=== PATIENT | male | born 1950 | race Caucasian/White ===

== ENCOUNTER → 2016-06-26 | Outpatient (CLI) | payer OTHER, MEDICARE ==
[~2016-06-26] MED LIST: ACET325T96 PO; ALPR-411 PO; AMLO-110 PO; ASPI81TA28 PO; ATEN25TA PO; ATOR-26 PO; ATV/1 PO; B-CO1CAP17 PO; BUSP15TA70 PO; CALC667C4 PO; CINA0.42 PO; CRD200 PO; DOCU-94 PO; FOLI1TAB7 PO; GLIP5TAB11 PO; LVQ500 PO; NVLGI SC; PANT40TA PO; PARO1TAB29 PO; PARO30TA PO; PRD20 PO; PRVHFAIN INH; SENN-91 PO; SUCR5SUS PO; VNFI IV; [UNRECOGNIZED DRUG - CODE] SC
--- NOTE | 2016-06-26 09:59 | DIAGNOSTIC IMAGING REPORT ---
CHEST 2 VIEWS ROUTINE CLINICAL HISTORY: CHF dyspnea COMPARISON STUDY: 09/24/2015 FINDINGS: Prominent parenchymal infiltrate left midlung. Chronic basilar interstitial change. Moderate stable cardiomegaly. Implantable cardiac pacemaker/defibrillator IMPRESSION: Round parenchymal infiltrate versus the less likely possibility of nodular pathology left midlung. Follow-up to resolution is considered mandatory. Moderate stable cardia megaly. Electronically signed by: Minesh Perrin M.D. 06/26/2016 9:57 AM Dictated Date/Time: 06/26/2016 9:56 AM
== END | disposition home or self-care (01) ==
LOC: C.RADBBURG 14:21
PROVIDERS: ATTEND Internal Medicine
DX: R06.02 Shortness of breath (principal); I51.7 Cardiomegaly

== ENCOUNTER → 2016-07-07 | Outpatient (CLI) | payer OTHER, MEDICARE ==
--- NOTE | 2016-07-07 16:28 | DIAGNOSTIC IMAGING REPORT ---
CHEST CT WITHOUT CONTRAST CT DOSE: 678.40 mGycm HISTORY: Abnormal chest x-ray R93.8 Abnormal chest x-ray07/07 TECHNIQUE: Multiaxial CT images of the chest were performed without contrast. COMPARISON: 09/23/2015 FINDINGS: Interval development of a pleural-based nodule with low density characteristics peripheral aspect left midlung. Dimensions are 4.5 x 3.0 cm at maximum. This potentially represents pseudo nodule and/or loculated fluid within the major fissure. Lungs otherwise appear generally clear. There is slight chronic basilar interstitial prominence. There is moderate cardiomegaly are there is findings of prior median sternotomy. Several hepatic cysts are present which are unchanged. IMPRESSION: 1. Interval development of a pleural-based density region of the left major fissure measuring 4.5 x 3.0 cm. 2. Density characteristics indicate this is most likely a pseudo nodule with fluid content. 3. Slight basilar chronic interstitial prominence. 4.: Follow-up to ensure complete resolution is indicated. This persists, bronchoscopy would be suggested. Electronically signed by: Minesh Perrin M.D. 07/07/2016 4:26 PM Dictated Date/Time: 07/07/2016 4:20 PM
== END | disposition home or self-care (01) ==
LOC: C.CTS 15:57
PROVIDERS: ATTEND Physician Assistant
DX: R91.8 Other nonspecific abnormal finding of lung field (principal)

== ENCOUNTER 2016-07-20 09:01 | Inpatient (IN) | payer OTHER, MEDICARE ==
[2016-07-20] VITALS (50 sets, daily range): BP systolic 75–125; BP diastolic 40–65; PULSE 60–71; TEMP 36.6–37.2; O2SAT 92–100; Ht 172.7 cm; Wt 97.7 kg
[~2016-07-20] VITALS: Ht 172.7 cm; Wt 97.7 kg
[~2016-07-20 09:01] MED LIST changes: -ACET325T96 PO; -ALPR-411 PO; -BUSP15TA70 PO; -LVQ500 PO; -PARO1TAB29 PO; -PRD20 PO; -PRVHFAIN INH
--- NOTE | 2016-07-20 09:24 | EMERGENCY ROOM VISIT NOTE ---
History Report prepared by Rosa: Maria A Be Under the Supervision of: Dr. Marcus Moore M.D. First contact with patient: 09:14 Chief Complaint: RESPIRATORY DISTRESS Stated Complaint: SHORTNESS OF BREATH Nursing Triage Summary: Pt arrives ALS from home Pt c/o cold sx x3 weeks with SOB Pt reports this morning SOB increased significantly O2 sats 79% on RA when EMS arrived on scene hx COPD, dialysis History of Present Illness The patient is a 66 year old male who presents to the Emergency Room with complaints of worsening shortness of breath over the past three weeks. The patient associates cold symptoms with his shortness of breath over the last three days. He states that his shortness of breath worsened this morning. Nursing staff reports that the patient was statting 79% on room air upon EMS's arrival. The patient states that he has had this in the past. He notes a history of COPD and dialysis. The patient associates abdominal pain with his symptoms today. Nursing staff notes that the patient had one Duoneb prior to arrival today. Source of History: patient, nursing staff Onset: past three weeks Position: other (global) Quality: other (shortness of breath) Timing: worsening Associated Symptoms: + abdominal pain Note: Associated Symptoms: cold symptoms Review of Systems See HPI for pertinent positives & negatives. A total of 10 systems reviewed and were otherwise negative. Past Medical & Surgical Medical Problems: (1) Abdominal wound dehiscence (2) Acute respiratory failure with hypoxia (3) Anemia (4) ASCVD (arteriosclerotic cardiovascular disease) (5) CHF exacerbation (6) Colostomy care (7) Dehydration (8) Diabetes mellitus (9) End-stage renal disease on hemodialysis (10) ESRD on hemodialysis (11) History of diverticular abscess of colon (12) Hypotension (13) Ileostomy in place (14) Intra-abdominal abscess (15) Post traumatic stress disorder (PTSD) (16) Secondary hyperparathyroidism of renal origin Surgical Problems: (1) AICD (automatic cardioverter/defibrillator) present (2) Hx of CABG (3) S/P AVR (aortic valve replacement) Family History Patient reports no known family medical history. Social History Smoking Status: Former Smoker Drug Use: none Marital Status: single Housing Status: lives alone, other Occupation Status: retired Current/Historical Medications Scheduled Amiodarone HCl (Amiodarone HCl), 100 MG PO BID Amlodipine (Norvasc), 5 MG PO DAILY Aspirin (Aspirin Ec), 81 MG PO DAILY Atenolol (Tenormin), 12.5 MG PO QD@1230 Atorvastatin (Lipitor), 80 MG PO QPM Buspirone Hcl (Buspar), 5 MG PO BID Calcium Acetate (Phoslo 667 Mg), 3 CAP PO TIDM Cinacalcet (Sensipar), 30 MG PO BID Folic Acid (Folvite), 1 MG PO QD@1230 Glipizide (Glucotrol), 2.5 MG PO QD@1230 Pantoprazole Sodium (Protonix), 40 MG PO DAILY @ 1630 Paroxetine (Paxil), 20 MG PO DAILY Vitamin B Cmplx/Vitc/Folic Ac (Nephrocaps), 1 CAP PO DAILY Scheduled PRN Acetaminophen Tab (Tylenol), 650 MG PO Q4 PRN for Pain Lorazepam (Ativan), 1 MG PO DAILY PRN for UNDECIDED Allergies Coded Allergies: No Known Allergies (Verified , 08/08/15) Physical Exam Vital Signs Date Time Temp Pulse Resp B/P Pulse Ox O2 Delivery O2 Flow Rate FiO2 07/20/16 10:22 88 30 159/98 100 Non-Rebreather 15.0 07/20/16 09:41 76 07/20/16 09:10 98 5.0 07/20/16 09:10 100 5.0 07/20/16 09:05 84 Room Air 07/20/16 09:05 36.5 75 36 186/79 82 Room Air Physical Exam GENERAL: Patient awake, alert, oriented x 3. Patient follows commands. Patient does not appear toxic. Patient is adequately hydrated and well- nourished. SKIN: No erythema, pallor, cyanosis or rash HEENT: Normal head, pupils equal, reactive to light and accommodation. Ears normal. Oral cavity and posterior pharynx appear normal. Neck: Without adenopathy, no neck vein distention. LUNGS: Wheezes and rhonchi noted in all schaefer. HEART: Heart sounds are muffled. No murmurs. No gallops. No rubs ABDOMEN: No masses, no rebound, no hepatomegaly or splenomegaly. EXTREMITIES: Fistula in left forearm. No signs of trauma. No significant pedal or pretibial edema. No calf or thigh tenderness. NEUROLOGIC: Cranial nerves II-XII within normal limits. No gross motor sensory function deficits. Medical Decision & Procedures ER Provider Diagnostic Interpretation: X ray results are stated below per my interpretation and the radiologist's interpretation. CHEST ONE VIEW PORTABLE CLINICAL HISTORY: Wheezing. Shortness of breath. COMPARISON STUDY: Chest CT July 07, 2016. FINDINGS: A dual lead right subclavian pacemaker/AICD is in place. There are median sternotomy wires. Moderate cardiomegaly is noted. There is interlobular septal thickening with bilateral airspace opacities, greater within the right lung. A 5.5 cm mass-like left mid to upper lung zone lesion is noted. IMPRESSION: 1. Interstitial thickening consistent with pulmonary edema. Mild bilateral airspace opacities likely reflect pulmonary edema as well although a superimposed infectious process could appear similar. 2. Redemonstration of the 5.5 cm left lung mass which is suspicious for neoplasm. Follow-up pulmonary consultation is recommended. Electronically signed by: Donell Murcia M.D. 07/20/2016 9:53 AM Dictated Date/Time: 07/20/2016 9:49 AM Laboratory Results 07/20/16 09:20 Red Blood Count 3.68, Mean Corpuscular Volume 110.6, Mean Corpuscular Hemoglobin 34.5, Mean Corpuscular Hemoglobin Concent 31.2, Mean Platelet Volume 10.6, Neutrophils (%) (Auto) 85.8, Lymphocytes (%) (Auto) 4.2, Monocytes (%) ( Auto) 9.5, Eosinophils (%) (Auto) 0.1, Basophils (%) (Auto) 0.2, Neutrophils # ( Auto) 9.86, Lymphocytes # (Auto) 0.48, Monocytes # (Auto) 1.09, Eosinophils # ( Auto) 0.01, Basophils # (Auto) 0.02 07/20/16 09:20 Test 07/20/16 09:20 07/20/16 11:07 White Blood Count 11.48 K/uL (4.8-10.8) Red Blood Count 3.68 M/uL (4.7-6.1) Hemoglobin 12.7 g/dL (14.0-18.0) Hematocrit 40.7 % (42-52) Mean Corpuscular Volume 110.6 fL (80-100) Mean Corpuscular Hemoglobin 34.5 pg (25-34) Mean Corpuscular Hemoglobin Concent 31.2 g/dl (32-36) Platelet Count 299 K/uL (130-400) Mean Platelet Volume 10.6 fL (7.4-10.4) Neutrophils (%) (Auto) 85.8 % Lymphocytes (%) (Auto) 4.2 % Monocytes (%) (Auto) 9.5 % Eosinophils (%) (Auto) 0.1 % Basophils (%) (Auto) 0.2 % Neutrophils # (Auto) 9.86 K/uL (1.4-6.5) Lymphocytes # (Auto) 0.48 K/uL (1.2-3.4) Monocytes # (Auto) 1.09 K/uL (0.11-0.59) Eosinophils # (Auto) 0.01 K/uL (0-0.5) Basophils # (Auto) 0.02 K/uL (0-0.2) RDW Standard Deviation 70.6 fL (36.4-46.3) RDW Coefficient of Variation 17.5 % (11.5-14.5) Immature Granulocyte % (Auto) 0.2 % Immature Granulocyte # (Auto) 0.02 K/uL (0.00-0.02) Macrocytosis PRESENT Anion Gap 7.0 mmol/L (3-11) Est Creatinine Clear Calc Drug Dose 8.3 ml/min Estimated GFR () 5.6 Estimated GFR (Non- 4.8 BUN/Creatinine Ratio 6.5 (10-20) Calcium Level 9.4 mg/dl (8.5-10.1) Total Bilirubin 0.7 mg/dl (0.2-1) Aspartate Amino Transf (AST/SGOT) 12 U/L (15-37) Alanine Aminotransferase (ALT/SGPT) 19 U/L (12-78) Alkaline Phosphatase 94 U/L (45-117) Troponin I 0.022 ng/ml (0-0.045) Total Protein 8.5 gm/dl (6.4-8.2) Albumin 3.7 gm/dl (3.4-5.0) Globulin 4.8 gm/dl (2.5-4.0) Albumin/Globulin Ratio 0.8 (0.9-2) Procalcitonin < 0.05 ng/ml (0-0.5) Thyroid Stimulating Hormone (TSH) 3.500 uIu/ml (0.300-4.500) Bedside Glucose 46 mg/dl (70-99) Laboratory results as stated above per my review. Medications Administered Medications (Trade) Dose Ordered Sig/Lex Route Start Time Stop Time Status Last Admin Dose Admin Albuterol/ Ipratropium (Duoneb) 3 ml STK-MED ONCE .ROUTE 07/20/16 09:26 07/20/16 09:27 DC 07/20/16 09:26 3 ML Dextrose (Dextrose 50% 50ML Syringe) 50 ml STK-MED ONCE .ROUTE 07/20/16 11:16 07/20/16 11:17 DC 07/20/16 11:16 50 ML ECG Change: Patient is unable to lie down at all, therefore we are unable to obtain an EKG sitting up. He additionally has a tremendous amount of movement. ED Course 0914: Past medical records reviewed. The patient was evaluated in room B9. A complete history and physical examination was performed. 0926: Ordered Duoneb 3 ml .route. 0959: I reevaluated the patient and he is in need of emergent dialysis. I discussed all the exam findings with him and I discussed the treatment plan. He verbalized complete understanding and agreement. He will be evaluated for further treatment. 1005: I discussed the patients case with Dr. Whyte, Nephrology. She would like me to speak with Dr. Roberts, Nephrology. 1013: I discussed the patients case with Dr. Roberts, Nephrology. He is going to come see the patient. 1015: Ordered Morphine Sulfate 2 mg IV. 1016: I discussed the patients case with APOLLO Thomson. He is going to evaluate the patient for further treatment. 1048: I reevaluated the patient and APOLLO Thomson is at the bedside. Medical Decision Nurses notes reviewed. Medical history sheet reviewed. Differential diagnosis includes but is not limited to: COPD, congestive heart failure, pneumonia, pulmonary embolism, arrhythmia, UT. The patient received a breathing treatment with albuterol prior to entry by the medics. On arrival the patient remained extremely dyspneic with wheezes in all schaefer. He was given another breathing treatment chest x-ray was then obtained revealing pulmonary edema. The patient does not urinate at all and therefore was given the Lasix. He was given IV morphine which helped. Multiple labs and imaging were evaluated. Please see above. I discussed care with Dr. Roberts who also evaluated the patient in the ED. I also discussed care with Dr. Foote. The patient was admitted for urgent dialysis. Consults Time Called: 1003 Consulting Physician: Dr. Whyte Nephrology Returned Call: [phone] I discussed the patients case with Salma Gordon. She would like me to speak with Salma Tucker. Additional Consults: Time Called: 1005 Consulted Physician: Salma Tucker Returned Call: [phone] Additional Comments: I discussed the patients case with Salma Tucker. He is going to come see the patient. Time Called: 1013 Consulted Physician: APOLLO Thomson Returned Call: [phone] Additional Comments: I discussed the patients case with APOLLO Thomson. He is going to evaluate the patient for further treatment. Impression Primary Impression: Pulmonary edema Additional Impression: Hyperkalemia Scribe Attestation The scribe's documentation has been prepared under my direction and personally reviewed by me in its entirety. I confirm that the note above accurately reflects all work, treatment, procedures, and medical decision making performed by me. Departure Information Dispostion Being Evaluated By Hospitalist Referrals Satya Roberts M.D. (PCP) Patient Instructions Asthma - [facility], COPD - [facility], Croup - [facility], My [facility] Problem Qualifiers
[2016-07-20] MEDS ORDERED: ALBUT/IPRATROP 3MG/0.5MG NEB 3 ML VIAL ONE (09:26)
[2016-07-20] MEDS ORDERED: BUSP15TA70 PO (09:43)
[2016-07-20] MEDS ORDERED: PARO1TAB29 PO (09:43)
[2016-07-20] MEDS ORDERED: ACET325T96 PO (09:44)
[2016-07-20 09:46] LABS: BASO % 0.2 %; BASO ABS # 0.02 K/uL (0-0.2); EOS % 0.1 %; HEMATOCRIT 40.7 % (42-52); IG% 0.2 %; LYMPH % 4.2 %; LYMPH ABS # 0.48 K/uL (1.2-3.4); MEAN CELL VOLUME 110.6 fL (80-100); MEAN CORPUSCULAR HEMOGLOBIN 34.5 pg (25-34); MEAN CORPUSCULAR HGB CONC 31.2 g/dl (32-36); MEAN PLATELET VOLUME 10.6 fL (7.4-10.4); MONO % 9.5 %; NEUT % 85.8 %; PLATELET COUNT 299 K/uL (130-400); RED BLOOD COUNT 3.68 M/uL (4.7-6.1); WHITE BLOOD COUNT 11.48 K/uL (4.8-10.8)
--- NOTE | 2016-07-20 09:55 | DIAGNOSTIC IMAGING REPORT ---
CHEST ONE VIEW PORTABLE CLINICAL HISTORY: Wheezing. Shortness of breath. COMPARISON STUDY: Chest CT July 07, 2016. FINDINGS: A dual lead right subclavian pacemaker/AICD is in place. There are median sternotomy wires. Moderate cardiomegaly is noted. There is interlobular septal thickening with bilateral airspace opacities, greater within the right lung. A 5.5 cm mass-like left mid to upper lung zone lesion is noted. IMPRESSION: 1. Interstitial thickening consistent with pulmonary edema. Mild bilateral airspace opacities likely reflect pulmonary edema as well although a superimposed infectious process could appear similar. 2. Redemonstration of the 5.5 cm left lung mass which is suspicious for neoplasm. Follow-up pulmonary consultation is recommended. Electronically signed by: Donell Murcia M.D. 07/20/2016 9:53 AM Dictated Date/Time: 07/20/2016 9:49 AM
[2016-07-20] MEDS ORDERED: MoRPHine SULFATE 4 MG/ML 1 ML CARP\\VIAL IV PRN (10:15)
[2016-07-20 10:21] LABS: ALB/GLOB RATIO 0.8 (0.9-2); BUN/CREATININE RATIO 6.5 (10-20); CALCIUM 9.4 mg/dl (8.5-10.1); POTASSIUM 5.7 mmol/L (3.5-5.1)
[2016-07-20 10:28] LABS: COMPLETE YES
--- NOTE | 2016-07-20 10:51 | History and Physical ---
History & Physical Date & Time of Service: Jul 20, 2016 at 10:29 Chief Complaint: Shortness Of Breath Primary Care Physician: Satya Roberts M.D. History of Present Illness Source: patient 66yo male with ESRD on HD M/W/F who presents with worsening cough and dyspnea for about 3 weeks. He does report compliance with his HD schedule and he dialyzed on Wednesday in [place]. Over the weekend he felt poorly with very little appetite. Cough is mildly productive of clear sputum. No hemoptysis. NO recent weight loss, fever, or chills. Denies any chest pain. No palpitations. He has a pacemaker/AICD and has not had any shocks delivered. He had orthopnea and PND over the weekend. He propped himself up in the bed over the weekend to rest. At this point his dyspnea is so severe he gets out of breath with walking 10 feet. He had dyspnea all last night and felt so fatigued this AM he called 911 and came by ambulance to [facility]. He has a known left lung mass and has been referred to Dr. Solitario from thoracic surgery. Although the EMR states he has a h/o COPD he denies that diagnosis and reports no use of nebs or inhalers at home. Past Medical/Surgical History PMH: 1. ESRD, on HD x 9 years; AV fistula in left arm; dialyzes M/W/F 2. aortic valve replacement (porcine) - 2009 3. CAD, s/p CABG - 4 vessel; but no h/o MD - 2009 4. T2DM 5. cardiac arrest in 2009 6. chronic diastolic CHF 7. HTN 8. anxiety d/o 9. ?copd 10. H/O perforated diverticulum ultimately requiring colon resection & colostomy 11. h/o v-tach 12. PTSD PSH: 1. CABG 2. aortic valve replacement 3. AV fistula - left arm 4. pacemaker/AICD implantation - 2009 (Dr. Lee) 5. tonsillectomy 6. 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 ) Immunizations History of Influenza Vaccine: Yes History of Tetanus Vaccine?: Unknown History of Pneumococcal: Yes History of Hepatitis B Vaccine: Unknown Multi-Drug Resistant Organisms History of MDRO: Yes Type of MDRO: MRSA Allergies Coded Allergies: No Known Allergies (Verified , 08/08/15) Home Medications Scheduled Amiodarone HCl (Amiodarone HCl), 100 MG PO BID Amlodipine (Norvasc), 5 MG PO DAILY Aspirin (Aspirin Ec), 81 MG PO DAILY Atenolol (Tenormin), 12.5 MG PO QD@1230 Atorvastatin (Lipitor), 80 MG PO QPM Buspirone Hcl (Buspar), 5 MG PO BID Calcium Acetate (Phoslo 667 Mg), 3 CAP PO TIDM Cinacalcet (Sensipar), 30 MG PO BID Folic Acid (Folvite), 1 MG PO QD@1230 Glipizide (Glucotrol), 2.5 MG PO QD@1230 Pantoprazole Sodium (Protonix), 40 MG PO DAILY @ 1630 Paroxetine (Paxil), 20 MG PO DAILY Vitamin B Cmplx/Vitc/Folic Ac (Nephrocaps), 1 CAP PO DAILY Scheduled PRN Acetaminophen Tab (Tylenol), 650 MG PO Q4 PRN for Pain Lorazepam (Ativan), 1 MG PO DAILY PRN for UNDECIDED Review of Systems Constitutional: + fatigue, No chills, No fever, No weight loss Eyes: No worsening of vision ENT: No nasal symptoms, No sore throat, No trouble swallowing Respiratory: + cough, + dyspnea at rest, + dyspnea on exertion, + shortness of breath, + sputum, + wheezing, No hemoptysis Cardiovascular: + PND, + orthopnea, No chest pain, No claudication, No edema, No palpitations Abdomen: No GI bleeding, No diarrhea, No nausea, No pain, No vomiting Musculoskeletal: No joint pain Neurologic: No memory loss, No numbness/tingling Psychiatric: + anxiety, + depression symptoms Endocrine: No fatigue Hematologic / Lymphatic: + abnormal bleeding/bruising Integumentary: No rash Physical Exam Vital Signs Date Time Temp Pulse Resp B/P Pulse Ox O2 Delivery O2 Flow Rate FiO2 07/20/16 10:22 88 30 159/98 100 Non-Rebreather 15.0 07/20/16 09:41 76 07/20/16 09:10 98 5.0 07/20/16 09:10 100 5.0 07/20/16 09:05 84 Room Air 07/20/16 09:05 36.5 75 36 186/79 82 Room Air General Appearance: + severe distress (tachypneic, retractions, dyspneic with talking), + obese Head: normocephalic, atraumatic Eyes: PERRL ENT: TMs normal, pharynx normal Neck: no adenopathy, thyroid normal, no carotid bruits, + JVD Respiratory/Chest: + respiratory distress, + accessory muscle use, + crackles ( bases), + wheezing (extensive b/l ) Cardiovascular: no gallop, + irregularly irregular, + pertinent finding (heart tones distant due to the significant wheezing) Abdomen/GI: normal bowel sounds, non tender, soft, no organomegaly, + pertinent finding (multiple surgical scars on abdominal wall) Back: normal inspection Extremities/Musculoskelatal: no pedal edema, + pertinent finding (pulses 1+ b/ l feet) Neurologic/Psych: no motor/sensory deficits, alert, normal reflexes, oriented x 3 Skin: + pertinent finding (AV fistula left arm with +thrill and +bruit ) Diagnostics Laboratory Results Results Past 24 Hours Test 07/20/16 09:20 Range/Units White Blood Count 11.48 4.8-10.8 K/uL Red Blood Count 3.68 4.7-6.1 M/uL Hemoglobin 12.7 14.0-18.0 g/dL Hematocrit 40.7 42-52 % Mean Corpuscular Volume 110.6 80-100 fL Mean Corpuscular Hemoglobin 34.5 25-34 pg Mean Corpuscular Hemoglobin Concent 31.2 32-36 g/dl Platelet Count 299 130-400 K/uL Mean Platelet Volume 10.6 7.4-10.4 fL Neutrophils (%) (Auto) 85.8 % Lymphocytes (%) (Auto) 4.2 % Monocytes (%) (Auto) 9.5 % Eosinophils (%) (Auto) 0.1 % Basophils (%) (Auto) 0.2 % Neutrophils # (Auto) 9.86 1.4-6.5 K/uL Lymphocytes # (Auto) 0.48 1.2-3.4 K/uL Monocytes # (Auto) 1.09 0.11-0.59 K/uL Eosinophils # (Auto) 0.01 0-0.5 K/uL Basophils # (Auto) 0.02 0-0.2 K/uL RDW Standard Deviation 70.6 36.4-46.3 fL RDW Coefficient of Variation 17.5 11.5-14.5 % Immature Granulocyte % (Auto) 0.2 % Immature Granulocyte # (Auto) 0.02 0.00-0.02 K/uL Macrocytosis PRESENT Sodium Level 139 136-145 mmol/L Potassium Level 5.7 3.5-5.1 mmol/L Chloride Level 98 98-107 mmol/L Carbon Dioxide Level 34 21-32 mmol/L Anion Gap 7.0 3-11 mmol/L Blood Urea Nitrogen 65 7-18 mg/dl Creatinine 10.00 0.60-1.40 mg/dl Est Creatinine Clear Calc Drug Dose 8.3 ml/min Estimated GFR () 5.6 Estimated GFR (Non- 4.8 BUN/Creatinine Ratio 6.5 10-20 Random Glucose 65 70-99 mg/dl Calcium Level 9.4 8.5-10.1 mg/dl Total Bilirubin 0.7 0.2-1 mg/dl Aspartate Amino Transf (AST/SGOT) 12 15-37 U/L Alanine Aminotransferase (ALT/SGPT) 19 12-78 U/L Alkaline Phosphatase 94 45-117 U/L Troponin I 0.022 0-0.045 ng/ml Total Protein 8.5 6.4-8.2 gm/dl Albumin 3.7 3.4-5.0 gm/dl Globulin 4.8 2.5-4.0 gm/dl Albumin/Globulin Ratio 0.8 0.9-2 Diagnostic Radiology CXR: IMPRESSION: 1. Interstitial thickening consistent with pulmonary edema. Mild bilateral airspace opacities likely reflect pulmonary edema as well although a superimposed infectious process could appear similar. 2. Redemonstration of the 5.5 cm left lung mass which is suspicious for neoplasm. Follow-up pulmonary consultation is recommended. EKG unable to obtain EKG as patient was severely orthopneic and could not lay flat Impression Assessment and Plan 66yo male with numerous medical problems including ESRD on HD M/W/F presenting with severe acute hypoxic respiratory failure. 1. acute hypoxic respiratory failure - appears volume overloaded in the setting of known ESRD on HD and chronic diastolic CHF. Emergent HD to take place once in the ICU. Start BIPAP now. STAT blood cx's; check procalcitonin level; consider IV antibiotics for possible underlying pneumonia but difficult to tell based on current imaging if that is present. Defer to ICU attending. Extensive wheezing - likely due to pulmonary edema, but cannot rule out acute bronchitis/COPD exacerbation. For that start q6h nebs and IV steroids solumedrol 60mg q6h. To be admitted to ICU given the severity of his illness and potential for further decompensation. 2. ESRD on HD - dry weight is 95kg; today is 103kg in the ER. Pt reports compliance with HD and diet. Could a cardiac component be driving fluid retention? See below. Continue phosphate binders, nephrocaps, etc. 3. wide complex tachycardia - while in the ER I noted wide complex tachycardia. He has a LBBB at baseline. Will interrogate his pacer/AICD device. Consider cardiology consultation depending on clinical course and findings on interrogation. Cont amiodarone and beta vargas. Has h/o v-tach. Check TSH due to amiodarone use. 4. acute/chronic diastolic CHF - emergent HD today. Appreciate Dr. Roberts's assistance. 5. hypoglycemia in known T2DM - 2nd to sulfonylurea use in the setting of poor oral intake and ESRD status. D50 given in ER with improvement to >100. Steroids will help this. Stop the sulfonylurea. FSBS while in ICU. 6. DVT proph - heparin BID. 7. macrocytic anemia - check b12/folate later today. 8. h/o CAD - serial troponins. Continue beta vargas, aspirin, lipitor. 9. code status - level 1 full code. 10. valvular heart disease, s/p aortic valve replacement in the past - has been >1 year since last echo. Given his volume overloaded state will obtain echo to exclude worsening valve function, worsening EF, etc. 11. HTN - continue home meds. 12. anxiety disorder and PTSD - continue buspar. 13. h/o v-tach - continue amiodarone. Interrogate pacer/AICD. plan of care d/w Dr. Roberts and Dr. Shippert Level of Care Critical Care Advanced Directives Existing Advance Directive: No Existing Living Will: Yes Resuscitation Status FULL RESUSCITATION VTE Prophylaxis Risk Level: High Given or contraindicated: Unfractionated heparin SQ Note Total Time: Critical Care 30 - 74 minutes Additional Copies To Satya Roberts M.D.
[2016-07-20] MEDS ORDERED: SODIUM CHLORIDE 0.9% 1000ML 1,000 ML IV PRN (11:15)
[2016-07-20] MEDS ORDERED: MoRPHine SULFATE 2 MG/ML CARP IV PRN (11:15)
[2016-07-20] MEDS ORDERED: NITROGLYCERIN 0.4 MG SL PER TAB CHARGE SL PRN (11:15)
[2016-07-20] MEDS ORDERED: HEPARIN SOD (PORCINE) 1000 UNIT/ML 10 ML VIAL IV SCH ×2 (11:15)
[2016-07-20] MEDS ORDERED: ACETAMINOPHEN 325 MG TAB PO PRN (11:15)
[2016-07-20] MEDS ORDERED: DEXTROSE 50% 50 ML SYR ONE (11:16)
[2016-07-20] MEDS ORDERED: MoRPHine SULFATE 2 MG/ML CARP IV STA (11:21)
[2016-07-20] MEDS ORDERED: MoRPHine SULFATE 2 MG/ML CARP ONE (11:27)
[2016-07-20] MEDS: METHYLPREDNISOLONE IV 60 MG in SYRINGE 0 ML IV SCH ×3 (12:27→23:34)
[2016-07-20] MEDS: CALCIUM ACETATE 667MG GELCAP PO SCH ×2 (12:30→16:30)
[2016-07-20 12:33] LABS: THYROID STIMULATING HORMONE 3.5 uIu/ml (0.300-4.500)
--- NOTE | 2016-07-20 13:05 | NEPHROLOGY CONSULTATION ---
DATE OF CONSULTATION: 07/20/2016 REFERRING PHYSICIAN: [facility]. SUBJECTIVE: Mr. Tate is a 66-year-old white male. He is a [place] . He is retired. He has multiple medical issues. He is admitted today with acute shortness of breath and physical and imaging studies that supported a diagnosis of acute pulmonary edema. From the standpoint of his chronic renal disease, Mr. Tate has a significant past history. He was first noted to have proteinuria on a routine urinalysis in 2000. He was seen by a software product manager in [facility]. 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 Consideration at that time was given to treating him with prednisone and Cytoxan, but apparently that was not done for reasons that were not clear. Nevertheless, Mr. Tate continued to do well. In 2002, he had his first of several episodes of gastrointestinal bleeding presumably from diverticulosis. A diagnosis was not confirmed until more recent years. However, a colonoscopy done at that time did demonstrate some rectal polyps. There were felt not to be the source of this bleeding. In 2003, Mr. Tate developed symptomatic coronary artery disease. He underwent an angioplasty and stent placement. He had recurrent chest pains in early 2005 and at that time, was evaluated at [facility]. He underwent coronary angiography and subsequent coronary artery bypass surgery as well as an aortic valve replacement for aortic stenosis. The procedure was complicated by acute renal failure. That required brief supportive hemodialysis. Nevertheless, Mr. Tate recovered adequately, so that he did not need to be maintained on dialysis at that time. However, his serum creatinine after discharge from the hospital remained elevated in the range of about 3.5-4.0 mg/dL. Subsequent to that, his serum creatinine steadily zack until he developed symptomatic uremia and evidence of volume overload. In March of 2007, he developed gross hematuria. His creatinine climbed to 11. A CT scan of his abdomen showed evidence of hydronephrosis on the left. A urologic evaluation including a renal ultrasound, cystoscopy and retrograde failed to show any evidence of definite renal stones. He was also evaluated for possible renal vein thrombosis or potential complication of his membranous nephropathy. However, the diagnosis of renal vein thrombosis was never confirmed. His serum creatinine remained elevated and maintenance dialysis was begun. For the most part, he has been stable on dialysis. Access has been through a left forearm AV fistula. His major complicating issue reoccurred in September of 2010, when he had a cardiac arrest during a hemodialysis treatment. He was resuscitated and fortunately recovered completely with no neurologic sequela. Not long thereafter, an ICD was placed on the right side. He has had no acute coronary injury since that time. He is followed regularly by cardiology. He has been on amiodarone since that time. He does not believe his ICD has ever discharged. Mr. Tate's more recent problems began to occur in the early winter of 2014. At that time, he had complaints of right lower quadrant abdominal discomfort. Although, his symptoms initially seemed to be muscular in etiology, they persisted and for that reason, a CT scan was done, which demonstrated changes of acute diverticulitis with possible abscess formation in the mid sigmoid area. He was treated with Cipro and Flagyl. The treatment was complicated by minimal hypoglycemia, but his recovery was otherwise uneventful. In May of 2013, he began to have recurring episodes of rectal bleeding. He underwent a flexible fiberoptic sigmoidoscopy by Dr. Guerra. He was noted to have moderate diverticulosis with spasm. He had some peridiverticular erythema. He was treated conservatively. In late 2014, he began to complain of right lower quadrant abdominal pain and discomfort in the right groin. He mentioned this only incidentally during routine exams. He had no other GI symptoms. Specifically, he had no change in his bowel movements. He has had no further hematochezia. He had no chills or fever and no problems with abdominal pain. His appetite remained excellent and he did not lose weight. Routine laboratory work, however, showed evidence of a minimal shift to the left in his white count, although his white count was normal. His serum albumin, which was generally in excess of 4, began to fall. A CT scan of his abdomen was again done and showed an inflammatory mass, probably originating from the sigmoid diverticulosis. The mass was present in the right lower quadrant of his abdomen. He had some gas within the mass. Because of that abnormality, he was referred to surgery and briefly admitted to the hospital for the initiation of intravenous antibiotics. He remains stable during that hospitalization. He was treated with oral antibiotics for about 2 weeks. Surgery was scheduled. His surgery was originally scheduled in early April, but had to be canceled because of an upper respiratory tract infection. The surgery was subsequently done in late April. He had drainage of his abscess and a partial colectomy and ileostomy was created. He had a very high ostomy output. Nonetheless, he improved with treatment with octreotide. His ostomy output fell considerably. Although, he was agitated because of his colostomy. He otherwise did well. Subsequently, his colostomy was taken down. He had some complications associated with that surgery as well, but none more cardiac or renal. Eventually, he improved. He had returned to his usual state of health. Mr. Tate continues to dialyze at [facility] in [place]. His treatments are generally uncomplicated. His access is a left forearm AV fistula. For the past 2-3 weeks, he has been complaining of some nonspecific symptoms of generally not feeling well and having an occasional cough. Routine chest x-ray showed evidence of possible left pleural based mass. A subsequent CT scan showed the same findings. It was unclear as to whether or not it did represent a well-circumscribed mass or a pseudotumor with fluid in the fissure. He was referred to see Dr. Solitario. Further diagnostic testing was held off and it was recommended that he only have a repeat CT scan done in about 3 months. For the past week, he has complained of some increasing shortness of breath, generally not feeling well and having some mild anorexia. He denies having any significant chest pain, pleuritic or otherwise including no anginal like chest pain. He was not complaining of PND or orthopnea. Over the course of the past weekend, however, he became even more acutely short of breath. He said that he was not eating. He generally felt poorly. He was increasingly dyspneic. He called the dialysis unit this morning and was referred to the ER. In the emergency room, his chest x-ray was consistent with pulmonary edema. The mass in the left chest persisted and appeared to be unchanged. It is the feeling of the Emergency Room staff and me that he really had acute congestive heart failure. A precipitating event seems unclear. PAST MEDICAL HISTORY: 1. Longstanding history of hypertension. 2. Non-insulin dependent diabetes, managed with oral hypoglycemics. 3. Hypercholesterolemia. 4. ASCVD with a history of coronary artery disease, status post coronary artery bypass grafting x2. 5. History of aortic stenosis, status post aortic valve replacement. 6. History of GI bleeding from diverticulosis. 7. PTSD. 8. History of chronic venous insufficiency involving his lower extremities. 9. Membranous nephropathy/ESRD. 10. History of acute renal failure. 11. History of secondary anemia. 12. History of diverticulosis/diverticulitis with a partial colectomy because of a complicating diverticular abscess. 13. History of cardiac arrest with an ICD now in place. PAST SURGICAL HISTORY: Coronary artery bypass surgery with aortic valve replacement. He also had the creation of an AV fistula in his left arm as well as the surgical drainage of an abscess emanating from the sigmoid colon as well as the creation of an ileostomy and colon resection and subsequent colostomy takedown. CURRENT REGULAR MEDICATIONS: Amiodarone 100 mg twice daily, atenolol 25 mg daily, aspirin 81 mg daily, BuSpar 5 mg daily, folic acid 1 mg daily, glipizide 2.5 mg daily, Lipitor 80 mg at bedtime, lorazepam 1 mg at bedtime p.r.n., Norvasc 5 mg daily, pantoprazole 40 mg daily, Paxil 20 mg daily, PhosLo 667 mg 3 with each meal, renal caps 1 daily, Sensipar 30 mg twice daily and acetaminophen 325 mg 2 q. 4 hours p.r.n. pain. His medications given in dialysis include heparin, which he gets 2000 units as a loading dose with each dialysis treatment, but no hourly heparin given; Venofer IV push, which he has recently started on; Mircera 50 mg every 2 weeks given in dialysis. ALLERGIES: No known medication allergies. REVIEW OF SYSTEMS: Essentially as outlined in the issues above. OBJECTIVE: GENERAL: On physical exam when seen, Mr. Tate appeared as an acutely and chronically ill gentleman. He was receiving oxygen by mask. He was obviously dyspneic and appeared puffy and somewhat disheveled. VITAL SIGNS: He is afebrile (36.5), his blood pressure 186/79, his pulse 75 and regular, respiratory rate 30-36, and his pulse ox on 100% nonrebreather was 100%. Prior to that on room air, he had a pulse ox of only 84%. SKIN: Shows normal skin turgor. He has no rash or infiltrative skin disease. He has multiple scars from prior surgical procedures including abdominal scars from his colon surgery, ostomy and its takedown. He has a left forearm scar from the creation of his AV fistula and a midsternal scar from his heart surgery. He has a palpable ICD beneath the distal right clavicle. LYMPHATICS: Show no palpable lymphadenopathy. HEAD: Normal. EYES: Grossly normal. The ocular fundi were not examined. EARS, NOSE, MOUTH AND THROAT: All unremarkable. His oral mucous membranes are moist. NECK: Supple. I see no jugular venous distention, but the exam is limited by his body habitus. I hear no carotid bruits and there is no thyromegaly. CHEST: Shows diffuse wheezes and rales. CARDIAC: Shows a regular rhythm. S1 and S2 are consistent with bioprosthetic valve sounds. He has a grade 2-3 systolic murmur loudest at the base, but also heard along the left sternal border. The murmur radiates toward his neck. ABDOMEN: Protuberant. He has the scars as noted. He has no organomegaly or mass. Bowel sounds are present. GENITAL AND RECTAL: Exams were not done. EXTREMITIES: Show no cyanosis, clubbing or significant peripheral edema. He has a left forearm AV fistula, which is functioning well. Peripheral pulses are diminished, but present. I hear no bruits over major blood vessels. NEUROLOGIC: Shows him to be lethargic. He has slightly slurred speech. No lateralizing changes are noted. He is oriented in 3 spheres. PERTINENT LABORATORY WORK: From today shows a white count of 11,480 with 85.8% neutrophils, 4.2% lymphocytes, 9.5% monocytes, 0.1% eosinophils, and 0.2% basophils. His hemoglobin 12.7, hematocrit 40.7, and his red cell indices are macrocytic. His platelet count is 299,000. His clinical chemistries show sodium of 139 mmol/L, potassium 5.7 mmol/L, chlorides 98 mmol/L, and CO2 content 34 mmol/L. His BUN is 65 and his creatinine 10.0. His blood sugar today was 46!. His total bilirubin 0.7. His AST 12, ALT 19, and alkaline phosphatase 94. His troponin 0.022. His total protein is 8.5. His albumin 3.7 and his globulin is 4.8. TSH and procalcitonin is pending. His chest x-ray today shows interstitial thickening consistent with pulmonary edema. He has bilateral airspace opacities again consistent with pulmonary edema. He has a 5.5-cm left lung mass, suspicious for neoplasm, but again it is consistent with the previously noted change. ASSESSMENT: I believe his current situation is significant volume overload with pulmonary edema. He slowly has slid into this. There does not appear to be a precipitating factor, but interrogation of his ICD may be helpful. I would certainly recommend cardiac consultation. His troponin is normal. However, he does have a history of coronary artery disease and I think an echocardiogram done in conjunction with cardiology may be helpful to see if he is suffered any acute cardiac event precipitating the current issues. He has a macrocytosis at the current time. However, his other blood counts appear to be appropriate. He is also hyperglobulinemic. RECOMMENDATIONS: 1. Immediate therapy will be hemodialysis. We will try to remove about 6 liters of fluid. We will dialyze him against a 3K bath given his history of coronary artery disease. He will be moved to the intensive care unit for treatment and monitoring during his treatment. 2. I would recommend cardiac consultation with echocardiogram. 3. I would recommend and we do a serum electrophoresis and serum immunofixation given his hyperglobulinemia and current macrocytosis. Certainly, he may have an early myelodysplastic syndrome. No other immediate recommendations other than to hold his glipizide given his current hypoglycemia. Blood sugar should be checked periodically. 4. Cardiac consultation with echocardiography.
[2016-07-20] MEDS: IPRATROPIUM BROMIDE NEB SOLN 0.02% 2.5 ML VIAL INH SCH ×2 (15:00→19:36)
[2016-07-20] MEDS: LEVALBUTEROL 1.25MG/0.5ML NEB INH SCH ×2 (15:00→19:37)
[2016-07-20] MEDS: ATORVASTATIN 40 MG TAB PO SCH (20:44)
[2016-07-20] MEDS: AMIODARONE 200 MG TAB PO SCH (20:44)
[2016-07-20] MEDS: HEPARIN SOD 5000 UNIT/0.5 ML CARP SQ SCH ×2 (20:46→21:00)
[2016-07-21] VITALS (14 sets, daily range): BP systolic 95–117; BP diastolic 46–58; PULSE 60–85; TEMP 36.6–37.5; O2SAT 92–99
[2016-07-21] MEDS: IPRATROPIUM BROMIDE NEB SOLN 0.02% 2.5 ML VIAL INH SCH ×4 (02:07→19:00)
[2016-07-21] MEDS: LEVALBUTEROL 1.25MG/0.5ML NEB INH SCH ×4 (02:07→19:00)
[2016-07-21 03:10] LABS: BASO % 0.1 %; BASO ABS # 0.01 K/uL (0-0.2); COMPLETE YES; IG% 0.3 %; LYMPH % 3.3 %; LYMPH ABS # 0.25 K/uL (1.2-3.4); MEAN CORPUSCULAR HEMOGLOBIN 33.3 pg (25-34); MEAN CORPUSCULAR HGB CONC 30.6 g/dl (32-36); MEAN PLATELET VOLUME 9.9 fL (7.4-10.4); MONO % 1.3 %; PLATELET COUNT 207 K/uL (130-400); RED BLOOD COUNT 3.21 M/uL (4.7-6.1); WHITE BLOOD COUNT 7.51 K/uL (4.8-10.8)
[2016-07-21 03:58] LABS: BUN/CREATININE RATIO 6.4 (10-20); CALCIUM 7.7 mg/dl (8.5-10.1); CREATININE 6.8 mg/dl (0.60-1.40); POTASSIUM 5.2 mmol/L (3.5-5.1)
[2016-07-21] MEDS: METHYLPREDNISOLONE IV 60 MG in SYRINGE 0 ML IV SCH (05:26)
--- NOTE | 2016-07-21 07:41 | DIAGNOSTIC IMAGING REPORT ---
CHEST ONE VIEW PORTABLE HISTORY: Fluid Overload COMPARISON: Chest 07/20/2016. FINDINGS: No pneumothorax. The heart remains moderately enlarged. Pulmonary edema pattern has improved. Patchy densities the right lung base is also improved. No pleural effusions. Right-sided defibrillator/pacemaker is again noted. There are poststernotomy changes. Old, healed left-sided rib fractures. Left upper lobe masslike opacity is again noted. This measures 5 cm. IMPRESSION: 1. Improvement in the pulmonary edema and right basilar airspace opacities. 2. Left upper lobe mass is again noted. Oncology follow-up is recommended. Electronically signed by: Reji Mendenhall M.D. 07/21/2016 7:39 AM Dictated Date/Time: 07/21/2016 7:36 AM
[2016-07-21] MEDS: CALCIUM ACETATE 667MG GELCAP PO SCH ×3 (07:49→16:53)
[2016-07-21] MEDS: ASPIRIN 81 MG ECTAB PO SCH (07:51)
[2016-07-21] MEDS: AMIODARONE 200 MG TAB PO SCH ×2 (07:51→21:40)
[2016-07-21] MEDS: PAROXETINE 20 MG TAB PO SCH (07:52)
[2016-07-21] MEDS: NEPHROCAPS PO SCH (07:52)
[2016-07-21] MEDS: PANTOprazole SOD 40 MG TAB PO SCH (07:53)
[2016-07-21] MEDS: HEPARIN SOD 5000 UNIT/0.5 ML CARP SQ SCH ×2 (08:02→21:00)
[2016-07-21] MEDS ORDERED: AMLODIPINE BESYLATE 5 MG TAB PO SCH (09:00)
--- NOTE | 2016-07-21 10:11 | NEPHROLOGY PROGRESS NOTE ---
DATE: 07/21/2016 DATE: 07/21/2016. SUBJECTIVE: Mr. Tate says that he is feeling significantly better today. He still has somewhat of a cough, but it has been nonproductive. He denies being short of breath at rest. He is now comfortable using 2 liters of oxygen via nasal cannula. He is having no shaking chills or sweats. He has had no documented fever. Dialysis yesterday was seemingly uneventful. Four liters of fluid were removed. His blood pressure was subsequently on the low side of normal. OBJECTIVE: GENERAL: On physical examination, Mr. Tate looks dramatically better this morning. He appears to be comfortable lying in bed. VITAL SIGNS: He is receiving oxygen via nasal cannula at 2 liters a minute. His pulse ox is 95-99% on 2 liters. He is afebrile (36.8), his blood pressure 101/49. His pulse is 62 and regular, respiratory rate 20. SKIN: Shows normal skin turgor. He has no rash or infiltrative skin disease. He has several tattoos. He has scars from prior surgical procedures as listed previously. LYMPHATICS: Show no palpable lymphadenopathy. HEAD: Normal. EYES: Grossly normal. The ocular fundi were not examined. EARS, NOSE, MOUTH AND THROAT: Unremarkable. His oral mucous membranes are moist. NECK: Supple. He has minimal jugular venous distention lying at about 45 degrees. I hear no carotid bruit and there is no thyromegaly. CHEST: Still shows a few scattered wheezes and rhonchi. He has no rales. Breath sounds are generally diminished, particularly at the bases. CARDIAC EXAMINATION: Shows a regular rhythm. S1 and S2 are normal and consistent with bioprosthetic valve sounds. He has a grade 2-3/6 systolic murmur heard loudest at the base but also heard radiating along the left sternal border as well as toward the neck. ABDOMEN: Protuberant but nontender. There is no obvious organomegaly or mass. Bowel sounds are normal. EXTREMITIES: Show no cyanosis, clubbing or peripheral edema. His left forearm AV fistula is functioning well. Peripheral pulses are diminished, but I hear no bruits over major blood vessels. NEUROLOGIC: Shows him to be awake, alert and oriented in 3 spheres. He is not nearly as lethargic. His speech is not slurred. PERTINENT LABORATORY WORK: From today shows a white count down to 7,510 with 95% neutrophils, 3.3% lymphocytes, 1.3% monocytes and 0.1% basophils. His clinical chemistries from today show a sodium of 137 mmol/L, potassium 5.2 mmol/L, chloride is 98 mmol/L, and CO2 content 35 mmol/L. His BUN is 43, his creatinine 6.80. Random blood sugars vary from 167 to 189. His serum calcium is 7.7. His troponin 0.075. Blood cultures are pending. His chest x-ray done this morning shows improvement in the pattern of pulmonary edema and right basilar airspace opacities. He still has a left upper lobe mass. This has been evaluated previously as noted in my consult, although radiology currently seems to be concerned that this represents a mass his previous CT scan suggested that it is more likely a pseudotumor. I do not think there is any cause at the current time to be more aggressive. ASSESSMENT: Dramatic improvement in the component of congestive heart failure that he had. At the current time, I do not think there is an element of bronchitis present even though the patient has no fever. He is getting methylprednisolone and that probably contributes to the shift to the left of his white count. RECOMMENDATIONS: We will hold off on dialysis today but plan to repeat his treatment tomorrow. I agree with the continuation of methylprednisolone and think that broad-spectrum antibiotics such as ceftriaxone may be helpful as well. Will continue to closely monitor the presumed left upper lobe mass. Certainly if it seems to decline somewhat with continued reduction in his dry weight, it would make it far less likely that this represents a malignancy. An infection is not likely either.
--- NOTE | 2016-07-21 10:23 | Progress Note ---
Subjective Date of Service: Jul 21, 2016. Subjective Pt evaluation today including: conversation w/ patient, physical exam, chart review, lab review, review of studies, conversation w/ document management consultant (Dr. Mackenzie and Dr. Basilio), review of inpatient medication list Mr. Yoly Drake is is 66 yo ESRD on HD MWF x9 years via left ?faiza fistula , CAD and s/p CABG and bioprosthetic AVR, membranous nephropathy, VT s/p AICD and a whole host of pmh admitted with acute pulmonary edema despite HD compliance. Patient reports decreased po in take for the past 2 weeks, EDW as far as he knows, has been the same; no truncated sessions. Received one session of dialysis yesterday with 3K bath, unclear UF. He has h/o extensive smoking 2-3 PPD X >30-40 years, quit 3 years ago but continues to smoke cigars. Never diagnosed with COPD. He feels much better than yesterday but appears to still be having dyspnea. No chest pain, no abd pain. Last echo 03/2015 with ef 50% with global hypokinesis and diastolic dysfunction. Problem List Medical Problems: (1) Anxiety about health Status: Acute (2) CHF (congestive heart failure) Status: Acute (3) Hyperkalemia Status: Acute (4) Hypoxia Status: Acute (5) Pulmonary edema Status: Acute (6) Situational stress Status: Acute (7) Weakness Status: Acute Review of Systems All Other Systems: Reviewed and Negative Medications Acetaminophen (Tylenol Tab) 650 mg Q4H PRN PO; Start 07/20/16 at 11:15; Stop 08/19/16 at 11:14 Amiodarone HCl (Cordarone Tab) 100 mg BID PO Last administered on 07/21/16 07: 51; Admin Dose 100 MG; Start 07/20/16 at 21:00; Stop 08/19/16 at 20:59 Aspirin (Ecotrin Tab) 81 mg DAILY PO Last administered on 07/21/16 07:51; Admin Dose 81 MG; Start 07/21/16 at 09:00; Stop 08/20/16 at 08:59 Atenolol (Tenormin Tab) 12.5 mg QD@1230 PO; Start 07/20/16 at 12:30; Stop at 12:29 Atorvastatin Calcium (Lipitor Tab) 80 mg QPM PO Last administered on 07/20/16 20:44; Admin Dose 80 MG; Start 07/20/16 at 21:00; Stop 08/19/16 at 20:59 Buspirone HCl (Buspar Tab) 5 mg BID PO Last administered on 07/21/16 07:50; Admin Dose 5 MG; Start 07/20/16 at 21:00; Stop 08/19/16 at 20:59 Calcium Acetate (Phoslo Cap) 2,001 mg TIDM PO Last administered on 07/21/16 07: 49; Admin Dose 2,001 MG; Start 07/20/16 at 12:30; Stop 08/19/16 at 12:29 Ceftriaxone Sodium/Dextrose (Rocephin Inj/ Dextrose Add-Roxton 50ML) 50 ml @ 100 mls/hr Q24H IV; Start 07/21/16 at 09:30; Stop 07/27/16 at 09:59; Status UNV Epoetin Dat 37131 units 10,000 units ONE ONCE IV.; Start 07/21/16 at 10:00; Stop 07/21/16 at 10:01; Status UNV Folic Acid (Folvite Tab) 1 mg QD@1230 PO; Start 07/20/16 at 12:30; Stop at 12:29 Heparin Sodium (Porcine) (Heparin Iv Bolus) 500 unit Q1H IV; Start 07/21/16 at 10:00; Stop 07/21/16 at 12:01; Status UNV Heparin Sodium (Porcine) (Heparin Iv Bolus) 2,000 unit ONE IV; Start 07/21/16 at 10:00; Stop 07/21/16 at 10:01; Status UNV Heparin Sodium (Porcine) (Heparin Sq 5000 Unit/0.5ml) 5,000 unit Q12 SQ Last administered on 07/21/16 08:02; Admin Dose 5,000 UNIT; Start 07/20/16 at 21:00 ; Stop 08/19/16 at 20:59 Ipratropium [place] (Atrovent 0.02% 0.5MG/2.5ML Neb) 0.5 mg Q6R INH Last administered on 07/21/16 07:30; Admin Dose 0.5 MG; Start 07/20/16 at 15:00; Stop 08/19/16 at 14:59 Iron Sucrose 100 mg/Syringe 5 ml @ 1 mls/min ONE ONCE IV; Start 07/21/16 at 10: 00; Stop 07/21/16 at 10:04; Status UNV Levalbuterol (Xopenex 1.25MG/ 0.5ML Neb) 1.25 mg Q6R INH Last administered on 07:30; Admin Dose 1.25 MG; Start 07/20/16 at 15:00; Stop 08/19/16 at 14: 59 Methylprednisolone Sodium Succinate 80 mg/Syringe 1.28 ml @ 1.5 mls/min Q12H IV ; Start 07/21/16 at 18:00; Stop 08/20/16 at 17:59 Miscellaneous Information 1 ea 1 ea QS N/A; Start 07/20/16 at 16:00; Stop at 15:59 Morphine Sulfate (MoRPHine SULFATE INJ) 2 mg Q2H PRN IV; Start 07/20/16 at 11: 15; Stop 08/03/16 at 11:14 Nitroglycerin (Nitrostat Tab) 0.4 mg UD PRN SL; Start 07/20/16 at 11:15; Stop 08/19/16 at 11:14 Pantoprazole Sodium (Protonix Tab) 40 mg DAILY PO Last administered on 07:53; Admin Dose 40 MG; Start 07/21/16 at 09:00; Stop 08/20/16 at 08:59 Paroxetine HCl (pAXil TAB) 20 mg DAILY PO Last administered on 07/21/16 07:52; Admin Dose 20 MG; Start 07/21/16 at 09:00; Stop 08/20/16 at 08:59 Sodium Chloride (Nss 1000ml) 1,000 ml @ 0 mls/hr Q0M PRN IV; Start 07/21/16 at 09:49; Stop 07/21/16 at 21:48; Status UNV Vitamin B Complex/ Vit C/Folic Acid (Nephrocaps) 1 cap DAILY PO Last administered on 07/21/16 07:52; Admin Dose 1 CAP; Start 07/21/16 at 09:00; Stop 08/20/16 at 08:59 Objective Vital Signs Date Time Temp Pulse Resp B/P Pulse Ox O2 Delivery O2 Flow Rate FiO2 4/25/17 08:00 36.8 62 20 101/49 95 Nasal Cannula 2.0 07/21/16 08:00 95 Nasal Cannula 2.0 07/21/16 07:30 62 20 95 Nasal Cannula 2.0 07/21/16 06:00 60 21 117/55 99 Nasal Cannula 2.0 07/21/16 04:00 36.8 78 22 95/58 97 Nasal Cannula 2.0 07/21/16 04:00 97 Nasal Cannula 2.0 07/21/16 02:07 61 20 96 Nasal Cannula 3.0 07/21/16 02:00 60 21 97/58 93 Nasal Cannula 3.0 07/21/16 00:00 36.8 65 19 97/46 96 Nasal Cannula 3.0 07/20/16 23:59 94 Nasal Cannula 3.0 07/20/16 22:00 68 21 88/45 95 Nasal Cannula 4.0 07/20/16 21:00 61 20 85/46 94 Nasal Cannula 4.0 07/20/16 20:00 36.8 63 20 85/45 96 Nasal Cannula 4.0 07/20/16 20:00 96 Nasal Cannula 4.0 07/20/16 19:37 61 22 92 Nasal Cannula 4.0 07/20/16 18:45 68 24 86/46 100 07/20/16 18:30 62 20 95/49 100 07/20/16 18:16 61 19 94/40 100 07/20/16 18:00 60 19 91/43 100 07/20/16 17:45 60 20 87/53 100 07/20/16 17:38 64 100 60 07/20/16 17:30 67 20 89/45 100 07/20/16 17:15 63 19 86/43 100 07/20/16 17:00 37.2 60 24 87/48 100 07/20/16 16:50 36.6 60 85/45 07/20/16 16:34 60 21 78/48 100 07/20/16 16:31 60 21 75/42 100 07/20/16 16:30 60 23 100 07/20/16 16:20 64 19 79/47 100 07/20/16 16:16 61 20 76/46 100 07/20/16 16:16 76/46 4/24/17 16:15 61 22 100 07/20/16 16:00 60 83/49 07/20/16 16:00 100 BiPAP 60 07/20/16 16:00 60 19 83/49 100 07/20/16 15:46 37.0 60 19 94/49 100 07/20/16 15:45 61 21 100 07/20/16 15:45 94/49 07/20/16 15:31 61 20 103/60 92 07/20/16 15:30 70 20 99 07/20/16 15:30 61 103/60 07/20/16 15:16 67 101/50 07/20/16 15:15 64 17 101/50 07/20/16 15:01 68 21 104/55 07/20/16 15:00 66 104/55 07/20/16 15:00 71 21 07/20/16 14:46 63 21 104/54 07/20/16 14:45 63 104/54 07/20/16 14:45 65 20 07/20/16 14:32 66 103/61 07/20/16 14:30 68 22 103/61 07/20/16 14:16 67 109/60 07/20/16 14:15 62 21 109/60 07/20/16 14:00 63 106/54 07/20/16 14:00 63 21 106/54 07/20/16 13:45 66 19 106/56 100 07/20/16 13:45 67 106/56 07/20/16 13:30 64 19 88/57 07/20/16 13:30 64 85/59 07/20/16 13:15 62 93/55 07/20/16 13:15 63 18 93/55 100 07/20/16 13:00 62 19 108/54 07/20/16 13:00 61 108/54 07/20/16 12:52 63 22 109/55 100 07/20/16 12:51 69 23 109/58 100 07/20/16 12:50 61 21 114/55 100 07/20/16 12:45 61 125/65 07/20/16 12:45 60 20 100 07/20/16 12:23 36.8 125/65 100 07/20/16 12:23 36.8 61 125/65 07/20/16 12:16 68 98 60 07/20/16 12:15 100 BiPAP 60 07/20/16 11:54 81 18 100/54 100 BiPAP 07/20/16 11:40 71 24 131/52 100 BiPAP 07/20/16 11:33 68 98 60 07/20/16 11:20 100 BiPAP 07/20/16 10:22 88 30 159/98 100 Non-Rebreather 15.0 Physical Exam Comments: nad, aox3 s1 s2 rrr, no murmursa ppreciated, right chest AICD site without erythema/ tenderness decreased breath sounds, minimal rales at bases, prolonged expiratory phase abd soft nt nd +BS, multiple well-healed scars in the abd no LE edema LUE avf with minimal thrill but good bruit Laboratory Results Last 24 Hours Test 07/20/16 11:07 07/20/16 11:54 07/20/16 17:19 07/20/16 17:20 Bedside Glucose 46 mg/dl 115 mg/dl 83 mg/dl Troponin I 0.069 ng/ml Vitamin B12 Level 948 pg/mL Folate > 24.00 ng/mL Test 07/20/16 20:37 07/21/16 03:05 07/21/16 06:27 Bedside Glucose 107 mg/dl 167 mg/dl White Blood Count 7.51 K/uL Red Blood Count 3.21 M/uL Hemoglobin 10.7 g/dL Hematocrit 35.0 % Mean Corpuscular Volume 109.0 fL Mean Corpuscular Hemoglobin 33.3 pg Mean Corpuscular Hemoglobin Concent 30.6 g/dl Platelet Count 207 K/uL Mean Platelet Volume 9.9 fL Neutrophils (%) (Auto) 95.0 % Lymphocytes (%) (Auto) 3.3 % Monocytes (%) (Auto) 1.3 % Eosinophils (%) (Auto) 0.0 % Basophils (%) (Auto) 0.1 % Neutrophils # (Auto) 7.13 K/uL Lymphocytes # (Auto) 0.25 K/uL Monocytes # (Auto) 0.10 K/uL Eosinophils # (Auto) 0.00 K/uL Basophils # (Auto) 0.01 K/uL RDW Standard Deviation 67.1 fL RDW Coefficient of Variation 16.8 % Immature Granulocyte % (Auto) 0.3 % Immature Granulocyte # (Auto) 0.02 K/uL Sodium Level 137 mmol/L Potassium Level 5.2 mmol/L Chloride Level 98 mmol/L Carbon Dioxide Level 35 mmol/L Anion Gap 4.0 mmol/L Blood Urea Nitrogen 43 mg/dl Creatinine 6.80 mg/dl Est Creatinine Clear Calc Drug Dose 12.0 ml/min Estimated GFR () 8.9 Estimated GFR (Non- 7.6 BUN/Creatinine Ratio 6.4 Random Glucose 189 mg/dl Calcium Level 7.7 mg/dl Troponin I 0.075 ng/ml HISTORY: Fluid Overload COMPARISON: Chest 07/20/2016. FINDINGS: No pneumothorax. The heart remains moderately enlarged. Pulmonary edema pattern has improved. Patchy densities the right lung base is also improved. No pleural effusions. Right-sided defibrillator/pacemaker is again noted. There are poststernotomy changes. Old, healed left-sided rib fractures. Left upper lobe masslike opacity is again noted. This measures 5 cm. IMPRESSION: 1. Improvement in the pulmonary edema and right basilar airspace opacities. 2. Left upper lobe mass is again noted. Oncology follow-up is recommended. Interpretation Summary * Name: YOLY DRAKE Study Date: 07/21/2016 06:28 AM BP: 117/55 mmHg * Patient [place] [facility] [place]\S\1 HR: 62 * : 1950 (M/d/yyyy) Gender: Male Height: 68 in * Age: 66 yrs Ethnicity: [place] Weight: 215 lb * Ordering Physician: Satya Baum * Referring Physician: Self, Referred * Performed By: Maria A Uribe RDCS * * Reason For Study: CHF, AORTIC VALVE REPLACEMENT * BSA: 2.1 m2 * History: CHF, AORTIC VALVE REPLACEMENT * -- Conclusions -- * 1. LV mildly dilated. Mild concentric LVH. * 2. Borderline LV dysfunction. LVEF 45-50%. Paradoxical septal motion consistent with post-operative state. Apical akinesis. * 3. Normal RV size, mild RV dysfunction. * 4. 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 * 5. Mild aortic regurgitation. * 6. Mild to moderate mitral regurgitation. Mild mitral stenosis. * 7. Normal estimated RA and PA pressures. * 8. Compared with prior study on 04/12/2015: Apical wall motion abnormality more pronounced, otherwise no significant changes. Assessment and Plan 1. Acute hypoxic respiratory failure - likely from volume overload - likely has lost muscle weight over past 2 weeks and will need EDW re-adjusted , will defer to nephrology - repeat echo done as above - d/w cardio: no significant changes in aortic valve and EF since last echo and no precipitating arrhythmias noted on ICD interrogation 2. CKDV-HD - need to optimize volume with dialysis and re-adjust EDW - will defer to nephro - next HD tomorrow - CKD anemia: currently at goal Hb, defer SERENITY to nephro - CKD BMD: cont phoslo 3. Possible COPD exacerbation - extensive h/o smoking, not officially diagnosed with COPD - may have element of COPD exacerbation - cont IV steroids and will taper once respiratory status improve further - cont rocephin for now 4. BP/volume - EDW re-adjustment - only on atenolol - BP borderline and likely drops during HD - may benefit from midodrine prior to and during hd to allow for adequate UF, defer to nephro 5. dvt ppx with hsq
[2016-07-21] MEDS: CEFTRIAXONE SOD INJ 1 GM in DEXTROSE 5% ADD-VANTAGE 50ML 50 ML IV SCH (10:56)
--- NOTE | 2016-07-21 12:46 | ECHOCARDIOGRAM REPORT ---
*NOTICE TO RECEIVING DEMOCRAT AGENCY This information is strictly Confidential and protected under [place] law. [place] law prohibits you from making any further disclosure of this information unless further disclosure is expressly permitted by the written consent of the person to whom it pertains or is authorized by law. A general authorization for the release of medical or other information is not sufficient for this purpose. Hospital accepts no responsibility if the information is made available to any other person, INCLUDING THE PATIENT. Interpretation Summary * Name: YOLY CHEN Study Date: 07/21/2016 06:28 AM BP: 117/55 mmHg * Patient Location: [facility]\S\[facility]\S\1 HR: 62 * : 1950 (M/d/y) Gender: Male Height: 68 in * Age: 66 yrs Ethnicity: [place] Weight: 215 lb * Ordering Physician: Satya Baum * Referring Physician: Self, Referred * Performed By: Maria A Uribe RDCS * * Reason For Study: CHF, AORTIC VALVE REPLACEMENT * BSA: 2.1 m2 * History: CHF, AORTIC VALVE REPLACEMENT * -- Conclusions -- * 1. LV mildly dilated. Mild concentric LVH. * 2. Borderline LV dysfunction. LVEF 45-50%. Paradoxical septal motion consistent with post-operative state. Apical akinesis. * 3. Normal RV size, mild RV dysfunction. * 4. 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 * 5. Mild aortic regurgitation. * 6. Mild to moderate mitral regurgitation. Mild mitral stenosis. * 7. Normal estimated RA and PA pressures. * 8. Compared with prior study on 04/12/2015: Apical wall motion abnormality more pronounced, otherwise no significant changes. Procedure Details * A contrast injection of Definity was performed to improve assessment of LV function. * Contrast was injected into an intravenous site in the right arm. * One vial of Definity ultrasound contrast was diluted in normal saline to a total volume of 10 ml. A total of '2' ml of solution was administered during imaging. * Lot # [id number] of Definity utilized for procedure. * Expiration date MAY 16. * The attending nurse who injected the contrast agent was DIANE PALMER. Left Ventricle * The left ventricle is normal in size. * The left ventricle is mildly dilated. * There is mild concentric left ventricular hypertrophy. * Ejection Fraction = 45-50%. * Septal motion is consistent with post-operative state. * There is apical akinesis. Right Ventricle * The right ventricle is grossly normal size. * The right ventricular systolic function is reduced as assessed by tricuspid annular plane systolic excursion (TAPSE) (TAPSE <1.6 cm). Atria * The left atrium is moderately dilated. * The right atrium is mildly dilated. * No ASD detected; PFO is not assessed. Mitral Valve * There is moderate to severe mitral annular calcification. * There is mild mitral stenosis. * There is mild to moderate mitral regurgitation. Tricuspid Valve * The tricuspid valve is not well visualized. * There is no tricuspid stenosis. * There is mild tricuspid regurgitation. * Hepatic vein systolic flow reversal Aortic Valve * Possible bioprosthetic stenosis (PV 3.0, MG 20, DVI 0.3) * Mild aortic regurgitation. * Bioprosthetic leaflets are thickened and motion is restricted. Pulmonic Valve * The pulmonary valve is inadequately visualized, but the Doppler data is adequate for interpretation. * There is no pulmonic valvular stenosis. * Mild pulmonic valvular regurgitation. Great Vessels * The aortic root and proximal ascending aorta are normal sized. Pericardium/Pleural * There is no pericardial effusion. Great Vessels * There is no evidence of pulmonary hypertension. The PA systolic pressure is less than 36 mmHg. * Normal inferior vena cava size and collapsability with sniff indicates a normal right atrial pressure of 3 mmHg Left Ventricular Diastolic Function * Diastolic dysfunction, Grade II (pseudonormalization pattern). MMode 2D Measurements and Calculations IVSd 1.3 cm IVSs 1.8 cm LVIDd 5.3 cm LVIDs 4.0 cm LVPWd 1.2 cm LVPWs 2.0 cm IVS/LVPW 1.1 FS 23.9 % EDV(Teich) 135.4 ml ESV(Teich) 71.4 ml EF(Teich) 47.3 % EDV(cubed) 149.0 ml ESV(cubed) 65.6 ml EF(cubed) 56.0 % % IVS thick 35.5 % % LVPW thick 68.0 % LV mass(C)d 267.4 grams LV mass(C)dI 126.9 grams/m\S\2 LV mass(C)s 334.6 grams LV mass(C)sI 158.7 grams/m\S\2 SV(Teich) 64.1 ml SI(Teich) 30.4 ml/m\S\2 SV(cubed) 83.5 ml SI(cubed) 39.6 ml/m\S\2 LA dimension 5.5 cm LVOT diam 2.0 cm LVOT area 3.1 cm\S\2 LVAd ap4 40.3 cm\S\2 LVLd ap4 9.4 cm EDV(MOD-sp4) 146.0 ml LVAs ap4 27.6 cm\S\2 LVLs ap4 8.7 cm ESV(MOD-sp4) 72.1 ml EF(MOD-sp4) 50.6 % LVAd ap2 49.5 cm\S\2 LVLd ap2 9.8 cm EDV(MOD-sp2) 212.0 ml LVAs ap2 35.4 cm\S\2 LVLs ap2 9.7 cm ESV(MOD-sp2) 115.0 ml EF(MOD-sp2) 45.8 % SV(MOD-sp4) 73.9 ml SI(MOD-sp4) 35.1 ml/m\S\2 SV(MOD-sp2) 97.0 ml SI(MOD-sp2) 46.0 ml/m\S\2 Doppler Measurements and Calculations MV E max yobani 156.9 cm/sec MV A max yobani 106.1 cm/sec MV E/A 1.5 MV dec time 0.24 sec Ao V2 max 294.1 cm/sec Ao max PG 34.7 mmHg Ao max PG (full) 31.6 mmHg Ao V2 mean 213.3 cm/sec Ao mean PG 20.1 mmHg Ao mean PG (full) 18.3 mmHg Ao V2 VTI 77.0 cm YULIA(I,A) 0.94 cm\S\2 YULIA(I,D) 0.94 cm\S\2 YULIA(V,A) 0.93 cm\S\2 YULIA(V,D) 0.93 cm\S\2 AI max yobani 343.1 cm/sec AI max PG 47.1 mmHg AI dec slope 224.7 cm/sec\S\2 AI P1/2t 447.3 msec LV V1 max PG 3.1 mmHg LV V1 mean PG 1.8 mmHg LV V1 max 87.8 cm/sec LV V1 mean 63.1 cm/sec LV V1 VTI 23.1 cm MR max yobani 493.0 cm/sec MR max PG 97.2 mmHg SV(LVOT) 72.2 ml SI(LVOT) 34.3 ml/m\S\2 TR max yobani 230.7 cm/sec
--- NOTE | 2016-07-21 15:04 | Critical Care Consultation ---
Critical Care Consultation Date of Consultation: Jul 21, 2016. Attending Physician: Virginia Avila MD Reason for Consultation: Impending respiratory failure, volume overload History of Present Illness Patient is a 66-year-old male who is hemodialysis dependent every Wednesday who presented Wednesday to [facility] emergency department with increasing shortness of breath. He was found to likely be in volume overload as his weights had significantly increased from his estimated dry weight. He was started on noninvasive ventilation as a bridge until hemodialysis was completed. Past Medical/Surgical History End-stage renal disease, hemodialysis dependent Type 2 diabetes and hypercholesterolemia Coronary artery disease status post CABG 2 Aortic stenosis with valve replacement Left arm fistula Family History Patient reports no known family medical history. 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 ) Allergies Coded Allergies: No Known Allergies (Verified , 08/08/15) Home Medications Scheduled Amiodarone HCl (Amiodarone HCl), 100 MG PO BID Amlodipine (Norvasc), 5 MG PO DAILY Aspirin (Aspirin Ec), 81 MG PO DAILY Atenolol (Tenormin), 12.5 MG PO QD@1230 Atorvastatin (Lipitor), 80 MG PO QPM Buspirone Hcl (Buspar), 5 MG PO BID Calcium Acetate (Phoslo 667 Mg), 3 CAP PO TIDM Cinacalcet (Sensipar), 30 MG PO BID Folic Acid (Folvite), 1 MG PO QD@1230 Glipizide (Glucotrol), 2.5 MG PO QD@1230 Pantoprazole Sodium (Protonix), 40 MG PO DAILY @ 1630 Paroxetine (Paxil), 20 MG PO DAILY Vitamin B Cmplx/Vitc/Folic Ac (Nephrocaps), 1 CAP PO DAILY Scheduled PRN Acetaminophen Tab (Tylenol), 650 MG PO Q4 PRN for Pain Lorazepam (Ativan), 1 MG PO DAILY PRN for UNDECIDED Current Inpatient Medications Current Inpatient Medications Medications (Trade) Dose Ordered Sig/Lex Route Start Time Stop Time Status Last Admin Dose Admin Heparin Sodium (Porcine) (Heparin Sq 5000 Unit/0.5ml) 5,000 unit Q12 SQ 07/20/16 21:00 08/19/16 20:59 07/21/16 08:02 5,000 UNIT Acetaminophen (Tylenol Tab) 650 mg Q4H PRN PO 07/20/16 11:15 08/19/16 11:14 Nitroglycerin (Nitrostat Tab) 0.4 mg UD PRN SL 07/20/16 11:15 08/19/16 11:14 Pantoprazole Sodium (Protonix Tab) 40 mg DAILY PO 07/21/16 09:00 08/20/16 08:59 07/21/16 07:53 40 MG Levalbuterol (Xopenex 1.25MG/ 0.5ML Neb) 1.25 mg Q6R INH 07/20/16 15:00 08/19/16 14:59 07/21/16 07:30 1.25 MG Ipratropium [place] (Atrovent 0.02% 0.5MG/2.5ML Neb) 0.5 mg Q6R INH 07/20/16 15:00 08/19/16 14:59 07/21/16 07:30 0.5 MG Morphine Sulfate (MoRPHine SULFATE INJ) 2 mg Q2H PRN IV 07/20/16 11:15 08/03/16 11:14 Amiodarone HCl (Cordarone Tab) 100 mg BID PO 07/20/16 21:00 08/19/16 20:59 07/21/16 07:51 100 MG Aspirin (Ecotrin Tab) 81 mg DAILY PO 07/21/16 09:00 08/20/16 08:59 07/21/16 07:51 81 MG Atenolol (Tenormin Tab) 12.5 mg QD@1230 PO 07/20/16 12:30 08/19/16 12:29 07/21/16 13:14 12.5 MG Atorvastatin Calcium (Lipitor Tab) 80 mg QPM PO 07/20/16 21:00 08/19/16 20:59 07/20/16 20:44 80 MG Buspirone HCl (Buspar Tab) 5 mg BID PO 07/20/16 21:00 08/19/16 20:59 07/21/16 07:50 5 MG Calcium Acetate (Phoslo Cap) 2,001 mg TIDM PO 07/20/16 12:30 08/19/16 12:29 07/21/16 10:56 2,001 MG Folic Acid (Folvite Tab) 1 mg QD@1230 PO 07/20/16 12:30 08/19/16 12:29 07/21/16 13:14 1 MG Paroxetine HCl (pAXil TAB) 20 mg DAILY PO 07/21/16 09:00 08/20/16 08:59 07/21/16 07:52 20 MG Vitamin B Complex/ Vit C/Folic Acid (Nephrocaps) 1 cap DAILY PO 07/21/16 09:00 08/20/16 08:59 07/21/16 07:52 1 CAP Miscellaneous Information 1 ea 1 ea QS N/A 07/20/16 16:00 08/19/16 15:59 Methylprednisolone Sodium Succinate 80 mg/Syringe 1.28 ml @ 1.5 mls/min Q12H IV 07/21/16 18:00 08/20/16 17:59 Ceftriaxone Sodium/Dextrose (Rocephin Inj/ Dextrose Add-[place] 50ML) 50 ml @ 100 mls/hr DAILY@1000 IV 07/21/16 11:00 07/27/16 10:29 07/21/16 10:56 100 MLS/HR Heparin Sodium (Porcine) (Heparin Iv Bolus) 2,000 unit ONE IV 07/22/16 10:00 07/22/16 10:01 Heparin Sodium (Porcine) (Heparin Iv Bolus) 500 unit Q1H IV 07/22/16 10:00 07/22/16 12:01 Epoetin Dat 98836 units 10,000 units 0800 IV. 07/22/16 08:00 07/22/16 16:00 Iron Sucrose 100 mg/Syringe 5 ml @ 1 mls/min TODAY@1500 ONCE IV 07/22/16 15:00 07/22/16 15:04 Sodium Chloride (Nss 1000ml) 1,000 ml @ 0 mls/hr Q0M PRN IV 07/22/16 08:00 07/22/16 18:00 Review of Systems Constitutional: + weakness Respiratory: + cough, + sputum (clear) Cardiovascular: + orthopnea Abdomen: No nausea, No pain Physical Exam Date Time Temp Pulse Resp B/P Pulse Ox O2 Delivery O2 Flow Rate FiO2 07/21/16 12:23 37.5 61 20 116/53 96 Nasal Cannula 2.0 07/21/16 11:30 36.8 62 20 95 2.0 07/21/16 10:00 63 21 100/51 92 Nasal Cannula 2.0 07/21/16 08:00 36.8 62 20 101/49 95 Nasal Cannula 2.0 07/21/16 08:00 95 Nasal Cannula 2.0 07/21/16 07:30 62 20 95 Nasal Cannula 2.0 07/21/16 06:00 60 21 117/55 99 Nasal Cannula 2.0 07/21/16 04:00 36.8 78 22 95/58 97 Nasal Cannula 2.0 07/21/16 04:00 97 Nasal Cannula 2.0 07/21/16 02:07 61 20 96 Nasal Cannula 3.0 07/21/16 02:00 60 21 97/58 93 Nasal Cannula 3.0 07/21/16 00:00 36.8 65 19 97/46 96 Nasal Cannula 3.0 07/20/16 23:59 94 Nasal Cannula 3.0 07/20/16 22:00 68 21 88/45 95 Nasal Cannula 4.0 07/20/16 21:00 61 20 85/46 94 Nasal Cannula 4.0 07/20/16 20:00 36.8 63 20 85/45 96 Nasal Cannula 4.0 07/20/16 20:00 96 Nasal Cannula 4.0 07/20/16 19:37 61 22 92 Nasal Cannula 4.0 07/20/16 18:45 68 24 86/46 100 07/20/16 18:30 62 20 95/49 100 07/20/16 18:16 61 19 94/40 100 07/20/16 18:00 60 19 91/43 100 07/20/16 17:45 60 20 87/53 100 07/20/16 17:38 64 100 60 07/20/16 17:30 67 20 89/45 100 07/20/16 17:15 63 19 86/43 100 07/20/16 17:00 37.2 60 24 87/48 100 07/20/16 16:50 36.6 60 85/45 07/20/16 16:34 60 21 78/48 100 07/20/16 16:31 60 21 75/42 100 07/20/16 16:30 60 23 100 07/20/16 16:20 64 19 79/47 100 07/20/16 16:16 61 20 76/46 100 07/20/16 16:16 76/46 07/20/16 16:15 61 22 100 07/20/16 16:00 60 83/49 07/20/16 16:00 100 BiPAP 60 07/20/16 16:00 60 19 83/49 100 07/20/16 15:46 37.0 60 19 94/49 100 07/20/16 15:45 61 21 100 07/20/16 15:45 94/49 07/20/16 15:31 61 20 103/60 92 07/20/16 15:30 70 20 99 07/20/16 15:30 61 103/60 07/20/16 15:16 67 101/50 07/20/16 15:15 64 17 101/50 07/20/16 15:01 68 21 104/55 07/20/16 15:00 66 104/55 07/20/16 15:00 71 21 General Appearance: mild distress Head: normocephalic, atraumatic Eyes: PERRLA Neck: no tenderness, trachea midline Respiratory: rhonchi Cardiovasular: normal S1S2, irregular rate (tachycardia), systolic murmur Abdomen: non tender, no masses, no guarding Back: normal inspection Upper Extremities: other (fistula with palpable bruit in left wrist) Neuro: alert, oriented x 3, normal motor exam Laboratory Results Last 24 Hours Test 07/20/16 17:19 07/20/16 17:20 07/20/16 20:37 07/21/16 03:05 Bedside Glucose 83 mg/dl 107 mg/dl Troponin I 0.069 ng/ml 0.075 ng/ml Vitamin B12 Level 948 pg/mL Folate > 24.00 ng/mL White Blood Count 7.51 K/uL Red Blood Count 3.21 M/uL Hemoglobin 10.7 g/dL Hematocrit 35.0 % Mean Corpuscular Volume 109.0 fL Mean Corpuscular Hemoglobin 33.3 pg Mean Corpuscular Hemoglobin Concent 30.6 g/dl Platelet Count 207 K/uL Mean Platelet Volume 9.9 fL Neutrophils (%) (Auto) 95.0 % Lymphocytes (%) (Auto) 3.3 % Monocytes (%) (Auto) 1.3 % Eosinophils (%) (Auto) 0.0 % Basophils (%) (Auto) 0.1 % Neutrophils # (Auto) 7.13 K/uL Lymphocytes # (Auto) 0.25 K/uL Monocytes # (Auto) 0.10 K/uL Eosinophils # (Auto) 0.00 K/uL Basophils # (Auto) 0.01 K/uL RDW Standard Deviation 67.1 fL RDW Coefficient of Variation 16.8 % Immature Granulocyte % (Auto) 0.3 % Immature Granulocyte # (Auto) 0.02 K/uL Sodium Level 137 mmol/L Potassium Level 5.2 mmol/L Chloride Level 98 mmol/L Carbon Dioxide Level 35 mmol/L Anion Gap 4.0 mmol/L Blood Urea Nitrogen 43 mg/dl Creatinine 6.80 mg/dl Est Creatinine Clear Calc Drug Dose 12.0 ml/min Estimated GFR () 8.9 Estimated GFR (Non- 7.6 BUN/Creatinine Ratio 6.4 Random Glucose 189 mg/dl Calcium Level 7.7 mg/dl Test 07/21/16 06:27 Bedside Glucose 167 mg/dl Diagnostic Results I have reviewed both the images of the chest x-rays dated July 20 of July 21 as well as reviewed the radiology report. I reviewed the EKG dated July 21: Atrial paced rhythm, left bundle branch block abnormal EKG. Assessment & Plan Reason Critically Ill: Volume overload with acute hypoxic respiratory failure secondary to pulmonary edema PLAN: Neuro: Pain control as needed Resp: Noninvasive ventilation until hemodialysis completed. CV: Echo pending, history of coronary artery disease Fluids/Renal: Hemodialysis ID: Possible COPD exacerbation, Rocephin 1 g for 7 days GI/Nutrition: Tolerating renal diet Heme: Anemia Endocrine: History of diabetes blood sugars within acceptable limits for the ICU , decreased his steroids to 80 mg twice a day I have personally spent 40 minutes of critical care time in the direct management of this patient. This is a life/limb threatening event. This includes time spent evaluating patient, direct bedside care, chart review, placing orders, interpretation of diagnostic studies, discussion with consultants, patient, and family members, as well as other required patient management activities. This time is exclusive of all separately billable procedures, and teaching time and separate from and in addition to any other critical care service time.
[2016-07-21] MEDS ORDERED: COUGH DROP (SUGAR FREE) LOZ 24 LOZ/1 BOX ONE (15:33)
--- NOTE | 2016-07-21 16:49 | CARDIOLOGY CONSULTATION ---
DATE OF CONSULTATION: 07/21/2016 DATE OF CONSULTATION: 07/21/2016. REFERRING PHYSICIAN: Dr. Virginia Avila. CHIEF COMPLAINT: Shortness of breath. HISTORY OF PRESENT ILLNESS: Mr. Sarabjit Tate is a 66-year-old gentleman with an extensive cardiac history who reports 1 months worth of progressive dyspnea. He states that over the preceding months he has noticed worsening shortness of breath initially with mild exertion but subsequently even at rest to the point where he was quite dyspneic even putting on his clothes. The patient presented to [facility] yesterday, was felt to have evidence of congestive heart failure due to volume overload and underwent urgent dialysis removing 4 liters of excess fluid. This morning, the patient states that he is feeling better. He still has an element of dyspnea, but this is improved. Over the noted time course the patient did not report obvious swelling of his extremities or increasing abdominal girth. He did have an element of anorexia and loss of appetite during that period of time as well. It is unclear to the patient if he had gained significant weight, but report in the records suggest that he had gained some weight over that period of time. He does claim to be compliant with his medications, diet and dialysis schedule. The patient generally speaking is an active individual who is able to ambulate without assisted devices. He does not perform routine exercise. Generally speaking, can perform routine activities of daily living without significant limitation. Generally speaking, he is not limited by breathing difficulties. He has not noticed any exertional or rest chest pain over the past several months. He has not had recurrent symptoms of angina similar to that experienced prior to his second bypass. He has not had any difficulties with dialysis recently. He denies any sense of palpitations or racing heartbeats. He has not noticed any significant dizziness or lightheadedness and has not suffered a syncopal episode. PAST MEDICAL HISTORY: Significant for: 1. Coronary artery disease, first undergoing coronary bypass grafting in 2005. This involved a single vein graft to an OM branch. Second bypass was performed in 2009 which involved vein graft to the LAD and a second vein graft to an OM branch. Most recent cardiac catheterization occurred in 2010, subsequent to cardiac arrest. At that point he was noted to have occlusion of the vein graft to the circumflex distribution with patency of the vein graft to the LAD. The right coronary system was free of obstructive disease and filled the circumflex distribution via collaterals. 2. Aortic valve disease. The patient underwent bioprosthetic valve replacement in 2005. This is a #23 pericardial valve. 3. Congestive heart failure. The patient is known to have an element of reduced left ventricular systolic function with the ejection fraction generally in the 40% range. 4. Cardiac arrest. The patient presented in 2010 subsequent to an arrest during dialysis. He underwent implantation of dual chamber ICD which a [employer] brand in 2010. 5. Diverticulitis status post partial colectomy and reanastomosis. 6. End-stage renal disease currently on renal replacement therapy. 7. Diabetes mellitus. 8. Hyperlipidemia. 9. Anxiety disorder. PAST SURGICAL HISTORY: Includes: 1. Aforementioned bypass surgery and bowel surgery. 2. Appendectomy. 3. Ileostomy and reversal with subsequent dehiscence and wound healing by secondary intention. 4. Partial colectomy. 5. AV fistula development. FAMILY HISTORY: Significant for coronary artery disease, although not premature coronary disease. SOCIAL HISTORY: The patient currently lives alone. He has a history of tobacco abuse and claims to be a current smoker. Denies significant alcohol use. REVIEW OF SYSTEMS: A 10-system review of systems was performed and the pertinent positives are noted in the history of present illness, with the remainder being negative. He does report having had "the cold" over the course of the winter which produces significant sinus congestion and a persistent cough. He denied overt fevers or chills recently, has not noticed any swelling in his lower extremities. He is anuric. OUTPATIENT MEDICAL REGIMEN: Includes amiodarone 50 mg b.i.d., amlodipine, Aranesp, aspirin, atenolol, Colace, folate, glipizide, Lipitor, loperamide, insulin, Paxil, Protonix, Sensipar, sucralfate. MEDICAL ALLERGIES: No known medical allergies. PHYSICAL EXAMINATION: GENERAL: The patient does not appear in acute distress. He is a pleasant individual who is alert and oriented. Mood and affect appeared normal. He answered all questions appropriately. VITAL SIGNS: Include blood pressure 109/55 with pulse of 62. HEAD, EYES, EARS, NOSE, AND THROAT: Sclerae are anicteric. Pupils are equal, reactive to light and accommodation. Extraocular movements were intact. Palpation of submandibular region did not reveal any significant lymphadenopathy. The carotids are palpable bilaterally. I do not appreciate any bruits on auscultation. There is no evidence of jugular venous distention. The thyroid was not enlarged. LUNGS: Auscultation of his lungs revealed overall distant breath sounds with poor excursion and perhaps diminished at the bases bilaterally. There was no expiratory wheezing, however. Occasional upper airway congestion sounds were appreciated. CARDIAC EXAMINATION: Revealed him to have a low pitched holosystolic murmur with sharp S2. PMI was not markedly displaced. He had a well-healed sternotomy scar. ABDOMEN: Soft and nontender. He had a well-healed midline scar and obvious scar at the site of his wound dehiscence in the right lower quadrant. EXTREMITIES: Evaluation of both wrists revealed radial pulses that were palpable bilaterally. He had an AV fistula in the left forearm that had palpable thrill. Evaluation of his lower extremities revealed some trophic changes but no significant peripheral edema. He had some ecchymosis on his body but no significant rashes were appreciated. LABORATORY STUDIES: Obtained today include a white cell count of 7.5, hemoglobin of 10.7, a platelet count of 207. Sodium was 137, potassium is 5.2, BUN was 43, creatinine was 6.8. Cardiac troponin was elevated 0.075, yesterday 0.069, earlier 0.022. Two single view x-rays were obtained during the time of admission. There was initially evidence of pulmonary vascular congestion which is improving and left upper lobe mass which had been documented previously. EKG was obtained at the time of admission which revealed atrial pacing and left bundle branch block. This is unchanged from previous. The patient did have his ICD interrogation at the time of admission which did not reveal any recent ventricular or atrial arrhythmias. There is minimal ventricular pacing noted. 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 Overall ejection fraction was slightly reduced with estimated percentage 45-50. ASSESSMENT AND PLAN: 1. Congestive heart failure. The patient did have an element of pulmonary vascular congestion at the time of admission which would be consistent with volume overload, the etiology of which is unclear, but may be related to inadequate volume removal during dialysis. The patient is anuric and requires dialysis for maintenance of euvolemia. with no change in left ventricular systolic function or significant change in his valvular function this was unlikely to be precipitated by an acute cardiac event. There were no documented arrhythmia in his device interrogation that would have precipitated such decompensation either. At this point, it would seem reasonable to continue with the current plan, which is for more aggressive volume removal and perhaps adjustment of his dry weight. 2. Aortic stenosis. The patient is status post bioprosthetic aortic valve replacement, although remotely. He does have an element of reduced valve function with mean gradient of 20. This appears to be stable when compared to last year and does not represent indication for any valve surgery or replacement at this point. 3. Ischemic cardiomyopathy. The patient has slightly reduced LV systolic function which appears to be stable compared to prior echocardiogram. His outpatient regimen includes low dose atenolol. He is not currently on NIKKI inhibition possibly due to lower blood pressures recorded previously. No roles for diuretic therapy in this individual given his anuric state and need for renal replacement therapy. 4. Ventricular fibrillation. Normally functioning dual chamber ICD without significant ventricular pacing. No evidence of arrhythmia recorded by the device over the past year. 5. Coronary artery disease. This appears to be stable. The patient did not manifests symptoms consistent with angina. Overall LV function also appears to be stable. He should be continued on aggressive secondary prevention, which includes aspirin and lipid therapy. 6. Elevated cardiac biomarkers: The patient did have mildly elevated cardiac troponin; however, in the setting of renal failure and congestive heart failure this is likely a chronic elevation not territory service representative of recent acute coronary syndrome. Based on these results I would not advocate more aggressive evaluation of his coronary disease.
[2016-07-21] MEDS: METHYLPREDNISOLONE IV 80 MG in SYRINGE 0 ML IV SCH (18:26)
[2016-07-21] MEDS: ATORVASTATIN 40 MG TAB PO SCH (21:38)
[2016-07-22] VITALS (27 sets, daily range): BP systolic 84–130; BP diastolic 30–76; PULSE 60–75; TEMP 36.3–36.9; O2SAT 91–100
[2016-07-22] MEDS: IPRATROPIUM BROMIDE NEB SOLN 0.02% 2.5 ML VIAL INH SCH ×4 (02:40→19:12)
[2016-07-22] MEDS: LEVALBUTEROL 1.25MG/0.5ML NEB INH SCH ×4 (02:40→19:12)
[2016-07-22] MEDS: METHYLPREDNISOLONE IV 80 MG in SYRINGE 0 ML IV SCH (06:13)
[2016-07-22] MEDS ORDERED: SODIUM CHLORIDE 0.9% 1000ML 1,000 ML IV PRN (08:00)
[2016-07-22] MEDS ORDERED: EPOETIN ALFA 10,000 UNITS/ML VIAL IV. SCH (08:00)
[2016-07-22] MEDS: AMIODARONE 200 MG TAB PO SCH ×2 (09:00→21:14)
[2016-07-22] MEDS: CALCIUM ACETATE 667MG GELCAP PO SCH ×3 (09:50→16:45)
[2016-07-22] MEDS: NEPHROCAPS PO SCH (09:51)
[2016-07-22] MEDS: PAROXETINE 20 MG TAB PO SCH (09:51)
[2016-07-22] MEDS: ASPIRIN 81 MG ECTAB PO SCH (09:51)
[2016-07-22] MEDS: PANTOprazole SOD 40 MG TAB PO SCH (09:52)
[2016-07-22] MEDS: CEFTRIAXONE SOD INJ 1 GM in DEXTROSE 5% ADD-VANTAGE 50ML 50 ML IV SCH (09:55)
[2016-07-22] MEDS: HEPARIN SOD 5000 UNIT/0.5 ML CARP SQ SCH ×2 (09:55→21:00)
[2016-07-22] MEDS: HEPARIN SOD (PORCINE) 1000 UNIT/ML 10 ML VIAL IV SCH ×3 (10:00→12:00)
[2016-07-22] MEDS ORDERED: HEPARIN SOD (PORCINE) 1000 UNIT/ML 10 ML VIAL IV SCH (10:00)
[2016-07-22] MEDS: INSULIN ASPART 100 UNITS/ML 3 ML PEN SC SCH ×3 (11:00→21:20)
--- NOTE | 2016-07-22 11:50 | PROGRESS NOTE ---
DATE: 07/22/2016 SUBJECTIVE: Mr. Tate says that he is feeling reasonably well. He denies being short of breath. He still has an intermittent hacking cough that he says is nonproductive. He is using an incentive spirometer and says that he is doing quite well but did not demonstrate that for me today. He says that his appetite is better. Retrospectively, he describes recent issues with early satiety. He has no abdominal pain and he has no nausea or vomiting. He has no dysphagia. He has had no lightheadedness or dizziness. He has had no palpitations. He denies having any recent chest pains particularly during his hospitalization. OBJECTIVE: GENERAL: On physical exam today, Mr. Tate was lying comfortably in bed with his head elevated only to about 10 degrees. VITAL SIGNS: He is afebrile (36.6). His blood pressure is 90/53. His pulse is 66 and regular. Respiratory rate is 20. His pulse ox is 91-95% on 2 liters of oxygen via nasal cannula. SKIN: Shows normal skin turgor. He has no rash or infiltrative skin disease. He has some ecchymoses on his left forearm. He has multiple tattoos. He has scars from prior surgical procedures including the left forearm AV fistula with multiple dialysis needle stick diallo over the fistula. He has a midsternal scar from prior cardiac surgery and abdominal scars from his previous colon surgery with formation of a colostomy and a subsequent takedown. LYMPHATICS: Show no palpable lymphadenopathy. HEAD: Normal. EYES: Grossly normal. The ocular fundi were not examined. EARS, NOSE, MOUTH AND THROAT: Unremarkable. Oral mucous membranes are moist. NECK: Supple. Lying nearly flat, I see no significant jugular venous distention. I hear no carotid bruit, but he does have a murmur transmitted into his carotids from a basilar heart murmur. There is no thyromegaly. CHEST: Still shows a few scattered wheezes and rhonchi. He has no rales. Breath sounds are generally diminished. He has a palpable ICD beneath his distal right clavicle. CARDIAC: Shows a regular rhythm. S1 and S2 are consistent with normal bioprosthetic valve sounds. S2 is a bit prominent. He has a grade 2-3 systolic murmur, loudest at the base and radiating toward the neck but also heard along the left sternal border. ABDOMEN: Protuberant. It is nontender. I cannot appreciate any organomegaly or mass. Bowel sounds are present. EXTREMITIES: Show no cyanosis, clubbing or peripheral edema. There is a left forearm AV fistula which appears to be functioning well. Peripheral pulses are diminished but present. I hear no bruits over his major blood vessels. NEUROLOGIC: Shows him to be awake and alert and quite appropriate. He has no lateralizing changes. PERTINENT LABORATORY WORK: From today shows a blood sugar of 232 on steroids. A CBC and partial renal profile were not done today. Cardiac evaluation was reviewed. ASSESSMENT: Mr. Tate certainly appears to be significantly better. However, he continues to have findings in his chest that are likely more related to bronchitis than to congestive heart failure. The etiology of his congestive heart failure likely was excessive volume expansion. He has not been eating as much. However, that was not apparent as an outpatient and we continued to reduce his weight to his previously estimated dry weight. There is no evidence of an acute cardiac event precipitating his heart failure. Certainly nothing is apparent on his echocardiogram. Interrogation of his pacemaker done by Dr. Basilio does not show anything could be considered a precipitating arrhythmia. Of concern would be the reason why he suddenly has had symptoms of early satiety, so that he was eating less. Perhaps it was because of an apparent viral illness that has contributed to his bronchitis. Certainly if those symptoms do not subside, he will need somewhat of a GI workup. That would likely include an EGD. RECOMMENDATIONS: Hemodialysis scheduled for today. Continue steroids and would also consider starting to taper his antibiotics. Hopefully, he can be discharged in the not too distant future. While here, I would suggest that we at least check a stool for occult blood. If positive, I would strongly recommend GI consultation for a possible EGD while he is here.
[2016-07-22] MEDS ORDERED: GLUCOSE 40% GEL 15 GM TUBE PO PRN (12:30)
[2016-07-22] MEDS ORDERED: DEXTROSE 50% 50 ML SYR IV PRN (12:30)
[2016-07-22] MEDS ORDERED: GLUCAGON FOR INJ 1 MG VIAL SQ PRN (12:30)
[2016-07-22] MEDS ORDERED: GLUCOSE 10 TABS/TUBE PO PRN (12:30)
--- NOTE | 2016-07-22 12:33 | Progress Note ---
Subjective Date of Service: Jul 22, 2016. Subjective Pt evaluation today including: conversation w/ patient, physical exam, lab review, review of studies, review of inpatient medication list Patient laying flat in bed. Feeling better. TOlerating food. No chest pain, no abd pain. Problem List Medical Problems: (1) Anxiety about health Status: Acute (2) CHF (congestive heart failure) Status: Acute (3) Hyperkalemia Status: Acute (4) Hypoxia Status: Acute (5) Pulmonary edema Status: Acute (6) Situational stress Status: Acute (7) Weakness Status: Acute Review of Systems All Other Systems: Reviewed and Negative Medications Acetaminophen (Tylenol Tab) 650 mg Q4H PRN PO; Start 07/20/16 at 11:15; Stop 08/19/16 at 11:14 Amiodarone HCl (Cordarone Tab) 100 mg BID PO Last administered on 07/21/16 21: 40; Admin Dose 100 MG; Start 07/20/16 at 21:00; Stop 08/19/16 at 20:59 Aspirin (Ecotrin Tab) 81 mg DAILY PO Last administered on 07/22/16 09:51; Admin Dose 81 MG; Start 07/21/16 at 09:00; Stop 08/20/16 at 08:59 Atenolol (Tenormin Tab) 12.5 mg QD@1230 PO Last administered on 07/21/16 13:14 ; Admin Dose 12.5 MG; Start 07/20/16 at 12:30; Stop 08/19/16 at 12:29 Atorvastatin Calcium (Lipitor Tab) 80 mg QPM PO Last administered on 07/21/16 21:38; Admin Dose 80 MG; Start 07/20/16 at 21:00; Stop 08/19/16 at 20:59 Buspirone HCl (Buspar Tab) 5 mg BID PO Last administered on 07/22/16 09:51; Admin Dose 5 MG; Start 07/20/16 at 21:00; Stop 08/19/16 at 20:59 Calcium Acetate (Phoslo Cap) 2,001 mg TIDM PO Last administered on 07/22/16 12: 28; Admin Dose 2,001 MG; Start 07/20/16 at 12:30; Stop 08/19/16 at 12:29 Ceftriaxone Sodium/Dextrose (Rocephin Inj/ Dextrose Add-[place] 50ML) 50 ml @ 100 mls/hr DAILY@1000 IV Last administered on 07/22/16 09:55; Admin Dose 100 MLS/HR; Start 07/21/16 at 11:00; Stop 07/27/16 at 10:29 Dextrose (Dextrose 50% 50ML Syringe) 25-50ML OF 50% DW IV FOR... UD PRN IV; Start 07/22/16 at 12:30; Stop 08/21/16 at 12:29 Epoetin Dat 61533 units 10,000 units 0800 IV.; Start 07/22/16 at 08:00; Stop at 16:00 Folic Acid (Folvite Tab) 1 mg QD@1230 PO Last administered on 07/22/16 12:28; Admin Dose 1 MG; Start 07/20/16 at 12:30; Stop 08/19/16 at 12:29 Glucagon (Glucagon Inj) 1 mg UD PRN SQ; Start 07/22/16 at 12:30; Stop 08/21/16 at 12:29 Glucose (Glucose 40% Gel) 15-30 GRAMS 15 GRAMS... UD PRN PO; Start 07/22/16 at 12:30; Stop 08/21/16 at 12:29 Glucose (Glucose Chew Tab) 4-8 Tablets 4 Tabl... UD PRN PO; Start 07/22/16 at 12:30; Stop 08/21/16 at 12:29 Heparin Sodium (Porcine) (Heparin Sq 5000 Unit/0.5ml) 5,000 unit Q12 SQ Last administered on 07/22/16 09:55; Admin Dose 5,000 UNIT; Start 07/20/16 at 21:00 ; Stop 08/19/16 at 20:59 Insulin Aspart SLIDING SCALE G... ACHS SC Last administered on 07/22/16 11:00; Admin Dose 14 UNITS; Start 07/22/16 at 11:00; Stop 08/21/16 at 10:59 Ipratropium [place] (Atrovent 0.02% 0.5MG/2.5ML Neb) 0.5 mg Q6R INH Last administered on 07/22/16 06:56; Admin Dose 0.5 MG; Start 07/20/16 at 15:00; Stop 08/19/16 at 14:59 Iron Sucrose 100 mg/Syringe 5 ml @ 1 mls/min TODAY@1500 ONCE IV; Start at 15:00; Stop 07/22/16 at 15:04 Levalbuterol (Xopenex 1.25MG/ 0.5ML Neb) 1.25 mg Q6R INH Last administered on 06:56; Admin Dose 1.25 MG; Start 07/20/16 at 15:00; Stop 08/19/16 at 14: 59 Methylprednisolone Sodium Succinate/ Syringe (Solu-Medrol IV/ Syringe) 0.64 ml @ 1.5 mls/min Q12 IV; Start 07/22/16 at 21:00; Stop 08/21/16 at 20:59 Miscellaneous Information 1 ea 1 ea QS N/A; Start 07/20/16 at 16:00; Stop at 15:59 Morphine Sulfate (MoRPHine SULFATE INJ) 2 mg Q2H PRN IV; Start 07/20/16 at 11: 15; Stop 08/03/16 at 11:14 Nitroglycerin (Nitrostat Tab) 0.4 mg UD PRN SL; Start 07/20/16 at 11:15; Stop 08/19/16 at 11:14 Pantoprazole Sodium (Protonix Tab) 40 mg DAILY PO Last administered on 09:52; Admin Dose 40 MG; Start 07/21/16 at 09:00; Stop 08/20/16 at 08:59 Paroxetine HCl (pAXil TAB) 20 mg DAILY PO Last administered on 07/22/16 09:51; Admin Dose 20 MG; Start 07/21/16 at 09:00; Stop 08/20/16 at 08:59 Sodium Chloride (Nss 1000ml) 1,000 ml @ 0 mls/hr Q0M PRN IV; Start 07/22/16 at 08:00; Stop 07/22/16 at 18:00 Vitamin B Complex/ Vit C/Folic Acid (Nephrocaps) 1 cap DAILY PO Last administered on 07/22/16 09:51; Admin Dose 1 CAP; Start 07/21/16 at 09:00; Stop 08/20/16 at 08:59 Objective Vital Signs Date Time Temp Pulse Resp B/P Pulse Ox O2 Delivery O2 Flow Rate FiO2 07/22/16 11:28 36.6 75 20 108/54 92 Nasal Cannula 2.0 07/22/16 08:09 36.6 66 20 90/53 91 Nasal Cannula 2.0 07/22/16 06:57 71 18 94 Nasal Cannula 2.0 07/22/16 04:00 Nasal Cannula 2.0 07/22/16 03:54 36.6 60 20 95/50 92 Nasal Cannula 2.0 07/22/16 02:00 72 18 95 Nasal Cannula 2.0 07/22/16 00:01 Nasal Cannula 2.0 07/21/16 23:49 36.6 85 18 97/58 92 Nasal Cannula 2.0 07/21/16 20:05 Nasal Cannula 2.0 07/21/16 19:42 67 18 96/47 96 Nasal Cannula 2.0 07/21/16 19:00 67 18 95 Nasal Cannula 2.0 07/21/16 16:00 Nasal Cannula 2.0 07/21/16 15:31 36.9 62 20 109/55 94 Nasal Cannula 2.0 Humidified Oxygen Physical Exam Comments: nad, aox3, anicteric s1 s2 rrr, no murmurs appreciated prolonged expiratory phase, no wheezing, decreased breath sounds with only minimal basilar rales abd soft nt/nd +BS no LE edema LUE AVF +thrill/+bruit Laboratory Results Last 24 Hours Test 07/21/16 16:00 07/21/16 20:08 07/22/16 06:38 07/22/16 11:41 Bedside Glucose 196 mg/dl 213 mg/dl 232 mg/dl 258 mg/dl Assessment and Plan 1. Acute hypoxic respiratory failure - multifactorial from volume overload and possible undiagnosed COPD with exacerbation - volume optimization per nephrology/dialysis - will cont steroids and start tapering - cont rocephin for now, can be switched over to oral levaquin if continues to improve 2. CKDV-HD - HD today - CKD anemia: currently at goal Hb, defer SERENITY to nephro - CKD BMD: cont phoslo 3. Possible COPD exacerbation - extensive h/o smoking, not officially diagnosed with COPD - may have element of COPD exacerbation - cont IV steroids and will taper - cont rocephin for now 4. BP/volume - cont atenolol - BP borderline, monitor 5. dvt ppx with hsq
[2016-07-22] MEDS ORDERED: IRON SUCROSE INJ 100 MG in SYRINGE 0 ML IV ONE (15:00)
[2016-07-22 15:18] LABS: ALBUMIN 4.3 G/DL (3.8-4.8); GAMMA GLOBULIN 1.5 G/DL (0.8-1.7); TOTAL PROTEIN 8.1 G/DL (6.2-8.3)
[2016-07-22] MEDS: METHYLPREDNISOLONE IV 40 MG in SYRINGE 0 ML IV SCH (21:13)
[2016-07-22] MEDS: ATORVASTATIN 40 MG TAB PO SCH (21:15)
[2016-07-23] VITALS (15 sets, daily range): BP systolic 97–122; BP diastolic 46–62; PULSE 62–73; TEMP 36.6–37; O2SAT 85–98
[2016-07-23] MEDS: LEVALBUTEROL 1.25MG/0.5ML NEB INH SCH ×2 (01:34→07:14)
[2016-07-23] MEDS: IPRATROPIUM BROMIDE NEB SOLN 0.02% 2.5 ML VIAL INH SCH ×4 (01:34→19:43)
[2016-07-23 06:18] LABS: BASO % 0.1 %; BASO ABS # 0.01 K/uL (0-0.2); COMPLETE YES; HEMATOCRIT 37.4 % (42-52); IG% 0.3 %; LYMPH ABS # 0.35 K/uL (1.2-3.4); MEAN CELL VOLUME 106.6 fL (80-100); MEAN CORPUSCULAR HEMOGLOBIN 33.9 pg (25-34); MEAN CORPUSCULAR HGB CONC 31.8 g/dl (32-36); MEAN PLATELET VOLUME 10.4 fL (7.4-10.4); NEUT % 92.6 %; PLATELET COUNT 190 K/uL (130-400); RED BLOOD COUNT 3.51 M/uL (4.7-6.1); WHITE BLOOD COUNT 8.76 K/uL (4.8-10.8)
[2016-07-23 06:28] LABS: BUN/CREATININE RATIO 7.6 (10-20); CALCIUM 7.4 mg/dl (8.5-10.1); CREATININE 5.9 mg/dl (0.60-1.40); MAGNESIUM 2.4 mg/dl (1.8-2.4); PHOSPHORUS 3.6 mg/dl (2.5-4.9); POTASSIUM 4.3 mmol/L (3.5-5.1)
[2016-07-23] MEDS: INSULIN ASPART 100 UNITS/ML 3 ML PEN SC SCH ×4 (07:00→20:44)
[2016-07-23] MEDS: CALCIUM ACETATE 667MG GELCAP PO SCH ×3 (07:35→15:52)
[2016-07-23] MEDS: METHYLPREDNISOLONE IV 40 MG in SYRINGE 0 ML IV SCH ×2 (07:59→20:44)
[2016-07-23] MEDS: AMIODARONE 200 MG TAB PO SCH ×2 (08:00→20:44)
[2016-07-23] MEDS: PANTOprazole SOD 40 MG TAB PO SCH (08:00)
[2016-07-23] MEDS: NEPHROCAPS PO SCH (08:01)
[2016-07-23] MEDS: ASPIRIN 81 MG ECTAB PO SCH (08:02)
[2016-07-23] MEDS: PAROXETINE 20 MG TAB PO SCH (08:02)
[2016-07-23] MEDS: CEFTRIAXONE SOD INJ 1 GM in DEXTROSE 5% ADD-VANTAGE 50ML 50 ML IV SCH (08:05)
[2016-07-23] MEDS: HEPARIN SOD 5000 UNIT/0.5 ML CARP SQ SCH ×2 (08:05→20:45)
--- NOTE | 2016-07-23 10:13 | Progress Note ---
Subjective Date of Service: Jul 23, 2016. Subjective c/o intermittent dry cough. Breathing improved. No chest pain. Tolerating diet. Problem List Medical Problems: (1) Anxiety about health Status: Acute (2) CHF (congestive heart failure) Status: Acute (3) Hyperkalemia Status: Acute (4) Hypoxia Status: Acute (5) Pulmonary edema Status: Acute (6) Situational stress Status: Acute (7) Weakness Status: Acute Review of Systems All Other Systems: Reviewed and Negative Medications Acetaminophen (Tylenol Tab) 650 mg Q4H PRN PO; Start 07/20/16 at 11:15; Stop 08/19/16 at 11:14 Amiodarone HCl (Cordarone Tab) 100 mg BID PO Last administered on 07/23/16 08: 00; Admin Dose 100 MG; Start 07/20/16 at 21:00; Stop 08/19/16 at 20:59 Aspirin (Ecotrin Tab) 81 mg DAILY PO Last administered on 07/23/16 08:02; Admin Dose 81 MG; Start 07/21/16 at 09:00; Stop 08/20/16 at 08:59 Atenolol (Tenormin Tab) 12.5 mg QD@1230 PO Last administered on 07/23/16 12:09 ; Admin Dose 12.5 MG; Start 07/20/16 at 12:30; Stop 08/19/16 at 12:29 Atorvastatin Calcium (Lipitor Tab) 80 mg QPM PO Last administered on 07/22/16 21:15; Admin Dose 80 MG; Start 07/20/16 at 21:00; Stop 08/19/16 at 20:59 Buspirone HCl (Buspar Tab) 5 mg BID PO Last administered on 07/23/16 08:01; Admin Dose 5 MG; Start 07/20/16 at 21:00; Stop 08/19/16 at 20:59 Calcium Acetate (Phoslo Cap) 2,001 mg TIDM PO Last administered on 07/23/16 12: 09; Admin Dose 2,001 MG; Start 07/20/16 at 12:30; Stop 08/19/16 at 12:29 Ceftriaxone Sodium/Dextrose (Rocephin Inj/ Dextrose Add-[place] 50ML) 50 ml @ 100 mls/hr DAILY@1000 IV Last administered on 07/23/16 08:05; Admin Dose 100 MLS/HR; Start 07/21/16 at 11:00; Stop 07/27/16 at 10:29 Dextrose (Dextrose 50% 50ML Syringe) 25-50ML OF 50% DW IV FOR... UD PRN IV; Start 07/22/16 at 12:30; Stop 08/21/16 at 12:29 Folic Acid (Folvite Tab) 1 mg QD@1230 PO Last administered on 07/23/16 12:09; Admin Dose 1 MG; Start 07/20/16 at 12:30; Stop 08/19/16 at 12:29 Glucagon (Glucagon Inj) 1 mg UD PRN SQ; Start 07/22/16 at 12:30; Stop 08/21/16 at 12:29 Glucose (Glucose 40% Gel) 15-30 GRAMS 15 GRAMS... UD PRN PO; Start 07/22/16 at 12:30; Stop 08/21/16 at 12:29 Glucose (Glucose Chew Tab) 4-8 Tablets 4 Tabl... UD PRN PO; Start 07/22/16 at 12:30; Stop 08/21/16 at 12:29 Heparin Sodium (Porcine) (Heparin Iv Bolus) 2,000 unit TODAY@0800 IV; Start at 08:00; Stop 07/24/16 at 23:59 Heparin Sodium (Porcine) (Heparin Sq 5000 Unit/0.5ml) 5,000 unit Q12 SQ Last administered on 07/23/16 08:05; Admin Dose 5,000 UNIT; Start 07/20/16 at 21:00 ; Stop 08/19/16 at 20:59 Heparin Sodium (Porcine) 500 unit 500 unit TODAY@0800,0900,1000 IV; Start at 08:00; Stop 07/24/16 at 23:59 Insulin Aspart SLIDING SCALE G... ACHS SC Last administered on 07/23/16 11:00; Admin Dose 13 UNITS; Start 07/22/16 at 11:00; Stop 08/21/16 at 10:59 Ipratropium [place] (Atrovent 0.02% 0.5MG/2.5ML Neb) 0.5 mg Q6R INH; Start 07/23 at 15:00; Stop 08/22/16 at 14:59 Levalbuterol (Xopenex 0.63 Mg/ 3 Ml Neb) 0.63 mg Q6R INH; Start 07/23/16 at 15: 00; Stop 08/22/16 at 14:59 Levalbuterol (Xopenex 0.63 Mg/ 3 Ml Neb) 0.63 mg Q6R PRN INH; Start 07/23/16 at 10:15; Stop 08/22/16 at 10:14 Methylprednisolone Sodium Succinate/ Syringe (Solu-Medrol IV/ Syringe) 0.64 ml @ 1.5 mls/min Q12 IV Last administered on 07/23/16 07:59; Admin Dose 1.5 MLS/ MIN; Start 07/22/16 at 21:00; Stop 08/21/16 at 20:59 Miscellaneous Information 1 ea 1 ea QS N/A; Start 07/20/16 at 16:00; Stop at 15:59 Morphine Sulfate (MoRPHine SULFATE INJ) 2 mg Q2H PRN IV; Start 07/20/16 at 11: 15; Stop 08/03/16 at 11:14 Nitroglycerin (Nitrostat Tab) 0.4 mg UD PRN SL; Start 07/20/16 at 11:15; Stop 08/19/16 at 11:14 Pantoprazole Sodium (Protonix Tab) 40 mg DAILY PO Last administered on 08:00; Admin Dose 40 MG; Start 07/21/16 at 09:00; Stop 08/20/16 at 08:59 Paroxetine HCl (pAXil TAB) 20 mg DAILY PO Last administered on 07/23/16 08:02; Admin Dose 20 MG; Start 07/21/16 at 09:00; Stop 08/20/16 at 08:59 Sodium Chloride (Nss 1000ml) 1,000 ml @ 0 mls/hr Q0M PRN IV; Start 07/24/16 at 08:00; Stop 07/24/16 at 23:59 Vitamin B Complex/ Vit C/Folic Acid (Nephrocaps) 1 cap DAILY PO Last administered on 07/23/16 08:01; Admin Dose 1 CAP; Start 07/21/16 at 09:00; Stop 08/20/16 at 08:59 Objective Vital Signs Date Time Temp Pulse Resp B/P Pulse Ox O2 Delivery O2 Flow Rate FiO2 07/23/16 07:23 37.0 73 20 104/46 98 Nasal Cannula 2.0 07/23/16 07:14 71 18 95 Nasal Cannula 2.0 07/23/16 04:00 Nasal Cannula 2.0 07/23/16 03:47 36.6 73 22 97/58 94 Nasal Cannula 2.0 07/23/16 01:34 65 18 97 Nasal Cannula 2.0 07/22/16 23:59 Nasal Cannula 2.0 07/22/16 23:25 36.7 68 20 107/58 94 Nasal Cannula 2.0 07/22/16 20:01 36.9 61 18 96/51 100 Room Air 07/22/16 20:00 Nasal Cannula 2.0 07/22/16 19:16 71 18 97 Nasal Cannula 2.0 07/22/16 18:03 36.3 61 101/67 07/22/16 17:45 64 94/63 07/22/16 17:30 61 93/50 07/22/16 17:15 60 95/62 07/22/16 17:00 73 86/65 07/22/16 16:45 63 85/52 07/22/16 16:30 65 98/57 07/22/16 16:15 61 99/55 07/22/16 16:00 64 84/31 07/22/16 16:00 Nasal Cannula 2.0 07/22/16 15:45 68 95/40 07/22/16 15:30 67 90/30 07/22/16 15:21 60 18 95 Nasal Cannula 2.0 07/22/16 15:13 72 109/50 07/22/16 15:00 60 130/49 07/22/16 14:45 63 126/49 07/22/16 14:30 60 111/53 07/22/16 14:15 60 123/60 07/22/16 14:03 61 111/57 07/22/16 14:03 36.4 62 110/76 07/22/16 12:00 92 Nasal Cannula 2.0 07/22/16 11:28 36.6 75 20 108/54 92 Nasal Cannula 2.0 Physical Exam Comments: nad, aox3 anicteric s1 s2 rrr, no murmurs appreciated decreased breath sounds, no wheezing, prolonged expiratory phase abd soft nt/nd +BS no LE edema LUE AVF +t/+b Laboratory Results Last 24 Hours Test 07/22/16 11:41 07/22/16 16:00 07/22/16 20:06 07/23/16 05:16 Bedside Glucose 258 mg/dl 110 mg/dl 221 mg/dl White Blood Count 8.76 K/uL Red Blood Count 3.51 M/uL Hemoglobin 11.9 g/dL Hematocrit 37.4 % Mean Corpuscular Volume 106.6 fL Mean Corpuscular Hemoglobin 33.9 pg Mean Corpuscular Hemoglobin Concent 31.8 g/dl Platelet Count 190 K/uL Mean Platelet Volume 10.4 fL Neutrophils (%) (Auto) 92.6 % Lymphocytes (%) (Auto) 4.0 % Monocytes (%) (Auto) 3.0 % Eosinophils (%) (Auto) 0.0 % Basophils (%) (Auto) 0.1 % Neutrophils # (Auto) 8.11 K/uL Lymphocytes # (Auto) 0.35 K/uL Monocytes # (Auto) 0.26 K/uL Eosinophils # (Auto) 0.00 K/uL Basophils # (Auto) 0.01 K/uL RDW Standard Deviation 65.0 fL RDW Coefficient of Variation 16.7 % Immature Granulocyte % (Auto) 0.3 % Immature Granulocyte # (Auto) 0.03 K/uL Nucleated RBC Absolute Count (auto) 0.03 K/uL Nucleated Red Blood Cells % 0.4 % Sodium Level 136 mmol/L Potassium Level 4.3 mmol/L Chloride Level 98 mmol/L Carbon Dioxide Level 31 mmol/L Anion Gap 7.0 mmol/L Blood Urea Nitrogen 45 mg/dl Creatinine 5.90 mg/dl Est Creatinine Clear Calc Drug Dose 13.7 ml/min Estimated GFR () 10.5 Estimated GFR (Non- 9.1 BUN/Creatinine Ratio 7.6 Fasting Glucose 187 mg/dl Calcium Level 7.4 mg/dl Phosphorus Level 3.6 mg/dl Magnesium Level 2.4 mg/dl Test 07/23/16 07:03 Bedside Glucose 196 mg/dl Assessment and Plan 1. Acute hypoxic respiratory failure - multifactorial from volume overload and possible undiagnosed COPD? - volume optimization per nephrology/dialysis - will cont steroids and start tapering - cont rocephin for now, can be switched over to oral levaquin if continues to improve 2. CKDV-HD - HD tomorrow - CKD anemia: currently at goal Hb, defer SERENITY to nephro - CKD BMD: cont phoslo 3. Acute bronchitis - extensive h/o smoking, not officially diagnosed with COPD - may have element of COPD exacerbation - cont IV steroids for now - nebs around the clock and prn - titrate off oxygen - cont rocephin for now 4. BP/volume - cont atenolol - BP borderline, monitor 5. dvt ppx with hsq
[2016-07-23] MEDS ORDERED: LEVALBUTEROL 0.63MG/3 ML NEB INH PRN (10:15)
--- NOTE | 2016-07-23 13:12 | NEPHROLOGY PROGRESS NOTE ---
DATE: 07/23/2016 SUBJECTIVE: Mr. Tate says that he is feeling relatively well. He denies shortness of breath. However, he continues to have an intermittent hacking cough, which he says is nonproductive. He does not notice any wheezing. He has no chest pain. He says that his appetite has improved. He has no specific symptoms of uremia or volume overload at this point. His dialysis yesterday was uncomplicated and about 2.8 liters of fluid were removed. OBJECTIVE: VITAL SIGNS: On physical exam when seen today, he is afebrile. His blood pressure is 108/49, his pulse 69 and regular, respiratory rate 20, and his pulse ox 96%-98% on 2 liters of oxygen via nasal cannula. SKIN: Shows normal skin turgor. He has no rash or infiltrative skin disease. He has scars from prior surgical procedures including a scar from his coronary surgery as well as a scar from the creation of his AV fistula in the left forearm with multiple dialysis needle stick diallo over the fistula. He has abdominal scars from his prior colon surgery. LYMPHATICS: Show no palpable lymphadenopathy. HEAD: Normal. EYES: Grossly normal. The ocular fundi were not examined. EARS, NOSE, MOUTH AND THROAT: Unremarkable. Oral mucous membranes are moist. NECK: Supple. He has no obvious jugular venous distention lying at about 30 degrees. I hear no carotid bruit, but he does have a murmur transmitted from a murmur at the base of his heart to both carotids. He has no thyromegaly. CHEST: Continues to show scattered wheezes and rhonchi. He has no rales. Breath sounds are diminished. CARDIAC: Shows a regular rhythm. S1 and S2 are consistent with bioprosthetic valve sounds. He has a grade 2-3/6 systolic murmur loudest at the base and radiating toward the neck, but also heard along the left sternal border. ABDOMEN: Protuberant, but nontender. There is no obvious organomegaly or mass. EXTREMITIES: Show no cyanosis, clubbing or peripheral edema. He has a left forearm AV fistula, which is functioning well. NEUROLOGIC: Shows no lateralizing changes. PERTINENT LABORATORY WORK: From today shows a white count of 8760 with somewhat of a shift to the left with 92.6% neutrophils. His hemoglobin is 11.9 and his hematocrit is 37.4. Red cell indices are macrocytic. His platelet count is 190,000. Clinical chemistries from today show a sodium of 136 mmol/L, potassium 4.3 mmol/L, chlorides 98 mmol/L, and CO2 content of 31 mmol/L. BUN is 45 and creatinine 5.90. Blood sugars vary from 110 to 221. His serum calcium is 7.4. His phosphate is 3.6. Serum albumin has not been done since July 20. ASSESSMENT: Mr. Tate appears to be doing reasonably well. At this point, I do not think that there is significant evidence of volume overload. I think the major causes of his symptoms of shortness of breath and cough are from an asthmatic bronchitis. PLAN: I agree with slowly tapering his steroids. He is getting bronchodilators via nebulizer. We will plan on dialysis tomorrow.
--- NOTE | 2016-07-23 14:27 | DIAGNOSTIC IMAGING REPORT ---
TWO VIEW CHEST CLINICAL HISTORY: Asthmatic bronchitis. CHF. FINDINGS: PA and lateral chest radiographs are compared to study dated 07/21/2016 and correlated with chest CT dated 07/07/2016. A 2-lead cardiac AICD is unchanged in position and largely obscures the right mid chest. The patient is status post midline sternotomy. The heart is enlarged and there is atherosclerotic calcification of the thoracic aorta. Mild pulmonary vascular congestion is observed. Emphysema and chronic interstitial thickening are similar to previous. A 5 cm mass in the left upper lung is unchanged. Airspace opacities are seen in the right lung base. There is no large pleural effusion or pneumothorax. The skeletal structures are osteopenic. The bony thorax appears intact. IMPRESSION: 1. Cardiomegaly and AICD. There is mild pulmonary vascular congestion. Cortical clinically for evidence of CHF. 2. A 5 cm left upper lung mass lesion is similar to previous. This remains concerning for neoplasm. 3. Airspace opacities are identified at the right lung base. This could represent atelectasis versus an infectious/inflammatory pneumonitis. Clinical correlation will be required. Electronically signed by: Rey Gilliam M.D. 07/23/2016 2:25 PM Dictated Date/Time: 07/23/2016 2:19 PM
[2016-07-23] MEDS ORDERED: LEVALBUTEROL/IPRATROPIUM NEB INH SCH (15:00)
[2016-07-23] MEDS ORDERED: NURSING VERBAL MED ORDER ONE (16:00)
[2016-07-23] MEDS ORDERED: POLYETHYLENE (MIRALAX) 17 GM PACK PO PRN (16:00)
[2016-07-23] MEDS: LEVALBUTEROL 0.63MG/3 ML NEB INH SCH (19:43)
[2016-07-23] MEDS: ATORVASTATIN 40 MG TAB PO SCH (20:43)
[2016-07-24] VITALS (28 sets, daily range): BP systolic 74–131; BP diastolic 35–69; PULSE 57–78; TEMP 36.4–36.7; O2SAT 88–97
[2016-07-24] MEDS: IPRATROPIUM BROMIDE NEB SOLN 0.02% 2.5 ML VIAL INH SCH ×4 (01:40→19:19)
[2016-07-24] MEDS: LEVALBUTEROL 0.63MG/3 ML NEB INH SCH ×4 (01:40→19:19)
[2016-07-24] MEDS ORDERED: INSULIN GLARGINE PER UNIT 10 UNITS in SYRINGE 0 ML SC STA (07:27)
[2016-07-24] MEDS: CALCIUM ACETATE 667MG GELCAP PO SCH ×3 (07:44→20:15)
[2016-07-24] MEDS: METHYLPREDNISOLONE IV 40 MG in SYRINGE 0 ML IV SCH (07:44)
[2016-07-24] MEDS: ASPIRIN 81 MG ECTAB PO SCH (07:45)
[2016-07-24] MEDS ORDERED: LANTUS PER UNIT CHARGE SQ ONE (07:45)
[2016-07-24] MEDS: PAROXETINE 20 MG TAB PO SCH (07:45)
[2016-07-24] MEDS: NEPHROCAPS PO SCH (07:45)
[2016-07-24] MEDS: PANTOprazole SOD 40 MG TAB PO SCH (07:45)
[2016-07-24] MEDS: HEPARIN SOD 5000 UNIT/0.5 ML CARP SQ SCH ×2 (07:47→20:16)
[2016-07-24] MEDS: INSULIN ASPART 100 UNITS/ML 3 ML PEN SC SCH ×4 (07:51→20:18)
[2016-07-24] MEDS ORDERED: SODIUM CHLORIDE 0.9% 1000ML 1,000 ML IV PRN (08:00)
[2016-07-24] MEDS ORDERED: HEPARIN SOD (PORCINE) 1000 UNIT/ML 10 ML VIAL IV SCH ×2 (08:00)
[2016-07-24] MEDS: AMIODARONE 200 MG TAB PO SCH ×2 (09:01→20:17)
--- NOTE | 2016-07-24 09:46 | NEPHROLOGY PROGRESS NOTE ---
DATE: 07/24/2016 DATE: 07/24/2016. SUBJECTIVE: Mr. Tate says that he is feeling significantly better. He has a significantly improved appetite. He denies being short of breath. He still has a cough which is loose and relatively raspy, but still nonproductive. He is getting nebulizer treatments. He denies having any chest pain. He seems to be sleeping reasonably well. OBJECTIVE: GENERAL: On physical exam when seen by me, Mr. Tate appeared relatively comfortable and certainly in no distress. He was sitting in a chair reading the newspaper. VITAL SIGNS: He is afebrile (36.6), his blood pressure 107/59, his pulse 72 and regular, respiratory rate 18, his pulse ox 93-94% on 2 liters of oxygen via nasal cannula. SKIN: Shows normal skin turgor. He has no rash or infiltrative skin disease. He has multiple ecchymoses on both arms. He has an IV in the right antecubital fossa. He has an AV fistula in the left arm with multiple dialysis needle track diallo over the fistula. He has abdominal scars from prior colon surgery and a midsternal scar from prior coronary surgery. He has a palpable ICD beneath the distal right clavicle. LYMPHATICS: Show no palpable lymphadenopathy. HEAD: Normal. EYES: Grossly normal. The ocular fundi were not examined. EARS, NOSE, MOUTH AND THROAT: Unremarkable. His oral mucous membranes are moist. NECK: Supple. At 90 degrees, there is no jugular venous distention. I hear no carotid bruit. He does have a murmur transmitted from the base of his heart to both carotids. There is no thyromegaly. CHEST: Continues to show scattered wheezes and rhonchi. No rales are noted. Breath sounds are generally diminished. CARDIAC EXAMINATION: Shows a regular rhythm. S1 and S2 are consistent with bioprosthetic valve sounds. He has a grade 2-3/6 systolic murmur loudest at the base and radiating toward the neck, but also heard radiating along the left sternal border. ABDOMEN: Protuberant but nontender. He has no organomegaly or mass. EXTREMITIES: Show no cyanosis, clubbing or peripheral edema. There is a left forearm AV fistula which functions well with a good pulse, thrill and bruit. NEUROLOGIC EXAMINATION: Shows no lateralizing changes. His arms and legs seem quite strong. PERTINENT LABORATORY WORK: Includes his chest x-ray done yesterday which showed evidence of cardiomegaly as well as his ICD. There is minimal pulmonary vascular congestion present. He still has the approximate 5 cm left upper lobe lung mass which does not appear to be dramatically changed. Radiology is still concerned about the possibility of a neoplasm. He does have some airspace opacities at the right lung base that may represent atelectasis or certainly the possibility of an infection given his recent clinical course. Pertinent laboratory work from today is limited to blood sugars which are in the range of about 199. ASSESSMENT: On the whole Mr. Tate appears to be significantly improved from the symptoms that he had at the time of admission. Nonetheless, he still has changes of an asthmatic bronchitis. Of concern is the mass or opacity noted in the left upper lobe. Whether or not this definitely represent a neoplasm is hard to say. It is currently unchanged. RECOMMENDATIONS: Dialysis planned for today. We will try to remove 2-3 liters of fluid. No other immediate intervention. However, I would suggest that perhaps Dr. Solitario visit Mr. Tate again to see if he has changed his mind about a diagnostic approach to the area in Mr. Tate's left upper lobe.
[2016-07-24] MEDS: CEFTRIAXONE SOD INJ 1 GM in DEXTROSE 5% ADD-VANTAGE 50ML 50 ML IV SCH (09:48)
--- NOTE | 2016-07-24 10:15 | Progress Note ---
Subjective Date of Service: Jul 24, 2016. Subjective Pt evaluation today including: conversation w/ patient, physical exam, lab review, review of studies, review of inpatient medication list Sitting in chair OOB. Feeling better. No sob, no chest pain. No new complaints. Problem List Medical Problems: (1) Anxiety about health Status: Acute (2) CHF (congestive heart failure) Status: Acute (3) Hyperkalemia Status: Acute (4) Hypoxia Status: Acute (5) Pulmonary edema Status: Acute (6) Situational stress Status: Acute (7) Weakness Status: Acute Review of Systems All Other Systems: Reviewed and Negative Medications Acetaminophen (Tylenol Tab) 650 mg Q4H PRN PO; Start 07/20/16 at 11:15; Stop 08/19/16 at 11:14 Amiodarone HCl (Cordarone Tab) 100 mg BID PO Last administered on 07/24/16 09: 01; Admin Dose 100 MG; Start 07/20/16 at 21:00; Stop 08/19/16 at 20:59 Aspirin (Ecotrin Tab) 81 mg DAILY PO Last administered on 07/24/16 07:45; Admin Dose 81 MG; Start 07/21/16 at 09:00; Stop 08/20/16 at 08:59 Atenolol (Tenormin Tab) 12.5 mg QD@1230 PO Last administered on 07/24/16 12:05 ; Admin Dose 12.5 MG; Start 07/20/16 at 12:30; Stop 08/19/16 at 12:29 Atorvastatin Calcium (Lipitor Tab) 80 mg QPM PO Last administered on 07/23/16 20:43; Admin Dose 80 MG; Start 07/20/16 at 21:00; Stop 08/19/16 at 20:59 Buspirone HCl (Buspar Tab) 5 mg BID PO Last administered on 07/24/16 07:45; Admin Dose 5 MG; Start 07/20/16 at 21:00; Stop 08/19/16 at 20:59 Calcium Acetate (Phoslo Cap) 2,001 mg TIDM PO Last administered on 07/24/16 12: 05; Admin Dose 2,001 MG; Start 07/20/16 at 12:30; Stop 08/19/16 at 12:29 Dextrose (Dextrose 50% 50ML Syringe) 25-50ML OF 50% DW IV FOR... UD PRN IV; Start 07/22/16 at 12:30; Stop 08/21/16 at 12:29 Folic Acid (Folvite Tab) 1 mg QD@1230 PO Last administered on 07/24/16 12:05; Admin Dose 1 MG; Start 07/20/16 at 12:30; Stop 08/19/16 at 12:29 Glucagon (Glucagon Inj) 1 mg UD PRN SQ; Start 07/22/16 at 12:30; Stop 08/21/16 at 12:29 Glucose (Glucose 40% Gel) 15-30 GRAMS 15 GRAMS... UD PRN PO; Start 07/22/16 at 12:30; Stop 08/21/16 at 12:29 Glucose (Glucose Chew Tab) 4-8 Tablets 4 Tabl... UD PRN PO; Start 07/22/16 at 12:30; Stop 08/21/16 at 12:29 Heparin Sodium (Porcine) (Heparin Iv Bolus) 2,000 unit TODAY@0800 IV; Start at 08:00; Stop 07/24/16 at 23:59 Heparin Sodium (Porcine) (Heparin Sq 5000 Unit/0.5ml) 5,000 unit Q12 SQ Last administered on 07/24/16 07:47; Admin Dose 5,000 UNIT; Start 07/20/16 at 21:00 ; Stop 08/19/16 at 20:59 Heparin Sodium (Porcine) 500 unit 500 unit TODAY@0800,0900,1000 IV; Start at 08:00; Stop 07/24/16 at 23:59 Insulin Aspart (novoLOG ASPART) SLIDING SCALE G... ACHS SC Last administered on 07/24/16 11:00; Admin Dose 20 UNITS; Start 07/22/16 at 11:00; Stop 08/21/16 at 10:59 Ipratropium [place] (Atrovent 0.02% 0.5MG/2.5ML Neb) 0.5 mg Q6R INH Last administered on 07/24/16 07:37; Admin Dose 0.5 MG; Start 07/23/16 at 15:00; Stop 08/22/16 at 14:59 Levalbuterol (Xopenex 0.63 Mg/ 3 Ml Neb) 0.63 mg Q6R INH Last administered on 07:37; Admin Dose 0.63 MG; Start 07/23/16 at 15:00; Stop 08/22/16 at 14: 59 Levalbuterol (Xopenex 0.63 Mg/ 3 Ml Neb) 0.63 mg Q6R PRN INH; Start 07/23/16 at 10:15; Stop 08/22/16 at 10:14 Levofloxacin (Levaquin Tab) 500 mg Q2D@11 PO; Start 07/26/16 at 11:00; Stop 08/02 at 10:59 Miscellaneous Information (Order Awaiting Action) 1 ea QS N/A Last administered on 07/23/16 00:00; Admin Dose 1 EA; Start 07/20/16 at 16:00; Stop 08/19/16 at 15:59 Morphine Sulfate (MoRPHine SULFATE INJ) 2 mg Q2H PRN IV; Start 07/20/16 at 11: 15; Stop 08/03/16 at 11:14 Nitroglycerin (Nitrostat Tab) 0.4 mg UD PRN SL; Start 07/20/16 at 11:15; Stop 08/19/16 at 11:14 Pantoprazole Sodium (Protonix Tab) 40 mg DAILY PO Last administered on 07:45; Admin Dose 40 MG; Start 07/21/16 at 09:00; Stop 08/20/16 at 08:59 Paroxetine HCl (pAXil TAB) 20 mg DAILY PO Last administered on 07/24/16 07:45; Admin Dose 20 MG; Start 07/21/16 at 09:00; Stop 08/20/16 at 08:59 Polyethylene (Miralax Powder Packet) 17 gm DAILY PRN PO Last administered on 16:07; Admin Dose 17 GM; Start 07/23/16 at 16:00; Stop 08/22/16 at 15:59 Prednisone (PredniSONE TAB) 40 mg DAILY PO; Start 07/25/16 at 09:00; Stop at 08:59 Sodium Chloride (Nss 1000ml) 1,000 ml @ 0 mls/hr Q0M PRN IV; Start 07/24/16 at 08:00; Stop 07/24/16 at 23:59 Vitamin B Complex/ Vit C/Folic Acid (Nephrocaps) 1 cap DAILY PO Last administered on 07/24/16t 07:45; Admin Dose 1 CAP; Start 07/21/16 at 09:00; Stop 08/20/16 at 08:59 Objective Vital Signs Date Time Temp Pulse Resp B/P Pulse Ox O2 Delivery O2 Flow Rate FiO2 07/24/16 08:06 36.6 72 18 107/59 94 Nasal Cannula 2.0 07/24/16 08:06 Nasal Cannula 2.0 07/24/16 07:37 67 18 95 Nasal Cannula 2.0 07/24/16 04:00 Nasal Cannula 2.0 07/24/16 03:52 36.5 75 22 108/55 93 Nasal Cannula 2.0 07/24/16 01:40 67 18 88 Room Air 07/24/16 00:01 Nasal Cannula 2.0 07/23/16 23:48 36.7 72 22 102/56 92 Nasal Cannula 2.0 07/23/16 20:37 36.9 73 20 122/62 95 Nasal Cannula 2.0 07/23/16 20:00 96 Nasal Cannula 2.0 07/23/16 19:43 67 18 96 Nasal Cannula 2.0 07/23/16 16:15 28 88 Room Air 07/23/16 16:00 98 Nasal Cannula 2.0 07/23/16 15:58 36.8 65 20 118/57 91 Room Air 07/23/16 14:36 62 18 85 Room Air 07/23/16 12:00 97 Room Air 07/23/16 11:03 36.9 69 20 108/49 96 Nasal Cannula 2.0 Physical Exam Comments: nad, aox3, anicteric s1 s2 rrr, no murmurs appreciated decreased breath sounds, no wheezing, basilar rhonchi abd soft nt/nd +BS no LE edema LUE AVF +t/+b Laboratory Results Last 24 Hours Test 07/23/16 11:41 07/23/16 16:31 07/23/16 20:42 07/24/16 06:34 Bedside Glucose 189 mg/dl 196 mg/dl 132 mg/dl 199 mg/dl Assessment and Plan 1. Acute hypoxic respiratory failure - improving - multifactorial from volume overload and possible undiagnosed COPD/acute bronchitis - volume optimization per nephrology/dialysis - taper steroids to po, switch to levaquin 500 mg q2days for 4 more days 2. CKDV-HD - HD tomorrow - CKD anemia: currently at goal Hb, defer SERENITY to nephro - CKD BMD: cont phoslo 3. Acute bronchitis - extensive h/o smoking, not officially diagnosed with COPD - improving, switch to oral steroids, switch to oral levaquin - now off O2 - Dr. Solitario for the lung nodule followup 4. BP/volume - cont atenolol - BP borderline, monitor 5. dvt ppx with hsq
[2016-07-24] MEDS ORDERED: LEVOFLOXACIN 750 MG TAB PO ONE (11:00)
--- NOTE | 2016-07-24 13:57 | Medical Consult ---
Consultation Note Date of Service Jul 24, 2016. Consultation Note Consult Dictated #[id number]
--- NOTE | 2016-07-24 14:51 | CONSULTATION REPORT ---
DATE OF CONSULTATION: 07/24/2016 HISTORY OF PRESENT ILLNESS: Left lung mass. HISTORY OF PRESENT ILLNESS: This is a 66-year-old male who is known to the thoracic surgery service here at [facility]. We most recently saw this patient as an outpatient in the office on July 16. The patient was referred to Dr. Solitario because he had a left upper lobe lung abnormality. The patient did have a CT scan that was reviewed by Dr. Solitario where he was noted to have a mass measuring approximately 4 cm across with well rounded edges that appeared to be in between the fissures of the lungs. This was compared to a CT scan that was done previously and it did appear to show some improvement. At that time, the plan was for the patient to undergo a repeat CT scan in approximately 3 months' time as it was felt that any intervention would pose higher risk due to the patient's numerous medical comorbidities. It is also noted that Dr. Solitario did not feel that this lesion was amenable to needle biopsy as it was located behind the scapula and would prove difficult to biopsy. The patient was most recently admitted to [facility] on July 20 of this year. The patient says that he had several days of worsening fatigue as well as a cough and worsening dyspnea. The patient's symptoms became progressively worse, so the day of admission he called 911 and arrived by ambulance to [facility]. Thus far during admission, the patient has had numerous chest x-rays, which do show some cardiomegaly and some pulmonary vascular congestion. The left lung lesion noted on CT scan is identified on his chest x-ray. The patient notes that he has had some clinical improvement since his admission to the hospital. The patient says he has not had any falls or head injuries. He denies visual changes, tinnitus, sore throat or neck pain. He has not exhibited any chest pain. He is short of breath. He denies abdominal pain, nausea, vomiting or diarrhea. He denies any history of seizure. He denies history of stroke. He does have end-stage renal disease. He has no known history of DVT or PE. The patient's most recent labs were from today where white blood cell count is 8.7, which is normal. Hemoglobin and hematocrit 11.9 and 37.4. Platelet count is 190,000, which is normal. The patient did have his most recent chemistry profile today, where sodium and potassium were normal. BUN and creatinine were 45 and 5.9. His magnesium is noted to be within normal range. PAST MEDICAL HISTORY: Includes the followin. Coronary artery disease. 2. CHF. 3. Diabetes. 4. End-stage renal disease. 5. Posttraumatic stress disorder. 6. Ischemic cardiomyopathy. 7. Dyslipidemia. PAST SURGICAL HISTORY: Includes, 1. History of aortic valve replacement. 2. Appendectomy. 3. History of coronary artery bypass grafting. 4. History of ICD. 5. Partial sigmoid colectomy. 6. History of upper extremity AV fistula. FAMILY HISTORY: Positive for heart disease. SOCIAL HISTORY: The patient does have a positive smoking history. REVIEW OF SYSTEMS: See above. PHYSICAL EXAMINATION: VITAL SIGNS: The patient is afebrile, temperature 36.6, pulse 67 and regular, respirations are 18 and unlabored, blood pressure is 104/61, and pulse ox 97% on 2 liters. SKIN: Warm with good turgor. GENERAL: The patient is alert and oriented x3 in no distress. HEENT: Head is atraumatic and normocephalic. Eyes, pupils equal, round and reactive to light and accommodation. His extraocular motions are intact. Ears, auditory acuity is grossly intact. Nose, nasal patency was intact. Sinuses are nontender. Mouth is moist without exudates. NECK: Supple. I did not appreciate any JVD. CARDIOVASCULAR: Regular rate and rhythm. LUNGS: Revealed bilateral basilar rales. He was not using accessory muscles to aid in respiration. ABDOMEN: Soft and nontender. EXTREMITIES: Revealed no cyanosis or clubbing. NEUROLOGIC: Revealed no focal deficits. DIAGNOSTIC DATA: As noted above. IMPRESSION: A 66-year-old male with left lung mass. PLAN: As noted, the patient was seen as an outpatient and our plan was to repeat a CT scan in approximately 3 months. We will continue with this plan. I have discussed with the primary service and noted that Dr. Solitario is out of town for the next several days; however, if the patient remains hospitalized, we will revisit the patient at that time and Dr. Solitario can determine if further imaging or other intervention is needed at an earlier time. We will continue management as directed by the primary service.
[2016-07-24] MEDS: ATORVASTATIN 40 MG TAB PO SCH (20:16)
[2016-07-24] MEDS ORDERED: COUGH DROP (SUGAR FREE) LOZ 24 LOZ/1 BOX ONE (20:21)
[2016-07-24] MEDS ORDERED: COUGH DROP (SUGAR FREE) LOZ 24 LOZ/1 BOX PO PRN (21:00)
[2016-07-24] MEDS ORDERED: NURSING VERBAL MED ORDER ONE (21:00)
--- NOTE | 2016-07-24 22:42 | Progress Note ---
Post ICU Progress Note Date & Time Jul 24, 2016 at 22:42 Vital Signs Vital Signs Past 12 Hours Date Time Temp Pulse Resp B/P Pulse Ox O2 Delivery O2 Flow Rate FiO2 07/24/16 20:01 36.7 63 20 122/69 97 Nasal Cannula 2.0 07/24/16 19:30 36.4 60 103/57 07/24/16 18:30 66 85/42 07/24/16 18:15 64 95/44 07/24/16 18:00 62 77/45 07/24/16 17:45 61 81/48 07/24/16 17:30 72 87/55 07/24/16 17:15 62 84/37 07/24/16 17:00 60 81/35 07/24/16 16:45 61 96/44 07/24/16 16:30 78 90/45 07/24/16 16:15 67 86/40 07/24/16 16:04 66 94/42 07/24/16 16:00 60 74/41 07/24/16 15:45 69 125/43 07/24/16 15:30 66 107/55 07/24/16 15:15 60 103/51 07/24/16 15:00 57 101/54 07/24/16 14:45 61 115/58 07/24/16 14:39 65 119/58 07/24/16 14:30 36.5 64 131/59 07/24/16 13:48 36.6 67 18 97 2.0 07/24/16 12:02 Nasal Cannula 2.0 07/24/16 11:54 36.6 67 18 104/61 97 Nasal Cannula 2.0 Notes Mental Status: see Notes (Pt sleeping in bed [facility], Spoke with nursing) Nausea / Vomiting: adequately controlled Pain: adequately controlled Airway Patency, RR, SpO2: stable & adequate (remains on 2 L nasal cannula) BP & HR: stable & adequate Sarabjit Tate is a 66-year-old male who presented to [facility] ED with increasing shortness of breath with known PORTER mass, he is an end-stage renal disease patient who receives hemodialysis Wednesday, Wednesday, and Wednesday. He was found to be volume overloaded with a significant increase in weight from baseline. He was admitted to the ICU where he was started on noninvasive ventilation and ultimately underwent hemodialysis. He has a history of type 2 diabetes, hyper lipidemia, CAD with CABG 2 with Aortic Valve Replacement. Patient did undergo echocardiogram; which demonstrated, left ventricle mildly dilated with concentric left ventricle hypertrophy. Borderline left ventricular dysfunction with an EF of 45-50% and apical akinesis. There was evidence of multiple valvular dysfunctions. He was also treated for possible COPD exacerbation with Rocephin. Patient did not require intubation, invasive monitoring, arterial or central access. Patient was transferred to the floor the following day. This evening, he had just returned from hemodialysis and was resting comfortably asleep in bed. I spoke with his current nursing staff (Anu), who states he has been doing well. He has had no complaints and is saturating well on 2 L nasal cannula with adequate blood pressure. Hemodialysis this admission has removed approximately 4.7 L; the patient's net balance is -2 L. Patient has been seen by Dr. Solitario's PA-C for a lung mass and possible biopsy. At this time, Dr. Solitario will forego needle biopsy due to the location of the mass and the repeat CT in 3 months as planned. Patient's discharge plan is currently to home per case management. Patient does live alone and is independent at baseline. Patient has stated that he is feeling significantly better and no longer is feeling short of breath; however still has a cough that is nonproductive. His appetite has greatly improved. Consider outpatient follow up in 1 to 2 weeks with: Dr. Nadeem Roberts Repeat imaging needed: Per Dr. Solitario's Recommendations; Possible repeat CT in 3months Follow up cultures: N/A Reviewed progress notes, labs, and inpatient medication list Continue current management Additional recommendations: None Currently Patient remains stable at this time; therefore, critical care will sign off. Thank you for including us in the care of this patient, please feel free to reconsult as needed. Consults & Procedures Consultants: Nephrology: Dr. Satya Roberts Cardiology: Dr. Orlando Moncada Pulm/thoracic surgery: Dr. Wang Solitario
[2016-07-25 00:06] VITALS: O2SAT 95
[2016-07-25 02:55] VITALS: PULSE 86; O2SAT 88
[2016-07-25] MEDS: IPRATROPIUM BROMIDE NEB SOLN 0.02% 2.5 ML VIAL INH SCH ×2 (02:55→07:48)
[2016-07-25] MEDS: LEVALBUTEROL 0.63MG/3 ML NEB INH SCH ×2 (02:55→07:48)
[2016-07-25] MEDS: ASPIRIN 81 MG ECTAB PO SCH (07:26)
[2016-07-25] MEDS: CALCIUM ACETATE 667MG GELCAP PO SCH (07:27)
[2016-07-25] MEDS: PANTOprazole SOD 40 MG TAB PO SCH (07:28)
[2016-07-25] MEDS: AMIODARONE 200 MG TAB PO SCH (07:29)
[2016-07-25] MEDS: PAROXETINE 20 MG TAB PO SCH (07:29)
[2016-07-25] MEDS: NEPHROCAPS PO SCH (07:30)
[2016-07-25] MEDS: HEPARIN SOD 5000 UNIT/0.5 ML CARP SQ SCH (07:31)
[2016-07-25 07:33] VITALS: BP 86/49; PULSE 60; TEMP 36.6; O2SAT 91
[2016-07-25 07:49] VITALS: PULSE 76; O2SAT 90
[2016-07-25] MEDS ORDERED: PRVHFAIN INH (08:12)
[2016-07-25] MEDS ORDERED: LVQ500 PO (08:13)
[2016-07-25] MEDS ORDERED: PRD20 PO (08:16)
[2016-07-25] MEDS: INSULIN ASPART 100 UNITS/ML 3 ML PEN SC SCH (09:18)
--- NOTE | 2016-07-25 09:52 | Discharge Instructions ---
Discharge Instructions Date of Service Jul 25, 2016. Admission Reason for Admission: Acute Respiratory Failure With Hypoxia Discharge Discharge Diagnosis / Problem: Acute bronchitis, fluid overload Discharge Goals Goal(s): Improve disease control Activity Recommendations Activity Limitations: resume your previous activity . Current Hospital Diet Patient's current hospital diet: Diabetes Type 2 Diet, Renal Diet Discharge Diet Recommended Diet: Diabetes Type 2 Diet, Renal Diet Pending Studies Studies pending at discharge: no Medical Emergencies . Who to Call and When: Medical Emergencies: If at any time you feel your situation is an emergency, please call 911 immediately. . Non-Emergent Contact Non-Emergency issues call your: Primary Care Provider, Longitudinal Float Operator, Bottom Loader Call Non-Emergent contact if: you have a fever . . "Provider Documentation" section prepared by Virginia Avila. . VTE Core Measure Inpt VTE Proph given/why not?: Unfractionated heparin SQ
--- NOTE | 2016-07-25 09:54 | Discharge Summary ---
Discharge Summary Date of Service Jul 25, 2016. Discharge Summary Admission Date: Jul 20, 2016 at 11:19 Discharge Date: Jul 25, 2016 Discharge Disposition: Home Principal Diagnosis: Acute bronchitis, volume overload Immunizations: Have You Had Influenza Vaccine: Yes History of Tetanus Vaccine?: Unknown History of Pneumococcal: Yes History of Hepatitis B Vaccine: Unknown Medication Reconciliation New Medications: Albuterol (Ventolin Hfa) 60 Puffs/5400 Mcg Aers 2 PUFFS INH BID for SOB/Wheezing, #1 INHALER 1 Refill Levofloxacin (Levofloxacin) 500 Mg Tab 500 MG PO Q2D@11 for 3 Days, TAB Prednisone (Prednisone) 20 Mg Tab 40 MG PO DAILY, #8 TAB take 40 mg for 2 days then take 20 mg for 3 days then take 10 mg for 2 days then stop Continued Medications: Acetaminophen Tab (Tylenol) 325 Mg Tab 650 MG PO Q4 PRN for Pain, TAB Amiodarone HCl (Amiodarone HCl) 200 Mg Tab 100 MG PO BID, #60 TAB Aspirin (Aspirin Ec) 81 Mg Tab 81 MG PO DAILY Atenolol (Tenormin) 25 Mg Tab 12.5 MG PO QD@1230, TAB Atorvastatin (Lipitor) 80 Mg Tab 80 MG PO QPM, TAB Buspirone Hcl (Buspar) 15 Mg Tab 5 MG PO BID, TAB Calcium Acetate (Phoslo 667 Mg) 667 Mg Cap 3 CAP PO TIDM ALSO, TAKE 2 TABLETS WITH SNACKS 1X PER DAY. Cinacalcet (Sensipar) 30 Mg Tab 30 MG PO BID Folic Acid (Folvite) 1 Mg Tab 1 MG PO QD@1230, TAB Glipizide (Glucotrol) 5 Mg Tab 2.5 MG PO QD@1230, TAB Lorazepam (Ativan) 1 Mg Tab 1 MG PO DAILY PRN for UNDECIDED Pantoprazole Sodium (Protonix) 40 Mg Tab 40 MG PO DAILY @ 1630, TAB Paroxetine (Paxil) 40 Mg Tab 20 MG PO DAILY, TAB Vitamin B Cmplx/Vitc/Folic Ac (Nephrocaps) Cap 1 CAP PO DAILY, CAP Discontinued Medications: Amlodipine (Norvasc) 5 Mg Tab 5 MG PO DAILY, TAB Hospital Course 66yo male with ESRD on HD M// who presents with worsening cough and dyspnea for about 3 weeks. He does report compliance with his HD schedule and he dialyzed on Wednesday in [place]. Over the weekend he felt poorly with very little appetite. Cough is mildly productive of clear sputum. No hemoptysis. NO recent weight loss, fever, or chills. Denies any chest pain. No palpitations. He has a pacemaker/AICD and has not had any shocks delivered. He had orthopnea and PND over the weekend. He propped himself up in the bed over the weekend to rest. At this point his dyspnea is so severe he gets out of breath with walking 10 feet. He improved with urgent dialysis, however, his respiratory symptoms were thought to also be due to acute bronchitis with possible underlying undiagnosed COPD and a possible pneumonia. HE was startedo n antibiotics, high-dose steroids , and neb treatments. He continued to improve and steroids were tapered to oral pred. He will be discharged on levaquin for 3 more days, tapering doses of steroids and a rescue inhaler. HE will follow-up with Dr. Solitario for repeat CT of the chest for a lung lesion. HE will resume outpatient HD MWF with Dr. Roberts. Vital Signs Date Time Temp Pulse Resp B/P Pulse Ox O2 Delivery O2 Flow Rate FiO2 07/25/16 10:38 36.6 76 16 90 Nasal Cannula 07/25/16 08:00 2.0 07/25/16 07:33 86/49 07/20/16 17:38 60 nad, aox3, anicteric s1 s2 rrr, no murmurs appreciated decreased breath sounds, no rales, no wheezing, no rhonchi abd soft nt/nd +BS no LE edema LUE AVF +t/+b 1. Acute hypoxic respiratory failure - improving - multifactorial from volume overload and possible undiagnosed COPD/acute bronchitis +/- pneumonia - volume optimization per nephrology/dialysis - taper steroids to po, switch to levaquin 500 mg q2days for 3 more days 2. CKDV-HD - HD tomorrow - CKD anemia: currently at goal Hb, defer SERENITY to nephro - CKD BMD: cont phoslo 3. Acute bronchitis - extensive h/o smoking, not officially diagnosed with COPD - taper steroids, levaquin for 3 more days - Dr. Solitario for the lung nodule followup as outpatient 4. BP/volume - cont atenolol - BP borderline as outpatient Total Time Spent: Greater than 30 minutes This includes examination of the patient, discharge planning, medication reconciliation, and communication with other providers. Discharge Instructions Please refer to the electronic Patient Visit Report (Discharge Instructions) for additional information. Additional Copies To Satya Roberts M.D.
[2016-07-25 10:38] VITALS: BP 86/49; PULSE 76; TEMP 36.6; O2SAT 90
[2016-07-26] MEDS ORDERED: LEVOFLOXACIN 500 MG TAB PO SCH (11:00)
--- NOTE | 2016-07-27 06:43 | EDITING REQUIRED CODING QUERY ---
CODING QUERY To promote full compliance with coding requirements relating to patient care, provider participation is requested in all cases of security flex utility officer uncertainty. Please assist us with the question(s) below: Coding Question(s): Volume Overload and Acute Pulmonary Edema and Acute on Chronic Diastolic CHF and End Stage Renal Disease are documented in the record. Please clarify below, in your clinical opinion regarding the etiology of the Volume Overload. ( ) Acute on Chronic Diastolic CHF and End Stage Renal Disease were likely both contributing factors causing the Volume Overload ( ) Acute on Chronic Diastolic CHF was the likely cause of the volume overload ( ) End Stage Renal Disease was the likely cause of the Volume overload ( ) Volume Overload was cause by other: Specify ( ) There is no known likely cause of the Volume Overload Physician's Response(s): Thank you Dunia Carvajal Principal Diagnosis: "_that condition established after study, to be chiefly responsible for occasioning the admission of the patient to the hospital for care." Co-Existing Principal Diagnosis: "_when two or more diagnoses equally meet the criteria for principal diagnosis as determined by the circumstances of admission, diagnostic work up, and/or therapy provided, and the Alphabetic Index, Tabular List, or another coding guideline does not provide sequencing direction, any one of the diagnoses may be sequenced first." "When the physician has documented what appears to be a current diagnosis in the body of the record, but has not included the diagnosis in the final diagnostic statement, the physician should be asked whether the diagnosis should be added." (Source [facility]oding [facility] 2 QTR90. p3-4)
--- NOTE | 2016-07-27 06:46 | EDITING REQUIRED CODING QUERY ---
PRESENT ON ADMISSION QUERY To promote full compliance with coding requirements relating to pateint care, physician participation is requested in all cases of cashier gambling uncertainty. Please assist us with the question(s) below: Please place an X within the parenthesis (x). The following diagnosis(es) listed in this patient's medical record require physician assistance to determine if they were present on admission (POA) or not. Please advise for each diagnosis whether it was present on admission, not present on admission, or if it was clinically undetermined. 1. The possible Pneumonia documented only the Discharge Summary and on 07/23/16 Radiology Report. ( ) Present On Admission ( ) Not Present On Admission ( ) Clinically Undetermined Thank you Dunia Carvajal *Definition of the present on admission (POA)-Present on admission is defined as present at the time the order for inpatient admission occurs. Conditions that develop during an outpatient encounter prior to a written order for inpatient admission (including emergency department, observation, or outpatient surgery) are considered present on admission.
[2016-11-05] MEDS ORDERED: ALPR-411 PO (09:42)
[2016-11-26] MEDS ORDERED: ALPR-411 PO (14:23)
== END 2016-07-25 11:05 | disposition home or self-care (01) | DRG 291 ==
LOC: ENRESERVDT → ENRESERVTM → EDBD 09:01 → C.EDB 09:02 → C.MSICU 11:19 → C.2E 07-21 12:26 → C.MS4W 07-24 14:29
PROVIDERS: ADMIT Internal Medicine; ATTEND Internal Medicine
DX: I13.2 Hypertensive heart and chronic kidney disease with heart failure and with stage 5 chronic kidney disease, or end stage renal disease (principal); I50.33 Acute on chronic diastolic (congestive) heart failure; N18.6 End stage renal disease; J96.01 Acute respiratory failure with hypoxia; J44.0 Chronic obstructive pulmonary disease with (acute) lower respiratory infection; N25.81 Secondary hyperparathyroidism of renal origin; I47.2 Ventricular tachycardia; J20.9 Acute bronchitis, unspecified; E87.5 Hyperkalemia; E11.649 Type 2 diabetes mellitus with hypoglycemia without coma; R91.8 Other nonspecific abnormal finding of lung field; D63.1 Anemia in chronic kidney disease; D53.9 Nutritional anemia, unspecified; E11.22 Type 2 diabetes mellitus with diabetic chronic kidney disease; I25.10 Atherosclerotic heart disease of native coronary artery without angina pectoris; I25.5 Ischemic cardiomyopathy; F43.10 Post-traumatic stress disorder, unspecified; F41.9 Anxiety disorder, unspecified; E78.00 Pure hypercholesterolemia, unspecified; E78.5 Hyperlipidemia, unspecified; E66.9 Obesity, unspecified; Z51.81 Encounter for therapeutic drug level monitoring; Z79.899 Other long term (current) drug therapy; Z79.82 Long term (current) use of aspirin; Z79.84 Long term (current) use of oral hypoglycemic drugs; Z99.2 Dependence on renal dialysis; Z95.810 Presence of automatic (implantable) cardiac defibrillator; Z95.3 Presence of xenogenic heart valve; Z95.1 Presence of aortocoronary bypass graft; Z68.32 Body mass index [BMI] 32.0-32.9, adult; Z87.891 Personal history of nicotine dependence; Z86.74 Personal history of sudden cardiac arrest; Z82.0 Family history of epilepsy and other diseases of the nervous system; Z82.49 Family history of ischemic heart disease and other diseases of the circulatory system; Z82.3 Family history of stroke

== ENCOUNTER → 2016-09-15 | Outpatient (CLI) | payer OTHER, MEDICARE ==
[~2016-09-15] MED LIST changes: +ACET325T96 PO; +ALPR-411 PO; +AMINOPHYLLINE 25 MG/ML 20ML VIAL IV ONE; -AMLO-110 PO; +BUSP15TA70 PO; -DOCU-94 PO; +LVQ500 PO; -NVLGI SC; +PARO1TAB29 PO; -PARO30TA PO; +PRD20 PO; +PRVHFAIN INH; +REGADENOSON 0.4 MG/5 ML SYR ONE; -SENN-91 PO; -SUCR5SUS PO; -VNFI IV; -[UNRECOGNIZED DRUG - CODE] SC
--- NOTE | 2016-09-16 23:26 | MYOCARDIAL PERFUSION SCAN ---
ORDERING PHYSICIAN: Dr. Chen. TIME: 1707 p.m. PRIMARY CARE PHYSICIAN: Dr. Roberts. PROCEDURE: 1. Myocardial perfusion study performed in multiple views/images. 2. Lexiscan stress ECG. CONSENT: Informed written consent was obtained. INDICATIONS 1. CAD 2. Fatigue. 3. Shortness of breath. PROCEDURAL DETAILS: For the stress portion of the study, Lexiscan 0.4 mg was intravenously administered followed by a saline flush. This was followed by 33 mCi of technetium-99m Cardiolite injected intravenously at 11:50 a.m. on 09/15/2016. Thirty minutes following the injection, imaging of the heart was performed in multiple projections. For the rest portion of the study, 10.7 mCi of technetium-99m Cardiolite was injected intravenously at 10:00 a.m. on the same day. One hour following the injection, imaging of the heart was performed in the same projections. LEXISCAN ELECTROCARDIOGRAM: Resting ECG demonstrated sinus rhythm with a first-degree AV block. Left bundle-branch block. Lexiscan ECG demonstrated no significant ST changes. There were no arrhythmias. No significant pauses. There was Lexiscan-induced dyspnea. Peak heart rate was 66 beats per minute, representing 43% maximum predicted heart rate. Resting blood pressure was 112/51 mmHg. Maximum blood pressure was 133/65 mmHg. FINDINGS: Rotating raw imaging demonstrated no significant motion artifact. There was no significant lung uptake. Heart size appeared normal to mildly dilated. Myocardial perfusion demonstrated a large area of [id number] reduced uptake involving the inferior, inferoseptal, and inferolateral, and lateral pitt from base to apex. These defects were fixed with mild reversibility. Wall motion demonstrated severe hypokinesis to akinesis of the lateral wall and otherwise, mild global hypokinesis. Ejection fraction was 44%. There was no significant transient ischemic dilation. IMPRESSION: 1. Abnormal myocardial perfusion study, suggesting large inferior, inferoseptal, inferolateral and lateral infarct from base to apex with mild reversibility, which could suggest odette-infarct or mild ischemia in these infarcted areas. 2. Mildly reduced LV systolic function with an EF of 44%. 3. Mild global hypokinesis with severe hypokinesis to akinesis of the lateral wall. 4. Lexiscan-induced dyspnea. 5. No arrhythmia. 6. Indeterminant Lexiscan ECG due to left bundle-branch block.
== END | disposition home or self-care (01) ==
LOC: C.NUCL 09:15
PROVIDERS: ATTEND Internal Medicine Cardiovascular Disease
DX: I25.10 Atherosclerotic heart disease of native coronary artery without angina pectoris (principal); R53.83 Other fatigue; R06.02 Shortness of breath

== ENCOUNTER → 2016-10-01 | Outpatient (CLI) | payer OTHER, MEDICARE ==
[~2016-10-01] MED LIST changes: -AMINOPHYLLINE 25 MG/ML 20ML VIAL IV ONE; -REGADENOSON 0.4 MG/5 ML SYR ONE
--- NOTE | 2016-10-01 12:41 | DIAGNOSTIC IMAGING REPORT ---
(CHEST) THORAX WITHOUT HISTORY:66 yearsMaleF/U POSSIBLE MASS COMPARISON: Chest radiograph 07/23/2016, chest CT 07/07/2016, CTA chest 09/23/2015. TECHNIQUE: Axial CT images of the chest were obtained without contrast. FINDINGS: There is moderate multichamber cardiac enlargement. Calcifications of the mitral and aortic annuli are present in addition to three-vessel distribution coronary arterial calcifications. There is an prior median sternotomy and CABG. Right pectoral pacer is noted with leads appearing to be intact. There is moderate atherosclerotic plaquing of the aorta and branch vessels. There is no pneumothorax or pleural effusion. Circumscribed pleural-based mass of the left upper lobe centered at the level of the major fissure is redemonstrated, enlarged in size from comparison study now measuring 7.2 x 5.1 x 6.3 cm in AP, transverse and craniocaudal dimensions, previously measuring 4.5 x 3.4 x 4.3 cm respectively. Centrally, this is slightly low attenuating with a Hounsfield unit of 20. There is slightly increased attenuation peripherally. There are erosive/destructive changes within the adjacent lateral aspect of the left fourth and fifth ribs, best seen on the coronal and sagittal images also on axial image 23. There is slight infiltration of the adjacent thoracic fat. Confluent groundglass opacities are present in a multilobar distribution bilaterally, greatest within the lung bases, slightly improved from comparison. Central airways appear to be patent. Cystic lesion of the posterior right hepatic lobe measures 2.5 x 2.8 cm, unchanged suggesting benign cyst. Interval cystic lesions are seen in the bilateral kidneys with associated atrophy. The soft tissues are unremarkable. IMPRESSION: 1. Interval enlargement of the previously described pleural-based mass of the left upper lung centered at the major fissure now measures up to 7.2 cm. There are now erosive/destructive changes of the adjacent left fourth and fifth ribs. These findings are very concerning for primary bronchogenic carcinoma. 2. No pathologic-appearing adenopathy or new additional sites of disease identified. 3. Influent groundglass opacities in a multilobar distribution bilaterally, greatest within the lung bases is slightly improved from comparison. Chronic pneumonitis or pulmonary edema are differential considerations. 3. Additional incidental findings as above. The above report was generated using voice recognition software. It may contain grammatical, syntax or spelling errors. Electronically signed by: Jacobo Little 10/01/2016 12:39 PM Dictated Date/Time: 10/01/2016 12:21 PM
== END | disposition home or self-care (01) ==
LOC: C.CTS 11:56
PROVIDERS: ATTEND Internal Medicine
DX: R93.8 Abnormal findings on diagnostic imaging of other specified body structures (principal)

== ENCOUNTER → 2016-10-06 | Outpatient (CLI) | payer OTHER, MEDICARE | END | disposition home or self-care (01) | LOC: C.LAB 14:19 | PROVIDERS: ATTEND Surgery | DX: C34.90 Malignant neoplasm of unspecified part of unspecified bronchus or lung (principal) ==

== ENCOUNTER 2016-10-19 03:12 | Emergency (ER) | payer OTHER, MEDICARE ==
[~2016-10-19] VITALS: Ht 172.7 cm; Wt 102.6 kg
[~2016-10-19 03:12] MED LIST changes: -ALPR-411 PO
[2016-10-19 03:15] VITALS: TEMP 36.4; O2SAT 92; Ht 172.7 cm; Wt 102.6 kg
[2016-10-19 03:32] LABS: BASO % 0.2 %; BASO ABS # 0.02 K/uL (0-0.2); COMPLETE YES; HEMATOCRIT 35.8 % (42-52); IG% 0.3 %; LYMPH % 12.4 %; LYMPH ABS # 1.25 K/uL (1.2-3.4); MEAN CELL VOLUME 105.9 fL (80-100); MEAN CORPUSCULAR HEMOGLOBIN 32.8 pg (25-34); MEAN PLATELET VOLUME 9.9 fL (7.4-10.4); MONO % 8.4 %; NEUT % 76.7 %; PLATELET COUNT 299 K/uL (130-400); RED BLOOD COUNT 3.38 M/uL (4.7-6.1); WHITE BLOOD COUNT 10.06 K/uL (4.8-10.8)
--- NOTE | 2016-10-19 04:14 | EMERGENCY ROOM VISIT NOTE ---
History Report prepared by Rosa: Go Florence Under the Supervision of: Dr. Ramiro Nelson M.D. First contact with patient: 03:15 Chief Complaint: SHORTNESS OF BREATH Stated Complaint: SHORT OF BREATH Nursing Triage Summary: pt arrives with c/o increased SOB since Wednesday. Dialysis 3x week, last on wednesday. pt also having anxiety over recent dx of mass in his lungs. pt denies cough or fevers. no falls. History of Present Illness The patient is a 66 year old male who presents to the Emergency Room with complaints of constant shortness of breath for the past two days. He states that he has been weak for the past two to three months as well, though he states that this shortness of breath just got worse. The patient denies any chest pain. The patient states that this shortness of breath could be from exertion or anxiety. Also he states that he has pain on his side with movement. He denies any abdominal pain or abdominal swelling. The patient states that he has a history of diverticulitis, and he recently had a CT scan for a possible lung mass. The patient is currently on dialysis for renal disease. Source of History: patient Onset: past two days Position: other (global) Quality: other (shortness of breath) Timing: constant Modifying Factors (Relieving): exertion Associated Symptoms: No chest pain, No abdominal pain Review of Systems See HPI for pertinent positives & negatives. A total of 10 systems reviewed and were otherwise negative. Past Medical & Surgical Medical Problems: (1) Abdominal wound dehiscence (2) Acute respiratory failure with hypoxia (3) Anemia (4) ASCVD (arteriosclerotic cardiovascular disease) (5) CHF exacerbation (6) Colostomy care (7) Dehydration (8) Diabetes mellitus (9) End-stage renal disease on hemodialysis (10) ESRD on hemodialysis (11) History of diverticular abscess of colon (12) Hypotension (13) Ileostomy in place (14) Intra-abdominal abscess (15) Post traumatic stress disorder (PTSD) (16) Secondary hyperparathyroidism of renal origin Surgical Problems: (1) AICD (automatic cardioverter/defibrillator) present (2) Hx of CABG (3) S/P AVR (aortic valve replacement) Family History Patient reports no known family medical history. Social History Smoking Status: Never Smoker Drug Use: none Marital Status: Housing Status: lives alone, other Occupation Status: retired Current/Historical Medications Scheduled Amiodarone HCl (Amiodarone HCl), 100 MG PO BID Aspirin (Aspirin Ec), 81 MG PO DAILY Atenolol (Tenormin), 12.5 MG PO QD@1230 Atorvastatin (Lipitor), 80 MG PO QPM Buspirone Hcl (Buspar), 5 MG PO BID Calcium Acetate (Phoslo 667 Mg), 3 CAP PO TIDM Cinacalcet (Sensipar), 30 MG PO BID Folic Acid (Folvite), 1 MG PO QD@1230 Glipizide (Glucotrol), 2.5 MG PO QD@1230 Pantoprazole Sodium (Protonix), 40 MG PO DAILY @ 1630 Paroxetine (Paxil), 20 MG PO DAILY Vitamin B Cmplx/Vitc/Folic Ac (Nephrocaps), 1 CAP PO DAILY Scheduled PRN Acetaminophen Tab (Tylenol), 650 MG PO Q4 PRN for Pain Allergies Coded Allergies: No Known Allergies (Verified , 10/19/16) Physical Exam Vital Signs Date Time Temp Pulse Resp B/P (MAP) Pulse Ox O2 Delivery O2 Flow Rate FiO2 10/19/16 05:29 60 20 145/69 93 10/19/16 04:51 92 Room Air 10/19/16 04:46 60 20 155/83 92 10/19/16 03:39 60 10/19/16 03:23 92 Room Air 10/19/16 03:15 36.4 73 20 140/84 92 Room Air 10/19/16 03:15 92 Room Air Physical Exam GENERAL: Patient is anxious appearing and in mild distress. HEENT: No acute trauma, normocephalic atraumatic, mucous membranes moist, no nasal congestion, no scleral icterus. NECK: No stridor, no adenopathy, no meningismus, trachea is midline. LUNGS: Mildly dyspneic. Crackles at the bilateral lower lobes. HEART: Systolic murmur. Regular rate and rhythm. No rubs or gallops appreciated. ABDOMEN: Extensive scaring. Soft, nontender, bowel sounds positive, no masses appreciated, no peritonitis. BACK: No midline tenderness, no CVA tenderness EXTREMITIES: Fistula in the left arm. Normal motion all extremities, no cyanosis, no edema. NEUROLOGIC: Alert and oriented, no acute motor or sensory deficits, no focal weakness, cranial nerves grossly intact. SKIN: Peripheral vascular disease. No rash, no jaundice, no diaphoresis. Medical Decision & Procedures ER Provider Diagnostic Interpretation: X ray results are stated below per my interpretation: One View Chest: Enlarged heart with infiltrative changes throughout all lung schaefer. Large mass in he left upper chest which has increased in size. ICD in the right upper chest. Concerning for pulmonary edema. Laboratory Results 10/19/16 02:48 Red Blood Count 3.38, Mean Corpuscular Volume 105.9, Mean Corpuscular Hemoglobin 32.8, Mean Corpuscular Hemoglobin Concent 31.0, Mean Platelet Volume 9.9, Neutrophils (%) (Auto) 76.7, Lymphocytes (%) (Auto) 12.4, Monocytes (%) ( Auto) 8.4, Eosinophils (%) (Auto) 2.0, Basophils (%) (Auto) 0.2, Neutrophils # ( Auto) 7.71, Lymphocytes # (Auto) 1.25, Monocytes # (Auto) 0.85, Eosinophils # ( Auto) 0.20, Basophils # (Auto) 0.02 10/19/16 02:48 Test 10/19/16 02:48 White Blood Count 10.06 K/uL (4.8-10.8) Red Blood Count 3.38 M/uL (4.7-6.1) Hemoglobin 11.1 g/dL (14.0-18.0) Hematocrit 35.8 % (42-52) Mean Corpuscular Volume 105.9 fL (80-100) Mean Corpuscular Hemoglobin 32.8 pg (25-34) Mean Corpuscular Hemoglobin Concent 31.0 g/dl (32-36) Platelet Count 299 K/uL (130-400) Mean Platelet Volume 9.9 fL (7.4-10.4) Neutrophils (%) (Auto) 76.7 % Lymphocytes (%) (Auto) 12.4 % Monocytes (%) (Auto) 8.4 % Eosinophils (%) (Auto) 2.0 % Basophils (%) (Auto) 0.2 % Neutrophils # (Auto) 7.71 K/uL (1.4-6.5) Lymphocytes # (Auto) 1.25 K/uL (1.2-3.4) Monocytes # (Auto) 0.85 K/uL (0.11-0.59) Eosinophils # (Auto) 0.20 K/uL (0-0.5) Basophils # (Auto) 0.02 K/uL (0-0.2) RDW Standard Deviation 66.4 fL (36.4-46.3) RDW Coefficient of Variation 17.3 % (11.5-14.5) Immature Granulocyte % (Auto) 0.3 % Immature Granulocyte # (Auto) 0.03 K/uL (0.00-0.02) Anion Gap 9.0 mmol/L (3-11) Est Creatinine Clear Calc Drug Dose 11.7 ml/min Estimated GFR () 8.4 Estimated GFR (Non- 7.2 BUN/Creatinine Ratio 7.4 (10-20) Calcium Level 8.9 mg/dl (8.5-10.1) Magnesium Level 2.5 mg/dl (1.8-2.4) Total Creatine Kinase 36 U/L (39-308) Creatine Kinase MB 2.1 ng/ml (0.5-3.6) Creatine Kinase MB Ratio 5.8 (0-3.0) Troponin I 0.021 ng/ml (0-0.045) Pro-B-Type Natriuretic Peptide > 21867 pg/ml (0-900) Laboratory results as reviewed by me. Medications Administered Medications (Trade) Dose Ordered Sig/Lex Route Start Time Stop Time Status Last Admin Dose Admin Acetaminophen (Tylenol Tab) 1,000 mg NOW STAT PO 10/19/16 04:33 10/19/16 04:34 DC 10/19/16 04:45 1,000 MG Lorazepam (Ativan 1MG Home Pack) 1 homepack UD ONCE PO 10/19/16 05:30 10/19/16 05:31 DC 10/19/16 05:28 1 HOMEPACK ECG Indication: SOB/dyspnea Rate (beats per minute): 61 Rhythm: other (atrial paced) Findings: 1st degree AV block, LBBB, no acute ischemic change, no ectopy ED Course 0341: The patient was evaluated in room B7. A complete history and physical exam was performed. 0433: Tylenol Tab 1000mg PO 0436: I reevaluated the patient, and he states that he still has some aches and pains which is chronic. I discussed recent findings from the CT scan, and I discussed discharging him to had dialysis in the morning which is what he prefers to do. 0519: I reassessed the patient, and he wants to be discharged. He would like to try Ativan, and he will meet with a psychiatrist in two days to see if this is a good plan. He will be reevaluated at dialysis today. He will see Dr. Solitario tomorrow for his lung mass. 0530: Ativan 1mg Home Pack PO Medical Decision Differential: Infectious, Reactive Airway Disease, Pneumonia, Pneumothorax, COPD , CHF, ACS, Pulmonary Embolism, MSK, GI, Dissection, amongst other etiologies entertained. 66 yr old male arrives with complaint of shortness of breath. After long discussion with him it is clear he is very anxious about what appears to be lung mass and the appointment he has tomorrow with thoracic surgery. I made clear to him that this is a reasonable concern and that being anxious/stressed is very much a reasonable response. He is not SOB now and is ambulating around the hospital without significant desaturations. CXR may show some mild fluid but he has dialysis later this morning. Questionable RLL infiltrate but no fever, no significant cough, no wbc elevation and I suspect this is more atelectasis with some overlying chf. He makes clear he does not wish to be in hospital which I think is reasonable. Labs look OK. BNP elevated but it always is. EKG/Trop without acute ischemic findings. Symptoms are not consistent with PE. He previously has used ativan with success thus will give him some to take prior to bed and will follow up with his psychiatrist tomorrow to discuss whether other options. He is furthermore aware he can return at any time if he feels that symptoms are worsening or other concerns. Medication Reconcilliation Current Medication List: was personally reviewed by me Blood Pressure Screening Patient's blood pressure: Elevated blood pressure Blood pressure disposition: Elevated BP felt to be situational Impression Primary Impression: Shortness of breath Additional Impressions: Fluid overload Anxiety Mass of left lung Scribe Attestation The scribe's documentation has been prepared under my direction and personally reviewed by me in its entirety. I confirm that the note above accurately reflects all work, treatment, procedures, and medical decision making performed by me. Departure Information Dispostion Home / Self-Care Referrals Satya Roberts M.D. (PCP) Forms HOME CARE DOCUMENTATION FORM, IMPORTANT VISIT INFORMATION Patient Instructions [facility] Additional Instructions You have received a benzodiazepine medication. Take one tablet prior to going to bed for difficulty sleeping. These medications may cause drowsiness and should not be used with other sedative medications. Do not drive, drink alcohol , perform dangerous activities, nor make important decisions after taking these medications. chemical technician use or inappropriate use may lead to addiction. Return or call 911 if worsening shortness of breath, fevers, chest pain, passing out or other concerns. Keep appointments as planned over the next 24 hours. Problem Qualifiers
[2016-10-19 04:19] LABS: BLOOD UREA NITROGEN 54 mg/dl (7-18); BUN/CREATININE RATIO 7.4 (10-20); CALCIUM 8.9 mg/dl (8.5-10.1); CARBON DIOXIDE 31 mmol/L (21-32); CHLORIDE 102 mmol/L (98-107); CKMB/CK RATIO 5.8 (0-3.0); GLUCOSE 85 mg/dl (70-99); MAGNESIUM 2.5 mg/dl (1.8-2.4); POTASSIUM 4.7 mmol/L (3.5-5.1); SODIUM 142 mmol/L (136-145)
[2016-10-19] MEDS ORDERED: ACETAMINOPHEN 500 MG TAB PO STA (04:33)
[2016-10-19 05:29] VITALS: BP 145/69; PULSE 60; O2SAT 93
[2016-10-19] MEDS ORDERED: ATIVAN 1MG HOMEPACK PO ONE (05:30)
--- NOTE | 2016-10-19 06:22 | DIAGNOSTIC IMAGING REPORT ---
CHEST ONE VIEW PORTABLE CLINICAL HISTORY: Chest Pain dyspnea COMPARISON STUDY: 07/23/2016 FINDINGS: Moderate stable cardiomegaly. Prior median sternotomy. Increased size of a pleural-based mass left hemithorax. Current dimensions are 8 cm at maximum. Potential small parenchymal infiltrate right base. IMPRESSION: 1. Progressive pleural-based lesion left hemithorax 2. Small parenchymal infiltrate right base. The above report was generated using voice recognition software. It may contain grammatical, syntax or spelling errors. Electronically signed by: Minesh Perrin M.D. 10/19/2016 6:21 AM Dictated Date/Time: 10/19/2016 6:20 AM
[2016-11-05] MEDS ORDERED: ALPR-411 PO (09:42)
[2016-11-26] MEDS ORDERED: ALPR-411 PO (14:23)
== END 2016-10-19 05:30 | disposition home or self-care (01) ==
LOC: EDBD 03:12 → C.EDB 03:13
DX: R06.02 Shortness of breath (principal); E87.70 Fluid overload, unspecified; F41.9 Anxiety disorder, unspecified; R91.8 Other nonspecific abnormal finding of lung field; I44.0 Atrioventricular block, first degree; I44.7 Left bundle-branch block, unspecified; E11.9 Type 2 diabetes mellitus without complications; N18.6 End stage renal disease; D64.9 Anemia, unspecified; N25.81 Secondary hyperparathyroidism of renal origin; I25.10 Atherosclerotic heart disease of native coronary artery without angina pectoris; Z99.2 Dependence on renal dialysis; Z93.2 Ileostomy status; Z95.810 Presence of automatic (implantable) cardiac defibrillator; Z95.1 Presence of aortocoronary bypass graft; Z79.82 Long term (current) use of aspirin; Z79.899 Other long term (current) drug therapy

== ENCOUNTER → 2016-11-03 | Outpatient (CLI) | payer OTHER, MEDICARE ==
[~2016-11-03] MED LIST changes: +ALPR-411 PO; -ATV/1 PO; -LVQ500 PO; -PRD20 PO; -PRVHFAIN INH
[2016-11-03 14:56] LABS: INR 1.1 (0.9-1.1); PARTIAL THROMBOPLASTIN RATIO 1.4; PROTHROMBIN TIME (PATIENT) 11.9 SECONDS (9.0-12.0)
[2016-11-03 15:32] LABS: BLOOD UREA NITROGEN 31 mg/dl (7-18); BUN/CREATININE RATIO 6.3 (10-20)
== END | disposition home or self-care (01) ==
LOC: C.LAB 13:34
PROVIDERS: ATTEND Surgery
DX: R91.8 Other nonspecific abnormal finding of lung field (principal)

== ENCOUNTER → 2016-11-05 | Day surgery (SDC) | payer OTHER, MEDICARE ==
[~2016-11-05] VITALS: Ht 172.7 cm; Wt 98.8 kg
[~2016-11-05] MED LIST changes: +ACETAMINOPHEN 500 MG TAB PO PRN
[2016-11-05 09:47] VITALS: BP 144/67; PULSE 62; TEMP 36.6; O2SAT 92; Ht 172.7 cm; Wt 98.8 kg
[2016-11-05 12:15] VITALS: BP 135/50; PULSE 68; TEMP 36.9; O2SAT 94
--- NOTE | 2016-11-05 12:27 | Discharge Instructions ---
Discharge Instructions Procedure Procedure Date: Nov 05, 2016. Reason for visit: Left Lung Mass. Discharge Discharge Date: Nov 05, 2016. Discharge Diagnosis: same Instructions Activity Recommendations: No limitations Return to School/Work: no limitations Recommended Home Diet: Resume Previous Diet Provider Instructions: ACTIVITY RECOMMENDATIONS: * Rest today. * Resume regular activity in one day. MEDICATIONS: * May take Tylenol or Ibuprofen as needed for pain. DIET: * Resume previous diet. SPECIAL CARE INSTRUCTIONS: Call your doctor if: * Temperature above 101 degrees F. * Pain not relieved by pain medicine ordered. * Increased drainage or redness from incision. * Notify your doctor with any questions or concerns. Call your doctor or go to the nearest Emergency Department if you experience: * Increased chest pain or shortness of breath. FOLLOW UP VISIT: Follow-up with Referring Physician as scheduled. Allergies Coded Allergies: No Known Allergies (Verified , 11/05/16) Bijal Wayne Recommendations: Call your doctor if: * Temperature above 101 degrees * Pain not relieved by pain medicine ordered * There is increased drainage or redness from any incision * You have any unanswered questions or concerns. Your Doctors Instructions noted above were prepared by provider Reji Mendenhall. Patient Signature Section: Patient Instructions Signature Page Sarabjit Tate Patient (or Guardian) Signature/Date: I have read and understand the instructions given to me by my caregivers. Caregiver/RN/Doctor Signature/Date: The above-named patient and/or guardian has received patient instructions on this date. + Original Patient Signature Page (only) stays with chart. Please make copy for patient.
--- NOTE | 2016-11-05 12:44 | DIAGNOSTIC IMAGING REPORT ---
CT-guided FINE-NEEDLE ASPIRATION OF A LEFT UPPER LOBE MASS CLINICAL HISTORY: Left lung mass. COMPARISON STUDY: Chest CT 10/01/2016. PROCEDURE: Written informed consent was obtained. Preliminary CT imaging was performed to determine a safe needle entry site. The left upper back was prepped and draped in the usual sterile fashion. 1% lidocaine was used for local anesthesia. 2 separate passes using a 22-gauge Torin needle were made through the left upper lobe mass. Specimens were given to the on-site pathologist who determined adequate tissue for diagnosis. The patient tolerated the procedure well. No post procedure pneumothorax. IMPRESSION: Status post CT guided FNA of a left upper lobe mass with specimen sent to pathology. Electronically signed by: Reji Mendenhall M.D. 11/05/2016 12:42 PM Dictated Date/Time: 11/05/2016 12:27 PM
[2016-11-05 12:45] VITALS: BP 144/64; PULSE 66; TEMP 36.8; O2SAT 94
[2016-11-05 13:28] VITALS: BP 144/64; PULSE 82; TEMP 37; O2SAT 96
== END | disposition home or self-care (01) ==
LOC: C.ACU 08:30
PROVIDERS: ATTEND Surgery
DX: R91.8 Other nonspecific abnormal finding of lung field (principal); E11.9 Type 2 diabetes mellitus without complications

== ENCOUNTER 2016-11-30 23:36 | Emergency (ER) | payer OTHER, MEDICARE ==
[~2016-11-30] VITALS: Ht 172.7 cm; Wt 101.1 kg
[~2016-11-30 23:36] MED LIST changes: -ACETAMINOPHEN 500 MG TAB PO PRN; -BUSP15TA70 PO
--- NOTE | 2016-11-30 23:50 | EMERGENCY ROOM VISIT NOTE ---
History Report prepared by Sandrineibdong: Patti Garces Under the Supervision of: Dr. Wesley Calero M.D. First contact with patient: 23:38 Chief Complaint: WEAKNESS Stated Complaint: WEAK/SHORT OF BREATH/ANXIETY History of Present Illness The patient is a 66 year old male who presents to the Emergency Room with complaints of worsening shortness of breath for the past day. He was brought to the ED via EMS. The patient was recently diagnosed with lung cancer and notes he lives alone and can barely walk because of his decreased physical stamina. He is a current smoker but denies any history of COPD. He uses Oxygen occasionally at home PRN. He does not take daily blood thinners. The patient reports his most recent appointment with Oncology was last week and he has another appointment this coming , in 3 days. He also has a history of end stage renal disease and receives dialysis on Mondays, Wednesdays and Fridays. He was last dialyzed earlier today. He does not produce urine. He also complains of left sided rib pain. Occasionally he experiences the chills. He denies any back pain, abdominal pain, Source of History: patient Onset: past day Position: chest Timing: worsening Associated Symptoms: + fevers, No abdominal pain, No back pain Review of Systems See HPI for pertinent positives and negatives. A total of ten systems were reviewed and were otherwise negative. Past Medical & Surgical Medical Problems: (1) Abdominal wound dehiscence (2) Acute respiratory failure with hypoxia (3) Anemia (4) ASCVD (arteriosclerotic cardiovascular disease) (5) CHF exacerbation (6) Colostomy care (7) Dehydration (8) Diabetes mellitus (9) End-stage renal disease on hemodialysis (10) ESRD on hemodialysis (11) History of diverticular abscess of colon (12) Hypotension (13) Ileostomy in place (14) Intra-abdominal abscess (15) Lung cancer (16) Post traumatic stress disorder (PTSD) (17) Secondary hyperparathyroidism of renal origin Surgical Problems: (1) AICD (automatic cardioverter/defibrillator) present (2) Hx of CABG (3) S/P AVR (aortic valve replacement) Family History Patient reports no known family medical history. Social History Smoking Status: Current Some Day Smoker Drug Use: none Marital Status: Housing Status: lives alone, other Occupation Status: retired Current/Historical Medications Scheduled Alprazolam (Xanax), 0.5 MG PO HS Alprazolam (Xanax), 1 MG PO BID Amiodarone HCl (Amiodarone HCl), 100 MG PO BID Aspirin (Aspirin Ec), 81 MG PO DAILY Atenolol (Tenormin), 12.5 MG PO QD@1230 Atorvastatin (Lipitor), 80 MG PO QPM Calcium Acetate (Phoslo 667 Mg), 3 CAP PO TIDM Cinacalcet (Sensipar), 30 MG PO BID Folic Acid (Folvite), 1 MG PO QD@1230 Glipizide (Glucotrol), 2.5 MG PO QD@1230 Pantoprazole Sodium (Protonix), 40 MG PO DAILY @ 1630 Paroxetine (Paxil), 20 MG PO DAILY Vitamin B Cmplx/Vitc/Folic Ac (Nephrocaps), 1 CAP PO DAILY Scheduled PRN Acetaminophen Tab (Tylenol), 650 MG PO Q4 PRN for Pain Allergies Coded Allergies: No Known Allergies (Verified , 12/01/16) Physical Exam Vital Signs Date Time Temp Pulse Resp B/P (MAP) Pulse Ox O2 Delivery O2 Flow Rate FiO2 12/01/16 06:38 60 12/01/16 06:35 60 20 126/63 90 Room Air 12/01/16 04:00 62 20 127/58 98 Nasal Cannula 2.0 12/01/16 03:26 64 12/01/16 02:56 68 18 100 Nasal Cannula 2.0 12/01/16 02:09 64 16 125/60 94 Nasal Cannula 2.0 11/30/16 23:54 62 11/30/16 23:52 36.5 61 20 128/67 91 Room Air 11/30/16 23:52 91 Room Air 11/30/16 23:52 91 Room Air Physical Exam GENERAL: Awake, alert, chronically ill-appearing, in no distress HENT: Normocephalic, atraumatic. Oropharynx unremarkable. Dry mucous membranes. EYES: Normal conjunctiva. Sclera non-icteric. NECK: Supple. No nuchal rigidity. FROM. No JVD. RESPIRATORY: Diminished lung sounds throughout, scattered wheezes. CARDIAC: Regular rate, normal rhythm. Extremities warm and well perfused. Pulses equal. Left AV fistula with palpable thrill. ABDOMEN: Soft, obese, non-distended. No tenderness to palpation. No rebound or guarding. No masses. RECTAL: Deferred. MUSCULOSKELETAL: Chest examination reveals no tenderness. The back is symmetrical on inspection without obvious abnormality. There is no CVA tenderness to palpation. No joint edema. LOWER EXTREMITIES: Calves are equal size bilaterally and non-tender. No lower extremity edema. No discoloration. NEURO: Normal sensorium. No sensory or motor deficits noted. SKIN: No rash or jaundice noted. Medical Decision & Procedures ER Provider Diagnostic Interpretation: Radiology results as stated below per my review and interpretation: CHEST X-RAY: Cardiomegaly that appears stable. Some mild venous congestion. Large left lung mass appears unchanged from previous X-Rays. Otherwise no discrete areas of consolidation. Radiology results as stated below per my review and interpretation: RICKEY PERRY limited BEDSIDE ECHOCARDIOGRAM: No pericardial effusion. Dilated LV with mildly reduced function. Dilated RV with mildly reduced function. No gross heart strain. STATRAD prelim CT-PE read: "CTA CHEST: Comparison: CT dated 10/01/2016. No evidence of pulmonary embolism. Interval increase in size of pleural-based left upper lung mass with erosive changes involving the left fourth and fifth ribs and suspected early involvement of the left third and sixth ribs. Mass measures approximately 8.3 x 7.2 x 8.5 cm compared to 7.2 x 5.4 x 6.[address] Persistent ground-glass opacities throughout the bilateral lungs which may be related to pulmonary edema versus chronic infectious or inflammatory pneumonitis or other process. Enlargement of the main pulmonary artery measuring 3.8 cm which may indicate pulmonary arterial hypertension. Atherosclerotic vascular disease including coronary artery disease. No thoracic aortic aneurysm or evidence of dissection. Mild cardiomegaly. No pericardial effusion. Incidental findings: Stable hepatic cyst. Postsurgical changes of the chest with evidence of CABG." Laboratory Results 12/01/16 00:24 Red Blood Count 2.97, Mean Corpuscular Volume 104.0, Mean Corpuscular Hemoglobin 32.3, Mean Corpuscular Hemoglobin Concent 31.1, Mean Platelet Volume 9.7, Neutrophils (%) (Auto) 80.5, Lymphocytes (%) (Auto) 7.0, Monocytes (%) ( Auto) 10.4, Eosinophils (%) (Auto) 1.4, Basophils (%) (Auto) 0.3, Neutrophils # (Auto) 6.43, Lymphocytes # (Auto) 0.56, Monocytes # (Auto) 0.83, Eosinophils # ( Auto) 0.11, Basophils # (Auto) 0.02 12/01/16 00:24 Test 12/01/16 00:24 12/01/16 01:28 White Blood Count 7.98 K/uL (4.8-10.8) Red Blood Count 2.97 M/uL (4.7-6.1) Hemoglobin 9.6 g/dL (14.0-18.0) Hematocrit 30.9 % (42-52) Mean Corpuscular Volume 104.0 fL (80-100) Mean Corpuscular Hemoglobin 32.3 pg (25-34) Mean Corpuscular Hemoglobin Concent 31.1 g/dl (32-36) Platelet Count 247 K/uL (130-400) Mean Platelet Volume 9.7 fL (7.4-10.4) Neutrophils (%) (Auto) 80.5 % Lymphocytes (%) (Auto) 7.0 % Monocytes (%) (Auto) 10.4 % Eosinophils (%) (Auto) 1.4 % Basophils (%) (Auto) 0.3 % Neutrophils # (Auto) 6.43 K/uL (1.4-6.5) Lymphocytes # (Auto) 0.56 K/uL (1.2-3.4) Monocytes # (Auto) 0.83 K/uL (0.11-0.59) Eosinophils # (Auto) 0.11 K/uL (0-0.5) Basophils # (Auto) 0.02 K/uL (0-0.2) RDW Standard Deviation 66.3 fL (36.4-46.3) RDW Coefficient of Variation 17.5 % (11.5-14.5) Immature Granulocyte % (Auto) 0.4 % Immature Granulocyte # (Auto) 0.03 K/uL (0.00-0.02) Nucleated RBC Absolute Count (auto) 0.03 K/uL (0-0) Nucleated Red Blood Cells % 0.3 % Venous Blood pH 7.37 (7.36-7.41) Venous Blood Partial Pressure CO2 63 mmHg (38.0-50.0) Venous Blood Partial Pressure O2 22 mmHg Venous Blood HCO3 35 mmol/L Venous Blood Oxygen Saturation < 60.0 % Venous Blood Base Excess 8.1 mEq/L Anion Gap 3.0 mmol/L (3-11) Est Creatinine Clear Calc Drug Dose 20.1 ml/min Estimated GFR () 16.3 Estimated GFR (Non- 14.1 BUN/Creatinine Ratio 6.9 (10-20) Lactic Acid Level 0.8 mmol/L (0.4-2.0) Calcium Level 7.7 mg/dl (8.5-10.1) Phosphorus Level 3.1 mg/dl (2.5-4.9) Magnesium Level 2.0 mg/dl (1.8-2.4) Total Bilirubin 0.4 mg/dl (0.2-1) Direct Bilirubin 0.2 mg/dl (0-0.2) Aspartate Amino Transf (AST/SGOT) 16 U/L (15-37) Alanine Aminotransferase (ALT/SGPT) 13 U/L (12-78) Alkaline Phosphatase 96 U/L (45-117) Troponin I < 0.015 ng/ml (0-0.045) Total Protein 7.0 gm/dl (6.4-8.2) Albumin 2.4 gm/dl (3.4-5.0) Lipase 100 U/L (73-393) Bedside Glucose 111 mg/dl (70-99) Laboratory results reviewed by me Medications Administered Medications (Trade) Dose Ordered Sig/Lex Route Start Time Stop Time Status Last Admin Dose Admin Acetaminophen (Tylenol Tab) 1,000 mg STK-MED ONCE PO 12/01/16 00:44 12/01/16 00:45 DC 12/01/16 00:46 1,000 MG Albuterol/ Ipratropium (Duoneb) 3 ml NOW STAT INH 12/01/16 00:50 12/01/16 00:51 DC 12/01/16 00:57 3 ML Dextrose (Dextrose 50% 50ML Syringe) 50 ml NOW STAT IV 12/01/16 00:58 12/01/16 00:59 DC 12/01/16 01:05 50 ML Albuterol/ Ipratropium (Duoneb) 12 ml ONE ONCE INH 12/01/16 02:30 12/01/16 02:32 DC 12/01/16 02:56 12 ML Methylprednisolone Sodium Succinate (Solu-Medrol IV) 125 mg NOW STAT IV 12/01/16 02:29 12/01/16 02:32 DC 12/01/16 02:59 125 MG Azithromycin 500 mg/Dextrose 255 ml @ 125 mls/hr ONE ONCE IV 12/01/16 02:30 12/01/16 04:32 DC 12/01/16 02:59 125 MLS/HR ECG Indication: weakness Rate (beats per minute): 61 Rhythm: other (atrial paced) Findings: LBBB, no acute ischemic change, other (normal axis) Change: no significant change (No significant change when compared to EKG from September 2016) ED Course 2340: The patient was evaluated in room B5. A complete history and physical exam was performed. 0040: Acetaminophen 1000 mg PO. 0044: Acetaminophen 1000 mg PO. 0050: DuoNeb 3 ml INH. 0058: Dextrose 50 ml IV. 0105: I reevaluated the patient. He is just now getting his nebulizer. His BSG was in the 40's. He is otherwise resting comfortably. His PCO2 is elevated in 60 's. Its not entirely clear if his history of COPD can explain his hypoxia. I will order a CT PE. Medical Decision I reviewed the patient's past medical history, medications, and the nursing notes as described above. The differential diagnoses considered include pneumonia, bronchitis, worsening malignancy, PE, dehydration, electrolyte imbalance, ACS and CHF. Patient is a 66-year-old gentleman with a past medical history of end-stage renal disease on HD MWF and recent diagnosis of lung cancer currently with planning underway for treatment presents to emergency department with worsening fatigue, weakness, shortness of breath in the setting of constant chest pain that has been ongoing since his cancer diagnosis per history of present illness. Patient denies missing any dialysis and confirms he completed dialysis today. On exam the patient appears dyspneic but in no acute distress. He is hypoxic to 90-91% on room air, with a new oxygen requirement. On exam the patient has scattered wheezes as well as significantly diminished air movement particularly on the left. Patient was given a neb with marginal improvement. Otherwise his PCO2 elevated in the 60s but with pH within normal limits suggesting likely chronic component. Chest x-ray appears largely unchanged from prior with large left lung mass. Considering no clear convincing etiology for the patient's new hypoxia CT PE study was done and was negative for PE, does show enlargement of the previously identified left lung mass with encroachment into the left lateral ribs. Will treat the patient with nebs steroids and azithromycin for COPD exacerbation component. Otherwise, patient likely will need more expedited treatment for his lung cancer and possibly home oxygen if his malignancy continues to worsen. Case d/w medicine hospitalist who will admit the patient for further management. Medication Reconcilliation Current Medication List: was personally reviewed by me Blood Pressure Screening Patient's blood pressure: Normal blood pressure Blood pressure disposition: Did not require urgent referral Impression Primary Impression: Hypoxia Additional Impressions: Shortness of breath Hypoglycemia Lung cancer COPD exacerbation Scribe Attestation The scribe's documentation has been prepared under my direction and personally reviewed by me in its entirety. I confirm that the note above accurately reflects all work, treatment, procedures, and medical decision making performed by me. Departure Information Referrals Satya Roberts M.D. (PCP) Patient Instructions [facility] Problem Qualifiers
[2016-11-30 23:52] VITALS: TEMP 36.5; O2SAT 91; Ht 172.7 cm; Wt 101.1 kg
[2016-12-01 00:35] LABS: VEN BLD GAS O2 SATURATION < 60.0 %; VEN BLOOD GAS BASE EXCESS 8.1 mEq/L; VENOUS BLOOD GAS PCO2 63 mmHg (38.0-50.0); VENOUS BLOOD GAS PO2 22 mmHg
[2016-12-01 00:36] LABS: BASO % 0.3 %; BASO ABS # 0.02 K/uL (0-0.2); COMPLETE YES; EOS % 1.4 %; HEMATOCRIT 30.9 % (42-52); IG% 0.4 %; LYMPH ABS # 0.56 K/uL (1.2-3.4); MEAN CORPUSCULAR HEMOGLOBIN 32.3 pg (25-34); MEAN CORPUSCULAR HGB CONC 31.1 g/dl (32-36); MEAN PLATELET VOLUME 9.7 fL (7.4-10.4); MONO % 10.4 %; NEUT % 80.5 %; PLATELET COUNT 247 K/uL (130-400); RED BLOOD COUNT 2.97 M/uL (4.7-6.1); WHITE BLOOD COUNT 7.98 K/uL (4.8-10.8)
[2016-12-01] MEDS ORDERED: ACETAMINOPHEN 500 MG TAB PO STA (00:40)
[2016-12-01] MEDS ORDERED: ACETAMINOPHEN 500 MG TAB PO ONE (00:44)
[2016-12-01] MEDS ORDERED: ALBUT/IPRATROP 3MG/0.5MG NEB 3 ML VIAL INH STA (00:50)
[2016-12-01 00:57] LABS: ALKALINE PHOSPHATASE 96 U/L (45-117); ALT/SGPT 13 U/L (12-78); AST/SGOT 16 U/L (15-37); BLOOD UREA NITROGEN 28 mg/dl (7-18); BUN/CREATININE RATIO 6.9 (10-20); CALCIUM 7.7 mg/dl (8.5-10.1); CARBON DIOXIDE 37 mmol/L (21-32); CHLORIDE 99 mmol/L (98-107); GLUCOSE 44 mg/dl (70-99); PHOSPHORUS 3.1 mg/dl (2.5-4.9); POTASSIUM 3.9 mmol/L (3.5-5.1); SODIUM 139 mmol/L (136-145)
[2016-12-01] MEDS ORDERED: DEXTROSE 50% 50 ML SYR IV STA (00:58)
[2016-12-01] MEDS ORDERED: METHYLPREDNISOLONE 125 MG VIAL IV STA (02:29)
[2016-12-01] MEDS ORDERED: ALBUT/IPRATROP 3MG/0.5MG NEB 3 ML VIAL INH ONE (02:30)
[2016-12-01] MEDS ORDERED: AZITHROMYCIN IV 500 MG in DEXTROSE 5% 250ML 250 ML IV ONE (02:30)
[2016-12-01 02:56] VITALS: PULSE 68; O2SAT 100
--- NOTE | 2016-12-01 06:21 | Medical Consult ---
Consultation Date of Consultation: Dec 01, 2016. Attending Physician: GABO Reason for Consultation: Hypoxia with new diagnosis of lung cancer History of Present Illness The patient is a 66-year-old male who was recently diagnosed with lung cancer, who is very anxious about his diagnosis. He is also end-stage renal disease on hemodialysis for 9-1/2 years. And he relates that he's becoming fatigued of his medical situation. He is more concerned about his anxiety than actual breathing issues. Emergency department physician was concerned because the patient's pulse ox was at 90-91%, and did improve with 2 L nasal cannula 2 to 100%. However, when I talk with the patient, he doesn't notice any improvement at all with the addition of nasal cannula oxygen, and he prefers to be able to go home. He would just like advice on his anxiety medications Past Medical/Surgical History Medical Problems: (1) Anxiety Status: Acute (2) Anxiety about health Status: Acute (3) CHF (congestive heart failure) Status: Acute (4) COPD exacerbation Status: Acute (5) Fluid overload Status: Acute (6) Hyperkalemia Status: Acute (7) Hypoglycemia Status: Acute (8) Hypoxia Status: Acute (9) Hypoxia Status: Acute (10) Mass of left lung Status: Acute (11) Pulmonary edema Status: Acute (12) Shortness of breath Status: Acute (13) Shortness of breath Status: Acute (14) Situational stress Status: Acute (15) Weakness Status: Acute Family History Patient reports no known family medical history. Social History Smoking Status: Current Some Day Smoker Smokeless Tobacco Use: No Alcohol Use: none Drug Use: none Marital Status: Housing Status: lives alone, other Occupation Status: retired Allergies Coded Allergies: No Known Allergies (Verified , 12/04/16) Review of Systems Constitutional: No fever, No chills Eyes: No worsening of vision ENT: No hearing loss Respiratory: No cough, No sputum, No shortness of breath Cardiovascular: + chest pain (RIB PAIN) Abdomen: No pain Musculoskeletal: No joint pain Genitourinary - Male: No hematuria, No dysuria Neurologic: No memory loss Psychiatric: + depression symptoms, + anxiety Endocrine: No fatigue Hematologic / Lymphatic: No abnormal bleeding/bruising Physical Exam Date Time Temp Pulse Resp B/P (MAP) Pulse Ox O2 Delivery O2 Flow Rate FiO2 12/01/16 04:00 62 20 127/58 98 Nasal Cannula 2.0 12/01/16 03:26 64 12/01/16 02:56 68 18 100 Nasal Cannula 2.0 12/01/16 02:09 64 16 125/60 94 Nasal Cannula 2.0 11/30/16 23:54 62 11/30/16 23:52 36.5 61 20 128/67 91 Room Air 11/30/16 23:52 91 Room Air 11/30/16 23:52 91 Room Air General Appearance: WD/WN, + mild distress Head: atraumatic Eyes: normal inspection ENT: hearing grossly normal Neck: supple Respiratory/Chest: chest non-tender, lungs clear, no respiratory distress Cardiovascular: regular rate, rhythm Abdomen/GI: normal bowel sounds, non tender, soft Neurologic/Psych: alert, oriented x 3, + depressed affect Skin: normal color Laboratory Results Last 24 Hours Test 12/01/16 00:24 12/01/16 01:02 12/01/16 01:28 White Blood Count 7.98 K/uL Red Blood Count 2.97 M/uL Hemoglobin 9.6 g/dL Hematocrit 30.9 % Mean Corpuscular Volume 104.0 fL Mean Corpuscular Hemoglobin 32.3 pg Mean Corpuscular Hemoglobin Concent 31.1 g/dl Platelet Count 247 K/uL Mean Platelet Volume 9.7 fL Neutrophils (%) (Auto) 80.5 % Lymphocytes (%) (Auto) 7.0 % Monocytes (%) (Auto) 10.4 % Eosinophils (%) (Auto) 1.4 % Basophils (%) (Auto) 0.3 % Neutrophils # (Auto) 6.43 K/uL Lymphocytes # (Auto) 0.56 K/uL Monocytes # (Auto) 0.83 K/uL Eosinophils # (Auto) 0.11 K/uL Basophils # (Auto) 0.02 K/uL RDW Standard Deviation 66.3 fL RDW Coefficient of Variation 17.5 % Immature Granulocyte % (Auto) 0.4 % Immature Granulocyte # (Auto) 0.03 K/uL Nucleated RBC Absolute Count (auto) 0.03 K/uL Nucleated Red Blood Cells % 0.3 % Venous Blood pH 7.37 Venous Blood Partial Pressure CO2 63 mmHg Venous Blood Partial Pressure O2 22 mmHg Venous Blood HCO3 35 mmol/L Venous Blood Oxygen Saturation < 60.0 % Venous Blood Base Excess 8.1 mEq/L Sodium Level 139 mmol/L Potassium Level 3.9 mmol/L Chloride Level 99 mmol/L Carbon Dioxide Level 37 mmol/L Anion Gap 3.0 mmol/L Blood Urea Nitrogen 28 mg/dl Creatinine 4.10 mg/dl Est Creatinine Clear Calc Drug Dose 20.1 ml/min Estimated GFR () 16.3 Estimated GFR (Non- 14.1 BUN/Creatinine Ratio 6.9 Random Glucose 44 mg/dl Lactic Acid Level 0.8 mmol/L Calcium Level 7.7 mg/dl Phosphorus Level 3.1 mg/dl Magnesium Level 2.0 mg/dl Total Bilirubin 0.4 mg/dl Direct Bilirubin 0.2 mg/dl Aspartate Amino Transf (AST/SGOT) 16 U/L Alanine Aminotransferase (ALT/SGPT) 13 U/L Alkaline Phosphatase 96 U/L Troponin I < 0.015 ng/ml Total Protein 7.0 gm/dl Albumin 2.4 gm/dl Lipase 100 U/L Bedside Glucose 41 mg/dl 111 mg/dl Assessment & Plan Lung cancer with mild chronic hypoxia, that the patient is completely comfortable with-- The patient prefers to be home, does not notice any improvement with nasal cannula in spite of improvement in pulse ox, so therefore I think it's much more reasonable for the patient be discharged to home. His main concern is that of anxiety about his new diagnosis and of dealing with end-stage renal disease on hemodialysis for last night and a half years. He presently is on Paxil 20 mg by mouth every morning, and I suggest that he increase it to 40 mg every morning. He presently is taking Xanax 0.5 mg tablets, taking 2 at bedtime. I suggested he continue that and add 0.5 mg tablet in the morning, and that he can use it once during the day as needed as well. The patient will follow-up with his primary physician Dr. Roberts within the next week, to monitor his progress. The patient is scheduled to have radiation therapy assessment in 2 days, and will keep that appointment. He'll continue all his medications as before. Resident Tracking Resident Involvement: Resident Care Provided Care Provided: [facility]
[2016-12-01 06:35] VITALS: BP 126/63; O2SAT 90
[2016-12-01 06:38] VITALS: PULSE 60
--- NOTE | 2016-12-01 06:45 | EMERGENCY ROOM VISIT NOTE ---
ED Visit Note Patient was initially seen by Dr. lazo, patient was admitted and was seen by the Warren the hospitalist, after evaluation the patient and the hospitalist decided that the patient could go home and the patient did desire to go home. Patient was instructed to increase his Paxil as well as a Xanax and follow-up with his primary care physician and also get dialysis as scheduled. After being informed of this I reevaluated the patient at 6:45 AM the patient indeed does want to go home he has stable vital signs he does have enough Paxil and Xanax states that he will take them as instructed by the mom in the hospitalist Dr Roman. Pt will be discharged to home; Diagnosis - lung mass, anxiety Current/Historical Medications Scheduled Alprazolam (Xanax), 0.5 MG PO HS Alprazolam (Xanax), 1 MG PO BID Amiodarone HCl (Amiodarone HCl), 100 MG PO BID Aspirin (Aspirin Ec), 81 MG PO DAILY Atenolol (Tenormin), 12.5 MG PO QD@1230 Atorvastatin (Lipitor), 80 MG PO QPM Calcium Acetate (Phoslo 667 Mg), 3 CAP PO TIDM Cinacalcet (Sensipar), 30 MG PO BID Folic Acid (Folvite), 1 MG PO QD@1230 Glipizide (Glucotrol), 2.5 MG PO QD@1230 Pantoprazole Sodium (Protonix), 40 MG PO DAILY @ 1630 Paroxetine (Paxil), 20 MG PO DAILY Vitamin B Cmplx/Vitc/Folic Ac (Nephrocaps), 1 CAP PO DAILY Scheduled PRN Acetaminophen Tab (Tylenol), 650 MG PO Q4 PRN for Pain Allergies Coded Allergies: No Known Allergies (Verified , 12/01/16) Vital Signs Date Time Temp Pulse Resp B/P (MAP) Pulse Ox O2 Delivery O2 Flow Rate FiO2 12/01/16 06:38 60 12/01/16 06:35 60 20 126/63 90 Room Air 12/01/16 04:00 62 20 127/58 98 Nasal Cannula 2.0 12/01/16 03:26 64 12/01/16 02:56 68 18 100 Nasal Cannula 2.0 12/01/16 02:09 64 16 125/60 94 Nasal Cannula 2.0 11/30/16 23:54 62 11/30/16 23:52 36.5 61 20 128/67 91 Room Air 11/30/16 23:52 91 Room Air 11/30/16 23:52 91 Room Air Laboratory Results 12/01/16 00:24 Red Blood Count 2.97, Mean Corpuscular Volume 104.0, Mean Corpuscular Hemoglobin 32.3, Mean Corpuscular Hemoglobin Concent 31.1, Mean Platelet Volume 9.7, Neutrophils (%) (Auto) 80.5, Lymphocytes (%) (Auto) 7.0, Monocytes (%) ( Auto) 10.4, Eosinophils (%) (Auto) 1.4, Basophils (%) (Auto) 0.3, Neutrophils # (Auto) 6.43, Lymphocytes # (Auto) 0.56, Monocytes # (Auto) 0.83, Eosinophils # ( Auto) 0.11, Basophils # (Auto) 0.02 12/01/16 00:24 Test 12/01/16 00:24 12/01/16 01:28 White Blood Count 7.98 K/uL (4.8-10.8) Red Blood Count 2.97 M/uL (4.7-6.1) Hemoglobin 9.6 g/dL (14.0-18.0) Hematocrit 30.9 % (42-52) Mean Corpuscular Volume 104.0 fL (80-100) Mean Corpuscular Hemoglobin 32.3 pg (25-34) Mean Corpuscular Hemoglobin Concent 31.1 g/dl (32-36) Platelet Count 247 K/uL (130-400) Mean Platelet Volume 9.7 fL (7.4-10.4) Neutrophils (%) (Auto) 80.5 % Lymphocytes (%) (Auto) 7.0 % Monocytes (%) (Auto) 10.4 % Eosinophils (%) (Auto) 1.4 % Basophils (%) (Auto) 0.3 % Neutrophils # (Auto) 6.43 K/uL (1.4-6.5) Lymphocytes # (Auto) 0.56 K/uL (1.2-3.4) Monocytes # (Auto) 0.83 K/uL (0.11-0.59) Eosinophils # (Auto) 0.11 K/uL (0-0.5) Basophils # (Auto) 0.02 K/uL (0-0.2) RDW Standard Deviation 66.3 fL (36.4-46.3) RDW Coefficient of Variation 17.5 % (11.5-14.5) Immature Granulocyte % (Auto) 0.4 % Immature Granulocyte # (Auto) 0.03 K/uL (0.00-0.02) Nucleated RBC Absolute Count (auto) 0.03 K/uL (0-0) Nucleated Red Blood Cells % 0.3 % Venous Blood pH 7.37 (7.36-7.41) Venous Blood Partial Pressure CO2 63 mmHg (38.0-50.0) Venous Blood Partial Pressure O2 22 mmHg Venous Blood HCO3 35 mmol/L Venous Blood Oxygen Saturation < 60.0 % Venous Blood Base Excess 8.1 mEq/L Anion Gap 3.0 mmol/L (3-11) Est Creatinine Clear Calc Drug Dose 20.1 ml/min Estimated GFR () 16.3 Estimated GFR (Non- 14.1 BUN/Creatinine Ratio 6.9 (10-20) Lactic Acid Level 0.8 mmol/L (0.4-2.0) Calcium Level 7.7 mg/dl (8.5-10.1) Phosphorus Level 3.1 mg/dl (2.5-4.9) Magnesium Level 2.0 mg/dl (1.8-2.4) Total Bilirubin 0.4 mg/dl (0.2-1) Direct Bilirubin 0.2 mg/dl (0-0.2) Aspartate Amino Transf (AST/SGOT) 16 U/L (15-37) Alanine Aminotransferase (ALT/SGPT) 13 U/L (12-78) Alkaline Phosphatase 96 U/L (45-117) Troponin I < 0.015 ng/ml (0-0.045) Total Protein 7.0 gm/dl (6.4-8.2) Albumin 2.4 gm/dl (3.4-5.0) Lipase 100 U/L (73-393) Bedside Glucose 111 mg/dl (70-99) Medications Administered Medications (Trade) Dose Ordered Sig/Lex Route Start Time Stop Time Status Last Admin Dose Admin Acetaminophen (Tylenol Tab) 1,000 mg STK-MED ONCE PO 12/01/16 00:44 12/01/16 00:45 DC 12/01/16 00:46 1,000 MG Albuterol/ Ipratropium (Duoneb) 3 ml NOW STAT INH 12/01/16 00:50 12/01/16 00:51 DC 12/01/16 00:57 3 ML Dextrose (Dextrose 50% 50ML Syringe) 50 ml NOW STAT IV 12/01/16 00:58 12/01/16 00:59 DC 12/01/16 01:05 50 ML Albuterol/ Ipratropium (Duoneb) 12 ml ONE ONCE INH 12/01/16 02:30 12/01/16 02:32 DC 12/01/16 02:56 12 ML Methylprednisolone Sodium Succinate (Solu-Medrol IV) 125 mg NOW STAT IV 12/01/16 02:29 12/01/16 02:32 DC 12/01/16 02:59 125 MG Azithromycin 500 mg/Dextrose 255 ml @ 125 mls/hr ONE ONCE IV 12/01/16 02:30 12/01/16 04:32 DC 12/01/16 02:59 125 MLS/HR Departure Information Impression Primary Impression: Hypoxia Additional Impressions: Shortness of breath Hypoglycemia COPD exacerbation Lung cancer Referrals Satya Roberts M.D. (PCP) Patient Instructions [facility] Problem Qualifiers
--- NOTE | 2016-12-01 07:25 | DIAGNOSTIC IMAGING REPORT ---
CHEST CTA for PULMONARY ARTERIES CT DOSE: 715.29 mGy.cm HISTORY: Short of breath. TECHNIQUE: Multiaxial CT images of the chest were performed following the intravenous administration of contrast to evaluate the pulmonary arteries. Maximal intensity projection images were also obtained. A dose lowering technique was utilized adhering to the principles of ALARA. COMPARISON STUDY: Chest CT 10/01/2016. FINDINGS: Increase in size of the left lung mass which now measures 7.8 x 6.9 cm. This invades into the chest wall and results in erosion of the left third through sixth ribs. There is also a pathologic fracture involving the left fifth rib. Post anatomy changes. Right-sided pacemaker. No pneumothorax. No pleural effusions. Emphysema. Interval progression of the bilateral perihilar groundglass airspace opacities. No synovial change in the 2.9 x 2 point centimeter hypodense lesion within the right hepatic lobe. The stability favors a cyst but this is incompletely characterized on this noncontrast study. The spleen is within normal limits. Mild nodular thickening of the adrenal glands, unchanged. Stable mediastinal lymph nodes. Dominant subcarinal lymph node measures 2.6 x 1.0 cm. The heart remains mildly enlarged. Aortic valve prosthesis. Moderate calcified plaque within the aorta. No evidence for an aortic dissection. There is mass effect along the left pulmonary arteries from the left lung mass. No filling defects within the pulmonary arteries to suggest pulmonary embolus. IMPRESSION: 1. No evidence for pulmonary embolus. 2. Increase in size in the left lung mass with chest wall invasion and a erosion of the left third through sixth ribs. There is also pathologic fracture of the left fifth rib. 3. Bilateral perihilar groundglass airspace opacities have slightly progressed. 4. Stable cardiomegaly. Electronically signed by: Reji Mendenhall M.D. 12/01/2016 7:24 AM Dictated Date/Time: 12/01/2016 7:14 AM
--- NOTE | 2016-12-01 07:28 | DIAGNOSTIC IMAGING REPORT ---
CHEST ONE VIEW PORTABLE CLINICAL HISTORY: Chest pain. Weakness. COMPARISON STUDY: Chest CT October 02, 2015 and chest radiograph October 19, 2016. FINDINGS: There are median sternotomy wires and a right subclavian pacer/AICD. Cardiomegaly is unchanged. There is no pneumothorax. There has been moderate increase in size of the left lung lesion since exam of October 19, 2016. Mild opacity is noted within the lungs. There is no pneumothorax or pleural effusion. IMPRESSION: 1. Increase in size of the left lung mass since prior exam consistent with a neoplastic process. 2. Subtle interstitial thickening and groundglass opacities within lungs which may reflect a mild infectious process or pulmonary edema. Electronically signed by: Donell Murcia M.D. 12/01/2016 7:26 AM Dictated Date/Time: 12/01/2016 7:24 AM
== END 2016-12-01 07:06 | disposition home or self-care (01) ==
LOC: EDBD 23:36 → C.EDB 23:37
DX: J44.1 Chronic obstructive pulmonary disease with (acute) exacerbation (principal); C34.90 Malignant neoplasm of unspecified part of unspecified bronchus or lung; E16.2 Hypoglycemia, unspecified; N18.6 End stage renal disease; I25.10 Atherosclerotic heart disease of native coronary artery without angina pectoris; D64.9 Anemia, unspecified; N25.81 Secondary hyperparathyroidism of renal origin; K57.30 Diverticulosis of large intestine without perforation or abscess without bleeding; I50.9 Heart failure, unspecified; F17.200 Nicotine dependence, unspecified, uncomplicated; Z99.2 Dependence on renal dialysis; Z93.2 Ileostomy status; Z95.1 Presence of aortocoronary bypass graft; Z95.2 Presence of prosthetic heart valve; Z95.810 Presence of automatic (implantable) cardiac defibrillator; Z79.82 Long term (current) use of aspirin; Z79.899 Other long term (current) drug therapy

== ENCOUNTER 2016-12-04 16:03 | Inpatient (IN) | payer OTHER, MEDICARE ==
[~2016-12-04] VITALS: Ht 172.7 cm; Wt 97.2 kg
[2016-12-04] MEDS ORDERED: ALBUT/IPRATROP 3MG/0.5MG NEB 3 ML VIAL INH STA (17:06)
[2016-12-04] MEDS ORDERED: METHYLPREDNISOLONE 125 MG VIAL IV STA ×2 (17:06→17:17)
[2016-12-04] MEDS ORDERED: SODIUM CHLORIDE 0.9% 1000ML 250 ML IV STA (17:06)
--- NOTE | 2016-12-04 17:12 | EMERGENCY ROOM VISIT NOTE ---
History Report prepared by Rosa: Denny Modi Under the Supervision of: Dr. Rey Greco M.D. First contact with patient: 16:58 Chief Complaint: SHORTNESS OF BREATH Stated Complaint: SOB,THROAT BURNING,CAME FROM DIALYSIS Nursing Triage Summary: "I just got finished with dialysis and I was riding on the [employer] van and I just feel short of breath and I feel my strength is weak in my limbs. I was just diagnosed with lung cancer and I don't know what is going on." per pt. History of Present Illness The patient is a 66 year old male who presents to the Emergency Room with complaints of worsening shortness of breath beginning four days ago. The patient states that he was in the ED four days ago for similar symptoms. He reports that his symptoms worsened this morning on the way home from dialysis. The patient notes that he felt horrible all day and has experienced a cough, decreased appetite, and nausea when he eats. He states that he does not wear O2 at home, yet his O2 Sat in the room was 85. The patient reports that two weeks ago he was diagnosed with lung cancer. He notes that he has a pacemaker in place , and he denies being on a blood thinner. The patient states that he quit smoking around two years ago, and he smoked for a long time. He denies fevers, vomiting, and a history of COPD or emphysema. The patient's record state he had a Chest CT that showed a large left lung mass with no evidence of a PE on his last visit. They report the patient was evaluated by a hospitalist and then the patient decided to go home rather than stay in the hospital. Source of History: patient Onset: four days ago Position: chest Quality: other (SOB) Timing: worsening Associated Symptoms: + cough, + nausea (when eating), No fevers, No vomiting Note: Associated symptoms: decreased appetite Review of Systems See HPI for pertinent positives & negatives. A total of 10 systems reviewed and were otherwise negative. Past Medical & Surgical Medical Problems: (1) Abdominal wound dehiscence (2) Acute respiratory failure with hypoxia (3) Anemia (4) ASCVD (arteriosclerotic cardiovascular disease) (5) CHF exacerbation (6) Colostomy care (7) Dehydration (8) Diabetes mellitus (9) End-stage renal disease on hemodialysis (10) ESRD on hemodialysis (11) History of diverticular abscess of colon (12) Hypotension (13) Ileostomy in place (14) Intra-abdominal abscess (15) Lung cancer (16) Post traumatic stress disorder (PTSD) (17) Secondary hyperparathyroidism of renal origin Surgical Problems: (1) AICD (automatic cardioverter/defibrillator) present (2) Hx of CABG (3) S/P AVR (aortic valve replacement) Family History Patient reports no known family medical history. Social History Smoking Status: Former Smoker Drug Use: none Marital Status: Housing Status: lives alone, other Occupation Status: retired Current/Historical Medications Scheduled Alprazolam (Xanax), 0.5 MG PO QAM Alprazolam (Xanax), 1 MG PO HS Amiodarone HCl (Amiodarone HCl), 100 MG PO BID Aspirin (Aspirin Ec), 81 MG PO DAILY Atenolol (Tenormin), 12.5 MG PO QD@1230 Atorvastatin (Lipitor), 80 MG PO QPM Buspirone Hcl (Buspar), 5 MG PO TID Calcium Acetate (Phoslo 667 Mg), 3 CAP PO TIDM Cinacalcet (Sensipar), 30 MG PO BID Folic Acid (Folvite), 1 MG PO QD@1230 Glipizide (Glucotrol), 2.5 MG PO QD@1230 Pantoprazole Sodium (Protonix), 40 MG PO DAILY @ 1630 Paroxetine (Paxil), 40 MG PO QAM Vitamin B Cmplx/Vitc/Folic Ac (Nephrocaps), 1 CAP PO DAILY Scheduled PRN Acetaminophen Tab (Tylenol), 650 MG PO Q4 PRN for Pain Allergies Coded Allergies: No Known Allergies (Verified , 12/04/16) Physical Exam Vital Signs Date Time Temp Pulse Resp B/P (MAP) Pulse Ox O2 Delivery O2 Flow Rate FiO2 12/04/16 20:00 151/70 12/04/16 19:38 61 25 100 12/04/16 19:30 156/91 12/04/16 19:08 61 22 100 12/04/16 19:00 155/83 12/04/16 18:38 60 28 100 12/04/16 18:30 156/66 12/04/16 18:12 157/73 12/04/16 18:08 60 25 100 12/04/16 18:03 60 28 100 12/04/16 17:33 65 24 100 12/04/16 17:08 63 12/04/16 17:07 94 Nasal Cannula 3.0 12/04/16 17:07 94 Nasal Cannula 3.0 12/04/16 17:06 85 Room Air 12/04/16 17:05 156/71 12/04/16 16:18 96 Room Air 12/04/16 16:15 36.3 66 24 127/66 96 Room Air Physical Exam GENERAL: Patient is in no acute distress. HEENT: No acute trauma, normocephalic atraumatic, mucous membranes dry, no nasal congestion, no scleral icterus. NECK: No stridor, no adenopathy, no meningismus, trachea is midline. LUNGS: Wheezing bilaterally with significantly decreased breath sounds on the left. HEART: 3/6 systolic murmur with a regular rate and rhythm. ABDOMEN: Soft, nontender, bowel sounds positive, no hernias, no peritonitis. EXTREMITIES: No cyanosis or edema, full range of motion of all the joints without pain or difficulty, no signs for acute trauma. Chronic skin change to the lower extremities without cellulitis. NEUROLOGIC: Oriented x 3, no acute motor or sensory deficits, no focal weakness. SKIN: No rash, no jaundice, no diaphoresis. Medical Decision & Procedures ER Provider Diagnostic Interpretation: X-ray results as stated below per interpretation by me and the radiologist: CHEST ONE VIEW PORTABLE CLINICAL HISTORY: EVALUATE RESPIRATORY DISTRESS. DYSPNEA dyspnea COMPARISON STUDY: 11/30/2016 FINDINGS: No change from the prior exam. Pleural-based mass left hemithorax similar in terms of overall volume. Interstitial changes at both lung bases unaltered from the prior exam. No new or interval process. Permanent bipolar cardiac pacemaker/defibrillator. IMPRESSION: Unchanged exam compared to the prior study. Unchanging left hemithoracic mass The above report was generated using voice recognition software. It may contain grammatical, syntax or spelling errors. Electronically signed by: Minesh Perrin M.D. 12/04/2016 5:42 PM Dictated Date/Time: 12/04/2016 5:41 PM Laboratory Results 12/04/16 17:58 Red Blood Count 3.28, Mean Corpuscular Volume 104.9, Mean Corpuscular Hemoglobin 32.3, Mean Corpuscular Hemoglobin Concent 30.8, Mean Platelet Volume 10.1, Neutrophils (%) (Auto) 84.5, Lymphocytes (%) (Auto) 5.2, Monocytes (%) ( Auto) 8.1, Eosinophils (%) (Auto) 1.6, Basophils (%) (Auto) 0.1, Neutrophils # ( Auto) 9.38, Lymphocytes # (Auto) 0.58, Monocytes # (Auto) 0.90, Eosinophils # ( Auto) 0.18, Basophils # (Auto) 0.01 12/04/16 17:58 Test 12/04/16 17:58 White Blood Count 11.11 K/uL (4.8-10.8) Red Blood Count 3.28 M/uL (4.7-6.1) Hemoglobin 10.6 g/dL (14.0-18.0) Hematocrit 34.4 % (42-52) Mean Corpuscular Volume 104.9 fL (80-100) Mean Corpuscular Hemoglobin 32.3 pg (25-34) Mean Corpuscular Hemoglobin Concent 30.8 g/dl (32-36) Platelet Count 284 K/uL (130-400) Mean Platelet Volume 10.1 fL (7.4-10.4) Neutrophils (%) (Auto) 84.5 % Lymphocytes (%) (Auto) 5.2 % Monocytes (%) (Auto) 8.1 % Eosinophils (%) (Auto) 1.6 % Basophils (%) (Auto) 0.1 % Neutrophils # (Auto) 9.38 K/uL (1.4-6.5) Lymphocytes # (Auto) 0.58 K/uL (1.2-3.4) Monocytes # (Auto) 0.90 K/uL (0.11-0.59) Eosinophils # (Auto) 0.18 K/uL (0-0.5) Basophils # (Auto) 0.01 K/uL (0-0.2) RDW Standard Deviation 67.4 fL (36.4-46.3) RDW Coefficient of Variation 17.8 % (11.5-14.5) Immature Granulocyte % (Auto) 0.5 % Immature Granulocyte # (Auto) 0.06 K/uL (0.00-0.02) Nucleated RBC Absolute Count (auto) 0.11 K/uL (0-0) Nucleated Red Blood Cells % 1.0 % Prothrombin Time 12.8 SECONDS (9.0-12.0) Prothromb Time International Ratio 1.2 (0.9-1.1) Activated Partial Thromboplast Time 31.5 SECONDS (21.0-31.0) Partial Thromboplastin Ratio 1.2 Anion Gap 5.0 mmol/L (3-11) Estimated GFR () 24.8 Estimated GFR (Non- 21.4 BUN/Creatinine Ratio 5.9 (10-20) Calcium Level 7.9 mg/dl (8.5-10.1) Total Bilirubin 0.4 mg/dl (0.2-1) Aspartate Amino Transf (AST/SGOT) 24 U/L (15-37) Alanine Aminotransferase (ALT/SGPT) 32 U/L (12-78) Alkaline Phosphatase 136 U/L (45-117) Total Protein 7.5 gm/dl (6.4-8.2) Albumin 2.7 gm/dl (3.4-5.0) Globulin 4.8 gm/dl (2.5-4.0) Albumin/Globulin Ratio 0.6 (0.9-2) Laboratory results reviewed by me. Medications Administered Medications (Trade) Dose Ordered Sig/Lex Route Start Time Stop Time Status Last Admin Dose Admin Sodium Chloride 250 ml @ 999 mls/hr Q16M STAT IV 12/04/16 17:06 12/04/16 17:21 DC 12/04/16 17:06 999 MLS/HR Albuterol/ Ipratropium (Duoneb) 3 ml NOW STAT INH 12/04/16 17:06 12/04/16 17:11 DC 12/04/16 17:06 3 ML Methylprednisolone Sodium Succinate (Solu-Medrol IV) 80 mg STK-MED ONCE .ROUTE 12/04/16 18:00 12/04/16 18:01 DC 12/04/16 18:03 80 MG ECG Indication: SOB/dyspnea Rate (beats per minute): 67 Rhythm: other (atrial pacemaker) Findings: LBBB, no acute ischemic change, no ectopy ED Course 1659: The patient was evaluated in room C04. A complete history and physical exam was performed. 1706: Ordered Duoneb 3ml INH, Sodium Chloride 250 ml @ 999 mls/hr IV 1800: Ordered Solu-Medrol IV 80mg .ROUTE 1914: I discussed the patient's case with Dr. Baird [facility] Hospitalist. The patient will be evaluated for further management. 1915: Upon reexamination the patient is resting. I discussed results and treatment plan with the patient. He verbalizes agreement and understanding. The patient will be evaluated for further management. Medical Decision The patient is a 66 year old male who presents to the ED with complaints of shortness of breath. Differential diagnoses considered include CHF, pneumonia, bronchitis, worsening malignancy, AK, anemia, pneumothorax. There is a mild leukocytosis, this could be consistent with infection or with the stress of the situation. A mild anemia is present. Renal panel testing shows his dialysis need. No evidence for hepatitis. No coagulopathy. EKG shows an atrial pacemaker, no acute ischemia. Cardiac enzyme testing 1 is elevated consistent with cardiac strain or injury. Chest x-ray shows a left lung mass consistent with his recent diagnosis of malignancy. No pneumonia or pneumothorax noted. Blood cultures are pending. The patient received a DuoNeb, IV Solu-Medrol, he was given a small IV saline bolus. The patient is hypoxic. He has COPD and a large lung mass. He is not functioning well at home and does require a hospital stay. I did speak to the patient and case management. The on-call hospitalist was consulted. Medication Reconcilliation Current Medication List: was personally reviewed by me Blood Pressure Screening Patient's blood pressure: Elevated blood pressure Blood pressure disposition: Elevated BP felt to be situational Consults Time Called: 1846 Consulting Physician: Dr. Baird [facility] Hospitalist Returned Call: 1914 I discussed the patient's case with Dr. Baird [facility] Hospitalist. The patient will be evaluated for further management. Impression Primary Impression: Hypoxia Additional Impressions: Lung mass Wheezing Elevated troponin I level Scribe Attestation The scribe's documentation has been prepared under my direction and personally reviewed by me in its entirety. I confirm that the note above accurately reflects all work, treatment, procedures, and medical decision making performed by me. Departure Information Dispostion Being Evaluated By Hospitalist Referrals Satya Roberts M.D. (PCP) Patient Instructions My [facility] Problem Qualifiers
--- NOTE | 2016-12-04 17:44 | DIAGNOSTIC IMAGING REPORT ---
CHEST ONE VIEW PORTABLE CLINICAL HISTORY: EVALUATE RESPIRATORY DISTRESS. DYSPNEA dyspnea COMPARISON STUDY: 11/30/2016 FINDINGS: No change from the prior exam. Pleural-based mass left hemithorax similar in terms of overall volume. Interstitial changes at both lung bases unaltered from the prior exam. No new or interval process. Permanent bipolar cardiac pacemaker/defibrillator. IMPRESSION: Unchanged exam compared to the prior study. Unchanging left hemithoracic mass The above report was generated using voice recognition software. It may contain grammatical, syntax or spelling errors. Electronically signed by: Minesh Perrin M.D. 12/04/2016 5:42 PM Dictated Date/Time: 12/04/2016 5:41 PM
[2016-12-04 18:14] LABS: BASO % 0.1 %; BASO ABS # 0.01 K/uL (0-0.2); COMPLETE YES; EOS % 1.6 %; HEMATOCRIT 34.4 % (42-52); IG% 0.5 %; LYMPH % 5.2 %; LYMPH ABS # 0.58 K/uL (1.2-3.4); MEAN CELL VOLUME 104.9 fL (80-100); MEAN CORPUSCULAR HEMOGLOBIN 32.3 pg (25-34); MEAN CORPUSCULAR HGB CONC 30.8 g/dl (32-36); MEAN PLATELET VOLUME 10.1 fL (7.4-10.4); MONO % 8.1 %; NEUT % 84.5 %; PLATELET COUNT 284 K/uL (130-400); RED BLOOD COUNT 3.28 M/uL (4.7-6.1); WHITE BLOOD COUNT 11.11 K/uL (4.8-10.8)
[2016-12-04 18:21] LABS: INR 1.2 (0.9-1.1); PARTIAL THROMBOPLASTIN RATIO 1.2; PROTHROMBIN TIME (PATIENT) 12.8 SECONDS (9.0-12.0)
[2016-12-04] MEDS ORDERED: BUSP15TA70 PO (18:29)
[2016-12-04] MEDS ORDERED: B-CO1CAP17 PO (18:30)
[2016-12-04 18:36] LABS: ALT/SGPT 32 U/L (12-78); AST/SGOT 24 U/L (15-37); BLOOD UREA NITROGEN 17 mg/dl (7-18); BUN/CREATININE RATIO 5.9 (10-20); CALCIUM 7.9 mg/dl (8.5-10.1); CARBON DIOXIDE 35 mmol/L (21-32); CHLORIDE 98 mmol/L (98-107); GLUCOSE 123 mg/dl (70-99); POTASSIUM 3.4 mmol/L (3.5-5.1); SODIUM 138 mmol/L (136-145)
[2016-12-04 18:47] LABS: ALB/GLOB RATIO 0.6 (0.9-2); ALKALINE PHOSPHATASE 136 U/L (45-117)
[2016-12-04] MEDS ORDERED: SODIUM CHLORIDE 0.9% 1000ML 1,000 ML IV SCH (20:03)
[2016-12-04] MEDS ORDERED: ONDANSETRON INJ 2 MG/ML 2 ML VIAL IV PRN (20:15)
[2016-12-04] MEDS ORDERED: GLUCAGON FOR INJ 1 MG VIAL SQ PRN (20:15)
[2016-12-04] MEDS ORDERED: GLUCOSE 40% GEL 15 GM TUBE PO PRN (20:15)
[2016-12-04] MEDS ORDERED: NITROGLYCERIN 0.4 MG SL PER TAB CHARGE SL PRN (20:15)
[2016-12-04] MEDS ORDERED: ZOLPIDEM TARTRATE 5 MG TAB PO PRN (20:15)
[2016-12-04] MEDS ORDERED: GLUCOSE 10 TABS/TUBE PO PRN (20:15)
[2016-12-04] MEDS ORDERED: ACETAMINOPHEN 325 MG TAB PO PRN ×2 (20:15)
[2016-12-04] MEDS: ALPRAZOLAM 0.5 MG TAB PO SCH ×2 (21:00→22:20)
--- NOTE | 2016-12-04 21:09 | History and Physical ---
History & Physical Date & Time of Service: Dec 04, 2016 at 20:50 Chief Complaint: Sob,Throat Burning,Came From Dialysis Primary Care Physician: Satya Roberts M.D. History of Present Illness Source: patient, family The patient is a 63-year-old male presents emergency department with recurrent and worsening shortness of breath that began 4 days ago when he first presented to the emergency department. At that time he was noted to be hypoxic with pulse ox in the 85-90 range, but had not noticed any significant improvement with oxygen even though his pulse ox had increased to 100% on 2 L, and he was primarily anxious and wanted to go home with adjusted anxiety medications. He went to dialysis today, became extremely more fatigued afterwards, developed some chest tightness, had worsening inability to ambulate, and he presents to the emergency department with his family for reassessment and feels he needs to be admitted at this time. The family had been arranging for outpatient assessment for help at home, and asked that we arrange for assessment while in hospital. Past Medical/Surgical History Abdominal wound dehiscence Acute respiratory failure with hypoxia Anemia ASCVD Colostomy care Dehydration Diabetes mellitus ESRD on HD Diverticular abscess of: Hypotension Ileostomy Intra-abdominal abscess Lung cancer PTSD Secondary hyperparathyroidism of renal origin Status post AICD Status post CABG Status post AVR. Family History Patient reports no known family medical history. Social History Smoking Status: Former Smoker Smokeless Tobacco Use: No Alcohol Use: none Drug Use: none Marital Status: Housing status: lives alone, long-term Occupational Status: retired Immunizations History of Influenza Vaccine: Yes History of Tetanus Vaccine?: Unknown History of Pneumococcal: Yes History of Hepatitis B Vaccine: Unknown Multi-Drug Resistant Organisms History of MDRO: Yes Type of MDRO: MRSA Allergies Coded Allergies: No Known Allergies (Verified , 12/04/16) Home Medications Scheduled Alprazolam (Xanax), 0.5 MG PO QAM Alprazolam (Xanax), 1 MG PO HS Amiodarone HCl (Amiodarone HCl), 100 MG PO BID Aspirin (Aspirin Ec), 81 MG PO DAILY Atenolol (Tenormin), 12.5 MG PO QD@1230 Atorvastatin (Lipitor), 80 MG PO QPM Buspirone Hcl (Buspar), 5 MG PO TID Calcium Acetate (Phoslo 667 Mg), 3 CAP PO TIDM Cinacalcet (Sensipar), 30 MG PO BID Folic Acid (Folvite), 1 MG PO QD@1230 Glipizide (Glucotrol), 2.5 MG PO QD@1230 Pantoprazole Sodium (Protonix), 40 MG PO DAILY @ 1630 Paroxetine (Paxil), 40 MG PO QAM Vitamin B Cmplx/Vitc/Folic Ac (Nephrocaps), 1 CAP PO DAILY Scheduled PRN Acetaminophen Tab (Tylenol), 650 MG PO Q4 PRN for Pain Review of Systems The patient denies palpitations, lower extremity swelling, vision change, hearing change, fevers, chills, sweats, weight change, nausea, vomiting, diarrhea or constipation, abdominal pain, pelvic pain, blood in urine or stool, dysuria, urinary frequency or urgency, lightheadedness, dizziness, headache, memory loss, rash, abnormal bruising or bleeding, imbalance, focal weakness, numbness or tingling in arms or legs, generalized arthralgias or myalgias, back or neck pain, night sweats, or allergy symptoms. The review of systems is otherwise negative other than for that already noted above, and at least 10 systems have been reviewed. Physical Exam Vital Signs Date Time Temp Pulse Resp B/P (MAP) Pulse Ox O2 Delivery O2 Flow Rate FiO2 12/04/16 20:34 36.3 64 30 146/62 99 12/04/16 20:30 146/62 12/04/16 20:08 64 30 99 12/04/16 20:00 151/70 12/04/16 19:38 61 25 100 12/04/16 19:30 156/91 12/04/16 19:08 61 22 100 12/04/16 19:00 155/83 12/04/16 18:38 60 28 100 12/04/16 18:30 156/66 12/04/16 18:12 157/73 12/04/16 18:08 60 25 100 12/04/16 18:03 60 28 100 12/04/16 17:33 65 24 100 12/04/16 17:08 63 12/04/16 17:07 94 Nasal Cannula 3.0 12/04/16 17:07 94 Nasal Cannula 3.0 12/04/16 17:06 85 Room Air 12/04/16 17:05 156/71 12/04/16 16:18 96 Room Air 12/04/16 16:15 36.3 66 24 127/66 96 Room Air The patient is awake, well-developed and adequately nourished, alert and oriented 3, looks very fatigued, normocephalic and atraumatic, sitting upright in bed and in no acute distress. HEENT--PERRL, EOMI, mucous membranes and oropharynx dry. Neck--supple, no JVD or bruits, thyroid normal, trachea midline, no adenopathy. Heart--normal S1 and S2, no extra beats, no murmurs, rubs or gallops. Lungs--few coarse breath sounds, with wheezes bilaterally, no respiratory distress, no accessory muscle use. Abdomen--normal bowel sounds and soft, nontender and nondistended, no hernias or masses, no organomegaly. Extremities--no cyanosis, clubbing or edema. There are good distal pulses b/l. Dermatologic--normal skin turgor, normal color, warm and dry, no abnormal lymph nodes, no rash. Neurologic--cranial nerves II through XII grossly intact, motor and sensory examination normal. Rheumatologic--normal range of motion, nontender, muscles and joints. Psychiatric--normal affect. Diagnostics Laboratory Results Results Past 24 Hours Test 12/04/16 17:58 12/04/16 20:03 Range/Units White Blood Count 11.11 4.8-10.8 K/uL Red Blood Count 3.28 4.7-6.1 M/uL Hemoglobin 10.6 14.0-18.0 g/dL Hematocrit 34.4 42-52 % Mean Corpuscular Volume 104.9 80-100 fL Mean Corpuscular Hemoglobin 32.3 25-34 pg Mean Corpuscular Hemoglobin Concent 30.8 32-36 g/dl Platelet Count 284 130-400 K/uL Mean Platelet Volume 10.1 7.4-10.4 fL Neutrophils (%) (Auto) 84.5 % Lymphocytes (%) (Auto) 5.2 % Monocytes (%) (Auto) 8.1 % Eosinophils (%) (Auto) 1.6 % Basophils (%) (Auto) 0.1 % Neutrophils # (Auto) 9.38 1.4-6.5 K/uL Lymphocytes # (Auto) 0.58 1.2-3.4 K/uL Monocytes # (Auto) 0.90 0.11-0.59 K/uL Eosinophils # (Auto) 0.18 0-0.5 K/uL Basophils # (Auto) 0.01 0-0.2 K/uL RDW Standard Deviation 67.4 36.4-46.3 fL RDW Coefficient of Variation 17.8 11.5-14.5 % Immature Granulocyte % (Auto) 0.5 % Immature Granulocyte # (Auto) 0.06 0.00-0.02 K/uL Nucleated RBC Absolute Count (auto) 0.11 0-0 K/uL Nucleated Red Blood Cells % 1.0 % Prothrombin Time 12.8 9.0-12.0 SECONDS Prothromb Time International Ratio 1.2 0.9-1.1 Activated Partial Thromboplast Time 31.5 21.0-31.0 SECONDS Partial Thromboplastin Ratio 1.2 Sodium Level 138 136-145 mmol/L Potassium Level 3.4 3.5-5.1 mmol/L Chloride Level 98 98-107 mmol/L Carbon Dioxide Level 35 21-32 mmol/L Anion Gap 5.0 3-11 mmol/L Blood Urea Nitrogen 17 7-18 mg/dl Creatinine 2.90 0.60-1.40 mg/dl Estimated GFR () 24.8 Estimated GFR (Non- 21.4 BUN/Creatinine Ratio 5.9 10-20 Random Glucose 123 70-99 mg/dl Calcium Level 7.9 8.5-10.1 mg/dl Total Bilirubin 0.4 0.2-1 mg/dl Aspartate Amino Transf (AST/SGOT) 24 15-37 U/L Alanine Aminotransferase (ALT/SGPT) 32 12-78 U/L Alkaline Phosphatase 136 45-117 U/L Troponin I 0.126 0-0.045 ng/ml Total Protein 7.5 6.4-8.2 gm/dl Albumin 2.7 3.4-5.0 gm/dl Globulin 4.8 2.5-4.0 gm/dl Albumin/Globulin Ratio 0.6 0.9-2 Creatine Kinase MB Ratio 0-3.0 Microbiology Results 12/04/16 Blood Culture, Received Pending 12/04/16 Blood Culture, Received Pending Diagnostic Radiology Patient Name: YOLY CHEN Unit Number: [id number] Dictated: 12/04/161740 Transcribed: 12/04/161740 MS Printed Date/Time: [~ rep prt dt]/[~ rep prt tm] [~ rep ct labl] - [~ rep ct ivnm] [facility] [place] [address] Dictated: 12/04/161740 Transcribed: 12/04/161740 MS Printed Date/Time: [~ rep prt dt]/[~ rep prt tm] [~ rep ct labl] - [~ rep ct ivnm] [~ rep ct add3]] CHEST ONE VIEW PORTABLE CLINICAL HISTORY: EVALUATE RESPIRATORY DISTRESS. DYSPNEA dyspnea COMPARISON STUDY: 11/30/2016 FINDINGS: No change from the prior exam. Pleural-based mass left hemithorax similar in terms of overall volume. Interstitial changes at both lung bases unaltered from the prior exam. No new or interval process. Permanent bipolar cardiac pacemaker/defibrillator. IMPRESSION: Unchanged exam compared to the prior study. Unchanging left hemithoracic mass The above report was generated using voice recognition software. It may contain grammatical, syntax or spelling errors. Electronically signed by: Minesh Perrin M.D. 12/04/2016 5:42 PM Dictated Date/Time: 12/04/2016 5:41 PM The status of this report is Signed. Draft = Not yet reviewed or approved by Radiologist. Signed = Reviewed and approved by Radiologist. <AttendingPhy></AttendingPhy> <FamilyPhy>Satya Roberts M.D.</FamilyPhy> < PrimaryPhy>Satya Roberts M.D.</PrimaryPhy> <UnitNumber>[id number]</UnitNumber > <VisitNumber>[id number]</VisitNumber> <PatientName>YOLY CHEN</ PatientName> <DateOfBirth>1950</DateOfBirth> <Location>[facility]</Location> < ServiceDate>12/04/16</ServiceDate> <MNE>ESINDI</MNE> <OrderingPhy>Feese, Rey J. M.D.</OrderingPhy> <OrderingPhyMNE>f rep ord dr huffman</OrderingPhyMNE> < DictatingPhyMNE>f rep dict dr huffman</DictatingPhyMNE> <CCListMNE>f rep ct arm[place]</ CCListMNE> <AdmittingPhyMNE>f pt admit dr huffman</AdmittingPhyMNE> <AttendingPhyMNE >f pt attend dr huffman</AttendingPhyMNE> <ConsultingPhyMNE>f pt consult dr huffman</ConsultingPhyMNE> <FamilyPhyMNE>f pt fam dr huffman</FamilyPhyMNE> <OtherPhyMNE>f pt other dr huffman</OtherPhyMNE> < PrimaryPhyMNE>f pt prim care dr huffman</PrimaryPhyMNE> <ReferringPhyMNE>f pt referring dr huffman</ReferringPhyMNE> EKG EKG shows atrial paced rhythm, with ST depressions in V4 to V6 slightly worse than previously, left bundle branch block. Impression Assessment and Plan Acute respiratory failure with hypoxia/lung mass/recent mapping yesterday for radiation therapy-- Vancomycin IV, Zosyn IV and Levaquin IV. Xopenex/Atrovent nebulizers every 6 hours while awake and every 2 hours when necessary. Nasal cannula 2 L of oxygen titrated to keep pulse ox greater than or equal to 94%. Elevated troponin/atrial paced rhythm/persistent lateral nonspecific ST-T wave changes/status post AICD/status post CABG/status post AVR-- The patient will be admitted to telemetry for serial cardiac enzymes, cardiac rhythm monitoring and a 2-D echocardiogram with Dopplers. Continue aspirin 81 mg by mouth daily, atenolol 12.5 mg by mouth daily and amiodarone 100 mg by mouth twice a day. ESRD on HD-- Continue folic acid, Sensipar, calcium acetate and Nephrocaps. Consult his charge lpn Dr. Armando Prescott--continue alprazolam 1 mg by mouth at bedtime. Increase daytime alprazolam from 0.5 mg by mouth every morning to 3 times a day. Increase buspirone 5 mg by mouth 3 times a day to 10 mg by mouth 3 times a day. Continue increased dose approximate 1540 mg by mouth every morning. Diabetes mellitus--hold glipizide 2.5 mg by mouth daily. Place on Accu-Cheks before meals and at bedtime with NovoLog coverage per scale. Hyperlipidemia--continue atorvastatin 80 mg by mouth every evening. GERD--continue pantoprazole 40 mg by mouth daily. Level of Care Telemetry Advanced Directives Existing Advance Directive: No Existing Living Will: No Existing Power of Recreation Adviser: No Resuscitation Status FULL RESUSCITATION VTE Prophylaxis VTE Risk Assessment Done? Y/N: Yes Risk Level: Moderate Given or contraindicated: SCD's Social Service Consult Cancer Patient Under [place]
[2016-12-04 22:09] LABS: CKMB/CK RATIO 6.5 (0-3.0)
[2016-12-04] MEDS: AMIODARONE 200 MG TAB PO SCH (22:20)
[2016-12-04] MEDS: INSULIN ASPART 100 UNITS/ML 3 ML PEN SC SCH (22:28)
[2016-12-04] MEDS ORDERED: VANCOMYCIN INJ 2,000 MG in SODIUM CHLORIDE 0.9% 500ML 500 ML IV ONE (22:30)
[2016-12-04] MEDS ORDERED: VANCOMYCIN CONSULT ACTIVE PRN (22:45)
[2016-12-04] MEDS ORDERED: PIPERACILL/TAZOBAC CONSULT ACTIVE PRN (22:45)
[2016-12-04] MEDS ORDERED: LEVOFLOXACIN CONSULT ACTIVE PRN (23:00)
[2016-12-04] MEDS ORDERED: NURSING VERBAL MED ORDER ONE (23:00)
[2016-12-04] MEDS ORDERED: LEVOFLOXACIN / D5W 750 MG in PREMIXED IN D5W 150 ML IV SCH (23:00)
[2016-12-04] MEDS ORDERED: MoRPHine SULFATE 2 MG/ML CARP IV PRN (23:15)
[2016-12-04 23:20] VITALS: BP 150/70; PULSE 62; TEMP 36.7; O2SAT 94
[2016-12-04] MEDS: MoRPHine SULFATE 4 MG/ML 1 ML CARP\\VIAL IV PRN (23:33)
[2016-12-04] MEDS: ATORVASTATIN 40 MG TAB PO SCH (23:35)
[2016-12-05] VITALS (12 sets, daily range): BP systolic 117–178; BP diastolic 68–78; PULSE 60–68; TEMP 36.4–37; O2SAT 96–99; BMI 32.7
[2016-12-05] MEDS ORDERED: PIPERACILL/TAZOBAC IV 3.375 GM in DEXTROSE 5% 100ML 100 ML IV SCH ×3 (01:00→18:00)
[2016-12-05] MEDS: METHYLPREDNISOLONE IV 20 MG in SYRINGE 0 ML IV SCH ×2 (01:57→09:22)
[2016-12-05] MEDS ORDERED: VANCOMYCIN INJ 2,000 MG in SODIUM CHLORIDE 0.9% 500ML 500 ML IV ONE (02:00)
[2016-12-05] MEDS: IPRATROPIUM BROMIDE NEB SOLN 0.02% 2.5 ML VIAL INH SCH ×4 (02:09→19:20)
[2016-12-05] MEDS: LEVALBUTEROL 1.25MG/0.5ML NEB INH SCH ×4 (02:09→19:20)
[2016-12-05] MEDS ORDERED: LEVALBUTEROL/IPRATROPIUM NEB INH SCH (03:00)
[2016-12-05 04:24] LABS: COMPLETE YES; EOS % 0.1 %; HEMATOCRIT 30.4 % (42-52); IG% 0.6 %; LYMPH % 1.7 %; LYMPH ABS # 0.14 K/uL (1.2-3.4); MEAN CELL VOLUME 105.9 fL (80-100); MEAN CORPUSCULAR HEMOGLOBIN 32.1 pg (25-34); MEAN CORPUSCULAR HGB CONC 30.3 g/dl (32-36); MONO % 1.4 %; NEUT % 96.2 %; PLATELET COUNT 239 K/uL (130-400); RED BLOOD COUNT 2.87 M/uL (4.7-6.1)
[2016-12-05 04:39] LABS: INR 1.2 (0.9-1.1); PARTIAL THROMBOPLASTIN RATIO 1.4; PROTHROMBIN TIME (PATIENT) 13.4 SECONDS (9.0-12.0)
[2016-12-05 04:48] LABS: CKMB/CK RATIO 7.1 (0-3.0)
[2016-12-05] MEDS: ALPRAZOLAM 0.5 MG TAB PO SCH ×4 (09:00→21:00)
[2016-12-05] MEDS: CALCIUM ACETATE 667MG GELCAP PO SCH ×3 (09:13→16:18)
[2016-12-05] MEDS: AMIODARONE 200 MG TAB PO SCH ×2 (09:15→19:59)
[2016-12-05] MEDS: INSULIN ASPART 100 UNITS/ML 3 ML PEN SC SCH ×4 (09:17→20:03)
[2016-12-05] MEDS: ASPIRIN 81 MG ECTAB PO SCH (09:18)
[2016-12-05] MEDS: GUAIFENESIN 600 MG TABCR PO SCH ×2 (09:18→19:59)
[2016-12-05] MEDS: PAROXETINE 20 MG TAB PO SCH (09:19)
[2016-12-05] MEDS: PANTOprazole SOD 40 MG TAB PO SCH (09:19)
[2016-12-05] MEDS: NEPHROCAPS PO SCH (09:19)
[2016-12-05] MEDS: LIDODERM (LIDOCAINE) PATCH 5% TD SCH (09:20)
[2016-12-05] MEDS: MoRPHine SULFATE 4 MG/ML 1 ML CARP\\VIAL IV PRN ×4 (09:25→19:50)
[2016-12-05] MEDS ORDERED: PERFLUTREN LIPID MICROSPHERE (DEFINITY) IV ONE (11:51)
[2016-12-05 13:11] LABS: CALCIUM 7.8 mg/dl (8.5-10.1); CREATININE 4.1 mg/dl (0.60-1.40); POTASSIUM 3.9 mmol/L (3.5-5.1)
--- NOTE | 2016-12-05 13:21 | Nephrology Consultation ---
Nephrology Consultation Date & Providers Date of Consultation: Dec 05, 2016. Primary Care Provider: Satya Roberts M.D. Referring Provider: Reason for Consultation ESRD History of Present Illness Mr. Tate is a 66-year-old male who was seen in consultation regarding ESRD. Medical records were reviewed in detail. Medical history is complicated. He was admitted to [facility] yesterday with shortness of breath, chest tightness and anxiety. Symptoms started following hemodialysis. The patient has an aggressive left lung mass invading into the chest wall and ribs. ESRD is related to a history of biopsy proven membranous nephropathy as well as superimposed vascular disease and ischemic injury. 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 In 2005, he underwent coronary angiography and subsequent coronary artery bypass surgery as well as an aortic valve replacement. The procedure was complicated by acute renal failure requiring brief supportive hemodialysis. In March of 2007, he developed gross hematuria and hydronephrosis on the left. Urologic evaluation failed to identify a source of obstruction. He was started on maintenance hemodialysis at this time. Complications of hemodialysis include an episode of cardiac arrest during dialysis in 2010. He continues to dialyze at [facility] in [place]. His treatments are generally uncomplicated. His access is a left forearm AV fistula. The patient tolerated his scheduled dialysis treatment yesterday without complications. He is maintained on MWF hemodialysis at [facility]. He left the dialysis unit at his EDW. In 2014, he developed acute diverticulitis with abscess formation in the sigmoid colon. Follow up imaging after treatment continues to show an inflammatory mass. In April, drainage of an abscess and a partial colectomy and ileostomy was performed. Subsequently, his colostomy was taken down. Several months ago, he developed respiratory symptoms with imaging showing a left lung mass. 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 He has been referred to medical oncology as well as radiation oncology. Past Medical/Surgical History Medical: 1. Hypertension. 2. Non-insulin dependent diabetes. 3. Hypercholesterolemia. 4. ASCVD, status post coronary artery bypass grafting x2. 5. History of aortic stenosis, status post aortic valve replacement. 6. History of GI bleeding from diverticulosis. 7. PTSD. 8. History of chronic venous insufficiency involving his lower extremities. 9. Membranous nephropathy/ESRD. 10. History of acute renal failure. 11. History of secondary anemia. 12. History of diverticulosis/diverticulitis with a partial colectomy because of a complicating diverticular abscess. 13. History of cardiac arrest with an ICD now in place. 14. SCC of the lung. Surgical: CABG w/ aortic valve replacement. LUE AVF. Surgical drainage of an abscess emanating from the sigmoid colon as well as the creation of an ileostomy and colon resection and subsequent colostomy takedown. Allergies Coded Allergies: No Known Allergies (Verified , 12/04/16) Inpatient Medications Current Inpatient Medications Medications (Trade) Dose Ordered Sig/Lex Route Start Time Stop Time Status Last Admin Dose Admin Zolpidem Tartrate (Ambien Tab) 5 mg HSZ PRN PO 12/04/16 20:15 01/03/17 20:14 Nitroglycerin (Nitrostat Tab) 0.4 mg UD PRN SL 12/04/16 20:15 01/03/17 20:14 Ondansetron HCl (Zofran Inj) 4 mg Q6H PRN IV 12/04/16 20:15 01/03/17 20:14 Insulin Aspart (novoLOG ASPART) SLIDING SCAL... ACHS SC 12/04/16 21:00 01/03/17 20:59 12/05/16 09:17 8 UNITS Glucose (Glucose 40% Gel) UD PRN PO 12/04/16 20:15 01/03/17 20:14 Glucose (Glucose Chew Tab) 1 tabs UD PRN PO 12/04/16 20:15 01/03/17 20:14 Dextrose (Dextrose 50% 50ML Syringe) 50 ml UD PRN IV 12/04/16 20:15 01/03/17 20:14 Glucagon (Glucagon Inj) 1 mg UD PRN SQ 12/04/16 20:15 01/03/17 20:14 Acetaminophen 100 ml @ 400 mls/hr Q8H PRN IV 12/04/16 20:15 01/03/17 20:14 Acetaminophen (Tylenol Tab) 650 mg Q4 PRN PO 12/04/16 20:15 01/03/17 20:14 Alprazolam (Xanax Tab) 0.5 mg TID PO 12/04/16 21:00 01/03/17 20:59 Alprazolam (Xanax Tab) 1 mg HS PO 12/04/16 21:00 01/03/17 20:59 12/04/16 22:20 1 MG Amiodarone HCl (Cordarone Tab) 100 mg BID PO 12/04/16 21:00 01/03/17 20:59 12/05/16 09:15 100 MG Aspirin (Ecotrin Tab) 81 mg DAILY PO 12/05/16 09:00 01/04/17 08:59 12/05/16 09:18 81 MG Atenolol (Tenormin Tab) 12.5 mg QD@1230 PO 12/05/16 12:30 01/04/17 12:29 Atorvastatin Calcium (Lipitor Tab) 80 mg QPM PO 12/04/16 21:00 01/03/17 20:59 12/04/16 23:35 80 MG Buspirone HCl (Buspar Tab) 10 mg TID PO 12/04/16 21:00 01/03/17 20:59 Calcium Acetate (Phoslo Cap) 2,001 mg TIDM PO 12/05/16 07:30 01/04/17 07:59 12/05/16 09:13 2,001 MG Folic Acid (Folvite Tab) 1 mg QD@1230 PO 12/05/16 12:30 01/04/17 12:29 Pantoprazole Sodium (Protonix Tab) 40 mg DAILY PO 12/05/16 09:00 01/04/17 08:59 12/05/16 09:19 40 MG Paroxetine HCl (pAXil TAB) 40 mg QAM PO 12/05/16 09:00 01/04/17 08:59 12/05/16 09:19 40 MG Vitamin B Complex/ Vit C/Folic Acid (Nephrocaps) 1 cap DAILY PO 12/05/16 09:00 01/04/17 08:59 12/05/16 09:19 1 CAP Miscellaneous Information (Order Awaiting Action) 1 ea QS PO 12/05/16 00:00 01/04/17 00:00 Guaifenesin (Mucinex Contr Rel Tab) 600 mg BID PO 12/05/16 09:00 01/04/17 08:59 12/05/16 09:18 600 MG Ipratropium [place] (Atrovent 0.02% 0.5MG/2.5ML Neb) 0.5 mg Q6R INH 12/05/16 03:00 10/9/17 02:59 12/05/16 07:16 0.5 MG Levalbuterol (Xopenex 1.25MG/ 0.5ML Neb) 1.25 mg Q6R INH 12/05/16 03:00 01/04/17 02:59 12/05/16 07:16 1.25 MG Vancomycin HCl (Consult) 1 ea UD PRN N/A 12/04/16 22:45 01/03/17 22:44 Piperacillin Sod/ Tazobactam Sod (Consult) 1 ea UD PRN N/A 12/04/16 22:45 01/03/17 22:44 Morphine Sulfate (MoRPHine SULFATE INJ) 2 mg Q2H PRN IV 12/04/16 23:15 12/18/16 23:14 12/05/16 01:57 2 MG Morphine Sulfate (MoRPHine SULFATE INJ) 4 mg Q2H PRN IV 12/04/16 23:15 12/18/16 23:14 12/05/16 12:24 4 MG Lidocaine (Lidoderm Patch 5%) 1 patch DAILY@09 TD 12/05/16 09:00 01/04/17 08:59 12/05/16 09:20 1 PATCH Miscellaneous (Remove Lidoderm Patch) 1 ea DAILY@2100 N/A 12/05/16 21:00 01/04/17 20:59 Piperacillin Sod/ Tazobactam Sod 3.375 gm/Dextrose 115 ml @ 28.75 mls/ hr Q12H IV 12/05/16 18:00 12/12/16 05:59 Prednisone (PredniSONE TAB) 40 mg QAM PO 12/06/16 09:00 01/05/17 08:59 Levofloxacin (Levaquin Tab) 750 mg Q2D@11 PO 12/06/16 11:00 12/11/16 10:59 Family History Patient reports no known family medical history. Social History Smoking Status: Former Smoker Smokeless Tobacco Use: No Alcohol Use: none Drug Use: none Marital Status: Housing Status: lives alone, shelter Occupation: retired Mr. Tate is a [place] . He is retired. Review of Systems A complete review of systems was performed. Pertinent positives are noted above. All other systems are negative. Physical Exam Date Time Temp Pulse Resp B/P (MAP) Pulse Ox O2 Delivery O2 Flow Rate FiO2 12/05/16 11:37 36.5 60 18 134/74 (94) 97 3.0 12/05/16 08:00 Room Air 12/05/16 07:42 36.4 60 18 126/68 (87) 97 Room Air 12/05/16 07:17 64 16 96 Nasal Cannula 2.0 12/05/16 04:00 Nasal Cannula 3.0 12/05/16 03:45 36.5 68 18 117/68 (84) 98 Nasal Cannula 3.0 12/05/16 02:10 60 16 98 Nasal Cannula 2.0 12/05/16 00:40 37.0 62 16 178/71 Nasal Cannula 3.0 12/05/16 00:00 99 Nasal Cannula 3.0 12/04/16 23:20 36.7 62 20 150/70 (96) 94 Nasal Cannula 3.0 12/04/16 20:34 36.3 64 30 146/62 99 12/04/16 20:30 146/62 12/04/16 20:08 64 30 99 12/04/16 20:00 151/70 12/04/16 19:38 61 25 100 12/04/16 19:30 156/91 12/04/16 19:08 61 22 100 12/04/16 19:00 155/83 12/04/16 18:38 60 28 100 12/04/16 18:30 156/66 12/04/16 18:12 157/73 12/04/16 18:08 60 25 100 12/04/16 18:03 60 28 100 12/04/16 17:33 65 24 100 12/04/16 17:08 63 12/04/16 17:07 94 Nasal Cannula 3.0 12/04/16 17:07 94 Nasal Cannula 3.0 12/04/16 17:06 85 Room Air 12/04/16 17:05 156/71 12/04/16 16:18 96 Room Air 12/04/16 16:15 36.3 66 24 127/66 96 Room Air General Appearance: WD/WN, no apparent distress Head: normocephalic, atraumatic Eyes: normal inspection, sclerae normal ENT: normal ENT inspection, pharynx normal Neck: supple, no JVD Respiratory/Chest: lungs clear, no respiratory distress, no accessory muscle use Cardiovascular: regular rate, rhythm, no gallop, + systolic murmur Abdomen/GI: non tender, soft Extremities/Musculoskelatal: normal inspection, no pedal edema, + pertinent finding (LUE AVF with thrill and bruit) Neurologic/Psych: alert, normal mood/affect Skin: normal color Laboratory Results Last 24 Hours Test 12/04/16 17:58 12/04/16 21:18 12/04/16 22:24 12/05/16 03:57 White Blood Count 11.11 K/uL 8.30 K/uL Red Blood Count 3.28 M/uL 2.87 M/uL Hemoglobin 10.6 g/dL 9.2 g/dL Hematocrit 34.4 % 30.4 % Mean Corpuscular Volume 104.9 fL 105.9 fL Mean Corpuscular Hemoglobin 32.3 pg 32.1 pg Mean Corpuscular Hemoglobin Concent 30.8 g/dl 30.3 g/dl Platelet Count 284 K/uL 239 K/uL Mean Platelet Volume 10.1 fL 10.0 fL Neutrophils (%) (Auto) 84.5 % 96.2 % Lymphocytes (%) (Auto) 5.2 % 1.7 % Monocytes (%) (Auto) 8.1 % 1.4 % Eosinophils (%) (Auto) 1.6 % 0.1 % Basophils (%) (Auto) 0.1 % 0.0 % Neutrophils # (Auto) 9.38 K/uL 7.98 K/uL Lymphocytes # (Auto) 0.58 K/uL 0.14 K/uL Monocytes # (Auto) 0.90 K/uL 0.12 K/uL Eosinophils # (Auto) 0.18 K/uL 0.01 K/uL Basophils # (Auto) 0.01 K/uL 0.00 K/uL RDW Standard Deviation 67.4 fL 67.4 fL RDW Coefficient of Variation 17.8 % 17.6 % Immature Granulocyte % (Auto) 0.5 % 0.6 % Immature Granulocyte # (Auto) 0.06 K/uL 0.05 K/uL Nucleated RBC Absolute Count (auto) 0.11 K/uL 0.05 K/uL Nucleated Red Blood Cells % 1.0 % 0.6 % Prothrombin Time 12.8 SECONDS 13.4 SECONDS Prothromb Time International Ratio 1.2 1.2 Activated Partial Thromboplast Time 31.5 SECONDS 35.9 SECONDS Partial Thromboplastin Ratio 1.2 1.4 Sodium Level 138 mmol/L Potassium Level 3.4 mmol/L Chloride Level 98 mmol/L Carbon Dioxide Level 35 mmol/L Anion Gap 5.0 mmol/L Blood Urea Nitrogen 17 mg/dl Creatinine 2.90 mg/dl Estimated GFR () 24.8 Estimated GFR (Non- 21.4 BUN/Creatinine Ratio 5.9 Random Glucose 123 mg/dl Calcium Level 7.9 mg/dl Total Bilirubin 0.4 mg/dl Aspartate Amino Transf (AST/SGOT) 24 U/L Alanine Aminotransferase (ALT/SGPT) 32 U/L Alkaline Phosphatase 136 U/L Troponin I 0.126 ng/ml 0.144 ng/ml 0.123 ng/ml Total Protein 7.5 gm/dl Albumin 2.7 gm/dl Globulin 4.8 gm/dl Albumin/Globulin Ratio 0.6 Total Creatine Kinase 31 U/L 28 U/L Creatine Kinase MB 2.0 ng/ml 2.0 ng/ml Creatine Kinase MB Ratio 6.5 7.1 Bedside Glucose 171 mg/dl Random Vancomycin Level 32.5 mcg/ml Test 12/05/16 06:36 12/05/16 12:03 Bedside Glucose 218 mg/dl Creatine Kinase MB Ratio Impression (1) End-stage renal disease on hemodialysis (2) Lung cancer (3) COPD exacerbation (4) Lung mass (5) ASCVD (arteriosclerotic cardiovascular disease) (6) Post traumatic stress disorder (PTSD) (7) Secondary hyperparathyroidism of renal origin Mr. Tate is a 66-year-old male with ASCVD, DM, HTN, lung cancer and ESRD. He in on hemodialysis MWF at [facility] under the care of Dr. Roberts. He completed hemodialysis yesterday without complications. Blood pressure, volume status and electrolytes are currently appropriate. Following hemodialysis, he presented to the ED with chest tightness, shortness of breath and anxiety. CXR and CT of the chest were reviewed today and are notable for an enlarging lung mass invading the chest wall. 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 PMH is significant for membranous GN, ESRD, ASCVD s/p CABG with AVR ( bioprosthetic valve), AICD, NIDDM, HTN, diverticulosis, post traumatic stress disorder Recommendations END STAGE RENAL DISEASE: -- HD MWF, no emergent need for dialysis today -- BP, volume status, electrolytes appropriate -- Monitor daily renal profile -- MIVF stopped -- Medications appropriately dosed for renal function HYPOXIC RESPIRATORY FAILURE/LUNG MASS: -- Medical and radiation oncology follow up ANEMIA: -- Monitor CBC -- Check iron profile with AM labs
--- NOTE | 2016-12-05 14:00 | ECHOCARDIOGRAM REPORT ---
*NOTICE TO RECEIVING CONSTITUTION PARTY AGENCY This information is strictly Confidential and protected under [place] law. [place] law prohibits you from making any further disclosure of this information unless further disclosure is expressly permitted by the written consent of the person to whom it pertains or is authorized by law. A general authorization for the release of medical or other information is not sufficient for this purpose. Hospital accepts no responsibility if the information is made available to any other person, INCLUDING THE PATIENT. Interpretation Summary * Name: YOLY CHEN Study Date: 12/05/2016 11:15 AM BP: 117/68 mmHg * Patient Location: C.2T\S\S231\S\1 HR: 68 * : 1950 (M/d/yyy) Gender: Male Height: 68 in * Age: 66 yrs Ethnicity: CA Weight: 214 lb * Ordering Physician: Fito Baird * Referring Physician: Self, Referred * Performed By: Wang Alas RDCS * * Reason For Study: Elevated troponin * BSA: 2.1 m2 * -- Conclusions -- * 1. Mildly dilated LV. Normal LV wall thickness. * 2. Low normal LV function. LVEF 50-55%. Abnormal septal motion consistent with conduction abnormality. Akinesis of true apex. * 3. RV not well visualized. Reduced RV function by TAPSE. * 4. Bioprosthetic aortic valve not well visualized. Mildly elevated transvalvular gradients (PV 3.48 m/s, MG 28). Mild aortic regurgitation. * 5. Mild mitral regurgitation. Mild mitral stenosis. * 6. Grade II diastolic dysfunction. * 7. Mild to moderate pulmonary hypertension. Est PASP 45-50 mmHg. * 8. Compared with prior study on 07/21/2016: Pulmonary hypertension is new. Procedure Details * The study was technically difficult. * There were technical limitations due to patient's supine positioning, body habitus, and severe lung disease. * The study was technically difficult, but visualization was adequate with the administration of Definity ultrasound contrast. * A contrast injection of Definity was performed to improve assessment of LV function. * Contrast was injected into an intravenous site in the right arm. * One vial of Definity ultrasound contrast was diluted in normal saline to a total volume of 10 ml. A total of '3' ml of solution was administered during imaging. * Lot # [id number] of Definity utilized for procedure. * Expiration date . * The attending nurse who injected the contrast agent was DIANE Valera. Left Ventricle * The left ventricle is mildly dilated. * There is normal left ventricular wall thickness. * Ejection Fraction = 45-50%. * Septal motion is consistent with conduction abnormality. * There is apical akinesis. Right Ventricle * The right ventricle is not well visualized. * The right ventricular systolic function is reduced as assessed by tricuspid annular plane systolic excursion (TAPSE) (TAPSE <1.6 cm). Atria * The left atrium is severely dilated. * Right atrium not well visualized. * No ASD detected; PFO is not assessed. Mitral Valve * There is moderate mitral annular calcification. * There is mild mitral stenosis. * There is mild to moderate mitral regurgitation. Tricuspid Valve * There is mild tricuspid regurgitation. * Right ventricular systolic pressure is elevated at 40-50mmHg. Aortic Valve * The aortic valve is not well visualized. * Moderate valvular aortic stenosis. * Mild aortic regurgitation. Pulmonic Valve * The pulmonary valve is inadequately visualized, but the Doppler data is adequate for interpretation. * Pulmonic stenosis is absent. * There is no significant pulmonary regurgitation. Great Vessels * The aortic root and proximal ascending aorta are normal sized. Pericardium/Pleural * Trace pericardial effusion. Great Vessels * IVC <2.1, <50% change with respiration. Est RA 8 mmHg. Left Ventricular Diastolic Function * Diastolic dysfunction, Grade II (pseudonormalization pattern). MMode 2D Measurements and Calculations IVSd 1.2 cm IVSs 1.6 cm LVIDd 5.5 cm LVIDs 4.0 cm LVPWd 1.2 cm LVPWs 1.6 cm IVS/LVPW 0.97 FS 26.6 % EDV(Teich) 148.2 ml ESV(Teich) 71.9 ml EF(Teich) 51.5 % EDV(cubed) 167.4 ml ESV(cubed) 66.2 ml EF(cubed) 60.5 % % IVS thick 33.8 % % LVPW thick 35.5 % LV mass(C)d 267.6 grams LV mass(C)dI 127.2 grams/m\S\2 LV mass(C)s 259.7 grams LV mass(C)sI 123.5 grams/m\S\2 SV(Teich) 76.2 ml SI(Teich) 36.2 ml/m\S\2 SV(cubed) 101.2 ml SI(cubed) 48.1 ml/m\S\2 EPSS 1.6 cm Ao root diam 3.1 cm Ao root area 7.3 cm\S\2 ACS 1.5 cm LA dimension 5.1 cm asc Aorta Diam 3.5 cm LA/Ao 1.7 LVOT diam 2.2 cm LVOT area 3.7 cm\S\2 LVAd ap4 43.3 cm\S\2 LVLd ap4 9.3 cm EDV(MOD-sp4) 166.0 ml LVAs ap4 27.2 cm\S\2 LVLs ap4 8.6 cm ESV(MOD-sp4) 72.3 ml EF(MOD-sp4) 56.4 % LVAd ap2 52.1 cm\S\2 LVLd ap2 10.0 cm EDV(MOD-sp2) 223.0 ml LVAs ap2 31.5 cm\S\2 LVLs ap2 8.7 cm ESV(MOD-sp2) 94.3 ml EF(MOD-sp2) 57.7 % SV(MOD-sp4) 93.7 ml SI(MOD-sp4) 44.5 ml/m\S\2 SV(MOD-sp2) 128.7 ml SI(MOD-sp2) 61.2 ml/m\S\2 Doppler Measurements and Calculations MV E max yobani 127.1 cm/sec MV A max yobani 120.8 cm/sec MV E/A 1.1 MV V2 max 165.4 cm/sec MV max PG 10.9 mmHg MV V2 mean 106.2 cm/sec MV mean PG 5.0 mmHg MV V2 VTI 49.4 cm MVA(VTI) 1.4 cm\S\2 MV P1/2t max yobani 163.7 cm/sec MV P1/2t 89.1 msec MVA(P1/2t) 2.5 cm\S\2 MV dec slope 538.1 cm/sec\S\2 MV dec time 0.26 sec Ao V2 max 332.5 cm/sec Ao max PG 44.2 mmHg Ao max PG (full) 41.9 mmHg Ao V2 mean 253.9 cm/sec Ao mean PG 28.6 mmHg Ao mean PG (full) 27.2 mmHg Ao V2 VTI 90.7 cm YULIA(I,A) 0.76 cm\S\2 YULIA(I,D) 0.76 cm\S\2 YULIA(V,A) 0.86 cm\S\2 YULIA(V,D) 0.86 cm\S\2 AI end-d yobani 260.6 cm/sec AI max yobani 315.8 cm/sec AI max PG 39.9 mmHg AI dec slope 103.7 cm/sec\S\2 AI P1/2t 891.9 msec LV V1 max PG 2.3 mmHg LV V1 mean PG 1.4 mmHg LV V1 max 76.6 cm/sec LV V1 mean 56.2 cm/sec LV V1 VTI 18.4 cm SV(Ao) 663.8 ml SI(Ao) 315.5 ml/m\S\2 SV(LVOT) 68.8 ml SI(LVOT) 32.7 ml/m\S\2 PA V2 max 104.2 cm/sec PA max PG 4.3 mmHg PA acc slope 826.5 cm/sec\S\2 PA acc time 0.08 sec PA pr(Accel) 41.0 mmHg
--- NOTE | 2016-12-05 15:35 | Progress Note ---
Subjective Date of Service: Dec 05, 2016. Subjective Pt evaluation today including: conversation w/ patient, conversation w/ family (daughter at the bedside), physical exam, lab review, review of studies, conversation w/ solutions architect consultant, review of inpatient medication list Pain: mild pain on left side of chest PO Intake: improving Voiding: no voiding problems patient's breathing much improved since admission, feels better with nebulizers and steroids discussed recent work up and treatment plan for lung lesion had CT staging for radiation, tentative plan to start treatment this week d/w daughter, working on getting him to SNF for care Problem List Medical Problems: (1) Anxiety Status: Acute (2) Anxiety about health Status: Acute (3) CHF (congestive heart failure) Status: Acute (4) Elevated troponin I level Status: Acute (5) Fluid overload Status: Acute (6) Hyperkalemia Status: Acute (7) Hypoxia Status: Acute (8) Hypoxia Status: Acute (9) Lung mass Status: Acute (10) Mass of left lung Status: Acute (11) Pulmonary edema Status: Acute (12) Shortness of breath Status: Acute (13) Situational stress Status: Acute (14) Weakness Status: Acute (15) Wheezing Status: Acute Review of Systems Constitutional: + weakness, + fatigue Respiratory: + cough, + shortness of breath, + dyspnea on exertion Cardiac: + chest pain (left sided, related to mass) Neurologic: + weakness, + balance problems All Other Systems: Reviewed and Negative Medications Current Inpatient Medications Medications (Trade) Dose Ordered Sig/Lex Route Start Time Stop Time Status Last Admin Dose Admin Zolpidem Tartrate (Ambien Tab) 5 mg HSZ PRN PO 12/04/16 20:15 01/03/17 20:14 Nitroglycerin (Nitrostat Tab) 0.4 mg UD PRN SL 12/04/16 20:15 01/03/17 20:14 Ondansetron HCl (Zofran Inj) 4 mg Q6H PRN IV 12/04/16 20:15 01/03/17 20:14 Insulin Aspart (novoLOG ASPART) SLIDING SCAL... ACHS SC 12/04/16 21:00 01/03/17 20:59 12/05/16 12:40 7 UNITS Glucose (Glucose 40% Gel) UD PRN PO 12/04/16 20:15 01/03/17 20:14 Glucose (Glucose Chew Tab) 1 tabs UD PRN PO 12/04/16 20:15 01/03/17 20:14 Dextrose (Dextrose 50% 50ML Syringe) 50 ml UD PRN IV 12/04/16 20:15 01/03/17 20:14 Glucagon (Glucagon Inj) 1 mg UD PRN SQ 12/04/16 20:15 01/03/17 20:14 Acetaminophen 100 ml @ 400 mls/hr Q8H PRN IV 12/04/16 20:15 01/03/17 20:14 Acetaminophen (Tylenol Tab) 650 mg Q4 PRN PO 12/04/16 20:15 01/03/17 20:14 Alprazolam (Xanax Tab) 0.5 mg TID PO 12/04/16 21:00 01/03/17 20:59 Alprazolam (Xanax Tab) 1 mg HS PO 12/04/16 21:00 01/03/17 20:59 12/04/16 22:20 1 MG Amiodarone HCl (Cordarone Tab) 100 mg BID PO 12/04/16 21:00 01/03/17 20:59 12/05/16 09:15 100 MG Aspirin (Ecotrin Tab) 81 mg DAILY PO 12/05/16 09:00 01/04/17 08:59 12/05/16 09:18 81 MG Atenolol (Tenormin Tab) 12.5 mg QD@1230 PO 12/05/16 12:30 01/04/17 12:29 12/05/16 12:26 12.5 MG Atorvastatin Calcium (Lipitor Tab) 80 mg QPM PO 12/04/16 21:00 01/03/17 20:59 12/04/16 23:35 80 MG Buspirone HCl (Buspar Tab) 10 mg TID PO 12/04/16 21:00 01/03/17 20:59 Calcium Acetate (Phoslo Cap) 2,001 mg TIDM PO 12/05/16 07:30 01/04/17 07:59 12/05/16 12:26 2,001 MG Folic Acid (Folvite Tab) 1 mg QD@1230 PO 12/05/16 12:30 01/04/17 12:29 12/05/16 12:26 1 MG Pantoprazole Sodium (Protonix Tab) 40 mg DAILY PO 12/05/16 09:00 01/04/17 08:59 12/05/16 09:19 40 MG Paroxetine HCl (pAXil TAB) 40 mg QAM PO 12/05/16 09:00 01/04/17 08:59 12/05/16 09:19 40 MG Vitamin B Complex/ Vit C/Folic Acid (Nephrocaps) 1 cap DAILY PO 12/05/16 09:00 01/04/17 08:59 12/05/16 09:19 1 CAP Miscellaneous Information (Order Awaiting Action) 1 ea QS PO 12/05/16 00:00 01/04/17 00:00 Guaifenesin (Mucinex Contr Rel Tab) 600 mg BID PO 12/05/16 09:00 01/04/17 08:59 12/05/16 09:18 600 MG Ipratropium Mccall (Atrovent 0.02% 0.5MG/2.5ML Neb) 0.5 mg Q6R INH 12/05/16 03:00 01/04/17 02:59 12/05/16 14:16 0.5 MG Levalbuterol (Xopenex 1.25MG/ 0.5ML Neb) 1.25 mg Q6R INH 12/05/16 03:00 01/04/17 02:59 12/05/16 14:16 1.25 MG Vancomycin HCl (Consult) 1 ea UD PRN N/A 12/04/16 22:45 01/03/17 22:44 Piperacillin Sod/ Tazobactam Sod (Consult) 1 ea UD PRN N/A 12/04/16 22:45 01/03/17 22:44 Morphine Sulfate (MoRPHine SULFATE INJ) 2 mg Q2H PRN IV 12/04/16 23:15 12/18/16 23:14 12/05/16 01:57 2 MG Morphine Sulfate (MoRPHine SULFATE INJ) 4 mg Q2H PRN IV 12/04/16 23:15 12/18/16 23:14 12/05/16 12:24 4 MG Lidocaine (Lidoderm Patch 5%) 1 patch DAILY@09 TD 12/05/16 09:00 01/04/17 08:59 12/05/16 09:20 1 PATCH Miscellaneous (Remove Lidoderm Patch) 1 ea DAILY@2100 N/A 12/05/16 21:00 01/04/17 20:59 Piperacillin Sod/ Tazobactam Sod 3.375 gm/Dextrose 115 ml @ 28.75 mls/ hr Q12H IV 12/05/16 18:00 12/12/16 05:59 Prednisone (PredniSONE TAB) 40 mg QAM PO 12/06/16 09:00 01/05/17 08:59 Levofloxacin (Levaquin Tab) 750 mg Q2D@11 PO 12/06/16 11:00 12/11/16 10:59 Objective Vital Signs Date Time Temp Pulse Resp B/P (MAP) Pulse Ox O2 Delivery O2 Flow Rate FiO2 12/05/16 14:16 60 16 98 Nasal Cannula 2.0 12/05/16 12:00 Nasal Cannula 3.0 12/05/16 11:37 36.5 60 18 134/74 (94) 97 3.0 12/05/16 08:00 Room Air 12/05/16 07:42 36.4 60 18 126/68 (87) 97 Room Air 12/05/16 07:17 64 16 96 Nasal Cannula 2.0 12/05/16 04:00 Nasal Cannula 3.0 12/05/16 03:45 36.5 68 18 117/68 (84) 98 Nasal Cannula 3.0 12/05/16 02:10 60 16 98 Nasal Cannula 2.0 12/05/16 00:40 37.0 62 16 178/71 Nasal Cannula 3.0 12/05/16 00:00 99 Nasal Cannula 3.0 12/04/16 23:20 36.7 62 20 150/70 (96) 94 Nasal Cannula 3.0 12/04/16 20:34 36.3 64 30 146/62 99 12/04/16 20:30 146/62 12/04/16 20:08 64 30 99 12/04/16 20:00 151/70 12/04/16 19:38 61 25 100 12/04/16 19:30 156/91 12/04/16 19:08 61 22 100 12/04/16 19:00 155/83 12/04/16 18:38 60 28 100 12/04/16 18:30 156/66 12/04/16 18:12 157/73 9/8/17 18:08 60 25 100 12/04/16 18:03 60 28 100 12/04/16 17:33 65 24 100 12/04/16 17:08 63 12/04/16 17:07 94 Nasal Cannula 3.0 12/04/16 17:07 94 Nasal Cannula 3.0 12/04/16 17:06 85 Room Air 12/04/16 17:05 156/71 12/04/16 16:18 96 Room Air 12/04/16 16:15 36.3 66 24 127/66 96 Room Air Physical Exam General Appearance: no apparent distress, + obese Eyes: normal inspection, EOMI, sclerae normal ENT: normal ENT inspection, hearing grossly normal, pharynx normal Neck: supple, no adenopathy, no JVD, trachea midline Respiratory/Chest: chest non-tender, no respiratory distress, no accessory muscle use, + decreased breath sounds, + wheezing Cardiovascular: regular rate, rhythm, no edema, no gallop, no JVD, no murmur Abdomen: normal bowel sounds, non tender, soft, no organomegaly Extremities: normal range of motion, non-tender, normal inspection, no pedal edema, no calf tenderness, normal capillary refill, pelvis stable, + pertinent finding (left UE fistula with thrill and bruit) Neurologic/Psychiatric: 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 nml as tested, no motor/sensory deficits, alert, normal mood/affect, oriented x 3 Skin: normal color, warm/dry, no rash Lymphatic: no adenopathy Laboratory Results Last 24 Hours Test 12/04/16 17:58 12/04/16 21:18 12/04/16 22:24 12/05/16 03:57 White Blood Count 11.11 K/uL 8.30 K/uL Red Blood Count 3.28 M/uL 2.87 M/uL Hemoglobin 10.6 g/dL 9.2 g/dL Hematocrit 34.4 % 30.4 % Mean Corpuscular Volume 104.9 fL 105.9 fL Mean Corpuscular Hemoglobin 32.3 pg 32.1 pg Mean Corpuscular Hemoglobin Concent 30.8 g/dl 30.3 g/dl Platelet Count 284 K/uL 239 K/uL Mean Platelet Volume 10.1 fL 10.0 fL Neutrophils (%) (Auto) 84.5 % 96.2 % Lymphocytes (%) (Auto) 5.2 % 1.7 % Monocytes (%) (Auto) 8.1 % 1.4 % Eosinophils (%) (Auto) 1.6 % 0.1 % Basophils (%) (Auto) 0.1 % 0.0 % Neutrophils # (Auto) 9.38 K/uL 7.98 K/uL Lymphocytes # (Auto) 0.58 K/uL 0.14 K/uL Monocytes # (Auto) 0.90 K/uL 0.12 K/uL Eosinophils # (Auto) 0.18 K/uL 0.01 K/uL Basophils # (Auto) 0.01 K/uL 0.00 K/uL RDW Standard Deviation 67.4 fL 67.4 fL RDW Coefficient of Variation 17.8 % 17.6 % Immature Granulocyte % (Auto) 0.5 % 0.6 % Immature Granulocyte # (Auto) 0.06 K/uL 0.05 K/uL Nucleated RBC Absolute Count (auto) 0.11 K/uL 0.05 K/uL Nucleated Red Blood Cells % 1.0 % 0.6 % Prothrombin Time 12.8 SECONDS 13.4 SECONDS Prothromb Time International Ratio 1.2 1.2 Activated Partial Thromboplast Time 31.5 SECONDS 35.9 SECONDS Partial Thromboplastin Ratio 1.2 1.4 Sodium Level 138 mmol/L Potassium Level 3.4 mmol/L Chloride Level 98 mmol/L Carbon Dioxide Level 35 mmol/L Anion Gap 5.0 mmol/L Blood Urea Nitrogen 17 mg/dl Creatinine 2.90 mg/dl Estimated GFR () 24.8 Estimated GFR (Non- 21.4 BUN/Creatinine Ratio 5.9 Random Glucose 123 mg/dl Calcium Level 7.9 mg/dl Total Bilirubin 0.4 mg/dl Aspartate Amino Transf (AST/SGOT) 24 U/L Alanine Aminotransferase (ALT/SGPT) 32 U/L Alkaline Phosphatase 136 U/L Troponin I 0.126 ng/ml 0.144 ng/ml 0.123 ng/ml Total Protein 7.5 gm/dl Albumin 2.7 gm/dl Globulin 4.8 gm/dl Albumin/Globulin Ratio 0.6 Total Creatine Kinase 31 U/L 28 U/L Creatine Kinase MB 2.0 ng/ml 2.0 ng/ml Creatine Kinase MB Ratio 6.5 7.1 Bedside Glucose 171 mg/dl Random Vancomycin Level 32.5 mcg/ml Test 12/05/16 06:36 12/05/16 11:18 12/05/16 12:23 Bedside Glucose 218 mg/dl 260 mg/dl Sodium Level 135 mmol/L Potassium Level 3.9 mmol/L Chloride Level 96 mmol/L Carbon Dioxide Level 34 mmol/L Anion Gap 5.0 mmol/L Blood Urea Nitrogen 33 mg/dl Creatinine 4.10 mg/dl Est Creatinine Clear Calc Drug Dose 19.9 ml/min Estimated GFR () 16.3 Estimated GFR (Non- 14.1 BUN/Creatinine Ratio 8.0 Random Glucose 203 mg/dl Calcium Level 7.8 mg/dl Total Creatine Kinase 23 U/L Creatine Kinase MB 1.6 ng/ml Creatine Kinase MB Ratio 7.0 Troponin I 0.085 ng/ml Assessment and Plan 66 yo male with ESRD, left sided lung mass who presented with increased dyspnea , hypoxia, wheezing - Acute hypoxic respiratory failure secondary to COPD exacerbation still with wheezing bilaterally, typically does not use inhalers continue nebulizers, change to Prednisone 40mg PO daily, Levaquin 500mg q48 ( renally dosed) stop Vanco and Zosyn responding well to treatment thus far, keep on tele today try to titrate off oxygen, 98% on 2L - Lung mass: plan for palliative radiation therapy will contact radiation oncology on Wednesday if they want to start treatment no plans for chemotherapy - ESRD on HD: nephrology consulted, continue folic acid, Sensipar, calcium acetate and Nephrocaps. - Elevated troponin/atrial paced rhythm/persistent lateral nonspecific ST-T wave changes/status post AICD/status post CABG/status post AVR-- no chest pain today, troponin negative Continue aspirin 81 mg by mouth daily, atenolol 12.5 mg by mouth daily and amiodarone 100 mg by mouth twice a day - Anxiety--continue alprazolam 1 mg by mouth at bedtime. Increase daytime alprazolam from 0.5 mg by mouth every morning to 3 times a day. Increase buspirone 5 mg by mouth 3 times a day to 10 mg by mouth 3 times a day. -Diabetes mellitus--hold glipizide 2.5 mg by mouth daily. Novolog SS Hyperlipidemia--continue atorvastatin 80 mg by mouth every evening. GERD--continue pantoprazole 40 mg by mouth daily.
--- NOTE | 2016-12-05 15:41 | Pharmacy Progress Note ---
Pharmacy Antibiotic Consult Date of Service: Dec 05, 2016. Pharmacy Dosing Scope Pharmacy is consulted to initiate vancomycin IV dosing therapy, order appropriate labs and adjust drug dose/frequency. Subjective The patient is a 66 year old male admitted on Dec 04, 2016 at 20:03. Objective Height (Feet): 5 Height (Inches): 8.00 Weight (Kilograms): 98.300 Lab Results (24hrs): Test 12/04/16 17:58 12/05/16 03:57 12/05/16 06:36 12/05/16 11:18 White Blood Count 11.11 K/uL (4.8-10.8) 8.30 K/uL (4.8-10.8) Red Blood Count 3.28 M/uL (4.7-6.1) 2.87 M/uL (4.7-6.1) Hemoglobin 10.6 g/dL (14.0-18.0) 9.2 g/dL (14.0-18.0) Hematocrit 34.4 % (42-52) 30.4 % (42-52) Mean Corpuscular Volume 104.9 fL (80-100) 105.9 fL (80-100) Mean Corpuscular Hemoglobin 32.3 pg (25-34) 32.1 pg (25-34) Mean Corpuscular Hemoglobin Concent 30.8 g/dl (32-36) 30.3 g/dl (32-36) Platelet Count 284 K/uL (130-400) 239 K/uL (130-400) Mean Platelet Volume 10.1 fL (7.4-10.4) 10.0 fL (7.4-10.4) Neutrophils (%) (Auto) 84.5 % 96.2 % Lymphocytes (%) (Auto) 5.2 % 1.7 % Monocytes (%) (Auto) 8.1 % 1.4 % Eosinophils (%) (Auto) 1.6 % 0.1 % Basophils (%) (Auto) 0.1 % 0.0 % Neutrophils # (Auto) 9.38 K/uL (1.4-6.5) 7.98 K/uL (1.4-6.5) Lymphocytes # (Auto) 0.58 K/uL (1.2-3.4) 0.14 K/uL (1.2-3.4) Monocytes # (Auto) 0.90 K/uL (0.11-0.59) 0.12 K/uL (0.11-0.59) Eosinophils # (Auto) 0.18 K/uL (0-0.5) 0.01 K/uL (0-0.5) Basophils # (Auto) 0.01 K/uL (0-0.2) 0.00 K/uL (0-0.2) RDW Standard Deviation 67.4 fL (36.4-46.3) 67.4 fL (36.4-46.3) RDW Coefficient of Variation 17.8 % (11.5-14.5) 17.6 % (11.5-14.5) Immature Granulocyte % (Auto) 0.5 % 0.6 % Immature Granulocyte # (Auto) 0.06 K/uL (0.00-0.02) 0.05 K/uL (0.00-0.02) Nucleated RBC Absolute Count (auto) 0.11 K/uL (0-0) 0.05 K/uL (0-0) Nucleated Red Blood Cells % 1.0 % 0.6 % Prothrombin Time 12.8 SECONDS (9.0-12.0) 13.4 SECONDS (9.0-12.0) Prothromb Time International Ratio 1.2 (0.9-1.1) 1.2 (0.9-1.1) Activated Partial Thromboplast Time 31.5 SECONDS (21.0-31.0) 35.9 SECONDS (21.0-31.0) Partial Thromboplastin Ratio 1.2 1.4 Sodium Level 138 mmol/L (136-145) Potassium Level 3.4 mmol/L (3.5-5.1) Chloride Level 98 mmol/L (98-107) Carbon Dioxide Level 35 mmol/L (21-32) Anion Gap 5.0 mmol/L (3-11) Blood Urea Nitrogen 17 mg/dl (7-18) Creatinine 2.90 mg/dl (0.60-1.40) Estimated GFR () 24.8 Estimated GFR (Non- 21.4 BUN/Creatinine Ratio 5.9 (10-20) Random Glucose 123 mg/dl (70-99) Calcium Level 7.9 mg/dl (8.5-10.1) Total Bilirubin 0.4 mg/dl (0.2-1) Aspartate Amino Transf (AST/SGOT) 24 U/L (15-37) Alanine Aminotransferase (ALT/SGPT) 32 U/L (12-78) Alkaline Phosphatase 136 U/L (45-117) Total Protein 7.5 gm/dl (6.4-8.2) Albumin 2.7 gm/dl (3.4-5.0) Globulin 4.8 gm/dl (2.5-4.0) Albumin/Globulin Ratio 0.6 (0.9-2) Total Creatine Kinase 28 U/L (39-308) Creatine Kinase MB 2.0 ng/ml (0.5-3.6) Creatine Kinase MB Ratio 7.1 (0-3.0) Troponin I 0.123 ng/ml (0-0.045) Random Vancomycin Level 32.5 mcg/ml Bedside Glucose 218 mg/dl (70-99) 260 mg/dl (70-99) Test 12/05/16 12:23 Sodium Level 135 mmol/L (136-145) Potassium Level 3.9 mmol/L (3.5-5.1) Chloride Level 96 mmol/L (98-107) Carbon Dioxide Level 34 mmol/L (21-32) Anion Gap 5.0 mmol/L (3-11) Blood Urea Nitrogen 33 mg/dl (7-18) Creatinine 4.10 mg/dl (0.60-1.40) Est Creatinine Clear Calc Drug Dose 19.9 ml/min Estimated GFR () 16.3 Estimated GFR (Non- 14.1 BUN/Creatinine Ratio 8.0 (10-20) Random Glucose 203 mg/dl (70-99) Calcium Level 7.8 mg/dl (8.5-10.1) Total Creatine Kinase 23 U/L (39-308) Creatine Kinase MB 1.6 ng/ml (0.5-3.6) Creatine Kinase MB Ratio 7.0 (0-3.0) Troponin I 0.085 ng/ml (0-0.045) Micro Results: Date/Time Source Procedure Growth Status 12/04/16 17:58 Blood Blood Culture Pending Received 12/04/16 17:24 Blood Blood Culture Pending Received Assessment & Plan Assessment: 63 yo male presented to Ed with recurrent and worsening shortness of breath Initial leukocytosis resolved, afebrile Patient has ESRD with HD on MWF Plan: Patient received 2 gm loading dose (20 mg/kg) Random level this AM 32.5, no plans for dialysis today Patient should remain therapeutic for next 2 sessions Will get random level prior to dialysis Goal trough level estimate for respiratory infection 15-20 mcg/mL Zosyn 3.375 q12H Levaquin 500 mg PO q48H Pharmacy will continue to follow and will adjust dose/frequency as necessary. Thank you
[2016-12-05] MEDS: ATORVASTATIN 40 MG TAB PO SCH (19:59)
[2016-12-06] VITALS (10 sets, daily range): BP systolic 86–128; BP diastolic 51–73; PULSE 55–63; TEMP 36.4–36.9; O2SAT 94–98
[2016-12-06] MEDS: LEVALBUTEROL 1.25MG/0.5ML NEB INH SCH ×4 (01:22→19:16)
[2016-12-06] MEDS: IPRATROPIUM BROMIDE NEB SOLN 0.02% 2.5 ML VIAL INH SCH ×4 (01:22→19:16)
[2016-12-06 06:09] LABS: BASO % 0.1 %; BASO ABS # 0.01 K/uL (0-0.2); COMPLETE YES; HEMATOCRIT 34.1 % (42-52); IG% 0.5 %; LYMPH ABS # 0.31 K/uL (1.2-3.4); MEAN CELL VOLUME 107.9 fL (80-100); MEAN CORPUSCULAR HEMOGLOBIN 31.3 pg (25-34); MEAN PLATELET VOLUME 10.3 fL (7.4-10.4); MONO % 2.5 %; NEUT % 94.9 %; PLATELET COUNT 291 K/uL (130-400); RED BLOOD COUNT 3.16 M/uL (4.7-6.1); WHITE BLOOD COUNT 15.44 K/uL (4.8-10.8)
[2016-12-06 06:21] LABS: INR 1.2 (0.9-1.1); PARTIAL THROMBOPLASTIN RATIO 1.2; PROTHROMBIN TIME (PATIENT) 12.7 SECONDS (9.0-12.0)
[2016-12-06 06:56] LABS: BUN/CREATININE RATIO 8.7 (10-20); CALCIUM 7.8 mg/dl (8.5-10.1); CREATININE 5.4 mg/dl (0.60-1.40); MAGNESIUM 2.3 mg/dl (1.8-2.4); POTASSIUM 5.1 mmol/L (3.5-5.1)
[2016-12-06] MEDS: CALCIUM ACETATE 667MG GELCAP PO SCH ×3 (08:08→17:40)
[2016-12-06] MEDS: PAROXETINE 20 MG TAB PO SCH (08:09)
[2016-12-06] MEDS: ASPIRIN 81 MG ECTAB PO SCH (08:09)
[2016-12-06] MEDS: NEPHROCAPS PO SCH (08:09)
[2016-12-06] MEDS: PANTOprazole SOD 40 MG TAB PO SCH (08:09)
[2016-12-06] MEDS: AMIODARONE 200 MG TAB PO SCH ×2 (08:09→21:26)
[2016-12-06] MEDS: GUAIFENESIN 600 MG TABCR PO SCH ×2 (08:09→21:24)
[2016-12-06] MEDS: ALPRAZOLAM 0.5 MG TAB PO SCH ×4 (08:10→21:19)
[2016-12-06] MEDS: LIDODERM (LIDOCAINE) PATCH 5% TD SCH (08:11)
[2016-12-06] MEDS: MoRPHine SULFATE 4 MG/ML 1 ML CARP\\VIAL IV PRN (08:13)
[2016-12-06] MEDS: INSULIN ASPART 100 UNITS/ML 3 ML PEN SC SCH ×4 (08:19→21:00)
[2016-12-06] MEDS ORDERED: MoRPHine SULFATE 4 MG/ML 1 ML CARP\\VIAL IV PRN (10:15)
[2016-12-06] MEDS ORDERED: LEVOFLOXACIN 750 MG TAB PO SCH (11:00)
--- NOTE | 2016-12-06 11:17 | Nephrology Progress Note ---
Nephrology Progress Note Date of Service Dec 06, 2016. Chief Complaint ESRD Subjective No acute events overnight. Sarabjit feels much better this morning. Chest pain has improved. Morphine has significant helped with his symptoms. He is breathing easier. He states that he was able to get some rest for the first time in days. He denies fevers or chills. He is interested in SNF. Review of Systems A complete review of systems was performed. Pertinent positives are noted above. All other systems are negative. Vital Signs Last 8 Hrs Date Time Temp Pulse Resp B/P (MAP) Pulse Ox O2 Delivery O2 Flow Rate FiO2 12/06/16 08:00 Nasal Cannula 3.0 12/06/16 07:43 36.6 61 18 128/73 (91) 96 2.5 12/06/16 07:30 62 16 97 Nasal Cannula 3.0 12/06/16 04:00 Nasal Cannula 3.0 12/06/16 03:16 36.4 60 20 113/66 (82) 95 Nasal Cannula 3.0 Last Recorded Weight Weight (Kilograms): 99.500 Physical Exam General Appearance: WD/WN, no apparent distress Head: normocephalic, atraumatic Eyes: normal inspection, sclerae normal ENT: normal ENT inspection, pharynx normal Neck: supple, no JVD Respiratory/Chest: lungs clear, no respiratory distress, no accessory muscle use, + decreased breath sounds Cardiovascular: regular rate, rhythm, no murmur Abdomen/GI: non tender, soft Extremities/Musculoskelatal: normal inspection, + pertinent finding (AVF with thrill and bruit) Neurologic/Psych: alert, oriented x 3 Family History Patient reports no known family medical history. Social History Smoking Status: Never smoker Smokeless Tobacco Use: No Alcohol Use: none Drug Use: none Marital Status: Housing Status: lives alone, halfway Occupation: retired Mr. Tate is a [place] . He is retired. Laboratory Results Past 24 Hours 12/06/16 05:37 Red Blood Count 3.16, Mean Corpuscular Volume 107.9, Mean Corpuscular Hemoglobin 31.3, Mean Corpuscular Hemoglobin Concent 29.0, Mean Platelet Volume 10.3, Neutrophils (%) (Auto) 94.9, Lymphocytes (%) (Auto) 2.0, Monocytes (%) ( Auto) 2.5, Eosinophils (%) (Auto) 0.0, Basophils (%) (Auto) 0.1, Neutrophils # ( Auto) 14.66, Lymphocytes # (Auto) 0.31, Monocytes # (Auto) 0.39, Eosinophils # ( Auto) 0.00, Basophils # (Auto) 0.01 12/05/16 12:23 12/06/16 05:37 Test 12/05/16 11:18 12/05/16 12:23 12/05/16 16:24 12/05/16 19:54 Bedside Glucose 260 mg/dl (70-99) 149 mg/dl (70-99) 218 mg/dl (70-99) Anion Gap 5.0 mmol/L (3-11) Est Creatinine Clear Calc Drug Dose 19.9 ml/min Estimated GFR () 16.3 Estimated GFR (Non- 14.1 BUN/Creatinine Ratio 8.0 (10-20) Calcium Level 7.8 mg/dl (8.5-10.1) Total Creatine Kinase 23 U/L (39-308) Creatine Kinase MB 1.6 ng/ml (0.5-3.6) Creatine Kinase MB Ratio 7.0 (0-3.0) Troponin I 0.085 ng/ml (0-0.045) Test 12/06/16 05:37 12/06/16 06:18 White Blood Count 15.44 K/uL (4.8-10.8) Red Blood Count 3.16 M/uL (4.7-6.1) Hemoglobin 9.9 g/dL (14.0-18.0) Hematocrit 34.1 % (42-52) Mean Corpuscular Volume 107.9 fL (80-100) Mean Corpuscular Hemoglobin 31.3 pg (25-34) Mean Corpuscular Hemoglobin Concent 29.0 g/dl (32-36) Platelet Count 291 K/uL (130-400) Mean Platelet Volume 10.3 fL (7.4-10.4) Neutrophils (%) (Auto) 94.9 % Lymphocytes (%) (Auto) 2.0 % Monocytes (%) (Auto) 2.5 % Eosinophils (%) (Auto) 0.0 % Basophils (%) (Auto) 0.1 % Neutrophils # (Auto) 14.66 K/uL (1.4-6.5) Lymphocytes # (Auto) 0.31 K/uL (1.2-3.4) Monocytes # (Auto) 0.39 K/uL (0.11-0.59) Eosinophils # (Auto) 0.00 K/uL (0-0.5) Basophils # (Auto) 0.01 K/uL (0-0.2) RDW Standard Deviation 69.2 fL (36.4-46.3) RDW Coefficient of Variation 17.8 % (11.5-14.5) Immature Granulocyte % (Auto) 0.5 % Immature Granulocyte # (Auto) 0.07 K/uL (0.00-0.02) Prothrombin Time 12.7 SECONDS (9.0-12.0) Prothromb Time International Ratio 1.2 (0.9-1.1) Activated Partial Thromboplast Time 31.7 SECONDS (21.0-31.0) Partial Thromboplastin Ratio 1.2 Anion Gap 7.0 mmol/L (3-11) Est Creatinine Clear Calc Drug Dose 15.2 ml/min Estimated GFR () 11.7 Estimated GFR (Non- 10.1 BUN/Creatinine Ratio 8.7 (10-20) Calcium Level 7.8 mg/dl (8.5-10.1) Magnesium Level 2.3 mg/dl (1.8-2.4) Bedside Glucose 173 mg/dl (70-99) Allergies Coded Allergies: No Known Allergies (Verified , 12/04/16) Medications Current Inpatient Medications Medications (Trade) Dose Ordered Sig/Lex Route Start Time Stop Time Status Last Admin Dose Admin Zolpidem Tartrate (Ambien Tab) 5 mg HSZ PRN PO 12/04/16 20:15 01/03/17 20:14 Nitroglycerin (Nitrostat Tab) 0.4 mg UD PRN SL 12/04/16 20:15 01/03/17 20:14 Ondansetron HCl (Zofran Inj) 4 mg Q6H PRN IV 12/04/16 20:15 01/03/17 20:14 Insulin Aspart (novoLOG ASPART) SLIDING SCAL... ACHS SC 12/04/16 21:00 01/03/17 20:59 12/06/16 08:19 4 UNITS Glucose (Glucose 40% Gel) UD PRN PO 12/04/16 20:15 01/03/17 20:14 Glucose (Glucose Chew Tab) 1 tabs UD PRN PO 12/04/16 20:15 01/03/17 20:14 Dextrose (Dextrose 50% 50ML Syringe) 50 ml UD PRN IV 12/04/16 20:15 01/03/17 20:14 Glucagon (Glucagon Inj) 1 mg UD PRN SQ 12/04/16 20:15 01/03/17 20:14 Acetaminophen 100 ml @ 400 mls/hr Q8H PRN IV 12/04/16 20:15 01/03/17 20:14 Acetaminophen (Tylenol Tab) 650 mg Q4 PRN PO 12/04/16 20:15 01/03/17 20:14 Alprazolam (Xanax Tab) 0.5 mg TID PO 12/04/16 21:00 01/03/17 20:59 12/05/16 19:49 0.5 MG Alprazolam (Xanax Tab) 1 mg HS PO 12/04/16 21:00 01/03/17 20:59 12/04/16 22:20 1 MG Amiodarone HCl (Cordarone Tab) 100 mg BID PO 12/04/16 21:00 01/03/17 20:59 12/06/16 08:09 100 MG Aspirin (Ecotrin Tab) 81 mg DAILY PO 12/05/16 09:00 01/04/17 08:59 12/06/16 08:09 81 MG Atenolol (Tenormin Tab) 12.5 mg QD@1230 PO 12/05/16 12:30 01/04/17 12:29 12/05/16 12:26 12.5 MG Atorvastatin Calcium (Lipitor Tab) 80 mg QPM PO 12/04/16 21:00 01/03/17 20:59 12/05/16 19:59 80 MG Buspirone HCl (Buspar Tab) 10 mg TID PO 12/04/16 21:00 01/03/17 20:59 Calcium Acetate (Phoslo Cap) 2,001 mg TIDM PO 12/05/16 07:30 01/04/17 07:59 12/06/16 08:08 2,001 MG Folic Acid (Folvite Tab) 1 mg QD@1230 PO 12/05/16 12:30 01/04/17 12:29 12/05/16 12:26 1 MG Pantoprazole Sodium (Protonix Tab) 40 mg DAILY PO 12/05/16 09:00 01/04/17 08:59 12/06/16 08:09 40 MG Paroxetine HCl (pAXil TAB) 40 mg QAM PO 12/05/16 09:00 01/04/17 08:59 12/06/16 08:09 40 MG Vitamin B Complex/ Vit C/Folic Acid (Nephrocaps) 1 cap DAILY PO 12/05/16 09:00 01/04/17 08:59 12/06/16 08:09 1 CAP Miscellaneous Information (Order Awaiting Action) 1 ea QS PO 12/05/16 00:00 01/04/17 00:00 Guaifenesin (Mucinex Contr Rel Tab) 600 mg BID PO 12/05/16 09:00 01/04/17 08:59 12/06/16 08:09 600 MG Ipratropium [place] (Atrovent 0.02% 0.5MG/2.5ML Neb) 0.5 mg Q6R INH 12/05/16 03:00 01/04/17 02:59 12/06/16 07:30 0.5 MG Levalbuterol (Xopenex 1.25MG/ 0.5ML Neb) 1.25 mg Q6R INH 12/05/16 03:00 01/04/17 02:59 12/06/16 07:30 1.25 MG Lidocaine (Lidoderm Patch 5%) 1 patch DAILY@09 TD 12/05/16 09:00 01/04/17 08:59 12/06/16 08:11 1 PATCH Miscellaneous (Remove Lidoderm Patch) 1 ea DAILY@2100 N/A 12/05/16 21:00 01/04/17 20:59 12/05/16 20:00 1 EA Prednisone (PredniSONE TAB) 40 mg QAM PO 12/06/16 09:00 01/05/17 08:59 12/06/16 08:10 40 MG Levofloxacin (Levaquin Tab) 500 mg Q2D@11 PO 12/07/16 11:00 12/14/16 10:59 Morphine Sulfate (MoRPHine SULFATE IR TAB) 15 mg Q4H PRN PO 12/06/16 10:15 12/20/16 10:14 Morphine Sulfate (MoRPHine SULFATE INJ) 4 mg Q8H PRN IV 12/06/16 10:15 12/20/16 10:14 Impression (1) End-stage renal disease on hemodialysis (2) Lung cancer (3) COPD exacerbation (4) Lung mass (5) ASCVD (arteriosclerotic cardiovascular disease) (6) Post traumatic stress disorder (PTSD) (7) Secondary hyperparathyroidism of renal origin Mr. Tate is a 66-year-old male with ASCVD, DM, HTN, lung cancer and ESRD. He is on hemodialysis MWF at [facility] under the care of Dr. Roberts. Last dialysis treatment was on Wednesday. Blood pressure, volume status and electrolytes are currently appropriate. Sarabjit was admitted to [facility] with chest tightness, shortness of breath and anxiety. CXR and CT of the chest are notable for an enlarging lung mass invading the chest wall. 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 Radiation therapy planning was started as an outpatient prior to admission. Symptoms have been controlled. Clinical presentation not consistent with ACS. 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
[2016-12-06] MEDS: MoRPHine SULFATE IR 15 MG TAB (IMMEDIATE RELEASE) PO PRN ×2 (11:37→21:23)
--- NOTE | 2016-12-06 15:04 | Progress Note ---
Subjective Date of Service: Dec 06, 2016. Subjective Pt evaluation today including: conversation w/ patient, physical exam, lab review, conversation w/ clinical practice consultant, review of inpatient medication list Pain: less pain in left chest PO Intake: improving Voiding: no voiding problems (very little urine, on HD) patient breathing better, less cough, less left sided chest pain appetite stable sleeping better with Morphine IV, less anxiety, would like to continue discussed plan for radiation therapy, SNF placement for treatment reviewed lab work Problem List Medical Problems: (1) Anxiety Status: Acute (2) Anxiety about health Status: Acute (3) CHF (congestive heart failure) Status: Acute (4) Elevated troponin I level Status: Acute (5) Fluid overload Status: Acute (6) Hyperkalemia Status: Acute (7) Hypoxia Status: Acute (8) Hypoxia Status: Acute (9) Lung mass Status: Acute (10) Mass of left lung Status: Acute (11) Pulmonary edema Status: Acute (12) Shortness of breath Status: Acute (13) Situational stress Status: Acute (14) Weakness Status: Acute (15) Wheezing Status: Acute Review of Systems Constitutional: + weakness, + fatigue Respiratory: + cough, + shortness of breath Cardiac: + chest pain (left sided) Neurologic: + weakness Psychiatric: + anxiety All Other Systems: Reviewed and Negative Medications Current Inpatient Medications Medications (Trade) Dose Ordered Sig/Lex Route Start Time Stop Time Status Last Admin Dose Admin Zolpidem Tartrate (Ambien Tab) 5 mg HSZ PRN PO 12/04/16 20:15 01/03/17 20:14 Nitroglycerin (Nitrostat Tab) 0.4 mg UD PRN SL 12/04/16 20:15 01/03/17 20:14 Ondansetron HCl (Zofran Inj) 4 mg Q6H PRN IV 12/04/16 20:15 01/03/17 20:14 Insulin Aspart (novoLOG ASPART) SLIDING SCAL... ACHS SC 12/04/16 21:00 01/03/17 20:59 12/06/16 12:46 9 UNITS Glucose (Glucose 40% Gel) UD PRN PO 12/04/16 20:15 01/03/17 20:14 Glucose (Glucose Chew Tab) 1 tabs UD PRN PO 12/04/16 20:15 01/03/17 20:14 Dextrose (Dextrose 50% 50ML Syringe) 50 ml UD PRN IV 12/04/16 20:15 01/03/17 20:14 Glucagon (Glucagon Inj) 1 mg UD PRN SQ 12/04/16 20:15 01/03/17 20:14 Acetaminophen 100 ml @ 400 mls/hr Q8H PRN IV 12/04/16 20:15 01/03/17 20:14 Acetaminophen (Tylenol Tab) 650 mg Q4 PRN PO 12/04/16 20:15 01/03/17 20:14 Alprazolam (Xanax Tab) 0.5 mg TID PO 12/04/16 21:00 01/03/17 20:59 12/05/16 19:49 0.5 MG Alprazolam (Xanax Tab) 1 mg HS PO 12/04/16 21:00 01/03/17 20:59 12/04/16 22:20 1 MG Amiodarone HCl (Cordarone Tab) 100 mg BID PO 12/04/16 21:00 01/03/17 20:59 12/06/16 08:09 100 MG Aspirin (Ecotrin Tab) 81 mg DAILY PO 12/05/16 09:00 01/04/17 08:59 12/06/16 08:09 81 MG Atenolol (Tenormin Tab) 12.5 mg QD@1230 PO 12/05/16 12:30 01/04/17 12:29 12/06/16 11:39 12.5 MG Atorvastatin Calcium (Lipitor Tab) 80 mg QPM PO 12/04/16 21:00 01/03/17 20:59 12/05/16 19:59 80 MG Buspirone HCl (Buspar Tab) 10 mg TID PO 12/04/16 21:00 01/03/17 20:59 Calcium Acetate (Phoslo Cap) 2,001 mg TIDM PO 12/05/16 07:30 01/04/17 07:59 12/06/16 11:38 2,001 MG Folic Acid (Folvite Tab) 1 mg QD@1230 PO 12/05/16 12:30 01/04/17 12:29 12/06/16 11:39 1 MG Pantoprazole Sodium (Protonix Tab) 40 mg DAILY PO 9/9/17 09:00 01/04/17 08:59 12/06/16 08:09 40 MG Paroxetine HCl (pAXil TAB) 40 mg QAM PO 12/05/16 09:00 01/04/17 08:59 12/06/16 08:09 40 MG Vitamin B Complex/ Vit C/Folic Acid (Nephrocaps) 1 cap DAILY PO 12/05/16 09:00 01/04/17 08:59 12/06/16 08:09 1 CAP Miscellaneous Information (Order Awaiting Action) 1 ea QS PO 12/05/16 00:00 01/04/17 00:00 Guaifenesin (Mucinex Contr Rel Tab) 600 mg BID PO 12/05/16 09:00 01/04/17 08:59 12/06/16 08:09 600 MG Ipratropium [place] (Atrovent 0.02% 0.5MG/2.5ML Neb) 0.5 mg Q6R INH 12/05/16 03:00 01/04/17 02:59 12/06/16 14:22 0.5 MG Levalbuterol (Xopenex 1.25MG/ 0.5ML Neb) 1.25 mg Q6R INH 12/05/16 03:00 01/04/17 02:59 12/06/16 14:22 1.25 MG Lidocaine (Lidoderm Patch 5%) 1 patch DAILY@09 TD 12/05/16 09:00 01/04/17 08:59 12/06/16 08:11 1 PATCH Miscellaneous (Remove Lidoderm Patch) 1 ea DAILY@2100 N/A 12/05/16 21:00 01/04/17 20:59 12/05/16 20:00 1 EA Prednisone (PredniSONE TAB) 40 mg QAM PO 12/06/16 09:00 01/05/17 08:59 12/06/16 08:10 40 MG Levofloxacin (Levaquin Tab) 500 mg Q2D@11 PO 12/07/16 11:00 12/14/16 10:59 Morphine Sulfate (MoRPHine SULFATE IR TAB) 15 mg Q4H PRN PO 12/06/16 10:15 12/20/16 10:14 12/06/16 11:37 15 MG Morphine Sulfate (MoRPHine SULFATE INJ) 4 mg Q8H PRN IV 12/06/16 10:15 12/20/16 10:14 Epoetin Dat 66931 units/ Syringe 0.5 ml @ 1 mls/min TODAY@0730 IV. 12/07/16 07:30 12/07/16 18:00 Objective Vital Signs Date Time Temp Pulse Resp B/P (MAP) Pulse Ox O2 Delivery O2 Flow Rate FiO2 12/06/16 13:07 36.9 59 20 86/51 (63) 95 12/06/16 12:51 36.6 62 18 96 3.0 12/06/16 12:00 Nasal Cannula 3.0 12/06/16 11:29 36.6 62 18 103/63 (76) 96 3.0 12/06/16 08:00 Nasal Cannula 3.0 12/06/16 07:43 36.6 61 18 128/73 (91) 96 2.5 12/06/16 07:30 62 16 97 Nasal Cannula 3.0 12/06/16 04:00 Nasal Cannula 3.0 12/06/16 03:16 36.4 60 20 113/66 (82) 95 Nasal Cannula 3.0 12/06/16 01:23 63 16 98 Nasal Cannula 3.0 12/06/16 00:00 Nasal Cannula 3.0 12/05/16 23:53 36.5 63 19 126/76 (93) 96 Nasal Cannula 3.0 12/05/16 20:00 Nasal Cannula 3.0 12/05/16 19:35 36.4 60 22 134/78 (96) 96 Nasal Cannula 3.0 12/05/16 19:20 60 16 96 Nasal Cannula 2.0 12/05/16 16:47 36.7 60 23 135/76 (95) 97 Nasal Cannula 3.0 12/05/16 16:00 Nasal Cannula 3.0 Physical Exam General Appearance: no apparent distress, + obese Eyes: normal inspection, EOMI, sclerae normal ENT: normal ENT inspection, hearing grossly normal, pharynx normal Neck: supple, no adenopathy, no JVD, trachea midline Respiratory/Chest: chest non-tender, normal breath sounds, no respiratory distress, no accessory muscle use, + wheezing (very end of exhalation, bilaterally) Cardiovascular: regular rate, rhythm, no edema, no gallop, no JVD, no murmur Abdomen: normal bowel sounds, non tender, soft, no organomegaly Extremities: normal range of motion, non-tender, normal inspection, no pedal edema, no calf tenderness, pelvis stable, + pertinent finding (left UE with fistula) Neurologic/Psychiatric: certified activities director II-XII nml as tested, no motor/sensory deficits, alert, normal mood/affect, oriented x 3 Skin: normal color, warm/dry, no rash Laboratory Results Last 24 Hours Test 12/05/16 16:24 12/05/16 19:54 12/06/16 05:37 12/06/16 06:18 Bedside Glucose 149 mg/dl 218 mg/dl 173 mg/dl White Blood Count 15.44 K/uL Red Blood Count 3.16 M/uL Hemoglobin 9.9 g/dL Hematocrit 34.1 % Mean Corpuscular Volume 107.9 fL Mean Corpuscular Hemoglobin 31.3 pg Mean Corpuscular Hemoglobin Concent 29.0 g/dl Platelet Count 291 K/uL Mean Platelet Volume 10.3 fL Neutrophils (%) (Auto) 94.9 % Lymphocytes (%) (Auto) 2.0 % Monocytes (%) (Auto) 2.5 % Eosinophils (%) (Auto) 0.0 % Basophils (%) (Auto) 0.1 % Neutrophils # (Auto) 14.66 K/uL Lymphocytes # (Auto) 0.31 K/uL Monocytes # (Auto) 0.39 K/uL Eosinophils # (Auto) 0.00 K/uL Basophils # (Auto) 0.01 K/uL RDW Standard Deviation 69.2 fL RDW Coefficient of Variation 17.8 % Immature Granulocyte % (Auto) 0.5 % Immature Granulocyte # (Auto) 0.07 K/uL Prothrombin Time 12.7 SECONDS Prothromb Time International Ratio 1.2 Activated Partial Thromboplast Time 31.7 SECONDS Partial Thromboplastin Ratio 1.2 Sodium Level 137 mmol/L Potassium Level 5.1 mmol/L Chloride Level 96 mmol/L Carbon Dioxide Level 34 mmol/L Anion Gap 7.0 mmol/L Blood Urea Nitrogen 47 mg/dl Creatinine 5.40 mg/dl Est Creatinine Clear Calc Drug Dose 15.2 ml/min Estimated GFR () 11.7 Estimated GFR (Non- 10.1 BUN/Creatinine Ratio 8.7 Random Glucose 165 mg/dl Calcium Level 7.8 mg/dl Magnesium Level 2.3 mg/dl Assessment and Plan 66 yo male with ESRD, left sided lung mass who presented with increased dyspnea , hypoxia, wheezing - Acute hypoxic respiratory failure secondary to COPD exacerbation much improved, very little wheezing today continue nebulizers, continue Prednisone 40mg PO daily, Levaquin 500mg q48 ( renally dosed) responding well to treatment thus far, transfer to medical floor try to titrate off oxygen, 96% on 3L - Lung mass: plan for palliative radiation therapy will contact radiation oncology on Wednesday if they want to start treatment no plans for chemotherapy start Morphine 15mg PO q4 PRN for pain, experiencing a lot of relief with Morphine IV - ESRD on HD: nephrology consulted, continue folic acid, Sensipar, calcium acetate and Nephrocaps. plan for HD tomorrow - Elevated troponin/atrial paced rhythm/persistent lateral nonspecific ST-T wave changes/status post AICD/status post CABG/status post AVR-- mild left sided chest pain attributed to mass, no significant rise in troponin Continue aspirin 81 mg by mouth daily, atenolol 12.5 mg by mouth daily and amiodarone 100 mg by mouth twice a day - Anxiety--continue alprazolam 1 mg by mouth at bedtime. Increase daytime alprazolam from 0.5 mg by mouth every morning to 3 times a day. Increase buspirone 5 mg by mouth 3 times a day to 10 mg by mouth 3 times a day. -Diabetes mellitus--hold glipizide 2.5 mg by mouth daily. Novolog SS Hyperlipidemia--continue atorvastatin 80 mg by mouth every evening. GERD--continue pantoprazole 40 mg by mouth daily. Plan: transfer to medical floor today call radiation oncology tomorrow AM to inform them that patient here, he had mapping last week, see if they want to start treatments ultimately, will go to [facility], following
[2016-12-06] MEDS: ATORVASTATIN 40 MG TAB PO SCH (21:24)
[2016-12-06] MEDS ORDERED: LEVOFLOXACIN / D5W 750 MG in PREMIXED IN D5W 150 ML IV SCH (22:00)
[2016-12-07] VITALS (30 sets, daily range): BP systolic 75–105; BP diastolic 41–76; PULSE 49–92; TEMP 36.2–37; O2SAT 91–96
[2016-12-07] MEDS: IPRATROPIUM BROMIDE NEB SOLN 0.02% 2.5 ML VIAL INH SCH ×4 (01:51→20:01)
[2016-12-07] MEDS: LEVALBUTEROL 1.25MG/0.5ML NEB INH SCH ×4 (01:51→20:01)
[2016-12-07 06:32] LABS: COMPLETE YES; EOS % 0.9 %; HEMATOCRIT 35.9 % (42-52); IG% 0.5 %; LYMPH % 3.4 %; LYMPH ABS # 0.66 K/uL (1.2-3.4); MEAN CELL VOLUME 107.5 fL (80-100); MEAN CORPUSCULAR HEMOGLOBIN 32.6 pg (25-34); MEAN CORPUSCULAR HGB CONC 30.4 g/dl (32-36); MEAN PLATELET VOLUME 9.6 fL (7.4-10.4); MONO % 3.9 %; NEUT % 91.3 %; PLATELET COUNT 274 K/uL (130-400); RED BLOOD COUNT 3.34 M/uL (4.7-6.1)
[2016-12-07 06:47] LABS: INR 1.2 (0.9-1.1); PARTIAL THROMBOPLASTIN RATIO 1.2; PROTHROMBIN TIME (PATIENT) 12.9 SECONDS (9.0-12.0)
[2016-12-07 07:18] LABS: BUN/CREATININE RATIO 10.3 (10-20); CALCIUM 7.6 mg/dl (8.5-10.1); CREATININE 7.2 mg/dl (0.60-1.40); FERRITIN 1084.1 ng/ml (8.0-388.0); MAGNESIUM 2.6 mg/dl (1.8-2.4); POTASSIUM 5.2 mmol/L (3.5-5.1)
[2016-12-07] MEDS ORDERED: EPOETIN ALFA INJ 10,000 UNITS in SYRINGE 0 ML IV. SCH (07:30)
[2016-12-07] MEDS ORDERED: EPOETIN ALFA 10,000 UNITS/ML VIAL IV SCH (07:30)
[2016-12-07] MEDS: INSULIN ASPART 100 UNITS/ML 3 ML PEN SC SCH ×4 (07:52→21:36)
[2016-12-07] MEDS: CALCIUM ACETATE 667MG GELCAP PO SCH ×3 (07:53→17:45)
[2016-12-07] MEDS: ALPRAZOLAM 0.5 MG TAB PO SCH ×4 (07:53→21:34)
[2016-12-07] MEDS: MoRPHine SULFATE IR 15 MG TAB (IMMEDIATE RELEASE) PO PRN ×3 (07:58→20:13)
--- NOTE | 2016-12-07 09:18 | Clinical Documentation Query ---
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 In your clinical opinion is this patient being managed for: ( x ) Enlarging cancerous lung mass exacerbating underlying COPD ( ) Not Agree ( ) Other explanation of clinical findings (Please Explain) ( ) Unable to determine (Please Define) ( ) Need to Discuss The medical record reflects the following clinical findings, treatment, and risk factors. Clinical Indicators: Lung cancer per nephrology. CXR shows left hemithoracic mass. By recent chest CT (12/01/16) this mass in increasing in size. Treatment: CXR, Morphine, and Oncology consult Risk Factors: Age, Cancer Please clarify and document your clinical opinion in the progress notes and discharge summary. Terms such as "probable", "suspected", "likely", "questionable", "possible", or "still to be ruled out" are acceptable. IF IN AGREEMENT, YOU MUST DOCUMENT ABOVE DIAGNOSTIC STATEMENT IN DAILY PROGRESS NOTES AND DISCHARGE SUMMARY. This document is not part of the patient's record. Thank You, Will Nieves, RN [phone]
--- NOTE | 2016-12-07 11:13 | PROGRESS NOTE ---
DATE: 12/07/2016 SUBJECTIVE: Mr. Tate seems to be resting relatively comfortably. He denies having any chest discomfort, although he did have chest tightness at the time of admission. He also has some semi-pleuritic left-sided chest discomfort which he has had for the past few months and is associated with a left lung mass that has proven to be a squamous cell carcinoma which has invaded the ribs. He did not have any recent evidence of further spread. He has been seen by Dr. Dorman in radiation oncology and was to have seen Dr. Haley this week for medical oncology consultation for the possibility of chemoradiation therapy as opposed to radiation therapy alone. He has no specific symptoms of uremia or volume overload. Recently his dialysis treatments have been associated with an increase in his anxiety level. He does have a history of anxiety and depression as well as posttraumatic stress disorder. Currently, he has no symptoms of uremia or volume overload. There have been some social issues that have come up. He lives alone and particularly given the stress of his current situation, has not been able to continue with his routine activities of daily living and is having difficulty in meeting his dietary and personal needs. OBJECTIVE: GENERAL: On physical exam when seen, he appeared slightly lethargic but certainly awake, oriented and appropriate. VITAL SIGNS: His blood pressure on dialysis was 97/59, his pulse 60 and regular, respiratory rate is 16. His pulse ox is 95% on 2.5 liters via nasal cannula. SKIN: Shows normal skin turgor. He has scars from prior surgical procedures. There is no rash or infiltrative skin disease. LYMPHATICS: Show no palpable lymphadenopathy. HEAD: Normal. EYES: Grossly normal. The ocular fundi were not examined. EARS, NOSE, MOUTH AND THROAT: Unremarkable. His oral mucous membranes are moist. NECK: Supple. He has no jugular venous distention, carotid bruit or thyromegaly. CHEST: Shows slightly diminished breath sounds on the left side compared to the right. He has no wheezes, rales or rhonchi. CARDIAC: Shows a regular rhythm. S1 and S2 are normal. I hear no gallop sounds but he does have a systolic ejection murmur at the base. ABDOMEN: A bit protuberant, but nontender. There is no organomegaly or mass. EXTREMITIES: Show his left forearm AV fistula. He has no cyanosis, clubbing or peripheral edema. NEUROLOGIC: Shows no lateralizing changes. PSYCHIATRIC: Exam does show a depressed affect. PERTINENT LABORATORY WORK: From today shows a white count of 19,200 with 91.3% neutrophils, 3.4% lymphocytes, 3.9% monocytes, 0.9% eosinophils and 0% basophils. His prothrombin time is 12.9 with an INR of 1.2. His PTT 30.2 with a PTTR of 1.2. His sodium is 137 mmol/L, potassium 5.2 mmol/L, chloride is 99 mmol/L, and CO2 content 29 mmol/L. His BUN is 75, creatinine 7.20. Blood sugars have varied from 85-173. Serum calcium is 7.6, his magnesium 2.6. His transferrin saturation is 20%. His ferritin 1084.1. ASSESSMENT: Mr. Tate is a gentleman with an approximate 10-year history of end-stage renal disease, for which he has been on dialysis. His major current comorbidity is his left chest mass which has now involved the left ribcage. He has been seen by radiation oncology and medical oncology was to see him later this week to determine whether or not he would be receiving chemoradiation. He does have a history of anxiety and depression and is not able to meet many of his basic needs at home since he lives at home. Transportation, obtaining meals, etc. has become an issue. RECOMMENDATIONS: Hemodialysis today. We will be using standard settings as written by Dr. Zhou. Radiation oncology (Dr. Dorman) should be notified that Mr. Tate is here. Also, Dr. Haley or Dr. Long should be consulted regarding the possibility of chemoradiation for Mr. Tate. During his stay here, it may be an ideal time for those decisions to be made. Next, we need to arrange some type of post-hospital care. At this point, I do not think [facility] would be appropriate. I think he needs to be placed in a personal care setting or perhaps a nursing care, given the complexity of his medical issues. We will continue to follow him with you and arrange for his dialysis treatments.
--- NOTE | 2016-12-07 13:07 | Oncology Consultation ---
Oncology/Heme Consultation Date of Consultation: Dec 07, 2016. Attending Physician: José Miguel Hewitt D.O. Reason for Consultation: Squamous cell lung carcinoma History of Present Illness Patient states that he has had left-sided chest pain that has been gradually worsening over the past several months. X-rays done recently have demonstrated an enlarging left lung mass with changes consistent with rib involvement. A PET CT scan done elsewhere I reviewed today reflects what appears to be a necrotic lesion in the left lung again with rib involvement. No other FDG avid uptake is seen. This tumor was biopsied and has returned to squamous cell carcinoma of the lung. The patient does have a history of smoking. He also has a history of coronary artery disease as well as a need for aortic valve replacement, he also has a history of CAD, and he has been on hemodialysis for many years. He states that he has a past history of membranous glomerulonephropathy. He also has a history of diabetes mellitus that he states is very borderline. Finally states and reviews with me that last year he had a surgery done for diverticulitis on his colon with a problem of a colonic abscess afterwards. He has healed nicely from that. He denies fever. He denies any shaking chills or unusual weight loss. He has been growing more short of breath. He denies hemoptysis. Past Medical/Surgical History Medical Problems: (1) Anxiety Status: Acute (2) Anxiety about health Status: Acute (3) CHF (congestive heart failure) Status: Acute (4) Elevated troponin I level Status: Acute (5) Fluid overload Status: Acute (6) Hyperkalemia Status: Acute (7) Hypoxia Status: Acute (8) Hypoxia Status: Acute (9) Lung mass Status: Acute (10) Mass of left lung Status: Acute (11) Pulmonary edema Status: Acute (12) Shortness of breath Status: Acute (13) Situational stress Status: Acute (14) Weakness Status: Acute (15) Wheezing Status: Acute Family History Patient reports no known family medical history. Social History Smoking Status: Former Smoker Smokeless Tobacco Use: No Alcohol Use: none Drug Use: none Marital Status: Housing Status: lives alone, other Occupation Status: retired Allergies Coded Allergies: No Known Allergies (Verified , 12/04/16) Home Medications Scheduled Alprazolam (Xanax), 0.5 MG PO QAM Alprazolam (Xanax), 1 MG PO HS Amiodarone HCl (Amiodarone HCl), 100 MG PO BID Aspirin (Aspirin Ec), 81 MG PO DAILY Atenolol (Tenormin), 12.5 MG PO QD@1230 Atorvastatin (Lipitor), 80 MG PO QPM Buspirone Hcl (Buspar), 5 MG PO TID Calcium Acetate (Phoslo 667 Mg), 3 CAP PO TIDM Cinacalcet (Sensipar), 30 MG PO BID Folic Acid (Folvite), 1 MG PO QD@1230 Glipizide (Glucotrol), 2.5 MG PO QD@1230 Pantoprazole Sodium (Protonix), 40 MG PO DAILY @ 1630 Paroxetine (Paxil), 40 MG PO QAM Vitamin B Cmplx/Vitc/Folic Ac (Nephrocaps), 1 CAP PO DAILY Scheduled PRN Acetaminophen Tab (Tylenol), 650 MG PO Q4 PRN for Pain Current Inpatient Medications Current Inpatient Medications Medications (Trade) Dose Ordered Sig/Lex Route Start Time Stop Time Status Last Admin Dose Admin Zolpidem Tartrate (Ambien Tab) 5 mg HSZ PRN PO 12/04/16 20:15 01/03/17 20:14 Nitroglycerin (Nitrostat Tab) 0.4 mg UD PRN SL 12/04/16 20:15 01/03/17 20:14 Ondansetron HCl (Zofran Inj) 4 mg Q6H PRN IV 12/04/16 20:15 01/03/17 20:14 Insulin Aspart (novoLOG ASPART) SLIDING SCAL... ACHS SC 12/04/16 21:00 01/03/17 20:59 12/06/16 18:23 4 UNITS Glucose (Glucose 40% Gel) UD PRN PO 12/04/16 20:15 01/03/17 20:14 Glucose (Glucose Chew Tab) 1 tabs UD PRN PO 12/04/16 20:15 01/03/17 20:14 Dextrose (Dextrose 50% 50ML Syringe) 50 ml UD PRN IV 12/04/16 20:15 01/03/17 20:14 Glucagon (Glucagon Inj) 1 mg UD PRN SQ 12/04/16 20:15 01/03/17 20:14 Acetaminophen 100 ml @ 400 mls/hr Q8H PRN IV 12/04/16 20:15 01/03/17 20:14 Acetaminophen (Tylenol Tab) 650 mg Q4 PRN PO 12/04/16 20:15 01/03/17 20:14 Alprazolam (Xanax Tab) 0.5 mg TID PO 12/04/16 21:00 01/03/17 20:59 12/05/16 19:49 0.5 MG Alprazolam (Xanax Tab) 1 mg HS PO 12/04/16 21:00 01/03/17 20:59 12/04/16 22:20 1 MG Amiodarone HCl (Cordarone Tab) 100 mg BID PO 12/04/16 21:00 01/03/17 20:59 12/06/16 21:26 100 MG Aspirin (Ecotrin Tab) 81 mg DAILY PO 12/05/16 09:00 01/04/17 08:59 12/06/16 08:09 81 MG Atenolol (Tenormin Tab) 12.5 mg QD@1230 PO 12/05/16 12:30 01/04/17 12:29 12/06/16 11:39 12.5 MG Atorvastatin Calcium (Lipitor Tab) 80 mg QPM PO 12/04/16 21:00 01/03/17 20:59 12/06/16 21:24 80 MG Buspirone HCl (Buspar Tab) 10 mg TID PO 12/04/16 21:00 01/03/17 20:59 Calcium Acetate (Phoslo Cap) 2,001 mg TIDM PO 12/05/16 07:30 01/04/17 07:59 12/06/16 17:40 2,001 MG Folic Acid (Folvite Tab) 1 mg QD@1230 PO 12/05/16 12:30 01/04/17 12:29 12/06/16 11:39 1 MG Pantoprazole Sodium (Protonix Tab) 40 mg DAILY PO 12/05/16 09:00 01/04/17 08:59 12/06/16 08:09 40 MG Paroxetine HCl (pAXil TAB) 40 mg QAM PO 12/05/16 09:00 01/04/17 08:59 12/06/16 08:09 40 MG Vitamin B Complex/ Vit C/Folic Acid (Nephrocaps) 1 cap DAILY PO 12/05/16 09:00 01/04/17 08:59 12/06/16 08:09 1 CAP Miscellaneous Information (Order Awaiting Action) 1 ea QS PO 12/05/16 00:00 01/04/17 00:00 Guaifenesin (Mucinex Contr Rel Tab) 600 mg BID PO 12/05/16 09:00 01/04/17 08:59 12/06/16 21:24 600 MG Ipratropium [place] (Atrovent 0.02% 0.5MG/2.5ML Neb) 0.5 mg Q6R INH 12/05/16 03:00 01/04/17 02:59 12/07/16 07:19 0.5 MG Levalbuterol (Xopenex 1.25MG/ 0.5ML Neb) 1.25 mg Q6R INH 12/05/16 03:00 01/04/17 02:59 12/07/16 07:19 1.25 MG Lidocaine (Lidoderm Patch 5%) 1 patch DAILY@09 TD 12/05/16 09:00 01/04/17 08:59 12/06/16 08:11 1 PATCH Miscellaneous (Remove Lidoderm Patch) 1 ea DAILY@2100 N/A 12/05/16 21:00 01/04/17 20:59 12/06/16 21:28 1 EA Prednisone (PredniSONE TAB) 40 mg QAM PO 12/06/16 09:00 01/05/17 08:59 12/06/16 08:10 40 MG Levofloxacin (Levaquin Tab) 500 mg Q2D@11 PO 12/07/16 11:00 12/14/16 10:59 Morphine Sulfate (MoRPHine SULFATE IR TAB) 15 mg Q4H PRN PO 12/06/16 10:15 12/20/16 10:14 12/07/16 07:58 15 MG Morphine Sulfate (MoRPHine SULFATE INJ) 4 mg Q8H PRN IV 12/06/16 10:15 12/20/16 10:14 Epoetin Dat 99813 units/ Syringe 0.5 ml @ 1 mls/min TODAY@0730 IV. 12/07/16 07:30 12/07/16 18:00 12/07/16 12:00 1 MLS/MIN Review of Systems Constitutional: Negative for weight loss, night sweats, or fever Eyes: Negative for event change of vision ENT: Negative for epistaxis, nasal discharge, sore throat, or deafness Cardiovascular: Negative for chest pain, palpitations, dizziness, diaphoresis Respiratory: He has had no chest pain involving the left chest wall. He has had increasing shortness of breath. CT scans done recently have ruled out pulmonary embolus Gastrointestinal: Negative for diarrhea, hematemesis, melena, nausea, vomiting , or dyspepsia Integumentary (skin): Negative for rash or jaundice discoloration Neurological: Negative for weakness, seizure activity, headache, or dizziness Lymphatic/Hematologic: Negative for petechiae, bleeding or new adenopathy Musculoskeletal: Negative for new joint or back pain Allergic/Immunologic: Negative for unusual rash or pruritis. Physical Exam Date Time Temp Pulse Resp B/P (MAP) Pulse Ox O2 Delivery O2 Flow Rate FiO2 12/07/16 12:45 60 99/51 12/07/16 12:30 68 89/54 12/07/16 12:15 69 91/60 12/07/16 12:00 49 86/61 12/07/16 11:45 62 91/48 12/07/16 11:33 61 94/48 12/07/16 11:30 60 75/41 12/07/16 11:15 62 84/53 12/07/16 11:00 61 83/56 12/07/16 10:45 60 96/51 12/07/16 10:30 65 102/63 12/07/16 10:15 60 101/60 12/07/16 10:00 60 97/59 12/07/16 09:45 62 95/58 12/07/16 09:30 64 100/54 12/07/16 09:17 60 99/62 12/07/16 09:04 36.6 61 96/57 (70) 12/07/16 08:02 Nasal Cannula 2.5 12/07/16 07:23 66 16 95 Nasal Cannula 3.0 12/07/16 07:18 36.4 62 22 99/64 (76) 96 12/07/16 04:31 36.7 68 16 96/62 (73) 93 Nasal Cannula 3.0 12/07/16 01:52 64 16 94 Nasal Cannula 3.0 12/07/16 00:00 Nasal Cannula 2.5 12/06/16 20:00 Nasal Cannula 3.0 12/06/16 19:37 36.7 55 18 90/59 (69) 94 Nasal Cannula 3.0 12/06/16 19:17 55 16 94 Nasal Cannula 3.0 12/06/16 15:51 36.5 60 18 110/72 (85) 96 Nasal Cannula 3.0 12/06/16 15:21 Nasal Cannula 3.0 12/06/16 13:07 36.9 59 20 86/51 (63) 95 Constitutional: vitals are stable. Obese pleasant gentleman. Eyes: Eyes are LATHA EOMI without conjuctival erythema or icterus. ENT: External examination was negative for masses. Neck: Negative for masses or palpable thyromegaly Respiratory: Lung sounds were generally clear bilaterally no definite rub is heard Cardiovascular: Heart was RRR without significant murmur, gallops aoe rubs Gastrointestinal: No palpable hepatic or splenomegaly. The abdomen was soft with normal bowel sounds. Lymphatic system: there was no palpable peripheral lymphadenopathy Musculoskeletal System: The musculoskeletal system seemed concordant with age. Skin: The skin was negative for jaundice. Neurologic exam: The exam was negative for any focal findings. Deep tendon reflexes were equal and symmetrical. Psychiatric exam: Was essentially negative with normal mood and effect. Extremities: At AV fistulas in place. His arms are mildly edematous. Laboratory Results Last 24 Hours Test 12/06/16 16:43 12/06/16 20:04 12/07/16 06:15 12/07/16 07:18 Bedside Glucose 109 mg/dl 117 mg/dl 140 mg/dl White Blood Count 19.20 K/uL Red Blood Count 3.34 M/uL Hemoglobin 10.9 g/dL Hematocrit 35.9 % Mean Corpuscular Volume 107.5 fL Mean Corpuscular Hemoglobin 32.6 pg Mean Corpuscular Hemoglobin Concent 30.4 g/dl Platelet Count 274 K/uL Mean Platelet Volume 9.6 fL Neutrophils (%) (Auto) 91.3 % Lymphocytes (%) (Auto) 3.4 % Monocytes (%) (Auto) 3.9 % Eosinophils (%) (Auto) 0.9 % Basophils (%) (Auto) 0.0 % Neutrophils # (Auto) 17.53 K/uL Lymphocytes # (Auto) 0.66 K/uL Monocytes # (Auto) 0.74 K/uL Eosinophils # (Auto) 0.17 K/uL Basophils # (Auto) 0.00 K/uL RDW Standard Deviation 69.5 fL RDW Coefficient of Variation 18.3 % Immature Granulocyte % (Auto) 0.5 % Immature Granulocyte # (Auto) 0.10 K/uL Nucleated RBC Absolute Count (auto) 0.06 K/uL Nucleated Red Blood Cells % 0.3 % Prothrombin Time 12.9 SECONDS Prothromb Time International Ratio 1.2 Activated Partial Thromboplast Time 30.2 SECONDS Partial Thromboplastin Ratio 1.2 Sodium Level 137 mmol/L Potassium Level 5.2 mmol/L Chloride Level 99 mmol/L Carbon Dioxide Level 29 mmol/L Anion Gap 9.0 mmol/L Blood Urea Nitrogen 75 mg/dl Creatinine 7.20 mg/dl Est Creatinine Clear Calc Drug Dose 11.4 ml/min Estimated GFR () 8.3 Estimated GFR (Non- 7.1 BUN/Creatinine Ratio 10.3 Random Glucose 85 mg/dl Calcium Level 7.6 mg/dl Magnesium Level 2.6 mg/dl Iron Level 45 mcg/dl Total Iron Binding Capacity 197 mcg/dl Transferrin 161 mg/dl Transferrin % Saturation 20 % Ferritin 1084.1 ng/ml Test 12/07/16 11:24 Bedside Glucose 116 mg/dl Assessment & Plan Scans are reviewed. The patient has locally advanced non-small cell lung carcinoma. There is no radiologic evidence of metastatic disease beyond the adjoining or contiguous ribs. He can be approached with chemo therapy along with radiation therapy. The chemotherapy that could be used could be made up of weekly Taxol and carboplatinum. Because of dialysis the Taxol would be given once a week along with a carboplatinum. The Taxol should be preferably given after the dialysis. Carboplatinum dose would need to be cut in half. He is being seen by radiation therapy. Dr. Garcia will be picking up the service tomorrow. I will review this thought with him. He may be best served by having a port placed. There is a pacemaker in place at the apex of his right chest. PD-1 staining of the tissue is pending and will also ask for EGFR stain.
[2016-12-07] MEDS: NEPHROCAPS PO SCH (14:16)
[2016-12-07] MEDS: PAROXETINE 20 MG TAB PO SCH (14:16)
[2016-12-07] MEDS: AMIODARONE 200 MG TAB PO SCH ×2 (14:16→21:32)
[2016-12-07] MEDS: GUAIFENESIN 600 MG TABCR PO SCH ×2 (14:16→20:09)
[2016-12-07] MEDS: ASPIRIN 81 MG ECTAB PO SCH (14:16)
[2016-12-07] MEDS: PANTOprazole SOD 40 MG TAB PO SCH (14:17)
[2016-12-07] MEDS: LEVOFLOXACIN 500 MG TAB PO SCH (14:18)
[2016-12-07] MEDS: LIDODERM (LIDOCAINE) PATCH 5% TD SCH (14:21)
--- NOTE | 2016-12-07 16:28 | Hospitalist Progress Note ---
Hospitalist Progress Note Date of Service Dec 07, 2016. (Mirlande Fatima ., ELOISAC) Subjective Pt evaluation today including: conversation w/ patient, physical exam, chart review, lab review, review of inpatient medication list Pain: None PO Intake: Tolerating PO diet Voiding: voiding difficulty (doesn't make urine, on HD) Patient reports feeling fatigued after dialysis. The patient denies any shortness of breath at rest but does complain of GOODWIN. He complains of a non- productive cough and wheezing. He denies shortness of breath at rest. The patient denies fevers, chills, sweats, chest pain, palpitations, claudication, shortness of breath at rest, nausea, vomiting, abdominal pain, dysuria, hematuria, urinary retention, paralysis, weakness, numbness and tingling. Additional Comments: See HPI for pertinent positives and negatives. All other systems reviewed and negative. (Mirlande Fatima ., MYAH-C) Objective Vital Signs Date Time Temp Pulse Resp B/P (MAP) Pulse Ox O2 Delivery O2 Flow Rate FiO2 12/07/16 15:12 36.4 62 98/57 (71) 12/07/16 15:10 36.2 63 22 89/52 (64) 91 Nasal Cannula 2.0 12/07/16 14:05 64 18 95 Nasal Cannula 3.0 12/07/16 13:15 92 98/57 12/07/16 13:00 78 84/76 12/07/16 12:45 60 99/51 12/07/16 12:30 68 89/54 12/07/16 12:15 69 91/60 12/07/16 12:00 49 86/61 12/07/16 11:45 62 91/48 12/07/16 11:33 61 94/48 12/07/16 11:30 60 75/41 12/07/16 11:15 62 84/53 12/07/16 11:00 61 83/56 12/07/16 10:45 60 96/51 12/07/16 10:30 65 102/63 12/07/16 10:15 60 101/60 12/07/16 10:00 60 97/59 12/07/16 09:45 62 95/58 12/07/16 09:30 64 100/54 12/07/16 09:17 60 99/62 12/07/16 09:04 36.6 61 96/57 (70) 12/07/16 08:02 Nasal Cannula 2.5 12/07/16 07:23 66 16 95 Nasal Cannula 3.0 12/07/16 07:18 36.4 62 22 99/64 (76) 96 12/07/16 04:31 36.7 68 16 96/62 (73) 93 Nasal Cannula 3.0 12/07/16 01:52 64 16 94 Nasal Cannula 3.0 12/07/16 00:00 Nasal Cannula 2.5 12/06/16 20:00 Nasal Cannula 3.0 12/06/16 19:37 36.7 55 18 90/59 (69) 94 Nasal Cannula 3.0 12/06/16 19:17 55 16 94 Nasal Cannula 3.0 (Mirlande Fatima ., PA-C) Physical Exam Notes: General appearance: +Obese. Well-developed, well-nourished, no apparent distress Head: Normocephalic, atraumatic Eyes: Normal inspection, PERRL, EOMI ENT: Normal ENT inspection, hearing grossly normal, pharynx normal Neck: Supple, no JVD, trachea midline Respiratory/Chest: +Wheezing throughout. Poor air movement. Diminished breath sounds. No respiratory distress Cardiovascular: +Systolic murmur. Regular rate & rhythm, no gallop Abdomen/GI: Normal bowel sounds, non-tender, soft Extremities/Musculoskeletal: +Trace pitting edema. Normal inspection, no calf tenderness Neurological/Psych: Alert, normal mood/affect, oriented x 3 Skin: Normal color, warm/dry, no rash (Mirlande Fatima ., PA-C) Laboratory Results Last 24 Hours Test 12/06/16 16:43 12/06/16 20:04 12/07/16 06:15 12/07/16 07:18 Bedside Glucose 109 mg/dl 117 mg/dl 140 mg/dl White Blood Count 19.20 K/uL Red Blood Count 3.34 M/uL Hemoglobin 10.9 g/dL Hematocrit 35.9 % Mean Corpuscular Volume 107.5 fL Mean Corpuscular Hemoglobin 32.6 pg Mean Corpuscular Hemoglobin Concent 30.4 g/dl Platelet Count 274 K/uL Mean Platelet Volume 9.6 fL Neutrophils (%) (Auto) 91.3 % Lymphocytes (%) (Auto) 3.4 % Monocytes (%) (Auto) 3.9 % Eosinophils (%) (Auto) 0.9 % Basophils (%) (Auto) 0.0 % Neutrophils # (Auto) 17.53 K/uL Lymphocytes # (Auto) 0.66 K/uL Monocytes # (Auto) 0.74 K/uL Eosinophils # (Auto) 0.17 K/uL Basophils # (Auto) 0.00 K/uL RDW Standard Deviation 69.5 fL RDW Coefficient of Variation 18.3 % Immature Granulocyte % (Auto) 0.5 % Immature Granulocyte # (Auto) 0.10 K/uL Nucleated RBC Absolute Count (auto) 0.06 K/uL Nucleated Red Blood Cells % 0.3 % Prothrombin Time 12.9 SECONDS Prothromb Time International Ratio 1.2 Activated Partial Thromboplast Time 30.2 SECONDS Partial Thromboplastin Ratio 1.2 Sodium Level 137 mmol/L Potassium Level 5.2 mmol/L Chloride Level 99 mmol/L Carbon Dioxide Level 29 mmol/L Anion Gap 9.0 mmol/L Blood Urea Nitrogen 75 mg/dl Creatinine 7.20 mg/dl Est Creatinine Clear Calc Drug Dose 11.4 ml/min Estimated GFR () 8.3 Estimated GFR (Non- 7.1 BUN/Creatinine Ratio 10.3 Random Glucose 85 mg/dl Calcium Level 7.6 mg/dl Magnesium Level 2.6 mg/dl Iron Level 45 mcg/dl Total Iron Binding Capacity 197 mcg/dl Transferrin 161 mg/dl Transferrin % Saturation 20 % Ferritin 1084.1 ng/ml Test 12/07/16 11:24 Bedside Glucose 116 mg/dl (Mirlande Fatima ., PA-C) Assessment and Plan 66 y/o male with ESRD on HD, non-small cell lung carcinoma, CAD s/p CABG, AICD, HTN, HLD, DM II, anxiety and GERD who presented with increased dyspnea, hypoxia , and wheezing. Acute hypoxic respiratory failure secondary to COPD exacerbation--improving -Admit to telemetry. Stable, transferred to [facility] floor -O2 by protocol. Currently 91% on 2L. Pt does not wear O2 at home normally. Wean as tolerated -Continue Xopenex/Atroven nebs QIDR -Prednisone 40 mg PO qd Day #2 -Continue Levaquin 500 mg PO q48h (renally dosed). Day #2 Non-small cell lung carcinoma -Consult oncology, appreciate recs: Locally advanced non-small cell. No evidence of metastasis beyond adjoining or contiguous ribs. Recommend chemotherapy and radiation. May need a port placed. -Radiation oncology consulted, appreciate recs -Continue morphine 15 mg PO q4h prn pain ESRD on HD--dialysis today -Consult nephrology, appreciate recs: hemodialysis today per Dr. Zhou's orders -Continue folic acid, Sensipar, calcium acetate and Nephrocaps Elevated troponin, persistent lateral nonspecific ST-T wave changes, s/p AICD, s /p CABG, s/p AVR, HTN, HLD--stable -Left chest pain due to malignant lung mass -Troponin peaked at 0.144, trended down -Continue aspirin 81 mg by mouth daily, atenolol 12.5 mg by mouth daily, amiodarone 100 mg by mouth twice a day, atorvastatin 80 mg by mouth every evening. Anxiety--stable -Continue alprazolam 1 mg by mouth at bedtime. -Increase daytime alprazolam from 0.5 mg by mouth every morning to 3 times a day. -Increase buspirone 5 mg by mouth 3 times a day to 10 mg by mouth 3 times a day. Diabetes mellitus--stable. Last a1c in 2006 -Hold glipizide -Insulin sliding scale -Check BSGs q ac and qhs -Recheck HgbA1c tomorrow am GERD -Continue pantoprazole 40 mg by mouth daily. DVT prophylaxis -SCDs Code Status -Level I, FULL RESUSCITATION STATUS Dispo -From home, plan to go to [facility]. They will require more info about chemo/radiation before accepting -Case management following (Mirlande Fatima ., LAURA) Reviewed: Pt Seen/Exam by Me (Rena Bowden MD) History Physician Chief Client Officer Supervision Note: I interviewed and examined the patient. Discussed with MYAH Fatima and agree with findings and plan as documented in the note. Any exceptions or clarifications are listed here: Pt says breathing is better. Pain in left ribs is improved with morphine. Vitals reviewed NAD, obese, sitting in bed, alert awake RRR 3/6 TERRELL at RUSB Lungs with scattered exp wheezes, decreased BS at left base Abd +BS, soft, NT ND Ext no edema, AVF left forearm 66 yo male with multiple medical problems with recently dxd SCC of the lung with local invasion, here with acute hypoxemic respiratory failure, COPD exacerbation -to start outpt chemoradiation after discharge -continue prednisone taper, Levaquin for 7 day course -nebs -can hopefully dc tomorrow to [facility] -Heparin SQ for DVT proph given underlying malignancy--> high risk for DVT Documented By: Rena Bowden (Rena Bowden MD)
--- NOTE | 2016-12-07 17:46 | Radiation Oncology Progress Nt ---
Radiation Oncology Progress Nt Date of Service Date of Service: Dec 07, 2016. Reason For Admission Pulmonary symptoms (Acute respiratory failure) Chest pain Requesting Physician José Miguel Hewitt DO Diagnosis (1) Lung cancer -CXR 06/26/16 - mass noted in left lung -CT Chest - 07/07/16 - Interval development of a pleural-based density region of the left major fissure measuring 4.5 x 3.0 cm. -CT Chest - 10/01/16 - 1. Interval enlargement of the previously described pleural -based mass of the left upper lung centered at the major fissure now measures up to 7.2 cm. There are now erosive/destructive changes of the adjacent left fourth and fifth ribs. These findings are very concerning for primary bronchogenic carcinoma. 2. No pathologic-appearing adenopathy or new additional sites of disease identified. -PET/CT - 10/14/2016 - FDG-avid mass in LLL and non-specific activity in left adrenal gland, no distant metastatic disease -CT FNA Biopsy of Lung Mass - 11/05/16 - Squamous cell carcinoma - Last Edited By: Sea Dorman on Nov 27, 2016 15:50 Subjective Pt evaluation today including: conversation w/ patient, conversation w/ family (Spoke on phone with daughter, Mike), chart review, review of studies, conversation w/ internal consultant (Dr. Long) Radiation Therapy Has patient started Radiation: No Number of Treatments Received: 0 Number of Treatments Planned: 30 Additional Chemotherapy Potential chemotherapy - pending medical oncology consultation/final recommendation Objective Vital Signs Date Time Temp Pulse Resp B/P (MAP) Pulse Ox O2 Delivery O2 Flow Rate FiO2 12/07/16 15:12 36.4 62 98/57 (71) 12/07/16 15:10 36.2 63 22 89/52 (64) 91 Nasal Cannula 2.0 12/07/16 14:05 64 18 95 Nasal Cannula 3.0 12/07/16 13:15 92 98/57 12/07/16 13:00 78 84/76 12/07/16 12:45 60 99/51 12/07/16 12:30 68 89/54 12/07/16 12:15 69 91/60 12/07/16 12:00 49 86/61 12/07/16 11:45 62 91/48 12/07/16 11:33 61 94/48 12/07/16 11:30 60 75/41 12/07/16 11:15 62 84/53 12/07/16 11:00 61 83/56 12/07/16 10:45 60 96/51 12/07/16 10:30 65 102/63 12/07/16 10:15 60 101/60 12/07/16 10:00 60 97/59 12/07/16 09:45 62 95/58 12/07/16 09:30 64 100/54 12/07/16 09:17 60 99/62 12/07/16 09:04 36.6 61 96/57 (70) 12/07/16 08:02 Nasal Cannula 2.5 12/07/16 07:23 66 16 95 Nasal Cannula 3.0 12/07/16 07:18 36.4 62 22 99/64 (76) 96 12/07/16 04:31 36.7 68 16 96/62 (73) 93 Nasal Cannula 3.0 12/07/16 01:52 64 16 94 Nasal Cannula 3.0 12/07/16 00:00 Nasal Cannula 2.5 12/06/16 20:00 Nasal Cannula 3.0 12/06/16 19:37 36.7 55 18 90/59 (69) 94 Nasal Cannula 3.0 12/06/16 19:17 55 16 94 Nasal Cannula 3.0 Physical Exam General Appearance: WD/WN, no apparent distress Eyes: normal inspection ENT: normal ENT inspection Neck: supple, no adenopathy Respiratory/Chest: chest non-tender Cardiovascular: regular rate, rhythm, no edema, no gallop, no murmur Abdomen: normal bowel sounds Extremities: normal range of motion 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, alert, oriented x 3 Laboratory Results Last 24 Hours Test 12/06/16 20:04 12/07/16 06:15 12/07/16 07:18 12/07/16 11:24 Bedside Glucose 117 mg/dl 140 mg/dl 116 mg/dl White Blood Count 19.20 K/uL Red Blood Count 3.34 M/uL Hemoglobin 10.9 g/dL Hematocrit 35.9 % Mean Corpuscular Volume 107.5 fL Mean Corpuscular Hemoglobin 32.6 pg Mean Corpuscular Hemoglobin Concent 30.4 g/dl Platelet Count 274 K/uL Mean Platelet Volume 9.6 fL Neutrophils (%) (Auto) 91.3 % Lymphocytes (%) (Auto) 3.4 % Monocytes (%) (Auto) 3.9 % Eosinophils (%) (Auto) 0.9 % Basophils (%) (Auto) 0.0 % Neutrophils # (Auto) 17.53 K/uL Lymphocytes # (Auto) 0.66 K/uL Monocytes # (Auto) 0.74 K/uL Eosinophils # (Auto) 0.17 K/uL Basophils # (Auto) 0.00 K/uL RDW Standard Deviation 69.5 fL RDW Coefficient of Variation 18.3 % Immature Granulocyte % (Auto) 0.5 % Immature Granulocyte # (Auto) 0.10 K/uL Nucleated RBC Absolute Count (auto) 0.06 K/uL Nucleated Red Blood Cells % 0.3 % Prothrombin Time 12.9 SECONDS Prothromb Time International Ratio 1.2 Activated Partial Thromboplast Time 30.2 SECONDS Partial Thromboplastin Ratio 1.2 Sodium Level 137 mmol/L Potassium Level 5.2 mmol/L Chloride Level 99 mmol/L Carbon Dioxide Level 29 mmol/L Anion Gap 9.0 mmol/L Blood Urea Nitrogen 75 mg/dl Creatinine 7.20 mg/dl Est Creatinine Clear Calc Drug Dose 11.4 ml/min Estimated GFR () 8.3 Estimated GFR (Non- 7.1 BUN/Creatinine Ratio 10.3 Random Glucose 85 mg/dl Calcium Level 7.6 mg/dl Magnesium Level 2.6 mg/dl Iron Level 45 mcg/dl Total Iron Binding Capacity 197 mcg/dl Transferrin 161 mg/dl Transferrin % Saturation 20 % Ferritin 1084.1 ng/ml Test 12/07/16 16:17 Bedside Glucose 126 mg/dl Assessment and Plan Mr. Tate has been admitted to the hospital for symptoms unrelated to radiation therapy (has not started treatment yet). I have spoken with both the patient and the daughter and the plan remains the same for radiation therapy with or without chemotherapy (based on final recommendation from medical oncology). The patient has already undergone CT simulation and is currently undergoing treatment planning. I would recommend starting radiation therapy after the patient is discharged from the hospital unless the patient has an extended hospital course. I will discuss the case again with medical oncology to coordinate future therapy. No management required at this point from radiation oncology. Please call us with any further questions or concerns.
[2016-12-07] MEDS: ATORVASTATIN 40 MG TAB PO SCH (21:35)
[2016-12-07] MEDS: HEPARIN SOD 5000 UNIT/0.5 ML CARP SQ SCH (22:00)
[2016-12-08] VITALS (13 sets, daily range): BP systolic 106–135; BP diastolic 50–98; PULSE 57–69; TEMP 36.7–37; O2SAT 83–97
[2016-12-08] MEDS: IPRATROPIUM BROMIDE NEB SOLN 0.02% 2.5 ML VIAL INH SCH ×4 (01:38→19:19)
[2016-12-08] MEDS: LEVALBUTEROL 1.25MG/0.5ML NEB INH SCH ×4 (01:39→19:19)
[2016-12-08] MEDS: MoRPHine SULFATE IR 15 MG TAB (IMMEDIATE RELEASE) PO PRN ×4 (02:03→20:15)
[2016-12-08] MEDS: HEPARIN SOD 5000 UNIT/0.5 ML CARP SQ SCH ×3 (06:00→21:37)
[2016-12-08 07:58] LABS: ESTIMATED AVERAGE GLUCOSE 100 mg/dl; HA1C FLAG Normal (Normal)
[2016-12-08 08:03] LABS: BUN/CREATININE RATIO 8.1 (10-20); CALCIUM 8.5 mg/dl (8.5-10.1); CREATININE 5.1 mg/dl (0.60-1.40); POTASSIUM 4.6 mmol/L (3.5-5.1)
[2016-12-08] MEDS: ALPRAZOLAM 0.5 MG TAB PO SCH ×4 (08:54→20:59)
[2016-12-08] MEDS: AMIODARONE 200 MG TAB PO SCH ×2 (09:02→21:01)
[2016-12-08] MEDS: GUAIFENESIN 600 MG TABCR PO SCH ×2 (09:03→20:58)
[2016-12-08] MEDS: ASPIRIN 81 MG ECTAB PO SCH (09:03)
[2016-12-08] MEDS: NEPHROCAPS PO SCH (09:03)
[2016-12-08] MEDS: PAROXETINE 20 MG TAB PO SCH (09:04)
[2016-12-08] MEDS: PANTOprazole SOD 40 MG TAB PO SCH (09:04)
[2016-12-08] MEDS: CALCIUM ACETATE 667MG GELCAP PO SCH ×3 (09:04→17:24)
[2016-12-08] MEDS: LIDODERM (LIDOCAINE) PATCH 5% TD SCH (09:05)
[2016-12-08] MEDS: INSULIN ASPART 100 UNITS/ML 3 ML PEN SC SCH ×4 (09:25→21:00)
[2016-12-08 10:16] LABS: HEMATOCRIT 36.5 % (42-52); MEAN CELL VOLUME 109.9 fL (80-100); MEAN CORPUSCULAR HEMOGLOBIN 31.6 pg (25-34); MEAN CORPUSCULAR HGB CONC 28.8 g/dl (32-36); MEAN PLATELET VOLUME 10.5 fL (7.4-10.4); PLATELET COUNT 261 K/uL (130-400); RED BLOOD COUNT 3.32 M/uL (4.7-6.1); WHITE BLOOD COUNT 18.16 K/uL (4.8-10.8)
--- NOTE | 2016-12-08 10:46 | NEPHROLOGY PROGRESS NOTE ---
DATE: 12/08/2016 DATE: 12/08/2016 SUBJECTIVE: Mr. Tate says that he is feeling relatively well, "as long as I am not anxious." He denies having any chest discomfort at rest and with oxygen he does not feel short of breath. He has got no definite symptoms of uremia or volume overload, although his appetite is somewhat depressed. He says that he tolerated his dialysis treatment yesterday without difficulty. He has been seen by both radiation oncology and medical oncology. OBJECTIVE: GENERAL: On physical exam, Mr. Tate appears as a somewhat chronically ill gentleman who was in no distress. He was lying comfortably in bed, but oxygen was being administered via nasal cannula at about 3 liters a minute. VITAL SIGNS: He is afebrile (37.0), his blood pressure 108/66, his pulse 64 and regular, respiratory rate 12, pulse ox is 93-97% on oxygen at 3 liters a minute. SKIN: Shows scars from prior surgical procedures. He has changes of venous stasis dermatitis on his lower extremities. He has a left forearm AV fistula. He has multiple tattoos. LYMPHATICS: Show no palpable lymphadenopathy. HEAD: Normal. EYES: Grossly normal. The ocular fundi were not examined. EARS, NOSE, MOUTH AND THROAT: Unremarkable. Oral mucous membranes are moist. NECK: Supple. He has no jugular venous distention, carotid bruit or thyromegaly. CHEST: Shows diminished breath sounds bilaterally, more diminished on the left than on the right. However, there are no wheezes, rales or rhonchi. He has some minimal tenderness in the left lateral chest wall in the anterior axillary line. CARDIAC EXAMINATION: Shows a regular rhythm. S1 and S2 are normal. He has a systolic ejection murmur at the base. ABDOMEN: Protuberant but nontender. There is no organomegaly or mass. EXTREMITIES: Showed left forearm AV fistula. There is a good pulse, thrill and bruit. He has no cyanosis, clubbing or peripheral edema. NEUROLOGIC EXAMINATION: Shows no lateralizing changes. He still has somewhat of a depressed affect. PERTINENT LABORATORY WORK: From today shows a white count of 18,160, his hemoglobin is 10.5. His hematocrit is 36.5. Red cell indices are macrocytic. His platelet count is 261,000. Clinical chemistries from today show a sodium of 134 mmol/L, potassium 4.6 mmol/L, chloride 96 mmol/L, and CO2 content 31 mmol/L. His BUN is 41, his creatinine 5.10. Blood sugars have varied from 106-126. His serum calcium is 8.5. ASSESSMENT: Mr. Tate is currently stable. Obviously there are multiple medical issues beyond his end-stage renal disease that need to be dealt with. First is the approached the management of his malignancy. It appears to be agreed upon that combined chemoradiation would be appropriate. Dr. Long has outlined appropriately the adjustments in doses of chemotherapy that would need to be made given his end-stage renal disease. I think it may be advisable given the complexity of his medical conditions to initiate his chemotherapy and radiation during this hospitalization. The next issue is his post-hospital care. I think it is clear at this point given the significant limitations that he has because of his multiple medical conditions that he is not going to be able to live independently. I think arrangements should be made for him to go either to a nursing facility or personal care setting. I have discussed this with social service as those arrangements can be made during the time that his chemoradiation is being initiated to see how he will react to them.
[2016-12-08] MEDS: ATORVASTATIN 40 MG TAB PO SCH (20:59)
[2016-12-09] VITALS (34 sets, daily range): BP systolic 75–142; BP diastolic 23–74; PULSE 59–103; TEMP 36.3–37; O2SAT 93–100; Ht 172.7 cm; Wt 97.2 kg
--- NOTE | 2016-12-09 00:18 | Hospitalist Progress Note ---
Hospitalist Progress Note Date of Service Dec 08, 2016. Subjective Pt evaluation today including: conversation w/ patient Patient feeling better today, less short of breath. Plans now are to possibly start chemotherapy while he is an inpatient. No new complaints All Other Systems: Reviewed and Negative Objective Vital Signs Date Time Temp Pulse Resp B/P (MAP) Pulse Ox O2 Delivery O2 Flow Rate FiO2 12/08/16 16:00 Nasal Cannula 3.0 12/08/16 15:08 37.0 62 18 135/98 (110) 96 3.0 12/08/16 13:33 68 20 97 Nasal Cannula 3.0 12/08/16 11:32 36.7 62 12 108/50 (69) 94 Nasal Cannula 3.0 12/08/16 11:10 36.7 62 12 110/68 (82) 92 Nasal Cannula 3.0 12/08/16 10:44 Nasal Cannula 2.0 12/08/16 10:26 92 Nasal Cannula 3.0 12/08/16 10:16 92 Nasal Cannula 3.0 12/08/16 08:33 Nasal Cannula 3.0 12/08/16 08:23 37.0 64 12 108/66 (80) 93 12/08/16 07:15 63 18 97 Nasal Cannula 3.0 12/08/16 04:20 36.7 64 20 116/64 (81) 96 Nasal Cannula 3.0 12/08/16 01:39 57 14 93 Nasal Cannula 3.0 12/08/16 00:05 Nasal Cannula 2.0 12/07/16 23:32 37.0 62 18 105/60 (75) 96 Nasal Cannula 3.0 12/07/16 21:37 67 93/62 (72) 12/07/16 20:08 62 18 92 Nasal Cannula 3.0 12/07/16 20:07 36.8 63 24 101/58 (72) 94 Nasal Cannula 2.0 Physical Exam General Appearance: WD/WN, no apparent distress (sitting in chair) Eyes: normal inspection, sclerae normal ENT: hearing grossly normal Neck: trachea midline Respiratory/Chest: no respiratory distress, no accessory muscle use, + crackles (and decreased breath sounds at the left base, otherwise scattered faint wheezes) Cardiovascular: regular rate, rhythm, + systolic murmur (3/6 at RUSB) Abdomen: normal bowel sounds, non tender, soft Extremities: non-tender, normal inspection, no pedal edema, no calf tenderness Neurologic/Psychiatric: alert, + depressed affect Skin: normal color, warm/dry, no rash Laboratory Results Last 24 Hours Test 12/07/16 19:39 12/08/16 07:02 12/08/16 07:55 12/08/16 11:43 Bedside Glucose 118 mg/dl 113 mg/dl 132 mg/dl White Blood Count 18.16 K/uL Red Blood Count 3.32 M/uL Hemoglobin 10.5 g/dL Hematocrit 36.5 % Mean Corpuscular Volume 109.9 fL Mean Corpuscular Hemoglobin 31.6 pg Mean Corpuscular Hemoglobin Concent 28.8 g/dl RDW Standard Deviation 72.1 fL RDW Coefficient of Variation 18.5 % Platelet Count 261 K/uL Mean Platelet Volume 10.5 fL Nucleated RBC Absolute Count (auto) 0.06 K/uL Nucleated Red Blood Cells % 0.4 % Sodium Level 134 mmol/L Potassium Level 4.6 mmol/L Chloride Level 96 mmol/L Carbon Dioxide Level 31 mmol/L Anion Gap 7.0 mmol/L Blood Urea Nitrogen 41 mg/dl Creatinine 5.10 mg/dl Est Creatinine Clear Calc Drug Dose 16.0 ml/min Estimated GFR () 12.5 Estimated GFR (Non- 10.8 BUN/Creatinine Ratio 8.1 Random Glucose 106 mg/dl Estimated Average Glucose 100 mg/dl Hemoglobin A1c 5.1 % Calcium Level 8.5 mg/dl Test 12/08/16 16:33 Bedside Glucose 94 mg/dl Assessment and Plan 66 y/o male with ESRD on HD, non-small cell lung carcinoma, CAD s/p CABG, AICD, HTN, HLD, DM II, anxiety and GERD who presented with increased dyspnea, hypoxia , and wheezing. Acute hypoxic respiratory failure secondary to COPD exacerbation and possibly due to expanding lung cancer--improving - Wean oxygen as tolerated -Continue nebulizers -Continue Prednisone and taper down to 30 milligrams daily -Continue Levaquin 500 mg PO q48h (renally dosed). Day #3/7 Non-small cell lung carcinoma -Consult oncology, appreciate recs: Locally advanced non-small cell. No evidence of metastasis beyond adjoining or contiguous ribs. Recommend chemotherapy and radiation. May need a port placed. Need to discuss with oncology about possibility of starting chemotherapy as an inpatient given his hemodialysis requirement -Radiation oncology consulted, appreciate recs-will start radiation treatments as an outpatient -Continue morphine 15 mg PO q4h prn pain ESRD on HD--dialysis Wednesday -Consult nephrology, appreciate recs -Continue folic acid, Sensipar, calcium acetate and Nephrocaps Elevated troponin, persistent lateral nonspecific ST-T wave changes, s/p AICD, s /p CABG, s/p AVR, HTN, HLD--stable -Left chest pain due to malignant lung mass -Troponin peaked at 0.144, trended down -Continue aspirin 81 mg by mouth daily, atenolol 12.5 mg by mouth daily, amiodarone 100 mg by mouth twice a day, atorvastatin 80 mg by mouth every evening. Anxiety--stable -Continue alprazolam 1 mg by mouth at bedtime. -Increased daytime alprazolam from 0.5 mg by mouth every morning to 3 times a day. -Increased buspirone 5 mg by mouth 3 times a day to 10 mg by mouth 3 times a day. Diabetes mellitus2--stable. Hemoglobin A1c is 5.1% he essentially no longer has diabetes -Hold glipizide and may not need to restart on discharge -Insulin sliding scale -Check BSGs q ac and qhs GERD -Continue pantoprazole 40 mg by mouth daily. DVT prophylaxis -SCDs, heparin subcutaneous ordered but patient is refusing Code Status -Level I, FULL RESUSCITATION STATUS Dispo -From home, plan to go to [facility]. They will require more info about chemo/radiation before accepting -Case management following
[2016-12-09] MEDS: IPRATROPIUM BROMIDE NEB SOLN 0.02% 2.5 ML VIAL INH SCH ×4 (01:51→19:42)
[2016-12-09] MEDS: LEVALBUTEROL 1.25MG/0.5ML NEB INH SCH ×4 (01:51→19:42)
[2016-12-09] MEDS: HEPARIN SOD 5000 UNIT/0.5 ML CARP SQ SCH ×3 (06:00→23:23)
[2016-12-09 06:27] LABS: MEAN CELL VOLUME 107.7 fL (80-100); MEAN CORPUSCULAR HGB CONC 29.7 g/dl (32-36); MEAN PLATELET VOLUME 10.5 fL (7.4-10.4); PLATELET COUNT 234 K/uL (130-400); RED BLOOD COUNT 3.62 M/uL (4.7-6.1)
[2016-12-09 07:19] LABS: BUN/CREATININE RATIO 9.6 (10-20); CALCIUM 8.3 mg/dl (8.5-10.1); CREATININE 6.8 mg/dl (0.60-1.40); POTASSIUM 5.3 mmol/L (3.5-5.1)
[2016-12-09] MEDS: DEXTROSE 50% 50 ML SYR IV PRN ×2 (07:43→15:40)
[2016-12-09] MEDS ORDERED: HEPARIN SOD (PORCINE) 1000 UNIT/ML 10 ML VIAL IV SCH (08:00)
[2016-12-09] MEDS: ASPIRIN 81 MG ECTAB PO SCH (08:00)
[2016-12-09] MEDS: AMIODARONE 200 MG TAB PO SCH ×2 (08:00→20:11)
[2016-12-09] MEDS: GUAIFENESIN 600 MG TABCR PO SCH ×2 (08:00→20:13)
[2016-12-09] MEDS: PANTOprazole SOD 40 MG TAB PO SCH (08:00)
[2016-12-09] MEDS ORDERED: SODIUM CHLORIDE 0.9% 1000ML 1,000 ML IV PRN (08:00)
[2016-12-09] MEDS: PAROXETINE 20 MG TAB PO SCH (08:00)
[2016-12-09] MEDS: CALCIUM ACETATE 667MG GELCAP PO SCH ×3 (08:00→15:44)
[2016-12-09] MEDS ORDERED: EPOETIN ALFA 10,000 UNITS/ML VIAL IV. SCH (08:00)
[2016-12-09] MEDS: ALPRAZOLAM 0.5 MG TAB PO SCH (08:00)
[2016-12-09] MEDS: NEPHROCAPS PO SCH (08:00)
[2016-12-09] MEDS: INSULIN ASPART 100 UNITS/ML 3 ML PEN SC SCH ×4 (08:12→21:00)
--- NOTE | 2016-12-09 09:29 | Hospitalist Progress Note ---
Hospitalist Progress Note Date of Service Dec 09, 2016. Subjective Pt evaluation today including: conversation w/ patient, physical exam, conversation w/ exchange consultant (Nephrology, Oncology) Called urgently to see pt this AM for altered mental status. He was hypoglycemic on AM labs and then glucose check 1 hr later, was given dextrose soln and glucose improved. RN caring for him had never met him before and wasn' t sure of his baseline. He has been not getting his usual xanax and he states he takes it every AM and PM at home. He is having increased myoclonic jerks here. When I came o see him, he was more alert than when RN had seen him. He tells me "I'm fine now." Denies any headache,, weakness, ches tpain, SOB, no abd pain, no pain anywhere. Vitals were all stable All Other Systems: Reviewed and Negative Objective Vital Signs Date Time Temp Pulse Resp B/P (MAP) Pulse Ox O2 Delivery O2 Flow Rate FiO2 12/09/16 07:46 62 18 108/56 (73) 94 Nasal Cannula 4.0 12/09/16 07:26 36.6 68 22 92/74 (80) 98 4.0 12/09/16 07:23 66 18 95 Nasal Cannula 4.0 12/09/16 04:40 36.3 64 18 98/65 (76) 96 Nasal Cannula 5.0 12/09/16 01:55 63 18 95 Nasal Cannula 5.0 12/09/16 00:57 37.0 93 20 95/60 (72) 93 Nasal Cannula 5.0 12/09/16 00:00 Nasal Cannula 5.0 12/08/16 21:05 69 106/69 (81) 12/08/16 19:22 36.7 61 18 129/58 (81) 91 Nasal Cannula 6.0 12/08/16 19:19 61 16 83 Nasal Cannula 3.0 12/08/16 16:00 Nasal Cannula 3.0 12/08/16 15:08 37.0 62 18 135/98 (110) 96 3.0 12/08/16 13:33 68 20 97 Nasal Cannula 3.0 12/08/16 11:32 36.7 62 12 108/50 (69) 94 Nasal Cannula 3.0 12/08/16 11:10 36.7 62 12 110/68 (82) 92 Nasal Cannula 3.0 12/08/16 10:44 Nasal Cannula 2.0 12/08/16 10:26 92 Nasal Cannula 3.0 12/08/16 10:16 92 Nasal Cannula 3.0 Physical Exam General Appearance: no apparent distress, + obese (and sitting up in bed, awake , sometimes seems to be not alert but as soon as I speak to him, he answers my questions appropriately, is oriented to person, place, and year but has trouble telling me the month) Eyes: normal inspection, sclerae normal ENT: hearing grossly normal, + pertinent finding (+white exudate in posterior oropharynx) Neck: trachea midline Respiratory/Chest: no respiratory distress, no accessory muscle use, + crackles (at left base, otherwise clear and with good air movement throughout) Cardiovascular: regular rate, rhythm, + systolic murmur (3/6 at RUSB) Abdomen: normal bowel sounds, non tender, soft, + pertinent finding (large incisional scar RLQ) Extremities: no calf tenderness, + pertinent finding (trace pitting edema legs bilat) 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7 g/dl RDW Standard Deviation 70.6 fL RDW Coefficient of Variation 18.1 % Platelet Count 234 K/uL Mean Platelet Volume 10.5 fL Nucleated RBC Absolute Count (auto) 0.13 K/uL Nucleated Red Blood Cells % 0.7 % Sodium Level 133 mmol/L Potassium Level 5.3 mmol/L Chloride Level 94 mmol/L Carbon Dioxide Level 29 mmol/L Anion Gap 10.0 mmol/L Blood Urea Nitrogen 67 mg/dl Creatinine 6.80 mg/dl Est Creatinine Clear Calc Drug Dose 12.0 ml/min Estimated GFR () 8.9 Estimated GFR (Non- 7.6 BUN/Creatinine Ratio 9.6 Random Glucose 67 mg/dl Calcium Level 8.3 mg/dl Test 12/09/16 07:34 12/09/16 08:04 12/09/16 09:02 Bedside Glucose 66 mg/dl 116 mg/dl Assessment and Plan 66 y/o male with ESRD on HD, non-small cell lung carcinoma, CAD s/p CABG, AICD, HTN, HLD, DM II, anxiety and GERD who presented with increased dyspnea, hypoxia , and wheezing. Acute metabolic encephalopathy secondary to hypoglycemia and possibly xanax withdrawal today. Hypoglycemia improved with dextrose and now mentation is improved.-give alprazolam as scheduled to prevent withdrawal and see if actually improves mentation and his myoclonic jerks -checked ECG-LBBB/paced rhythm -check ABG for CO2 retention -follow glucose checks Acute hypoxic respiratory failure secondary to COPD exacerbation and possibly due to expanding lung cancer--improving and stable today - Wean oxygen as tolerated -Continue nebulizers -Continue Prednisone and taper down to 30 milligrams daily -Continue Levaquin 500 mg PO q48h (renally dosed). Day #4/ Non-small cell lung carcinoma with local invasion into the ribs -Consult oncology, appreciate recs: Locally advanced non-small cell. No evidence of metastasis beyond adjoining or contiguous ribs. Recommend chemotherapy and radiation. May need a port placed. I discussed the case with oncology today who d/w Dr. Roberts and plan is to start chemo and XRT as an outpt hopefully next week. Will need port placement most likely. COuld consider getting port as inpt -Radiation oncology consulted, appreciate recs-will start radiation treatments as an outpatient -Continue morphine 15 mg PO q4h prn pain ESRD on HD--dialysis Wednesday -Consult nephrology, appreciate recs -Continue folic acid, Sensipar, calcium acetate and Nephrocaps Previously Elevated troponin, s/p AICD, s/p CABG, s/p AVR, HTN, HLD, Chronic systolic and diastolic biventricular CHF--stable ECHO: * 1. Mildly dilated LV. Normal LV wall thickness. * 2. Low normal LV function. LVEF 50-55%. Abnormal septal motion consistent with conduction abnormality. Akinesis of true apex. * 3. RV not well visualized. Reduced RV function by TAPSE. * 4. Bioprosthetic aortic valve not well visualized. Mildly elevated transvalvular gradients (PV 3.48 m/s, MG 28). Mild aortic regurgitation. * 5. Mild mitral regurgitation. Mild mitral stenosis. * 6. Grade II diastolic dysfunction. * 7. Mild to moderate pulmonary hypertension. Est PASP 45-50 mmHg. * 8. Compared with prior study on 07/21/2016: Pulmonary hypertension is new. -Left chest pain due to malignant lung mass -Troponin peaked at 0.144, trended down -Continue aspirin 81 mg by mouth daily, atenolol 12.5 mg by mouth daily, amiodarone 100 mg by mouth twice a day, atorvastatin 80 mg by mouth every evening. -volume status to be managed by HD Anxiety--stable -Continue alprazolam 1 mg by mouth at bedtime and 0.5 mg by mouth every morning -encouraged pt and RN to take the medicine to prevent withdrawal symptoms -Increased buspirone 5 mg by mouth 3 times a day to 10 mg by mouth 3 times a day. Diabetes mellitus2--now with hypoglycemia. Hemoglobin A1c is 5.1% he essentially no longer has diabetes -Hold glipizide and may not need to restart on discharge -Insulin sliding scale but not needed -Check BSGs q ac and qhs GERD -Continue pantoprazole 40 mg by mouth daily. DVT prophylaxis -SCDs, heparin subcutaneous ordered but patient is refusing-discussed with him today and he will start taking Code Status -Level I, FULL RESUSCITATION STATUS Dispo -From home, plan to go to [facility]. They will require more info about chemo/radiation before accepting--> plans for outpt chemoradiation so can go to SNF in 1-2 days as long as today's acute encephalopathy is completely resolved -Case management following
[2016-12-09 10:02] LABS: ARTERIAL BLOOD GAS BASE EXCESS -1.4 mEq/L (-9-1.8); ARTERIAL BLOOD GAS HCO3 29 mmol/L (19-24); ARTERIAL BLOOD GAS PO2 73 mm/Hg (80-95)
[2016-12-09 10:03] LABS: ALLEN TEST POS (POS); ARTERIAL BLOOD GAS pH 7.17 (7.35-7.45); O2 ADMINISTRATION 4L
[2016-12-09 10:24] LABS: ISTAT ALLEN TEST Pass; ISTAT ARTERIAL BLOOD GAS HCO3 30 meq/L (19-24); ISTAT ARTERIAL BLOOD GAS PCO2 80 mmHg (35-46); ISTAT ARTERIAL BLOOD GAS PO2 98 mmHg (80-95); ISTAT ARTERIAL BLOOD GAS pH 7.19 (7.35-7.45); ISTAT CARBON DIOXIDE 33 mEq/l (24-31); ISTAT DELIVERY SYSTEM SimpleMask; ISTAT SITE R Radial
--- NOTE | 2016-12-09 10:37 | DIAGNOSTIC IMAGING REPORT ---
CHEST ONE VIEW PORTABLE CLINICAL HISTORY: Hypoxia COMPARISON STUDY: 12/04/2016 FINDINGS: The heart remains enlarged. There are postsurgical changes of midline sternotomy. There is a right subclavian implantable defibrillator. There is radiographic evidence of mild pulmonary vascular congestion. There is a 9.8 cm pleural-based mass in left hemithorax with associated rib destruction. There are right basilar airspace opacities. These could be atelectatic, inflammatory, or customer development representative of focal edema.[ IMPRESSION: 1. 9.8 cm pleural-based mass in left hemithorax with associated rib destruction 2. Cardiomegaly and mild pulmonary vascular congestion 3. Right basilar airspace opacities Electronically signed by: Mike Aleman M.D. 12/09/2016 10:36 AM Dictated Date/Time: 12/09/2016 10:33 AM
[2016-12-09] MEDS ORDERED: NALOXONE HCL 0.4 MG/1 ML VIAL/CARP ONE (10:39)
[2016-12-09] MEDS ORDERED: NURSING VERBAL MED ORDER ONE ×3 (10:45→19:30)
--- NOTE | 2016-12-09 10:57 | PROGRESS NOTE ---
DATE: 12/09/2016 SUBJECTIVE: Mr. Tate seems markedly confused and often somewhat difficult to arouse this morning. When aroused, he denies that he has any kind of headache or generalized weakness. He does respond to at least some commands appropriately. OBJECTIVE: GENERAL: On physical exam, Mr. Tate appears obviously markedly lethargic and has frequent myoclonic jerks. VITAL SIGNS: He is afebrile (36.6), his blood pressure taken by me was approximately 144/80. Blood pressures measured on the dialysis machine seem to be much higher. His skin is warm and dry. His respiratory rate is 18-22, but respirations were shallow. His pulse ox has been 94 at least through earlier today. SKIN: Shows normal skin turgor. There is no obvious rash or infiltrative skin disease other than some changes of venous stasis dermatitis on his lower extremities. He has scars from prior surgical procedures. He has no palpable lymphadenopathy. HEAD: Normal. EYES: Eyes are grossly normal. His pupils are mid position and responds sluggishly to light. The fundi were not examined. EARS, NOSE, MOUTH AND THROAT: Unremarkable. His oral mucous membranes are moist. NECK: Supple. He has no jugular venous distension visible, but the exam is limited by his body habitus. I hear no carotid bruits. There is no obvious thyromegaly. CHEST: Shows diminished breath sounds on the left compared to the right. He has a few scattered rhonchi. CARDIAC: Shows a regular rhythm. S1 and S2 seem normal. He has a systolic ejection murmur at the base. ABDOMEN: Protuberant but nontender. There is no organomegaly or mass. EXTREMITIES: Show left forearm AV fistula with a good pulse, thrill and bruit. NEUROLOGIC: Shows him to be obviously lethargic. He has frequent myoclonic jerks. His left hand seems so slightly weaker than the right. Both legs seem to move normally. He has an equivocally upgoing toe on the left compared to the right. He does respond to painful stimuli in all 4 extremities. There are no other pathologic reflexes. PERTINENT LABORATORY WORK AND IMAGING DATA: From today shows a white count of 18,600. Differential was not done. His hemoglobin is 11.6, his hematocrit 39.0, red cell indices are macrocytic. His platelet count is 234,000. Clinical chemistries show sodium of 133 mmol/L, potassium 5.3 mmol/L, chloride 94 mmol/L, and CO2 content 29 mmol/L. His BUN is 67 and his creatinine 6.8. His anion gap is recorded as 10 but into account his albumin is probably more in the range of about 13-14. His serum calcium is 8.3, his blood sugar initially this morning was 67 after receiving some glucose, it zack as high as 116, most recently at 10:17 it was 80. His arterial blood gases done at 9:02 this morning showed a pH of 7.17, his pCO2 was 80, and his pO2 was 73 with an oxygen saturation of 89. A Chest x-ray shows enlarging left chest mass. However, he does not appear to be volume overloaded. Over the course of the past 24 hours he has not received any sedatives, but has been getting morphine on a regular basis. He has been getting that orally. His last dose was at 21:00 hours last night, but he had gotten fairly regularly through the day. ASSESSMENT: Mr. Tate has an acute respiratory acidosis that may be due to respiratory depression from morphine metabolites which can build up in patients with end-stage renal disease. He seems to be stable on dialysis. His blood pressure is hard to measure. Neurologically, he has some equivocal findings, particularly a questionable upgoing toe on the left than some weakness of his left hand compared to the right. PLAN: Agree with moving him to the intensive care unit. We would certainly watch for any further progression. We would not give him any more morphine and we would give him Narcan as a trial at the current time. We will discuss this directly with the hospitalist. If there is no response to the use of Narcan, we would then recommend that he have a CT scan _or___ MRI today. PATI
[2016-12-09] MEDS: CLOTRIMAZOLE 10 MG TROCHE MT SCH ×4 (11:00→22:58)
[2016-12-09] MEDS: LEVOFLOXACIN 500 MG TAB PO SCH (11:00)
[2016-12-09] MEDS: NALOXONE HCL 0.4 MG/1 ML VIAL/CARP IV PRN ×3 (12:16→21:38)
[2016-12-09] MEDS: LIDODERM (LIDOCAINE) PATCH 5% TD SCH (14:56)
[2016-12-09 14:58] LABS: IPAP 14; ISTAT ALLEN TEST Pass; ISTAT ARTERIAL BLOOD GAS HCO3 31 meq/L (19-24); ISTAT ARTERIAL BLOOD GAS PCO2 68 mmHg (35-46); ISTAT ARTERIAL BLOOD GAS PO2 93 mmHg (80-95); ISTAT ARTERIAL BLOOD GAS pH 7.27 (7.35-7.45); ISTAT CARBON DIOXIDE 33 mEq/l (24-31); ISTAT DELIVERY SYSTEM BIPAP; ISTAT FIO2 40 %; ISTAT RATE 22; ISTAT SITE R Radial
--- NOTE | 2016-12-09 18:03 | Pulmonary Consultation ---
History General Date of Service: Dec 09, 2016. Stated Complaint: Elevated Troponin I Level, Hypoxia, Lung Mass HPI The patient is a 66 year old male who presents to [facility] with complaints of Elevated Troponin I Level, Hypoxia, Lung Mass. The patient's primary care provider is Satya Roberts M.D.. This 66-year-old male with multiple medical problems including end-stage renal disease, dialysis, significant cardiac disease and poor lung function was found to have a large mass in his left lung. A PET scan in September 2016 showed an FDG avid mass in the left lower lobe with invasion into the ribs. Patient is status post needle biopsy 11/05/[address] Solitario which showed squamous cell carcinoma. On 12/04/2016 he presented to the ER with worsening shortness of breath that started 4 days prior and shortly after his dialysis session. Per EMR, he felt horrible from most of the day. He described decreased appetite, nausea and early satiety. He also endorsed a cough , wheezing and increased shortness of breath but denied any hemoptysis. When he checked his pulse oximetry it showed 85% on room air. He is not normally on long-term oxygen therapy. He denied any fevers, chills, but has worsening left sided chest pain. Upon arrival to the ER, his initial vital signs were 36.2, pulse 66, respiratory rate 24, blood pressure 127/66, saturating 96% on room air. He had episode of desaturation to 85% and was subsequently placed on 2 L nasal cannula. Laboratory data showed white blood cell count 11, hemoglobin of 10, platelet count of 284, carbon dioxide level of 35 with creatinine 2.9, troponin 0.126, albumin 2.7. Chest x-ray from 12/04/2016 showed large pleural- based mass in the left hemithorax. CT chest done on 12/01/2016 shows left lung mass measuring 7.8 x 6.9 cm invading the chest wall with a invasion of the left third through sixth ribs with associated left lateral fracture of the left fifth rib. He was admitted for hypoxemia and chest wall pain. His medications included clotrimazole, prednisone 30 mg by mouth daily, heparin subcutaneous every 8 hours, Levaquin 500 milligrams, morphine 15 mg every 4 hours when necessary by mouth, morphine 4 mg every 8 hours when necessary IV, Lidoderm patch daily, atenolol 12.5 mg daily, folic acid 1 mg daily, aspirin 81 mg daily, pantoprazole 40 mg daily, paroxetine 40 mg daily, guaifenesin 600 mg twice a day by mouth, Atrovent/Xopenex nebulizers every 6 hours, Xanax 0.5 mg 3 times a day by mouth and 1 mg by mouth at bedtime, amiodarone 100 mg twice a day , atorvastatin 80 mg twice a day by mouth, 10 mg 3 times a day by mouth, Ambien 5 mg daily at bedtime, and Tylenol 650 mg every 4 hours when necessary. This morning, patient was found to have altered mental status. Glucose this morning was 66 and was treated with dextrose with improvement of his symptoms. Chest x-ray showed a 9.8 cm pleural-based mass and left hemithorax with associated with obstruction with right basilar air space opacity. ABG was done on 4 L nasal cannula was 7.17/80/73/29/89%. A repeat ABG 1 hour later showed 7.19/80/98/30/95% on facemask. He was subsequently placed on BiPAP 12/5 and FiO2 of 40%. At the time of my evaluation, patient was more arousable but still lethargic. He had a total of 1583 mL removed at hemodialysis today. I performed ABG which showed slight improvement of respiratory acidosis, 7.27/68/ 93/31/96%. I increased settings to 16/7. I spoke with his daughter,Jennifer, who is at bedside and she states that his biggest complaint is that he is lethargic. She states that he does not want to suffer. Patient also agreed. She requested a palliative care consult to review goals of care. Historian: family Onset: last week Severity: severe Complaint Status: persistent Quality of Pain: aching Method of Injury: other (invasive lung cancer) Modifying Factors: pain medication Review of Systems Constitutional: reports: as stated in HPI Eyes: reports: as stated in HPI ENT: reports: as stated in HPI Cardiovascular: reports: as stated in HPI Respiratory: reports: as stated in HPI Gastrointestinal: reports: as stated in HPI Genitourinary - Male: reports: as stated in HPI Musculoskeletal: reports: as stated in HPI Integumentary: reports: as stated in HPI Neurologic: reports: as stated in HPI Psychiatric: reports: as stated in HPI Endocrine: as stated in HPI Hematologic / Lymphatic: as stated in HPI Allergic / Immunologic: as stated in HPI All Other Symptoms All Other Systems: Reviewed and Negative Past Medical History Past Medical History: Squamous cell carcinoma of the lung, stage IV End stage kidney disease, on hemodialysis (nephrotic syndrome, membranous glomerular nephritis) Diabetes Diverticulitis Aortic stenosis status post aVR Coronary artery disease status post CABG Hypertension Hyperlipidemia Obesity Chronic venous insufficiency with lower extremity edema Angiodysplasia with GI bleed, with history of colon resection Cardiomyopathy status post AICD placement Cardiac arrest in 2010 Past Surgical History: 1. History of Aortic Valve Replacement 2. History of Appendectomy Incidental 3. History of CABG 4. History of Ileostomy 5. History of Ileostomy Reversal 6. History of Implantable Cardioverter-Defibrillator 7. History of Laparoscopy Partial Colectomy Sigmoid 8. History of Secondary Closure Of Dehiscence 9. History of Small Bowel Resection Family History Patient reports no known family medical history. Heart disease and hypertension Social History He is a former smoker with history of [id number] cigarettes smoking, he quit in May 2008. [place] . Denies any alcohol or illicit drug use. 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 He lives alone. He Hx Tobacco Use In Past Year?: No Smoking Status: Former Smoker Marital status: Housing status: lives alone, custodial Occupational Status: retired Immunizations History of Influenza Vaccine: Yes History of Tetanus Vaccine?: Unknown History of Pneumococcal: Yes History of Hepatitis B Vaccine: Unknown History of MDRO History of MDRO: Yes Type of MDRO: MRSA Allergies Coded Allergies: No Known Allergies (Verified , 12/04/16) Current Medications Reported Home Medications Medications Dose Route/Sig Max Daily Dose Days Date Category Dose Instructions Nephrocaps (Vitamin B Complex/Vit C/Folic Acid) Cap 1 Cap PO DAILY 12/04/16 Reported Buspar (Buspirone Hcl) 15 Mg Tab 5 Mg PO TID 12/04/16 Reported Xanax (Alprazolam) 0.5 Mg Tab 1 Mg PO HS 11/26/16 Reported Xanax (Alprazolam) 0.5 Mg Tab 0.5 Mg PO QAM 11/05/16 Reported Tylenol (Acetaminophen) 325 Mg Tab 650 Mg PO Q4 PRN 07/20/16 Reported Paxil (Paroxetine HCl) 40 Mg Tab 40 Mg PO QAM 07/20/16 Reported Amiodarone HCl 200 Mg Tab 100 Mg PO BID 09/27/15 Rx Sensipar (Cinacalcet) 30 Mg Tab 30 Mg PO BID 09/23/15 Reported Folvite (Folic Acid) 1 Mg Tab 1 Mg PO QD@1230 06/22/15 Reported Aspirin Ec (Aspirin) 81 Mg Tab 81 Mg PO DAILY 06/22/15 Reported Tenormin (Atenolol) 25 Mg Tab 12.5 Mg PO QD@1230 06/22/15 Reported Glucotrol (Glipizide) 5 Mg Tab 2.5 Mg PO QD@1230 06/22/15 Reported Lipitor (Atorvastatin Calcium) 80 Mg Tab 80 Mg PO QPM 06/14/15 Reported Protonix (Pantoprazole Sodium) 40 Mg Tab 40 Mg PO DAILY @ 1630 05/24/13 Reported Phoslo 667 Mg (Calcium Acetate) 667 Mg Cap 3 Cap PO TIDM 10/24/10 Reported ALSO, TAKE 2 TABLETS WITH SNACKS 1X PER DAY. Physical Physical Exam Vital Signs: Date Time Temp Pulse Resp B/P (MAP) Pulse Ox O2 Delivery O2 Flow Rate FiO2 12/09/16 16:00 36.6 63 16 112/50 (70) 99 BiPAP 40 12/09/16 15:43 95 40 12/09/16 15:42 62 18 98 BiPAP/CPAP 40 12/09/16 13:31 60 99/51 12/09/16 13:15 63 101/52 12/09/16 13:00 60 95/47 12/09/16 12:49 61 86/46 12/09/16 12:45 61 75/46 12/09/16 12:31 63 88/44 12/09/16 12:21 62 121/59 12/09/16 12:01 61 103/55 12/09/16 12:00 98 Oxymask 40 BiPAP 12/09/16 11:42 61 101/42 12/09/16 11:40 36.5 61 21 101/42 (61) 100 Oxymask 5.0 100 12/09/16 11:15 84 112/60 12/09/16 11:00 103 90/59 12/09/16 10:55 36.6 62 18 100 9/13/17 10:45 80 81/23 12/09/16 10:30 69 100 50 12/09/16 10:30 68 142/64 12/09/16 09:45 61 92/54 12/09/16 09:25 59 98/72 12/09/16 09:15 36.8 59 98/56 (70) 12/09/16 07:46 62 18 108/56 (73) 94 Nasal Cannula 4.0 12/09/16 07:45 Nasal Cannula 4.0 12/09/16 07:26 36.6 68 22 92/74 (80) 98 4.0 12/09/16 07:23 66 18 95 Nasal Cannula 4.0 12/09/16 04:40 36.3 64 18 98/65 (76) 96 Nasal Cannula 5.0 12/09/16 01:55 63 18 95 Nasal Cannula 5.0 12/09/16 00:57 37.0 93 20 95/60 (72) 93 Nasal Cannula 5.0 12/09/16 00:00 Nasal Cannula 5.0 12/08/16 21:05 69 106/69 (81) 12/08/16 19:22 36.7 61 18 129/58 (81) 91 Nasal Cannula 6.0 12/08/16 19:19 61 16 83 Nasal Cannula 3.0 General Appearance: obese, other (patient appears ill, older than stated age. Currently on BiPAP.) Head: NORMOCEPHALIC, ATRAUMATIC Eyes: PERRLA, NO DISCHARGE, EOMI, SCLERAE NORMAL, CONJUNCTIVAE NORMAL ENT: other (unable to assess) Neck: NORMAL RANGE OF MOTION, NO TENDERNESS, TRACHEA MIDLINE, NO STRIDOR, SUPPLE Respiratory: other (decreased breath sounds, no wheezing or crackles) Cardiovasular: REGULAR RATE/RHYTHM, NORMAL S1S2 Genitourinary - Male: EXTERNAL GENITALIA NORMAL Upper Extremities: other (left upper extremity has AV fistula with palpable thrill; No cyanosis or clubbing. ) Lower Extremities: abnormal exam (multiple skin tears on bilateral lower extremities) Edema: Bilateral LE Neuro: ORIENTED x 3, lethargic Diagnostics Labs Results Past 24 Hours Test 12/08/16 16:33 12/08/16 20:35 12/09/16 06:03 12/09/16 07:34 Range/Units Bedside Glucose 94 88 66 70-99 mg/dl White Blood Count 18.60 4.8-10.8 K/uL Red Blood Count 3.62 4.7-6.1 M/uL Hemoglobin 11.6 14.0-18.0 g/dL Hematocrit 39.0 42-52 % Mean Corpuscular Volume 107.7 80-100 fL Mean Corpuscular Hemoglobin 32.0 25-34 pg Mean Corpuscular Hemoglobin Concent 29.7 32-36 g/dl RDW Standard Deviation 70.6 36.4-46.3 fL RDW Coefficient of Variation 18.1 11.5-14.5 % Platelet Count 234 130-400 K/uL Mean Platelet Volume 10.5 7.4-10.4 fL Nucleated RBC Absolute Count (auto) 0.13 0-0 K/uL Nucleated Red Blood Cells % 0.7 % Sodium Level 133 136-145 mmol/L Potassium Level 5.3 3.5-5.1 mmol/L Chloride Level 94 98-107 mmol/L Carbon Dioxide Level 29 21-32 mmol/L Anion Gap 10.0 3-11 mmol/L Blood Urea Nitrogen 67 7-18 mg/dl Creatinine 6.80 0.60-1.40 mg/dl Est Creatinine Clear Calc Drug Dose 12.0 ml/min Estimated GFR () 8.9 Estimated GFR (Non- 7.6 BUN/Creatinine Ratio 9.6 10-20 Random Glucose 67 70-99 mg/dl Calcium Level 8.3 8.5-10.1 mg/dl Test 12/09/16 08:04 12/09/16 09:02 12/09/16 09:11 12/09/16 10:09 Range/Units Bedside Glucose 116 93 70-99 mg/dl Arterial Blood pH 7.17 7.35-7.45 Arterial Blood Partial Pressure CO2 80 35-46 mmHg Arterial Blood Partial Pressure O2 73 80-95 mm/Hg Arterial Blood HCO3 29 19-24 mmol/L Arterial Blood Oxygen Saturation 89.0 90-95 % Arterial Blood Base Excess -1.4 -9-1.8 mEq/L Arterial Blood Gas Delivery 4L Alberto Test POS Pass Blood Gas Sample Site R Radial Bedside Blood Gas pH (LAB) 7.19 7.35-7.45 Bedside Blood Gas pCO2 (LAB) 80 35-46 mmHg Bedside Blood Gas pO2 (LAB) 98 80-95 mmHg Bedside Blood Gas HCO3 (LAB) 30 19-24 meq/L Bedside Blood Gas Total CO2 33 24-31 mEq/l Bedside Blood Gas Base Excess (LAB) 2.0 -9-1.8 meq/L Bedside Blood Gas O2 Saturation 95.0 90-95 % Oxygen Delivery Device SimpleMask Test 12/09/16 10:17 12/09/16 12:01 12/09/16 14:42 12/09/16 15:33 Range/Units Bedside Glucose 80 79 70 70-99 mg/dl Blood Gas Sample Site R Radial Bedside Blood Gas pH (LAB) 7.27 7.35-7.45 Bedside Blood Gas pCO2 (LAB) 68 35-46 mmHg Bedside Blood Gas pO2 (LAB) 93 80-95 mmHg Bedside Blood Gas HCO3 (LAB) 31 19-24 meq/L Bedside Blood Gas Total CO2 33 24-31 mEq/l Bedside Blood Gas Base Excess (LAB) 4.0 -9-1.8 meq/L Bedside Blood Gas O2 Saturation 96.0 90-95 % Alberto Test Pass Oxygen Delivery Device BIPAP Bedside Oxygen Rate (breaths/min) 22 Bedside FiO2 40 % Blood Gas IPAP 14 Diagnostic Radiology CHEST ONE VIEW PORTABLE 12/09/2016 CLINICAL HISTORY: Hypoxia COMPARISON STUDY: 12/04/2016 FINDINGS: The heart remains enlarged. There are postsurgical changes of midline sternotomy. There is a right subclavian implantable defibrillator. There is radiographic evidence of mild pulmonary vascular congestion. There is a 9.8 cm pleural-based mass in left hemithorax with associated rib destruction. There are right basilar airspace opacities. These could be atelectatic, inflammatory, or business banking representative of focal edema. IMPRESSION: 1. 9.8 cm pleural-based mass in left hemithorax with associated rib destruction 2. Cardiomegaly and mild pulmonary vascular congestion 3. Right basilar airspace opacities CHEST CTA for PULMONARY ARTERIES 12/01/2016 CT DOSE: 715.29 mGy.cm HISTORY: Short of breath. TECHNIQUE: Multiaxial CT images of the chest were performed following the intravenous administration of contrast to evaluate the pulmonary arteries. Maximal intensity projection images were also obtained. A dose lowering technique was utilized adhering to the principles of ALARA. COMPARISON STUDY: Chest CT 10/01/2016. FINDINGS: Increase in size of the left lung mass which now measures 7.8 x 6.9 cm. This invades into the chest wall and results in erosion of the left third through sixth ribs. There is also a pathologic fracture involving the left fifth rib. Post anatomy changes. Right-sided pacemaker. No pneumothorax. No pleural effusions. Emphysema. Interval progression of the bilateral perihilar groundglass airspace opacities. No synovial change in the 2.9 x 2 point centimeter hypodense lesion within the right hepatic lobe. The stability favors a cyst but this is incompletely characterized on this noncontrast study. The spleen is within normal limits. Mild nodular thickening of the adrenal glands, unchanged. Stable mediastinal lymph nodes. Dominant subcarinal lymph node measures 2.6 x 1.0 cm. The heart remains mildly enlarged. Aortic valve prosthesis. Moderate calcified plaque within the aorta. No evidence for an aortic dissection. There is mass effect along the left pulmonary arteries from the left lung mass. No filling defects within the pulmonary arteries to suggest pulmonary embolus. IMPRESSION: 1. No evidence for pulmonary embolus. 2. Increase in size in the left lung mass with chest wall invasion and a erosion of the left third through sixth ribs. There is also pathologic fracture of the left fifth rib. 3. Bilateral perihilar groundglass airspace opacities have slightly progressed. 4. Stable cardiomegaly. TTE 12/04/2016 * -- Conclusions -- * 1. Mildly dilated LV. Normal LV wall thickness. * 2. Low normal LV function. LVEF 50-55%. Abnormal septal motion consistent with conduction abnormality. Akinesis of true apex. * 3. RV not well visualized. Reduced RV function by TAPSE. * 4. Bioprosthetic aortic valve not well visualized. Mildly elevated transvalvular gradients (PV 3.48 m/s, MG 28). Mild aortic regurgitation. * 5. Mild mitral regurgitation. Mild mitral stenosis. * 6. Grade II diastolic dysfunction. * 7. Mild to moderate pulmonary hypertension. Est PASP 45-50 mmHg. * 8. Compared with prior study on 07/21/2016: Pulmonary hypertension is new. Impression Assessment and Plan Squamous cell lung cancer with local invasion into ribs Hypercapnic respiratory failure Hypoxia End-stage renal disease on dialysis Combined diastolic and systolic CHF Elevated right heart pressures Mr. Tate this 66-year-old male with multiple medical problems. Most notable for a recent diagnosis of squamous cell lung cancer with invasion into ribs. He now presents with hypoxia and worsening chest pain most likely due to local progression of disease. Shortness of breath may also be secondary to fluid overload from end-stage renal disease, heart failure and elevated right heart pressures. Patient was being seen by cardiothoracic surgeon Dr. Solitario, this lesion was not amenable to surgery. He he is being followed by radiation oncology as well as oncology with hopes to start chemotherapy and radiation therapy upon discharge. Nonetheless, he been in an enormous amount of pain and has been on the substantial amount of narcotics and anxiolytics. I suppose with his poor kidney function and an inability to metabolize these drugs he had decreased respiratory drive with increased CO2. Leading to acute hypercapnic respiratory failure and CO2 narcosis. I do not think that this is a COPD exacerbation. This patient has responded somewhat to BiPAP and narcan. I have increased the settings. In the meantime, I would continue with BiPAP overnight. Try to maintain SaO2 > 92%. I would repeat ABG this evening. I would avoid sedatives and narcotics if at all possible. Consider pain consult. Continue with topical analgesia. Continue with duonebs. Taper and steroids and complete course of empiric antibiotics. Pneumonia is unlikely, but today's CXR does show increased density in the RLL. This may also be atelectasis. Encourage incentive spirometry I spoke with daughter at length about goals of care and she wanted her dad to be comfortable I placed a palliative care consult Hematology/oncology as well as radiation oncology on board and following regarding left lung mass I appreciate the consult and will continue to follow with you.
[2016-12-09 18:39] LABS: ISTAT ARTERIAL BLOOD GAS HCO3 31 meq/L (19-24); ISTAT ARTERIAL BLOOD GAS PCO2 69 mmHg (35-46); ISTAT ARTERIAL BLOOD GAS PO2 79 mmHg (80-95); ISTAT ARTERIAL BLOOD GAS pH 7.26 (7.35-7.45); ISTAT CARBON DIOXIDE 33 mEq/l (24-31); ISTAT HEMATOCRIT 32 % (42-52); ISTAT HEMOGLOBIN 10.9 g/dl (14.0-18.0); ISTAT SODIUM 134 mEq/L (135-144)
[2016-12-09] MEDS: ATORVASTATIN 40 MG TAB PO SCH (20:11)
[2016-12-10] VITALS (18 sets, daily range): BP systolic 90–120; BP diastolic 54–72; PULSE 60–75; TEMP 36.4–37.7; O2SAT 93–100
[2016-12-10] MEDS: LEVALBUTEROL 1.25MG/0.5ML NEB INH SCH ×4 (01:59→19:40)
[2016-12-10] MEDS: IPRATROPIUM BROMIDE NEB SOLN 0.02% 2.5 ML VIAL INH SCH ×4 (01:59→19:40)
[2016-12-10] MEDS: HEPARIN SOD 5000 UNIT/0.5 ML CARP SQ SCH ×3 (06:31→22:00)
[2016-12-10] MEDS: CLOTRIMAZOLE 10 MG TROCHE MT SCH ×5 (06:32→22:00)
[2016-12-10 06:40] LABS: BASO % 0.1 %; BASO ABS # 0.01 K/uL (0-0.2); COMPLETE YES; EOS % 0.8 %; HEMATOCRIT 34.6 % (42-52); IG% 0.7 %; LYMPH ABS # 0.45 K/uL (1.2-3.4); MEAN CELL VOLUME 108.8 fL (80-100); MEAN CORPUSCULAR HEMOGLOBIN 32.4 pg (25-34); MEAN CORPUSCULAR HGB CONC 29.8 g/dl (32-36); MEAN PLATELET VOLUME 10.6 fL (7.4-10.4); MONO % 5.5 %; NEUT % 89.9 %; PLATELET COUNT 194 K/uL (130-400); RED BLOOD COUNT 3.18 M/uL (4.7-6.1); WHITE BLOOD COUNT 15.15 K/uL (4.8-10.8)
[2016-12-10 07:20] LABS: BUN/CREATININE RATIO 9.2 (10-20); CALCIUM 7.8 mg/dl (8.5-10.1); CREATININE 5.3 mg/dl (0.60-1.40); MAGNESIUM 2.4 mg/dl (1.8-2.4); POTASSIUM 4.9 mmol/L (3.5-5.1)
[2016-12-10] MEDS: CALCIUM ACETATE 667MG GELCAP PO SCH ×3 (07:34→16:45)
[2016-12-10] MEDS: ASPIRIN 81 MG ECTAB PO SCH (07:35)
[2016-12-10] MEDS: GUAIFENESIN 600 MG TABCR PO SCH ×2 (07:35→21:42)
[2016-12-10] MEDS: AMIODARONE 200 MG TAB PO SCH ×2 (07:35→21:41)
[2016-12-10] MEDS: PANTOprazole SOD 40 MG TAB PO SCH (07:36)
[2016-12-10] MEDS: NEPHROCAPS PO SCH (07:36)
[2016-12-10] MEDS: PAROXETINE 20 MG TAB PO SCH (07:37)
[2016-12-10] MEDS ORDERED: ALPRAZOLAM 0.5 MG TAB PO SCH (08:00)
[2016-12-10] MEDS: INSULIN ASPART 100 UNITS/ML 3 ML PEN SC SCH ×4 (08:20→21:00)
[2016-12-10] MEDS: LIDODERM (LIDOCAINE) PATCH 5% TD SCH (11:10)
[2016-12-10] MEDS: NALOXONE HCL 0.4 MG/1 ML VIAL/CARP IV PRN (11:52)
[2016-12-10] MEDS ORDERED: EPOETIN ALFA 10,000 UNITS/ML VIAL IV. ONE (12:00)
--- NOTE | 2016-12-10 12:42 | PROGRESS NOTE ---
DATE: 12/10/2016 SUBJECTIVE: Mr. Tate is complaining this morning of some discomfort and mild shortness of breath. In general, he feels agitated. His family was with him at the time of my visit. He seemed to respond nicely to a bolus of Narcan last night and maintained his oxygen saturations. However, his last blood gases still showed a pCO2 in the range of about 70. OBJECTIVE: GENERAL: When seen by me, he was quite lethargic, but responsive. He did not carry on a significant conversation. VITAL SIGNS: He is afebrile (36.4), his pulse 75 and regular, respiratory rate 18, his pulse ox 98% on nasal oxygen and his blood pressure 120/72. SKIN: Shows normal skin turgor. There is no rash or infiltrative skin disease. He has scars from prior surgical procedures. There is minimal changes of venous stasis dermatitis on his lower extremities. He has a left forearm AV fistula. LYMPHATICS: Show no palpable lymphadenopathy. HEAD: Normal. EYES: Grossly normal. His pupils are responsive to light, but sluggishly so. The fundi were not examined. EARS, NOSE, MOUTH AND THROAT: Unremarkable. His oral mucous membranes are moist. NECK: Supple. He has no jugular venous distention. The exam is limited by his body habitus. I hear no carotid bruit and there is no thyromegaly. He does have some fullness in the supraclavicular fossa bilaterally, right more prominent than the left, but no definite adenopathy is noted at that site. CHEST: Shows diminished breath sounds bilaterally, left worse than right. I hear no wheezes or rhonchi today. CARDIAC: Shows a regular rhythm. S1 and S2 are normal. He has a systolic murmur at the base. It radiates toward the neck. ABDOMEN: Protuberant, but nontender. There is no organomegaly or mass. EXTREMITIES: Showed a left forearm AV fistula with a good pulse, thrill and bruit. He has no lower extremity edema. NEUROLOGIC: Showed him to be lethargic. He was not having myoclonic jerks. He has no lateralizing neurologic changes. PERTINENT LABORATORY WORK: From today shows a white count of 15,150 with 89.9% neutrophils, 3% lymphocytes, 5.5% monocytes, 0.8% eosinophils and 0.1% basophils. His hemoglobin is 10.3, his hematocrit 34.6, and his platelet count 194,000. Clinical chemistries show a sodium of 135 mmol/L, potassium 4.9 mmol/L, chloride 97 mmol/L, CO2 content 30 mmol/L, his BUN is 49, creatinine 5.30 and blood sugars vary from 75 to 88. His serum calcium is 7.8. His magnesium 2.4. His most recent blood gases were last night at 06:00 p.m. with a pH of 7.26, pCO2 of 69 and a pO2 of 79. ASSESSMENT: Mr. Tate was obviously quite lethargic. I think that this continues to be the effects of his morphine. The metabolites of morphine will be slowly ____, but it will take probably the next 2-4 days to do so. He has responded to Narcan in the past. RECOMMENDATIONS: I gave him another Naloxone bolus of 0.4 mg. That seemed to significantly improve his mental status. He still complained. Given the fact that it is likely that this will go on for the next 2-4 days, I think it may be worthwhile trying him on a low dose Narcan drip to see if that will sustain and keep him awake. I discussed this with Dr. Bowden and she agrees. The order has been placed. We will still plan on his regular hemodialysis tomorrow.
[2016-12-10] MEDS ORDERED: NALOXONE HCL 0.4 MG/1 ML VIAL/CARP IV ONE (12:45)
[2016-12-10 12:48] LABS: ISTAT ALLEN TEST Pass; ISTAT ARTERIAL BLOOD GAS HCO3 29 meq/L (19-24); ISTAT ARTERIAL BLOOD GAS PCO2 50 mmHg (35-46); ISTAT ARTERIAL BLOOD GAS PO2 78 mmHg (80-95); ISTAT ARTERIAL BLOOD GAS pH 7.37 (7.35-7.45); ISTAT CARBON DIOXIDE 30 mEq/l (24-31); ISTAT DELIVERY SYSTEM Cannula; ISTAT SITE R Radial
--- NOTE | 2016-12-10 12:49 | Pulmonology Progress Note ---
Pulmonary Progress Note Date of Service Dec 10, 2016. Attending Dr. Charlie Herring I had a conversation with the patient's daughter. The patient is very lethargic today and answers only very direct questions. He answers with breif yes/no answers. The patient states that he has no chest pain currently. No abdominal pain, but is SOB. He has nasal cannula O2 in place currently. Patient's daughter has multiple concerns. 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 Images viewed. Cardiomegaly, pulmonary vascular congestion, and right basilar opacity also noted. Reviewed inpatient medications: Patient received 3 doses of Naloxone last night Continues 30 mg Prednisone daily Levaquin 500 mg daily Paxil 40 mg daily Atrovent, Xopenex Amiodarone Tylenol, Lidoderm patch Objective VS Reviewed: Patient had been on BiPAP with FiO2 of 40. His SaO2 last night and this morning has been 96-98%. BP between 93/54- 103/62 HR 61-65 Temp up to 37.7 C last night. General: Patient is lethargic. Does not answer many questions or make conversation. Answers direct questions with brief yes/no answers. Head: Normocephalic, Atraumatic. ENT: PERRLA, No discharge, EOMI, Sclera normal Neck: Normal ROM. Trachea midline. No stridor Respiratory: Coarse breath sounds heard throughout, decreased breath sounds bases. Nasal cannula O2 in place. Cardiovascular: Regular rate and rhythm. Harsh systolic murmur appreciated Abdomen: Nontender to palpation. Normal bowel sounds hear throughout. No guarding. Abdomen is soft and nontender Extremities: No edema, cyanosis. 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 His mental status is altered again this morning. Note repeat ABG pending for this morning. Patient has been on BiPAP over night. Currently on nasal cannula O2 to try to eat lunch. Patient given another dose of Narcan given at 12:24- slightly improved mental status. Narcan drip also pending. ABG performed by Dr. Guerra during examination- POC ABG completed. Improved pCO2 of 51.2. Patient is not a candidate for tumor resection. Patient's daughter states that the patient does not want chemotherapy, but likely would do palliative radiation therapy. May also need to contain Pain Management if patient continue to have chest pain from large mass. It appears most likely that patient's hypercapnic respiratory failure is due to narcotic analgesics, but continue to monitor. Continue to avoid narcotics and sedatives if possible. Pain management consultation should be considered if continued pain not well controlled on topicals/Tylenol Continue BiPAP and O2 supplementation to maintain SaO2 >92%. Continue Duonebs. Taper steroids and completed empiric antibiotics (at least 5 days) though pneumonia seems unlikely. Encourage incentive spirometry. Palliative care consultation pending. Hematology/Oncology following. Pulmonary will follow. Data Medications: Current Inpatient Medications Medications (Trade) Dose Ordered Sig/Lex Route Start Time Stop Time Status Last Admin Dose Admin Nitroglycerin (Nitrostat Tab) 0.4 mg UD PRN SL 12/04/16 20:15 01/03/17 20:14 Ondansetron HCl (Zofran Inj) 4 mg Q6H PRN IV 12/04/16 20:15 01/03/17 20:14 12/08/16 12:23 4 MG Insulin Aspart (novoLOG ASPART) SLIDING SCAL... ACHS SC 12/04/16 21:00 01/03/17 20:59 12/06/16 18:23 4 UNITS Glucose (Glucose 40% Gel) UD PRN PO 12/04/16 20:15 01/03/17 20:14 Glucose (Glucose Chew Tab) 1 tabs UD PRN PO 12/04/16 20:15 01/03/17 20:14 Dextrose (Dextrose 50% 50ML Syringe) 50 ml UD PRN IV 12/04/16 20:15 01/03/17 20:14 12/09/16 15:40 25 ML Glucagon (Glucagon Inj) 1 mg UD PRN SQ 12/04/16 20:15 01/03/17 20:14 Acetaminophen 100 ml @ 400 mls/hr Q8H PRN IV 12/04/16 20:15 01/03/17 20:14 Acetaminophen (Tylenol Tab) 650 mg Q4 PRN PO 12/04/16 20:15 01/03/17 20:14 Alprazolam (Xanax Tab) 1 mg HS PO 12/04/16 21:00 01/03/17 20:59 Future Hold 12/04/16 22:20 1 MG Amiodarone HCl (Cordarone Tab) 100 mg BID PO 12/04/16 21:00 01/03/17 20:59 12/10/16 07:35 100 MG Aspirin (Ecotrin Tab) 81 mg DAILY PO 12/05/16 09:00 01/04/17 08:59 12/10/16 07:35 81 MG Atenolol (Tenormin Tab) 12.5 mg QD@1230 PO 12/05/16 12:30 01/04/17 12:29 12/08/16 13:36 12.5 MG Atorvastatin Calcium (Lipitor Tab) 80 mg QPM PO 12/04/16 21:00 01/03/17 20:59 12/09/16 20:11 80 MG Buspirone HCl (Buspar Tab) 10 mg TID PO 12/04/16 21:00 01/03/17 20:59 Future hold 12/10/16 07:35 10 MG Calcium Acetate (Phoslo Cap) 2,001 mg TIDM PO 12/05/16 07:30 01/04/17 07:59 12/10/16 11:11 2,001 MG Folic Acid (Folvite Tab) 1 mg QD@1230 PO 12/05/16 12:30 01/04/17 12:29 12/10/16 07:35 1 MG Pantoprazole Sodium (Protonix Tab) 40 mg DAILY PO 12/05/16 09:00 01/04/17 08:59 12/10/16 07:36 40 MG Paroxetine HCl (pAXil TAB) 40 mg QAM PO 12/05/16 09:00 01/04/17 08:59 12/10/16 07:37 40 MG Vitamin B Complex/ Vit C/Folic Acid (Nephrocaps) 1 cap DAILY PO 12/05/16 09:00 01/04/17 08:59 12/10/16 07:36 1 CAP Miscellaneous Information (Order Awaiting Action) 1 ea QS PO 12/05/16 00:00 01/04/17 00:00 12/10/16 00:00 1 EA Guaifenesin (Mucinex Contr Rel Tab) 600 mg BID PO 12/05/16 09:00 01/04/17 08:59 12/10/16 07:35 600 MG Ipratropium [place] (Atrovent 0.02% 0.5MG/2.5ML Neb) 0.5 mg Q6R INH 12/05/16 03:00 01/04/17 02:59 12/10/16 07:24 0.5 MG Levalbuterol (Xopenex 1.25MG/ 0.5ML Neb) 1.25 mg Q6R INH 12/05/16 03:00 01/04/17 02:59 12/10/16 07:24 1.25 MG Lidocaine (Lidoderm Patch 5%) 1 patch DAILY@09 TD 12/05/16 09:00 01/04/17 08:59 12/10/16 11:10 1 PATCH Miscellaneous (Remove Lidoderm Patch) 1 ea DAILY@2100 N/A 12/05/16 21:00 01/04/17 20:59 12/08/16 20:59 1 EA Levofloxacin (Levaquin Tab) 500 mg Q2D@11 PO 12/07/16 11:00 12/14/16 10:59 12/07/16 14:18 500 MG Heparin Sodium (Porcine) (Heparin Sq 5000 Unit/0.5ml) 5,000 unit Q8 SQ 12/07/16 22:00 01/06/17 21:59 12/10/16 06:31 5,000 UNIT Prednisone (PredniSONE TAB) 30 mg QAM PO 12/09/16 08:00 01/05/17 08:59 12/10/16 07:36 30 MG Alprazolam (Xanax Tab) 0.5 mg QAM PO 12/10/16 08:00 01/03/17 20:59 Future Hold 12/09/16 09:18 0.5 MG Clotrimazole (Mycelex 10MG Reena) 1 reena [id number] MT 12/09/16 11:00 12/19/16 10:59 12/10/16 11:11 1 REENA Naloxone HCl (Narcan Inj) 0.4 mg Q1H PRN IV 12/09/16 11:45 10/13/17 11:44 12/09/16 21:38 0.4 MG Vital Signs: Date Time Temp Pulse Resp B/P (MAP) Pulse Ox O2 Delivery O2 Flow Rate FiO2 12/10/16 11:44 36.4 75 18 120/72 (88) 98 BiPAP 40 12/10/16 07:49 103/62 (76) 12/10/16 07:24 65 16 96 BiPAP/CPAP 40 12/10/16 07:14 36.9 65 20 99/62 (74) 95 BiPAP 40 12/10/16 04:00 36.7 63 20 93/54 (67) 97 BiPAP 40 12/10/16 04:00 97 BiPAP 40 12/10/16 02:00 61 98 40 12/10/16 01:59 61 14 98 BiPAP/CPAP 40 12/10/16 00:01 37.7 66 16 90/68 (75) 96 BiPAP 40 12/09/16 23:59 BiPAP 40 12/09/16 23:01 60 19 105/48 (67) 96 12/09/16 22:01 60 21 116/51 (72) 98 12/09/16 21:01 61 19 95/49 (64) 96 12/09/16 20:03 36.6 68 16 89/49 (62) 99 BiPAP 99 12/09/16 20:00 BiPAP 40 12/09/16 19:57 69 98 40 12/09/16 19:43 70 18 97 BiPAP/CPAP 40 12/09/16 16:00 36.6 63 16 112/50 (70) 99 BiPAP 40 12/09/16 16:00 99 BiPAP 40 12/09/16 15:43 95 40 12/09/16 15:42 62 18 98 BiPAP/CPAP 40 12/09/16 13:31 60 99/51 12/09/16 13:15 63 101/52 12/09/16 13:00 60 95/47 12/09/16 12:49 61 86/46 12/09/16 12:45 61 75/46 12/09/16 12:31 63 88/44 12/09/16 12:21 62 121/59 12/09/16 12:01 61 103/55 12/09/16 12:00 98 Oxymask 40 BiPAP Laboratory Results: Last 24 Hours Test 12/09/16 12:01 12/09/16 14:42 12/09/16 15:33 12/09/16 15:56 Bedside Glucose 79 mg/dl 70 mg/dl 101 mg/dl Blood Gas Sample Site R Radial Bedside Blood Gas pH (LAB) 7.27 Bedside Blood Gas pCO2 (LAB) 68 mmHg Bedside Blood Gas pO2 (LAB) 93 mmHg Bedside Blood Gas HCO3 (LAB) 31 meq/L Bedside Blood Gas Total CO2 33 mEq/l Bedside Blood Gas Base Excess (LAB) 4.0 meq/L Bedside Blood Gas O2 Saturation 96.0 % Alberto Test Pass Oxygen Delivery Device BIPAP Bedside Oxygen Rate (breaths/min) 22 Bedside FiO2 40 % Blood Gas IPAP 14 Test 12/09/16 18:28 12/09/16 20:07 12/09/16 23:24 12/10/16 06:26 Bedside Hemoglobin 10.9 g/dl Bedside Hematocrit 32 % Bedside Blood Gas pH (LAB) 7.26 Bedside Blood Gas pCO2 (LAB) 69 mmHg Bedside Blood Gas pO2 (LAB) 79 mmHg Bedside Blood Gas HCO3 (LAB) 31 meq/L Bedside Blood Gas Total CO2 33 mEq/l Bedside Blood Gas Base Excess (LAB) 4.0 meq/L Bedside Blood Gas O2 Saturation 93.0 % Bedside Sodium 134 mEq/L Bedside Potassium 4.2 mEq/L Bedside Glucose 90 mg/dl 87 mg/dl 75 mg/dl White Blood Count 15.15 K/uL Red Blood Count 3.18 M/uL Hemoglobin 10.3 g/dL Hematocrit 34.6 % Mean Corpuscular Volume 108.8 fL Mean Corpuscular Hemoglobin 32.4 pg Mean Corpuscular Hemoglobin Concent 29.8 g/dl Platelet Count 194 K/uL Mean Platelet Volume 10.6 fL Neutrophils (%) (Auto) 89.9 % Lymphocytes (%) (Auto) 3.0 % Monocytes (%) (Auto) 5.5 % Eosinophils (%) (Auto) 0.8 % Basophils (%) (Auto) 0.1 % Neutrophils # (Auto) 13.62 K/uL Lymphocytes # (Auto) 0.45 K/uL Monocytes # (Auto) 0.84 K/uL Eosinophils # (Auto) 0.12 K/uL Basophils # (Auto) 0.01 K/uL RDW Standard Deviation 70.5 fL RDW Coefficient of Variation 18.1 % Immature Granulocyte % (Auto) 0.7 % Immature Granulocyte # (Auto) 0.11 K/uL Nucleated RBC Absolute Count (auto) 0.14 K/uL Nucleated Red Blood Cells % 0.9 % Sodium Level 135 mmol/L Potassium Level 4.9 mmol/L Chloride Level 97 mmol/L Carbon Dioxide Level 30 mmol/L Anion Gap 8.0 mmol/L Blood Urea Nitrogen 49 mg/dl Creatinine 5.30 mg/dl Est Creatinine Clear Calc Drug Dose 15.3 ml/min Estimated GFR () 12.0 Estimated GFR (Non- 10.3 BUN/Creatinine Ratio 9.2 Random Glucose 79 mg/dl Calcium Level 7.8 mg/dl Magnesium Level 2.4 mg/dl Test 12/10/16 08:26 12/10/16 11:05 Bedside Glucose 85 mg/dl 88 mg/dl
[2016-12-10] MEDS ORDERED: NALOXONE HCL INJ 5 MG in SODIUM CHLORIDE 0.9% 100ML 100 ML IV SCH (13:00)
[2016-12-10] MEDS: ACETAMINOPHEN IV 100 ML IV PRN (15:00)
--- NOTE | 2016-12-10 16:12 | Palliative Care Consultation ---
Consultation Date of Consultation: Dec 10, 2016. Requesting Physician: Dr. Guerra Attending Physician: Dr. Bowden, Dr. Roberts Reason for Consultation: Goals of care History of Present Illness This 66 year old male patient presented to the hospital with c/o worsening SOB for about four days prior to arrival. He has an extensive PMH as outlined below. HPI obtained from record, patient and his daughter Leonor, who is at bedside. patient was found to have FDG avid mass in left lung with local invasion into ribs 4-5 a few months ago. A biopsy was performed in October 2016 which showed squamous cell carcinoma, there were plans for radiation and possibly chemo. Patient also has ESRD on dialysis for the last 10 years. Recently, patient is becoming more weak with poor appetite and energy level. He lives home alone but he and his daughter both state that it is becoming harder for him to do so. Mr. Tate is admitted to hospital now for respiratory failure, requiring bipap on/off. Ph on arrival to hospital was 7.19, CO2 80- both improved now to 7.37 and 50. He is on multiple IV abx and nebulizer treatments. Patient was experiencing a great deal of pain in left side/ribs, so he was started on morphine PO and IV. Given his renal disease, he became quite lethargic with altered mental status. Narcan bolus was given last night and today, he is now on continuous narcan infusion. Patient is now awake and tell his daughter that he wants to be made comfortable and stop all life-prolonging treatment, including dialysis. Palliative care consulted and asked to speak with patient and his daughter. I met with the patient and Leonor in room 220. Patient is awake and oriented x4. He is moaning and appears very uncomfortable, however he denies that he is having any pain. States, "I'm just tired." Leonor says that he has been on dialysis for 10 years and has struggled with depression/anxiety for quite a long time. She has been noticing that patient's depression has increased since his lung cancer diagnosis. She agrees that he seems tired and has been struggling with the fact that he really isn't able to live alone any more. Patient states he does not want to continue with dialysis and he does not want radiation or chemo for the cancer. I was clear in the fact that if dialysis is stopped, he will pass away in the near future. He verbalized understanding, as well his daughter. We discussed code status, patient wants to be a DNR. Social History Smoking Status: Former Smoker History of Alcohol Use: No Drug Use: none Marital Status: Housing Status: lives alone, jail Occupation Status: retired Review of Systems Constitutional: + weakness, + fatigue Respiratory: + shortness of breath, + dyspnea on exertion, No cough, No wheezing Cardiac: No chest pain Abdomen: No pain, No nausea, No vomiting Musculoskeletal: + problem reported (left side/rib pain) Psychiatric: + depression symptoms Allergies Coded Allergies: No Known Allergies (Verified , 12/04/16) Medications Current Inpatient Medications Medications (Trade) Dose Ordered Sig/Lex Route Start Time Stop Time Status Last Admin Dose Admin Nitroglycerin (Nitrostat Tab) 0.4 mg UD PRN SL 12/04/16 20:15 01/03/17 20:14 Ondansetron HCl (Zofran Inj) 4 mg Q6H PRN IV 12/04/16 20:15 01/03/17 20:14 12/08/16 12:23 4 MG Insulin Aspart (novoLOG ASPART) SLIDING SCAL... ACHS SC 12/04/16 21:00 01/03/17 20:59 12/06/16 18:23 4 UNITS Glucose (Glucose 40% Gel) UD PRN PO 12/04/16 20:15 01/03/17 20:14 Glucose (Glucose Chew Tab) 1 tabs UD PRN PO 12/04/16 20:15 01/03/17 20:14 Dextrose (Dextrose 50% 50ML Syringe) 50 ml UD PRN IV 12/04/16 20:15 01/03/17 20:14 12/09/16 15:40 25 ML Glucagon (Glucagon Inj) 1 mg UD PRN SQ 12/04/16 20:15 01/03/17 20:14 Acetaminophen 100 ml @ 400 mls/hr Q8H PRN IV 12/04/16 20:15 01/03/17 20:14 Acetaminophen (Tylenol Tab) 650 mg Q4 PRN PO 12/04/16 20:15 01/03/17 20:14 Alprazolam (Xanax Tab) 1 mg HS PO 12/04/16 21:00 01/03/17 20:59 Future Hold 12/04/16 22:20 1 MG Amiodarone HCl (Cordarone Tab) 100 mg BID PO 12/04/16 21:00 01/03/17 20:59 12/10/16 07:35 100 MG Aspirin (Ecotrin Tab) 81 mg DAILY PO 12/05/16 09:00 01/04/17 08:59 12/10/16 07:35 81 MG Atenolol (Tenormin Tab) 12.5 mg QD@1230 PO 12/05/16 12:30 01/04/17 12:29 12/10/16 11:52 12.5 MG Atorvastatin Calcium (Lipitor Tab) 80 mg QPM PO 12/04/16 21:00 01/03/17 20:59 12/09/16 20:11 80 MG Buspirone HCl (Buspar Tab) 10 mg TID PO 12/04/16 21:00 01/03/17 20:59 Future hold 12/10/16 12:56 10 MG Calcium Acetate (Phoslo Cap) 2,001 mg TIDM PO 12/05/16 07:30 01/04/17 07:59 12/10/16 11:11 2,001 MG Folic Acid (Folvite Tab) 1 mg QD@1230 PO 12/05/16 12:30 01/04/17 12:29 12/10/16 07:35 1 MG Pantoprazole Sodium (Protonix Tab) 40 mg DAILY PO 12/05/16 09:00 01/04/17 08:59 12/10/16 07:36 40 MG Paroxetine HCl (pAXil TAB) 40 mg QAM PO 12/05/16 09:00 01/04/17 08:59 12/10/16 07:37 40 MG Vitamin B Complex/ Vit C/Folic Acid (Nephrocaps) 1 cap DAILY PO 12/05/16 09:00 01/04/17 08:59 12/10/16 07:36 1 CAP Miscellaneous Information (Order Awaiting Action) 1 ea QS PO 12/05/16 00:00 01/04/17 00:00 12/10/16 00:00 1 EA Guaifenesin (Mucinex Contr Rel Tab) 600 mg BID PO 12/05/16 09:00 01/04/17 08:59 12/10/16 07:35 600 MG Ipratropium [place] (Atrovent 0.02% 0.5MG/2.5ML Neb) 0.5 mg Q6R INH 12/05/16 03:00 01/04/17 02:59 12/10/16 14:20 0.5 MG Levalbuterol (Xopenex 1.25MG/ 0.5ML Neb) 1.25 mg Q6R INH 12/05/16 03:00 01/04/17 02:59 12/10/16 14:20 1.25 MG Lidocaine (Lidoderm Patch 5%) 1 patch DAILY@09 TD 12/05/16 09:00 01/04/17 08:59 12/10/16 11:10 1 PATCH Miscellaneous (Remove Lidoderm Patch) 1 ea DAILY@2100 N/A 12/05/16 21:00 01/04/17 20:59 12/08/16 20:59 1 EA Levofloxacin (Levaquin Tab) 500 mg Q2D@11 PO 12/07/16 11:00 12/14/16 10:59 12/07/16 14:18 500 MG Heparin Sodium (Porcine) (Heparin Sq 5000 Unit/0.5ml) 5,000 unit Q8 SQ 12/07/16 22:00 01/06/17 21:59 12/10/16 13:05 5,000 UNIT Prednisone (PredniSONE TAB) 30 mg QAM PO 12/09/16 08:00 01/05/17 08:59 12/10/16 07:36 30 MG Alprazolam (Xanax Tab) 0.5 mg QAM PO 12/10/16 08:00 01/03/17 20:59 Future Hold 12/09/16 09:18 0.5 MG Clotrimazole (Mycelex 10MG Reena) 1 reena [id number] MT 12/09/16 11:00 12/19/16 10:59 12/10/16 11:11 1 REENA Naloxone HCl (Narcan Inj) 0.4 mg Q1H PRN IV 12/09/16 11:45 01/08/17 11:44 12/10/16 11:52 0.4 MG Heparin Sodium (Porcine) (Heparin Iv Bolus) 2,000 unit TODAY@0800 IV 12/11/16 08:00 12/11/16 18:00 Sodium Chloride 1,000 ml @ 0 mls/hr Q0M PRN IV 12/11/16 08:00 12/11/16 18:00 Naloxone HCl 5 mg/ Sodium Chloride 112.5 ml @ 5 mls/hr [id number] IV 12/10/16 13:00 01/09/17 12:59 12/10/16 13:06 5 MLS/HR Epoetin Dat 53542 units/ Syringe 0.75 ml @ 1 mls/min DAILY@0800 IV. 12/11/16 08:00 12/11/16 18:00 Physical Exam Date Time Temp Pulse Resp B/P (MAP) Pulse Ox O2 Delivery O2 Flow Rate FiO2 12/10/16 14:23 68 18 97 Nasal Cannula 4.0 12/10/16 14:19 68 16 116/68 (84) 96 4.0 12/10/16 14:00 62 16 111/69 (83) 100 4.0 12/10/16 13:45 60 20 104/62 (76) 99 4.0 12/10/16 13:28 66 16 100/58 (72) 98 4.0 12/10/16 13:14 64 18 102/68 (79) 100 4.0 12/10/16 12:55 61 16 102/60 (74) 98 12/10/16 11:44 36.4 75 18 120/72 (88) 98 BiPAP 40 12/10/16 07:49 103/62 (76) 12/10/16 07:24 65 16 96 BiPAP/CPAP 40 12/10/16 07:14 36.9 65 20 99/62 (74) 95 BiPAP 40 12/10/16 04:00 36.7 63 20 93/54 (67) 97 BiPAP 40 12/10/16 04:00 97 BiPAP 40 12/10/16 02:00 61 98 40 12/10/16 01:59 61 14 98 BiPAP/CPAP 40 12/10/16 00:01 37.7 66 16 90/68 (75) 96 BiPAP 40 12/09/16 23:59 BiPAP 40 12/09/16 23:01 60 19 105/48 (67) 96 12/09/16 22:01 60 21 116/51 (72) 98 12/09/16 21:01 61 19 95/49 (64) 96 12/09/16 20:03 36.6 68 16 89/49 (62) 99 BiPAP 99 12/09/16 20:00 BiPAP 40 12/09/16 19:57 69 98 40 12/09/16 19:43 70 18 97 BiPAP/CPAP 40 12/09/16 16:00 36.6 63 16 112/50 (70) 99 BiPAP 40 12/09/16 16:00 99 BiPAP 40 12/09/16 15:43 95 40 12/09/16 15:42 62 18 98 BiPAP/CPAP 40 General Appearance: no apparent distress, + obese ENT: hearing grossly normal Neck: supple, no JVD Respiratory: no respiratory distress, + decreased breath sounds, + accessory muscle use (mild) Cardiovascular: regular rate, rhythm, no edema Abdomen: normal bowel sounds, non tender, soft (obese abdomen) Neurologic/Psychiatric: alert, oriented x 3 Laboratory Results Last 24 Hours Test 12/09/16 15:33 12/09/16 15:56 12/09/16 18:28 12/09/16 20:07 Bedside Glucose 70 mg/dl 101 mg/dl 90 mg/dl Bedside Hemoglobin 10.9 g/dl Bedside Hematocrit 32 % Bedside Blood Gas pH (LAB) 7.26 Bedside Blood Gas pCO2 (LAB) 69 mmHg Bedside Blood Gas pO2 (LAB) 79 mmHg Bedside Blood Gas HCO3 (LAB) 31 meq/L Bedside Blood Gas Total CO2 33 mEq/l Bedside Blood Gas Base Excess (LAB) 4.0 meq/L Bedside Blood Gas O2 Saturation 93.0 % Bedside Sodium 134 mEq/L Bedside Potassium 4.2 mEq/L Test 12/09/16 23:24 12/10/16 06:26 12/10/16 08:26 12/10/16 11:05 Bedside Glucose 87 mg/dl 75 mg/dl 85 mg/dl 88 mg/dl White Blood Count 15.15 K/uL Red Blood Count 3.18 M/uL Hemoglobin 10.3 g/dL Hematocrit 34.6 % Mean Corpuscular Volume 108.8 fL Mean Corpuscular Hemoglobin 32.4 pg Mean Corpuscular Hemoglobin Concent 29.8 g/dl Platelet Count 194 K/uL Mean Platelet Volume 10.6 fL Neutrophils (%) (Auto) 89.9 % Lymphocytes (%) (Auto) 3.0 % Monocytes (%) (Auto) 5.5 % Eosinophils (%) (Auto) 0.8 % Basophils (%) (Auto) 0.1 % Neutrophils # (Auto) 13.62 K/uL Lymphocytes # (Auto) 0.45 K/uL Monocytes # (Auto) 0.84 K/uL Eosinophils # (Auto) 0.12 K/uL Basophils # (Auto) 0.01 K/uL RDW Standard Deviation 70.5 fL RDW Coefficient of Variation 18.1 % Immature Granulocyte % (Auto) 0.7 % Immature Granulocyte # (Auto) 0.11 K/uL Nucleated RBC Absolute Count (auto) 0.14 K/uL Nucleated Red Blood Cells % 0.9 % Sodium Level 135 mmol/L Potassium Level 4.9 mmol/L Chloride Level 97 mmol/L Carbon Dioxide Level 30 mmol/L Anion Gap 8.0 mmol/L Blood Urea Nitrogen 49 mg/dl Creatinine 5.30 mg/dl Est Creatinine Clear Calc Drug Dose 15.3 ml/min Estimated GFR () 12.0 Estimated GFR (Non- 10.3 BUN/Creatinine Ratio 9.2 Random Glucose 79 mg/dl Calcium Level 7.8 mg/dl Magnesium Level 2.4 mg/dl Test 12/10/16 12:36 Blood Gas Sample Site R Radial Bedside Blood Gas pH (LAB) 7.37 Bedside Blood Gas pCO2 (LAB) 50 mmHg Bedside Blood Gas pO2 (LAB) 78 mmHg Bedside Blood Gas HCO3 (LAB) 29 meq/L Bedside Blood Gas Total CO2 30 mEq/l Bedside Blood Gas Base Excess (LAB) 3.0 meq/L Bedside Blood Gas O2 Saturation 95.0 % Alberto Test Pass Oxygen Delivery Device Cannula Assessment & Plan Palliative Performance Scale: 30 % Problem list: SOB Pain, left side Weakness Poor appetite Respiratory failure, hypercapnic Squamous cell carcinoma of the lung- 9.8cm mass on left End-stage renal disease on dialysis Goals of care (Z51.5) Palliative care recs: -Patient would like to be DNR, his daughter supports this decision. -He has made the decision to stop dialysis and does not want to go through with any further treatment for the lung cancer such as chemo or radiation. Patient's goal is to peacefully. -I recommended to the patient and daughter, Leonor, to have a conversation with patient's primary physician, Dr. Roberts, who knows this patient very well, about Sarabjit's wishes. They both agreed, Dr. Bowden to let Dr. Roberts know. -Further recommendations to be determined based on patient's final decision. -Patient denies pain, but appears quite uncomfortable. He agreed to take IV Tylenol for now. -Narcan infusion continues. Thank you for allowing me to participate in the care of this nice patient and his family. I will follow.
[2016-12-10] MEDS ORDERED: NURSING VERBAL MED ORDER ONE (17:00)
[2016-12-10] MEDS ORDERED: MoRPHine SULFATE IR 15 MG TAB (IMMEDIATE RELEASE) PO PRN (19:30)
--- NOTE | 2016-12-10 19:48 | Hospitalist Progress Note ---
Hospitalist Progress Note Date of Service Dec 10, 2016. Subjective Pt evaluation today including: conversation w/ patient, conversation w/ family (daughter Leonor) Pt was more lethargic this AM and started on Narcan gtt after I d/w Dr. Roberts. He was then having a lot of pain in his left ribs. Palliative Care saw pt and daughters and had long discussion. Pt has made it clear then and reconfirmed to me that he does not want to continue dialysis, he does not want any treatment for his lung CA. He only wants to be made comfortable. His daughter Leonor agrees and wants whatever her dad wants. Abdomen: + problem reported (low appetite), No nausea Musculoskeletal: + muscle pain (in left rib cage) All Other Systems: Reviewed and Negative Objective Vital Signs Date Time Temp Pulse Resp B/P (MAP) Pulse Ox O2 Delivery O2 Flow Rate FiO2 12/10/16 15:31 36.7 69 18 93/54 (67) 96 4.0 12/10/16 14:23 68 18 97 Nasal Cannula 4.0 12/10/16 14:19 68 16 116/68 (84) 96 4.0 12/10/16 14:00 62 16 111/69 (83) 100 4.0 12/10/16 13:45 60 20 104/62 (76) 99 4.0 12/10/16 13:28 66 16 100/58 (72) 98 4.0 12/10/16 13:14 64 18 102/68 (79) 100 4.0 12/10/16 12:55 61 16 102/60 (74) 98 12/10/16 11:44 36.4 75 18 120/72 (88) 98 BiPAP 40 12/10/16 07:49 103/62 (76) 12/10/16 07:24 65 16 96 BiPAP/CPAP 40 12/10/16 07:14 36.9 65 20 99/62 (74) 95 BiPAP 40 12/10/16 04:00 36.7 63 20 93/54 (67) 97 BiPAP 40 12/10/16 04:00 97 BiPAP 40 12/10/16 02:00 61 98 40 12/10/16 01:59 61 14 98 BiPAP/CPAP 40 12/10/16 00:01 37.7 66 16 90/68 (75) 96 BiPAP 40 12/09/16 23:59 BiPAP 40 12/09/16 23:01 60 19 105/48 (67) 96 12/09/16 22:01 60 21 116/51 (72) 98 12/09/16 21:01 61 19 95/49 (64) 96 12/09/16 20:03 36.6 68 16 89/49 (62) 99 BiPAP 99 12/09/16 20:00 BiPAP 40 12/09/16 19:57 69 98 40 12/09/16 19:43 70 18 97 BiPAP/CPAP 40 Physical Exam General Appearance: no apparent distress, + obese Eyes: normal inspection, sclerae normal ENT: hearing grossly normal Neck: trachea midline Respiratory/Chest: no respiratory distress, no accessory muscle use, + crackles (at left base) Cardiovascular: regular rate, rhythm, + systolic murmur (3/6 at RUSB), + pertinent finding (trace pitting edema legs bilat) Abdomen: normal bowel sounds, non tender, soft Extremities: no calf tenderness Neurologic/Psychiatric: alert, + depressed affect Skin: warm/dry Laboratory Results Last 24 Hours Test 12/09/16 20:07 12/09/16 23:24 12/10/16 06:26 12/10/16 08:26 Bedside Glucose 90 mg/dl 87 mg/dl 75 mg/dl 85 mg/dl White Blood Count 15.15 K/uL Red Blood Count 3.18 M/uL Hemoglobin 10.3 g/dL Hematocrit 34.6 % Mean Corpuscular Volume 108.8 fL Mean Corpuscular Hemoglobin 32.4 pg Mean Corpuscular Hemoglobin Concent 29.8 g/dl Platelet Count 194 K/uL Mean Platelet Volume 10.6 fL Neutrophils (%) (Auto) 89.9 % Lymphocytes (%) (Auto) 3.0 % Monocytes (%) (Auto) 5.5 % Eosinophils (%) (Auto) 0.8 % Basophils (%) (Auto) 0.1 % Neutrophils # (Auto) 13.62 K/uL Lymphocytes # (Auto) 0.45 K/uL Monocytes # (Auto) 0.84 K/uL Eosinophils # (Auto) 0.12 K/uL Basophils # (Auto) 0.01 K/uL RDW Standard Deviation 70.5 fL RDW Coefficient of Variation 18.1 % Immature Granulocyte % (Auto) 0.7 % Immature Granulocyte # (Auto) 0.11 K/uL Nucleated RBC Absolute Count (auto) 0.14 K/uL Nucleated Red Blood Cells % 0.9 % Sodium Level 135 mmol/L Potassium Level 4.9 mmol/L Chloride Level 97 mmol/L Carbon Dioxide Level 30 mmol/L Anion Gap 8.0 mmol/L Blood Urea Nitrogen 49 mg/dl Creatinine 5.30 mg/dl Est Creatinine Clear Calc Drug Dose 15.3 ml/min Estimated GFR () 12.0 Estimated GFR (Non- 10.3 BUN/Creatinine Ratio 9.2 Random Glucose 79 mg/dl Calcium Level 7.8 mg/dl Magnesium Level 2.4 mg/dl Test 12/10/16 11:05 12/10/16 12:36 12/10/16 16:28 Bedside Glucose 88 mg/dl 90 mg/dl Blood Gas Sample Site R Radial Bedside Blood Gas pH (LAB) 7.37 Bedside Blood Gas pCO2 (LAB) 50 mmHg Bedside Blood Gas pO2 (LAB) 78 mmHg Bedside Blood Gas HCO3 (LAB) 29 meq/L Bedside Blood Gas Total CO2 30 mEq/l Bedside Blood Gas Base Excess (LAB) 3.0 meq/L Bedside Blood Gas O2 Saturation 95.0 % Alberto Test Pass Oxygen Delivery Device Cannula Assessment and Plan 66 y/o male with ESRD on HD, non-small cell lung carcinoma, CAD s/p CABG, AICD, HTN, HLD, DM II, anxiety and GERD who presented with increased dyspnea, hypoxia , and wheezing. Acute metabolic encephalopathy secondary to acute hypercapnic respiratory failure, opioid overdose due to poor metabolism/Acute hypoxic respiratory failure secondary to COPD exacerbation BiPAP used and narcan gtt and had improvement in mental status and hypercapnia, however had increase in pain. Has now decided he wants to be a DNR/DNI and pursue Hospice. No further BiPAP. -will restart morphine IR po for Pain as needed for rib pain from invasion of cancer - oxygen for comfort -Continue nebulizers -dc Prednisone -Continue Levaquin 500 mg PO q48h (renally dosed). Day #5/7 but may stop if not desired by pt Non-small cell lung carcinoma with local invasion into the ribs -Consult oncology, appreciate recs: Locally advanced non-small cell. No evidence of metastasis beyond adjoining or contiguous ribs. Recommend chemotherapy and radiation. But pt does not desire treatment. Would like to enroll in hospice. Further discussion with his PCP tomorrow AM and then will make final decision ESRD on HD--dialysis Wednesday-pt does not desire HD any further- awaiting d/w his trusted PCP tomorrow and then will likely stop HD -Consult nephrology, appreciate recs -Continue folic acid, Sensipar, calcium acetate and Nephrocaps for now Previously Elevated troponin, s/p AICD, s/p CABG, s/p AVR, HTN, HLD, Chronic systolic and diastolic biventricular CHF--stable ECHO: * 1. Mildly dilated LV. Normal LV wall thickness. * 2. Low normal LV function. LVEF 50-55%. Abnormal septal motion consistent with conduction abnormality. Akinesis of true apex. * 3. RV not well visualized. Reduced RV function by TAPSE. * 4. Bioprosthetic aortic valve not well visualized. Mildly elevated transvalvular gradients (PV 3.48 m/s, MG 28). Mild aortic regurgitation. * 5. Mild mitral regurgitation. Mild mitral stenosis. * 6. Grade II diastolic dysfunction. * 7. Mild to moderate pulmonary hypertension. Est PASP 45-50 mmHg. * 8. Compared with prior study on 07/21/2016: Pulmonary hypertension is new. -Left chest pain due to malignant lung mass -Troponin peaked at 0.144, trended down -Continue aspirin 81 mg by mouth daily, atenolol 12.5 mg by mouth daily, amiodarone 100 mg by mouth twice a day, atorvastatin 80 mg by mouth every evening for now but consider stopping if enrolls in Hospice Anxiety--stable -Increased buspirone 5 mg by mouth 3 times a day to 10 mg by mouth 3 times a day. -holding xanax for AMS but may restart ativan if enrolls in Hospice Diabetes mellitus2--now with hypoglycemia. Hemoglobin A1c is 5.1% he essentially no longer has diabetes -Hold glipizide -Insulin sliding scale but not needed -Check BSGs q ac and qhs and will stop if enrolls in Hospice GERD -Continue pantoprazole 40 mg by mouth daily. DVT prophylaxis -SCDs, heparin subcutaneous ordered but patient is refusing-can stop if enrols in Hospice or if pt desires Code Status Changed to DNR/DNI today Dispo Possibly to [facility] with Hospice-will discuss tomorrow
[2016-12-10] MEDS: ATORVASTATIN 40 MG TAB PO SCH (21:40)
[2016-12-11] VITALS (8 sets, daily range): BP systolic 75–108; BP diastolic 51–64; PULSE 64–65; TEMP 36.4–36.7; O2SAT 91–98
[2016-12-11] MEDS: IPRATROPIUM BROMIDE NEB SOLN 0.02% 2.5 ML VIAL INH SCH ×2 (01:57→07:21)
[2016-12-11] MEDS: LEVALBUTEROL 1.25MG/0.5ML NEB INH SCH ×2 (01:57→07:21)
[2016-12-11] MEDS: HEPARIN SOD 5000 UNIT/0.5 ML CARP SQ SCH (06:10)
[2016-12-11] MEDS: CLOTRIMAZOLE 10 MG TROCHE MT SCH ×2 (06:10→11:35)
[2016-12-11] MEDS: ACETAMINOPHEN IV 100 ML IV PRN (06:17)
[2016-12-11] MEDS: CALCIUM ACETATE 667MG GELCAP PO SCH ×2 (07:53→11:33)
[2016-12-11] MEDS: LIDODERM (LIDOCAINE) PATCH 5% TD SCH (07:53)
[2016-12-11] MEDS: NEPHROCAPS PO SCH (07:54)
[2016-12-11] MEDS: PAROXETINE 20 MG TAB PO SCH (07:54)
[2016-12-11] MEDS: PANTOprazole SOD 40 MG TAB PO SCH (07:54)
[2016-12-11] MEDS: GUAIFENESIN 600 MG TABCR PO SCH (07:54)
[2016-12-11] MEDS: AMIODARONE 200 MG TAB PO SCH (07:55)
[2016-12-11] MEDS: ASPIRIN 81 MG ECTAB PO SCH (07:55)
[2016-12-11] MEDS ORDERED: SODIUM CHLORIDE 0.9% 1000ML 1,000 ML IV PRN (08:00)
[2016-12-11] MEDS ORDERED: EPOETIN ALFA INJ 15,000 UNITS in SYRINGE 0 ML IV. SCH (08:00)
[2016-12-11] MEDS ORDERED: HEPARIN SOD (PORCINE) 1000 UNIT/ML 10 ML VIAL IV SCH (08:00)
[2016-12-11] MEDS: INSULIN ASPART 100 UNITS/ML 3 ML PEN SC SCH ×2 (08:30→11:36)
--- NOTE | 2016-12-11 11:21 | NEPHROLOGY PROGRESS NOTE ---
DATE: 12/11/2016 DATE: 12/11/2016 SUBJECTIVE: Mr. Tate apparently made his decision yesterday that he wishes to discontinue all treatments. That includes his dialysis and it includes any consideration of treatment for his lung cancer. His daughters have spoken to him at length about the decision. Although they obviously feel the impending personal loss they respect that decision. I spoke with Mr. Tate at length today about his decision and the opportunity that he could have to change his mind. However, I told him that the time to do so may be limited by any deterioration in his health that may come within the next 24-48 hours. He seemed to understand that. His daughters do point out that the general deterioration in itself that has occurred over the course of the past year. He apparently has been less capable of caring for herself at home and does not seem to have the enjoyment in life that he wanted to. Mr. Tate apparently asked his daughter not to be upset with him regarding the decision. OBJECTIVE: GENERAL: At the current time, Mr. Tate is lying in bed. He was lethargic but easily aroused and answered questions appropriately. We were capable of caring on a reasonable discussion. VITAL SIGNS: He remains afebrile. His blood pressure 94/60, pulse 65 and regular, respiratory rate 20, his pulse ox 91-97% on 4 liters of oxygen via nasal cannula. In general, he was having a number of myoclonic jerks. SKIN: Turgor was normal. He has changes of venous stasis dermatitis but there was no rash otherwise. Skin turgor is normal. There is no obvious lymphadenopathy. HEAD, EYES, EARS, NOSE AND THROAT: All unremarkable. His oral mucous membranes are moist. NECK: Supple. There is no jugular venous distention, carotid bruit or thyromegaly. CHEST: Clear to auscultation, although breath sounds are diminished, particularly on the left side. He has no wheezes, rales or rhonchi. He does have an intermittent loose cough. CARDIAC EXAMINATION: Shows a regular rhythm. S1 and S2 seem normal. I do hear a soft systolic murmur at the base radiating toward the neck. ABDOMEN: Protuberant but nontender, bowel sounds are normal. There is no organomegaly or mass. EXTREMITIES: Show his left forearm AV fistula. He has no lower extremity edema. NEUROLOGIC EXAMINATION: Shows him to be lethargic. Once again, he is having myoclonic jerks. Of note, is the fact that his Narcan drip was discontinued yesterday when he made his decision regarding discontinuation of treatment. ASSESSMENT: Gentleman with end-stage renal disease and known coronary artery disease. He now has an enlarging left chest mass which is a squamous cell carcinoma. He has made the decision that he wishes to discontinue all therapy. I think that his decision is not made necessarily impulsive. He has talked about this before with his daughters at least according to the one daughter that was present today. If he is not dialyzed it is difficult to say how long he would survive. If he is having myoclonic jerks, pain or any evidence of respiratory discomfort it would not be unreasonable to place him on some type of sedative drip. That could be phenobarbital or even morphine under the circumstances. I will leave that decision to the hospitalist as they continue to watch him over the next few days. It is difficult to say how long he can survive without dialysis but I do not think it will be a long time. No other recommendations. We will stop by to look in on him. Certainly his daughters and Mr. Tate were made aware that he can change his decision at any time.
[2016-12-11] MEDS: LEVOFLOXACIN 500 MG TAB PO SCH (11:36)
[2016-12-11] MEDS ORDERED: MoRPHine SULFATE 2 MG/ML CARP IV PRN (12:30)
[2016-12-11] MEDS ORDERED: ATROPINE SULFATE 1% OP SOLN 5 ML BTL SL PRN (12:30)
[2016-12-11] MEDS ORDERED: LORAZEPAM 2 MG/ML 1 ML VIAL IV PRN (12:30)
--- NOTE | 2016-12-11 13:13 | Palliative Care Progress Note ---
Palliative Care Progress Note Date of Service Dec 11, 2016. Subjective Pt evaluation today including: conversation w/ patient, conversation w/ family (Leonor armando), physical exam, conversation w/ bath design sales consultant (Dr. Bowden) Pain: denies at this time PO Intake: none -Patient had a chance to speak with his daughters and Dr. Roberts. -Mr. Tate has made the final decision to withdraw all life-prolonging measures including dialysis and any potential treatment for the lung cancer. -He will be made comfort measures only and transferred out of telemetry today. -He denies any pain at this time. Still experiencing myoclonic jerking, about the same as yesterday. Review of Systems Constitutional: + weakness Respiratory: + shortness of breath (mild) Cardiac: No chest pain Abdomen: No pain, No nausea, No vomiting limited ROS due to patient's condition Objective Vital Signs Date Time Temp Pulse Resp B/P (MAP) Pulse Ox O2 Delivery O2 Flow Rate FiO2 12/11/16 11:50 36.4 64 22 75/51 (59) 98 Nasal Cannula 4.0 12/11/16 07:56 108/64 (79) 12/11/16 07:21 64 18 92 Nasal Cannula 4.0 12/11/16 07:14 36.7 65 20 94/60 (71) 94 Nasal Cannula 4.0 12/11/16 04:00 36.7 16 105/63 (77) 97 Nasal Cannula 4.0 12/11/16 04:00 97 Nasal Cannula 4.0 12/11/16 00:00 36.7 64 18 91/52 (65) 91 Nasal Cannula 4.0 12/11/16 00:00 91 Nasal Cannula 4.0 12/10/16 20:17 36.5 63 18 115/57 (76) 93 Nasal Cannula 4.0 12/10/16 19:40 68 18 96 Nasal Cannula 4.0 12/10/16 15:31 36.7 69 18 93/54 (67) 96 4.0 12/10/16 14:23 68 18 97 Nasal Cannula 4.0 12/10/16 14:19 68 16 116/68 (84) 96 4.0 12/10/16 14:00 62 16 111/69 (83) 100 4.0 12/10/16 13:45 60 20 104/62 (76) 99 4.0 12/10/16 13:28 66 16 100/58 (72) 98 4.0 12/10/16 13:14 64 18 102/68 (79) 100 4.0 Physical Exam General Appearance: no apparent distress, + obese ENT: hearing grossly normal Neck: supple, no JVD Respiratory/Chest: no respiratory distress, no accessory muscle use Cardiovascular: regular rate, rhythm Abdomen: + pertinent finding (obese abdomen) Neurologic/Psychiatric: + pertinent finding (somewhat drowsy/lethargic, but awake and oriented x4) Skin: + diaphoresis Laboratory Results Last 24 Hours Test 12/10/16 16:28 12/10/16 20:53 12/11/16 04:18 12/11/16 06:53 Bedside Glucose 90 mg/dl 86 mg/dl 92 mg/dl 79 mg/dl Test 12/11/16 11:22 12/11/16 11:35 Bedside Glucose 59 mg/dl 105 mg/dl Assessment and Plan Problem list: SOB Pain, left side Weakness Poor appetite Respiratory failure, hypercapnic Squamous cell carcinoma of the lung- 9.8cm mass on left End-stage renal disease on dialysis Goals of care (Z51.5) Palliative care recs: -Patient made himself a DNR yesterday. -Comfort measures only. -No further dialysis or treatment for SCC of lung. -Discontinue all PO medications at patient's request. -Recommend morphine 1-2mg IV Q1h PRN pain or SOB, if frequent doses needed, can start continuous infusion. However, hold off if possible due to end-stage renal disease and his previous response to morphine. -Would order lorazepam 1mg IV PRN anxiety/agitation. Atropine 1% oph soln 4 drops Q1h PRN secretions. -Transfer to [facility] for [facility]. Unlikely to be able to leave the hospital. Patient and family are aware of his limited time left at this point. Thank you again for allowing me to care for Sarabjit and his family. Palliative Performance Scale: 20 % Continued [facility] stay due to: multiple IV medications needed, home environment unsafe for pt Discharge planning: uncertain
--- NOTE | 2016-12-11 22:16 | Death Pronouncement Note ---
Pronouncement Note Date & Time of Dec 11, 2016. 1657 Pronouncement At time of pronouncement the patients pupils were fixed and dilated, there was no spontaneous respiratory effort, no palpable pulse, no audible heart tones, and no response to pain or voice.
--- NOTE | 2016-12-20 23:20 | Death Summary ---
Summary of Admission Date Dec 04, 2016 at 20:03 Date & Time of Dec 11, 2016. 1657 Cause of ESRD on hemodialysis Acute hypercapnic respiratory failure Secondary Diagnoses ESRD on HD Non-small cell lung carcinoma with local invasion into the ribs CAD s/p CABG H/o AVR AICD HTN HLD DM II Anxiety disorder GERD Acute metabolic encephalopathy secondary to acute hypercapnic respiratory failure, opioid overdose due to poor metabolism Acute hypoxic respiratory failure secondary to COPD exacerbation Rib/Bone pain from cancer Elevated troponin Chronic systolic and diastolic biventricular CHF Mild aortic regurgitation. Mild mitral regurgitation Mild mitral stenosis Mild to moderate pulmonary hypertension Hospital Course This patient is a 66 y/o male with ESRD on HD, recently diagnosed non-small cell lung carcinoma, CAD s/p CABG, s/p AVR, AICD, HTN, HLD, DM II, anxiety and GERD who presented with increased dyspnea, hypoxia, and wheezing. He was treated for an acute exacerbation of COPD with steroids, bronchodilators, and Levaquin. He continued on hemodialysis. He was given opioids for his malignant bony rib pain. Consultations were made with both Medical and Radiation Oncology with plans for treatment of his lung CA. Pt developed acute metabolic encephalopathy from hypercapnic respiratory failure from poor metabolism of morphine for pain, requiring BiPAP and eventually a narcan gtt to resolve. After he was completely lucid after reversal of his CO2 narcosis, he experienced significant pain in the ribs again. He clearly stated to multiple providers including myself, as well as to his family, that he did not desire treatment for his lung cancer. He even wanted to completely stop hemodialysis, knowing that this would cause certain in the near future. He and his family were all in agreement for comfort measures only. He was transitioned to comfort measures only and within hours afterwards very peacefully. Copy To Satya Roberts M.D.
== END 2016-12-11 18:20 | disposition expired | DRG 180 ==
LOC: C.EDB 16:04 → C.2T 20:03 → ENRESERV 20:28 → CANRESERV 20:28 → ENRESERV 20:43 → C.4E 12-06 12:57 → ENRESERV 12-09 10:57 → C.MSICU 12-09 11:54 → C.2T 12-10 02:46 → ENRESERV 12-11 12:41 → C.4E 12-11 13:15
PROVIDERS: ADMIT Hospitalist; ATTEND Family Medicine
DX: C34.12 Malignant neoplasm of upper lobe, left bronchus or lung (principal); J96.01 Acute respiratory failure with hypoxia; Z51.5 Encounter for palliative care; J44.1 Chronic obstructive pulmonary disease with (acute) exacerbation; N18.6 End stage renal disease; N25.81 Secondary hyperparathyroidism of renal origin; C79.51 Secondary malignant neoplasm of bone; I50.40 Unspecified combined systolic (congestive) and diastolic (congestive) heart failure; G93.41 Metabolic encephalopathy; J96.02 Acute respiratory failure with hypercapnia; Z99.2 Dependence on renal dialysis; I25.10 Atherosclerotic heart disease of native coronary artery without angina pectoris; E11.21 Type 2 diabetes mellitus with diabetic nephropathy; Z93.2 Ileostomy status; Z95.2 Presence of prosthetic heart valve; I73.9 Peripheral vascular disease, unspecified; F43.10 Post-traumatic stress disorder, unspecified; D64.9 Anemia, unspecified